=== PATIENT | female | born 2000 | race Caucasian/White ===

== ENCOUNTER 2021-11-21 11:39 | Outpatient (CLI) | payer OTHER, SELFPAY ==
--- OUTSIDE RECORDS SUMMARY | 2021-11-21 11:42 | XMS_ITS | Encounter Summary ---
:2000 Author Organization [employer] Address [address] [place] [address] Care Team Providers Name Role Phone Erin Barba MD Primary Care Provider Reason for Visit Reason Comments Ankle Problem Encounter Details Date Type Department Care Team Description 06/25/2019 Telemedicine TRI PT and Ed Pepe Duong [facility], Physical C, PT syndrome type 1 of Therapy [address] [facility] right lower extremity [address] [place], [place] (Prim haz[place] Dx) [address] [address] [place], [place] [address] [phone] Social History Tobacco Use Types Packs/Day Years Used Date Smoking Tobacco: Never Smokeless Tobacco: Never Alcohol Use Standard Drinks/Week Comments Not Currently 0 (1 standard drink = 0.6 oz pure alcoho l) Sex Assigned at Date Recorded Not on file documented as of this encounter Progress Notes Pepe Duong, PT - 06/25/2019 12:30 PM CDT [facility] Video Visit Follow Up This video encounter was completed per patient request. The patient has been notified that this visit will be conducted via video with their physical therapist, as certain health care needs can be provided without an in-person physical exam. Their physical therapist will provide further instructions and programming notes via [employer], an online education and home exercise program platform. Mode of transmission: Flowgram This visit was converted from a clinic visit to a video visit in an effort to reduce patient face time during the COVID-19 crisis. Time service began: 1230 am Time service ended: 1245 pm Patient location: Patient residence Provider location: Provider residence Visit Number: [id number] [facility] Referring Provider: Santa Aguilar MD Diagnosis: CRPS Orders: Evaluate & treat Previously administered PRO's FAAM = 61/84 [place] = 55/100 - high levels of anxiety and depression PSEQ = 38 SUBJECTIVE: Had a difficult week with depression, I wasn't able to do anything OBJECTIVE: none TREATMENT TODAY: Neuromuscular re-education (CPT 50517) x 15 minutes: Mirror therapy - seated DF with left - WB DF lunge forward with mirror - Sliders PF and DF in partial WB - reported some throbbing in right foot with exercise of the right Edcuation on dosage for neuroplastic change - two weeks with high reps 120 reps of the above - will progress if getting recommended dosage in a weeks time Timed Code Treatment Minutes: 15 Total Treatment Minutes: 15 Education/Handouts: Edilma Reed was provided with a summary of recommendations stemming from this telehealth visit, as well as further instructions and home exercises electronically via Nvigen, an online education and home exercise program platform. ASSESSMENT/PLAN: Minimal adherence to treatment plan secondary to depressive symptoms this week. Encouragement given.She is thinking that she is going to put the mirror near her bed in her room so that she is more likely to engage with it. Need: TSK and orebro, pseq EXPECTED FUNCTIONAL OUTCOMES/GOALS: Play soccer, kick ball by June 02 2019 - met Therapist: Pepe Duong, PT 1:02 PM 06/25/2019 documented in this encounter Plan of Treatment Not on filedocumented as of this encounter Visit Diagnoses Diagnosis Complex regional pain syndrome type 1 of right lower extremity - Primary documented in this encounter Care Teams Scenic Artist Relationship Specialty Start Date End Date Erin Barba MD PCP - General Pediatric Medicine 04/07/19 [id number] [address] [place] [id number] documented as of this encounter
--- OUTSIDE RECORDS SUMMARY | 2021-11-21 11:42 | XMS_ITS | Encounter Summary ---
:2000 Author Organization [employer] Address [address] [place] [address]. [place] [address] Care Team Providers Name Role Phone Unavailable Primary Care Provider Unavailable Encounter Details Date Type Department Care Team Description 04/28/2005 Historic Results INTERFACED REPORT Interface, Sofy arias MD Social History Tobacco Use Types Packs/Day Years Used Date Never Assessed Alcohol Habits Answer Date Recorded How often do you have a drink containing alcohol? Never 12/09/2019 How many drinks containing alcohol do you have on a typical Not asked day when you are drinking? How often do you have six or more drinks on one occasion? No t asked Comment: Not asked Stress Answer Date Recorded Do you feel stress - tense, restless, nervous, or To some ex tent 12/09/2019 anxious, or unable to sleep at night because your mind is troubled all the time - these days? Financial Resource Strain Answer Date Recorded How hard is it for you to pay for the very basics like Not h kenny at all 12/09/2019 food, housing, medical care, and heating? Food Insecurity Answer Date Recorded Within the past 12 months, you worried that your food would Never true 12/09/2019 run out before you got money to buy more. Within the past 12 months, the food you bought just didn't N ever true 12/09/2019 last and you didn't have money to get more. Transportation Needs Answer Date Recorded In the past 12 months, has lack of transportation kept you f rom No 12/09/2019 medical appointments or from getting medications? In the past 12 months, has lack of transportation kept you f rom No 12/09/2019 meetings, work, or getting things needed for daily living? 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 documented in this encounter Results (ABNORMAL) Basic metabolic panel (04/28/2005 6:15 AM RACK ROOM WORKER) [facility] gist Method Time Signature Sodium 137 133 - 143 MISYS mmol/L Potassium 4.8 3.4 - 5.3 MISYS mmol/L Chloride 114 (H) 96 - 110 MISYS mmol/L Carbon Dioxide 16 (L) 20 - 32 MISYS mmol/L Glucose 86 60 - 110 MISYS mg/dL Urea Nitrogen 16 5 - 24 MISYS mg/dL Creatinine 0.36 0.20 - MISYS 0.70 mg/dL GFR Estimate GFR not mL/min/1. MISYS calculated, 7m2 patient <16 years old. GFR Estimate If GFR not mL/min/1. MISYS Black calculated, 7m2 patient <16 years old. Calcium 9.0 8.7 - MISYS 10.8 mg/dL Anion Gap 8 6 - 17 MISYS mmol/L Specimen (Source) Anatomical Collection Method Collection Time Re ceived Time Location / / Volume Laterality 04/28/2005 6:15 AM 6 RACK ROOM WORKER Transcripton Interface LAB - BLOOD ORDERABLES Performing Organization Address City/State/ZIP Code Phon e Number MISYS documented in this encounter Visit Diagnoses Not on filedocumented in this encounter
--- OUTSIDE RECORDS SUMMARY | 2021-11-21 11:42 | XMS_ITS | Encounter Summary ---
:2000 Author Organization [employer] Address [address], [place] [address] Care Team Providers Name Role Phone Erin Barba MD Primary Care Provider Reason for Visit Reason Comments IUD Consult Encounter Details Date Type Department Care Team Description 08/02/2020 Office Visit Misha Pennington coun seling and advice for contraceptive management (Primary Dx); Obstetrics/Gynecolog drew Almazan MD Factor 5 Leiden mutation, heterozygous ( [facility]) [address] [place] [address] [place] [phone] [id number] Social History Tobacco Use Types Packs/Day Years Used Date Smoking Tobacco: Never Smokeless Tobacco: Never Alcohol Use Standard Drinks/Week Comments Not Currently 0 (1 standard drink = 0.6 oz pure alcoho l) Sex Assigned at Date Recorded Not on file documented as of this encounter Last Filed Vital Signs Vital Sign Reading Time Taken Comments Blood Pressure 108/71 08/02/2020 8:32 AM CDT Pulse 82 08/02/2020 8:32 AM CDT Temperature - - Respiratory Rate - - Oxygen Saturation - - Inhaled Oxygen Concentration - - Weight 61.2 kg (135 lb) 08/02/2020 8:32 AM CDT Height 157.5 cm (5' 2) 08/02/2020 8:32 AM CDT Body Mass Index 24.69 08/02/2020 8:32 AM CDT documented in this encounter Progress Notes Misha Kiser MD - 08/02/2020 8:30 AM CDT Name: Edilma Reed MR#: [id number] Clinician: Misha Kiser MD Date: 08/02/2020 OFFICE FOOD CRITIC VISIT CHIEF COMPLAINT: IUD condition SUBJECTIVE: Patient is a 19-year-old female G0 amenorrheic on the Mirena IUD who presents today for an IUD consultation. Patient had a Mirena IUD placed in 2015 for heavy menses and it was traumatic for her, both painful with insertion despite nitrous and in the several days after. She has, however, otherwise really liked being on the Mirena without amenorrhea. Patient notes that in 2014 she had two surgeries and following that her periods became heavy and abnormal which resulted in the IUD placement. She is not sexually active. Past Medical History: Diagnosis Date ??? Anxiety ([facility]) ??? Complex regional pain syndrome i of right lower limb 2019 right ankle ??? Depression ([facility]) ??? Factor 5 Leiden mutation, heterozygous ([facility]) Past Surgical History: Procedure Laterality Date ??? ANKLE ARTHROSCOPY Right x2 ??? APPENDECTOMY 2016 Medications: Reviewed and Updated in [employer] Allergies: Reviewed and Updated in [employer] Social: Patient is not sexually active. She attended her freshman year at [employer] all of and then tooklast year off during [facility] [employer]. She will be returning as a sophomore this year. ROS: Pertinent positives as listed above, otherwise complete GI and review of systems is negative. Objective: A rn care transition was offered and patient declined. Heathy appearing female in no acute distress. Vital Signs: BP 108/71 (BP Location: Right Arm, BP Cuff Size: Regular) Pulse 82 Ht 5' 2 (1.575 m) Wt 135 lb (61.2 kg) LMP 04/04/2015 BMI 24.69 kg/m?? ASSESSMENT/PLAN: 1. IUD consult-patient was informed about the new FDA guidelines for the Mirena IUD establishing sixyears for efficacy as opposed to five, therefore patient would not need to have a change in her IUD until next year. I did outline with her a plan for this procedure to include premedication with Cytotec, Xanax and ibuprofen followed by use of it cream prior to removal and insertion. Another option would be to use the smaller Kyleena IUD as opposed to the Mirena. This may not be quite is efficacious in creating amenorrhea however still would be a very good option for her and is FDA approved for fiveyears. 2. Patient states that she actually is homozygous for factor five Leiden, but I do not have the records. She does understand that she is not a candidate for combined hormonal contraception. TT: Total time 30 minutes including chart review, face to face patient time, documentation, and coordination of care. documented in this encounter Plan of Treatment Not on filedocumented as of this encounter Visit Diagnoses Diagnosis General counseling and advice for contra ceptive management - Primary Other general counseling and advice for contraceptive management Factor 5 Leiden mutation, heterozygous ( [facility]) Primary hypercoagulable state documented in this encounter Care Teams Plisse Machine Operator Helper Relationship Specialty Start Date End Date Erin Barba MD PCP - General Pediatric Medicine 04/07/19 [id number] [place] [id number] documented as of this encounter
--- OUTSIDE RECORDS SUMMARY | 2021-11-21 11:42 | XMS_ITS | Encounter Summary ---
:2000 Author Organization [employer] Address [address] [place] [address] Care Team Providers Name Role Phone Erin Barba MD Primary Care Provider Reason for Referral Procedure/Equipment (Routine) - Closed Specialty Diagnoses / Procedures Referred By Contact Refer red To Contact Diagnoses Complex regional pain syndrome i of right lower limb Santa Aguilar APRN, CNP Procedures FL C Arm 20 Pain Management [address] [facility] [place] [address] Referral ID Status Reason Start Date Expiration Date Visits Requ ested Visits Authorized [id number] Closed 02/16/2021 05/18/2022 1 1 [employer]CIAL [employer]IREMENT [employer]AN SPECIALIST Reason for Visit Reason Comments Follow-up Right ankle pain Encounter Details Date Type Department Care Team Description 02/16/2021 Office Visit [facility] Santa Aguilar APRN, DRAWING CHECKER [address] [facility] [place] [id number] Complex regional pain [address] [facility] [address] 1, Chapis Vidal Rn syndrome i of right [place] 5543 1 lower limb (Primary [phone] Dx) Social History Tobacco Use Types Packs/Day Years Used Date Smoking Tobacco: Never Smokeless Tobacco: Never Alcohol Use Standard Drinks/Week Comments Not Currently 0 (1 standard drink = 0.6 oz pure alcoho l) Sex Assigned at Date Recorded Not on file documented as of this encounter Last Filed Vital Signs Vital Sign Reading Time Taken Comments Blood Pressure 108/76 02/16/2021 7:52 AM FINANCIAL RETIREMENT PLAN SPECIALIST Pulse 77 02/16/2021 7:52 AM FINANCIAL RETIREMENT PLAN SPECIALIST Temperature - - Respiratory Rate - - Oxygen Saturation 99% 02/16/2021 7:52 AM FINANCIAL RETIREMENT PLAN SPECIALIST Inhaled Oxygen Concentration - - Weight 54.4 kg (120 lb) 02/16/2021 7:52 AM FINANCIAL RETIREMENT PLAN SPECIALIST Height 157.5 cm (5' 2) 02/16/2021 7:52 AM FINANCIAL RETIREMENT PLAN SPECIALIST Body Mass Index 21.95 02/16/2021 7:52 AM FINANCIAL RETIREMENT PLAN SPECIALIST documented in this encounter Patient Instructions Patient InstructionsSanta Aguilar APRN, CNP - 02/16/2021 7:40 AM FINANCIAL RETIREMENT PLAN SPECIALIST 1.Investigations: None at this time ?? 2. Consults: no new consultations recommended at this time ?? 3. Interventions: You had significant benefit from a lumbar sympathetic nerve block with IV sedation. This treatment alone is not a ???cure?? ; the purpose of the block is to facilitate specialized physical therapy/home exercises ?? 4. Medications: No new medications were prescribed today . 5. Physical Therapy: The patient was made aware that our pain program emphasizes an interdisciplinary approach to comprehensive pain management; at this time, based on the patient???s presentation, physical therapy would likely improve the patient???s pain constellation - PT focused on desensitization, laterality training and range of motion maintenance is the single most likely mean to improve lobsterman outcomes of neuropathic pain. Previous work with [facility] was helpful- I encourage you to restart your home program. At any time if you would like to return to see Pepe, just let me know! 6. Psych: The patient was made aware that our pain center emphasizes an interdisciplinary approach to comprehensive pain management; She was informed that we have access to a pain psychologist, specializing in behavioral techniques to improve pain control . You are working with an established team. 7.. Follow Up: The plan is to completed another sympathetic nerve block N[employer] RETIREMENT PLAN SPECIALIST documented in this encounter Progress Notes Santa Aguilar APRN, AIDA - 02/16/2021 7:40 AM CST Subjective: Thank you for allowing us to continue to participate in the care of your patient, Edilma Reed. She was seen at the [facility] by Santa Aguilar CNP on 02/16/2021. As you know, Edilma Reed is a pleasant 20 y.o. year-old female who we initially evaluated on 11/27/18. At that time, she presented with right foot pain suspect for Complex regional pain syndrome. 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 She last seen in 2019 when she was diagnosed with complex regional pain syndrome of her right ankle and foot. The pain is associated with swelling, bruising, hyperalgesia, weakness, decreased range of motion. She had an initial surgery in 2015 at [facility] treat ???scar tissue?? status post multiple ankle sprains. She did well for approximately 1 yearafter that for surgery. 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 Unfortunately her pain returned. She suffered several injuries to the foot including a bad sprain and a ???chipped bone?? . At one point she was diagnosed with Achilles tendonitis as well as 3 or 4 stress fractures. She wasin and out of a boot. Ultimately she had a subsequent surgery which was similar in nature to her first surgery. This was performed in February of 2018 also at [facility]. Since that time her pain has not subsided. She was seen in the [facility] and ultimately sought a 2nd opinion from Dr. Quinonez. New MRI of her f oot showed no abnormalities. Dr. Quinonez voiced concerns about complex regional pain syndrome and recommended the patient seek consult here in our pain program. When she was last seen in 2019, she had been treated with specialized physical therapy with Pe[facility] Rhoda, medications and a lumbar sympathetic nerve block. She was doing quite well and had significant improvements. She returns today requesting a another sympathetic nerve block. She reports that her symptoms were under good control for a period of time however most recently (within the past year) the pain has started to return. She complains of more stiffness in her ankle thanshe experienced before. She continues to have symptoms of swelling, bruising, sweatiness, pain and other symptoms similar to what she experienced in 2019. Her pain can get up to an 8 with activity painat rest is a 3. Though her for ankle bothers her she still is able to play indoor soccer. Regarding her mental health: She has had a tough couple of years. She needed to take a year off of school due to mental health issues. She has been on many different medications. She states ???I have tried some any medications I can not even remember all of them?? . At this point she feels like thingsare little better and she is somewhat more stable. She continues to work closely with a behavioral health team. Regarding physical therapy: There has been a prolonged period of time since she was last treated by Pepe Duong. When I asked her if she is using the techniques that she learned from them she states ???not really, to be honest?? . She states that she did those exercises regularly for about 6-9 months after she last saw him but stopped doing them regularly. Offered a return visit to see Pepe sanabria but she declined it. Regarding medications: She is not currently using any medications to treat her pain. She does not recall taking gabapentin, does not recall ever filling the prescription for a custom compounded cream Management history and therapy response since we have been treating Edilma Reed includes: 1. Education on complex regional pain syndrome 2. Given a copy of the ???why do I hurt?? work book 3. Recommendation to continue Cymbalta 4. Custom compounding cream-she has not fill this yet 5. Discussion about nighttime gabapentin-she cannot recall her response to this 6. Referral to specialized physical therapy here at [facility] for treatment of Complex regional pain syndrome 7. Lumbar sympathetic nerve block-this was extremely helpful, was performed with IV sedation CURRENT PAIN MEDICATIONS: See below OTHER MEDICATIONS: Outpatient Medications Prior to Visit Medication Sig Note Dispense Refill ??? busPIRone (BUSPAR) 10 MG tablet Take one (1) tablet by mouth every morning, start one week afterstarting quetiapine (Patient not taking: Reported on 02/16/2021) ??? levonorgestrel (MIRENA) 20 MCG/24HR IUD 1 Each by Intrauterine route once. ??? LORazepam (ATIVAN) 1 MG tablet Take one (1) tablet by mouth once a day, as needed for sleep, or half (0.5) tab once daily as needed for anxiety. ??? ondansetron (ZOFRAN-ODT) 4 MG disintegrating tablet DISSOLVE 1 TABLET IN MOUTH EVERY 8 HOURS NEEDED FOR NAUSEA ??? tretinoin (RETIN-A) 0.025 % cream Apply topically every evening. 45 g 11 ??? VIIBRYD 40 MG tablet Take one (1) tablet by mouth every morning ??? clindamycin (CLEOCIN T) 1 % lotion Apply topically daily. (Patient not taking: Reported on 08/02/2020) 60 mL 11 ??? dapsone (ACZONE) 5 % gel Apply topically two times a day. 60 g 3 ??? DULoxetine (CYMBALTA) 60 MG capsule Take 60 mg by mouth. (Patient not taking: Reported on 08/02/2020) 10/29/2018: Taking 120mg daily. ??? Generic Medication (COMPOUNDED CREAM) Meloxicam 1%, baclofen 2%, bupivacaine 1%, clonidine 2%, cyclobenzaprine 2%, gabapentin 6% Apply 1-2 gm topically QID or PRN. (Patient not taking: Reported on 08/02/2020) 120 g 11 ??? spironolactone (ALDACTONE) 100 MG tablet Take 1 Tablet by mouth daily. (Patient not taking: Reported on 02/16/2021) 90 Tablet 0 ??? traZODone (DESYREL) 50 MG tablet TAKE HALF TO ONE TABLET BY MOUTH AT BEDTIME (Patient not taking: Reported on 08/02/2020) 0 Facility-Administered Medications Prior to Visit Medication Dose Route Frequency Provider Last Rate Last Admin ??? fentaNYL (SUBLIMAZE) injection 25-100 mcg 25-100 mcg Intravenous PRN Howard Winston MD 25 mcg at 01/01/19 1433 ??? midazolam (VERSED) injection 1-2 mg 1-2 mg Intravenous PRN Howard Winston MD 1 mg at 01/01/19 1424 PAST MEDICAL AND SURGICAL HISTORY: Reviewed and unchanged from prior visit dating 11/27/18 with Santa Aguilar CNP. SOCIAL AND FAMILY HISTORY: Reviewed and unchanged from prior visit dating 11/27/18 with Santa Aguilar CNP. REVIEW OF SYSTEMS: 4/14 systems reviewed and are negative except where noted in the HPI. Objective: Physical Exam: Blood pressure 108/76, pulse 77, height 1.575 m (5' 2), weight 54.4 kg (120 lb), SpO2 99 %. Estimated body mass index is 21.95 kg/m?? as calculated from the following: Height as of this encounter: 1.575 m (5' 2). Weight as of this encounter: 54.4 kg (120 lb). Physical Exam: General: No apparent distress HEENT: Pupils equal and round, nasopharynx clear, oropharynx clear Resp: Non-labored breathing Heart: Regular rate Abdomen: Non-distended Psych: Appropriate affect and insight, non-pressured speech Skin: No rashes or lesion Review of Interval Labs/Studies: none Assessment: Edilma is a 20 y.o. year-old female with: 1.Right foot pain status post two surgeries The patient meets [place] criteria for complex regionalpain syndrome displaying sensory, vasomotor, motor and sudomotor signs during her exam today, also reports consistent symptoms. The pain is disproportionate to the inciting event- her 2nd surgery occurred in February 2018. MRI does not explain any of her signs and symptoms or identify any abnormalities. At this point no other diagnosis can better explain the signs and symptoms. 2. Insomnia-has had a sleep study 3. Anxiety and depression-under the care of a psychiatrist and psychologist 4. Factor 5 Leiden deficiency heterozygous Plan: 1.Investigations: None at this time ?? 2. Consults: no new consultations recommended at this time ?? 3. Interventions: You had significant benefit from a lumbar sympathetic nerve block with IV sedationin th past. This treatment alone is not a ???cure?? ; the purpose of the block is to facilitate specialized physical therapy/home exercises. A repeat block was ordered ?? 4. Medications: No new medications were prescribed today. We could consider restarting gabapentin inthe future if needed. (She did not recall her response to this medication when we prescribed severalyears ago) 5. Physical Therapy: The patient was made aware that our pain program emphasizes an interdisciplinary approach to comprehensive pain management; at this time, based on the patient???s presentation, physical therapy would likely improve the patient???s pain constellation - PT focused on desensitization, laterality training and range of motion maintenance is the single most likely mean to improve lobsterman outcomes of neuropathic pain. Previous work with Pepe was helpful- I encourage you to restart your home program. At any time if you would like to return to see Pepe, just let me know! (She declined this today). 6. Psych: The patient was made aware that our pain center emphasizes an interdisciplinary approach to comprehensive pain management; She was informed that we have access to a pain psychologist, specializing in behavioral techniques to improve pain control . You are working with an established team. 7.. Follow Up: The plan is to completed another sympathetic nerve block Total time spine on visit 35 minutes including time spent preparing for the visit by reviewing past records, ordering medications ( if applicable), formulating a plan of care, counseling the patient and documenting the visit. ?? NCIAL RETIREMENT PLAN SPECIALIST documented in this encounter Plan of Treatment Not on filedocumented as of this encounter Results FL C Arm 20 Pain Management (03/10/2021 2:46 PM FINANCIAL RETIREMENT PLAN SPECIALIST) Anatomical Region Laterality Modality Radiographic Imaging Specimen (Source) Anatomical Location Collection Method / Collectio n Time Received Time / Laterality Volume Narrative 03/10/2021 4:11 PM FINANCIAL RETIREMENT PLAN SPECIALIST Images obtained during surgical procedure. Santa Aguilar APRN, AIDA RAD [place] documented in this encounter Visit Diagnoses Diagnosis Complex regional pain syndrome i of righ t lower limb - Primary Complex regional pain syndrome i of righ t lower limb documented in this encounter Care Teams Speech Therapy Director Relationship Specialty Start Date End Date Erin Barba MD PCP - General Pediatric Medicine 04/07/19 [id number] [address] [place] [id number] documented as of this encounter
--- OUTSIDE RECORDS SUMMARY | 2021-11-21 11:42 | XMS_ITS | Encounter Summary ---
:2000 Author Organization [facility] Address [address] [place] [address]. [place] [address] Care Team Providers Name Role Phone No Ref-Primary, Physician Primary Care Provider [phone] Reason for Visit Auth/Cert Specialty Diagnoses / Procedures Referred By Contact Refer red To Contact Diagnoses Infected Ankle Infection Septic arthritis of left ankle (H) [address] Orth[facility] Spec Un it [address] [address] Phone: Referral ID Status Reason Start Date Expiration Date Visits Requ ested Visits Authorized [id number] 1 1 Encounter Details Date Type Department Care Team Description 03/08/2018 - Hospital Encounter [facility] Anamika Carr MD [facility] [address] [place], [place] [address] Infection (Primary 03/10/2018 [place] [facility] Alban Gaines MD [facility] [address] [place], [place] [address] Dx) Specialty Unit [address] [address] Social History Tobacco Use Types Packs/Day Years [...] Sign Reading Time Taken Comments Blood Pressure 105/59 03/10/2018 7:36 AM FOOD MIXER Pulse 87 03/10/2018 7:36 AM FOOD MIXER Temperature 36.9 ??C (98.5 ??F) 03/10/2018 7:36 AM FOOD MIXER Respiratory Rate 16 03/10/2018 7:36 AM FOOD MIXER Oxygen Saturation 95% 03/10/2018 7:36 AM FOOD MIXER Inhaled Oxygen Concentration - - Weight - - Height - - Body Mass Index - - documented in this encounter Discharge Summaries Edvin Bowles PA-C - 03/10/2018 10:51 AM CST Admit Date: 03/08/2018 Discharge Date: 03/10/2018 ADMISSION DIAGNOSIS: Right ankle infection. DISCHARGE DIAGNOSIS: Right ankle infection. OPERATIVE PROCEDURE: None. HOSPITAL COURSE: Adán was directly admitted on 03/08/2018 after presenting to urgent care for a draining lateral ankle wound from previous arthroscopic debridement about [address] Gaines. She continued to have drainage from the medial and lateral ankle wounds. This was cleared to somewhat cloudy in appearance, and there was also very significant ecchymoses surrounding the lateral incision. It was determined by the on-call physician, Dr. Negro Carr, that she should be admitted to [facility]. Upon arrival, she was started on IV antibiotics and followed by the Infectious Disease Service and Dr. Naylor. Please see his consult. She started on IV Ancef. She tolerated t his well and was able to discharge home after the incision looked much better after a day or so of rest. She was discharged on hospital day #3 and was able to discharge home on oral medication. After following cultures, Dr. Naylor recommended a 10-day course of cephalexin. No surgical intervention wasneeded. No home IV therapy was needed. Adán will be partial weightbearing in her boot for the next10 days. She will follow up with Dr. Gaines accordingly. No further operative intervention is planned. ALBAN GAINES MD As dictated by VICKY LYNN MT: Name: ADÁN REED MRN: [id number] Account: [id number] : 2000 Admit Date: 03/08/2018 Discharge Date: 03/10/2018 Document: [id number] MIXER documented in this encounter Medications at Time of Discharge Medication Sig Dispensed Refills Start Date End Date DULoxetine (CYMBALTA) 60 Take 60 mg by mouth 0 MG capsule every evening cephALEXin (KEFLEX) 500 Take 1 capsule (500 30 capsule 0 09/201803/20/2018 MG capsuleIndications: mg) by mouth 3 times Infection daily for 10 days propranolol (INDERAL) 10 Take 5 mg by mouth 2 0 12/03/2019 MG tablet times daily documented as of this encounter Progress Notes Charles Naylor MD - 03/10/2018 9:41 AM CST [facility] Infectious Disease Progress Note Assessment and Plan: IMPRESSION: 1. A 17-year-old female with recent right ankle surgery, no hardware, early postop draining lateral wound, question deep or superficial infection, cultures pending, no clinical sepsis. 2. PENICILLIN allergy. RECOMMENDATIONS: 1. Agree 10 day cephalexin po and Follow-up Dr Gaines, I will Follow-up on pending wd cx and adjustif needed as outpt Interval History: no new complaints and doing well; no cp, sob, n/v/d, or abd pain. cx neg so far foot better Medications: ??? ceFAZolin 1 g Intravenous Q8H ??? DULoxetine 60 mg Oral QPM ??? ibuprofen 600 mg Oral TID ??? propranolol 5 mg Oral BID ??? senna-docusate 1 tablet Oral BID Or ??? senna-docusate 2 tablet Oral BID Physical Exam: Blood pressure 105/59, pulse 87, temperature 98.5 ??F (36.9 ??C), temperature source Oral, resp. rate 16, SpO2 95 %. Wt Readings from Last 2 Encounters: No data found for Wt Vital Signs with Ranges Temp: [98.5 ??F (36.9 ??C)-99 ??F (37.2 ??C)] 98.5 ??F (36.9 ??C) Pulse: [86-109] 87 Resp: [16-17] 16 BP: (97-106)/(48-65) 105/59 SpO2: [95 %-97 %] 95 % Constitutional: Awake, alert, cooperative, no apparent distress Lungs: Clear to auscultation bilaterally, no crackles or wheezing Cardiovascular: Regular rate and rhythm, normal S1 and S2, and no murmur noted Abdomen: Normal bowel sounds, soft, non-distended, non-tender Skin: No rashes, no cyanosis, no edema Other: Data: All microbiology laboratory data reviewed. Recent Labs Lab Test 03/08/18 2147 WBC 7.1 HGB 13.0 HCT 37.0 MCV 83 PLT 270 Recent Labs Lab Test 03/09/18 1206 CR 0.95 Recent Labs Lab Test 03/08/18 2147 SED 4 Recent Labs Lab Test 03/08/18 2130 CULT Culture negative monitoring continues Culture negative monitoring continues MIXER Edvin Bowles PA-C - 03/10/2018 6:38 AM CST Adán Sanchez Derek 03/10/2018 Hospital day 2 R ankle infection Doing well. No excessive bleeding Pain well-controlled. Appearance of ankle much improved. No drainage on dressing. Temperatures: Current - Temp: 98.7 ??F (37.1 ??C); Max - Temp Av.6 ??F (37 ??C) Min: 97.8 ??F (36.6 ??C) Max: 99 ??F (37.2 ??C) Pulse range: Pulse Av.3 Min: 65 Max: 109 Blood pressure range: Systolic (24hrs), Av , Min:97 , Max:118 ; Diastolic (24hrs), Av, Min:48, Max:65 CMS: intact to R LE Labs:cultures negative PLAN:DC today home with PO antibiotics. Will wear boot for next 2-3 days to minimize PF/DF at R ankle. Recheck in 1 week in clinic with Dr. Gaines MIXER Edvin Bowles PA-C - 03/09/2018 7:12 AM CST Adán Laura Reed 03/09/2018 Hospital day 1 R ankle infection Doing well. No excessive bleeding Pain well-controlled. No constitutional symptoms. Temperatures: Current - Temp: 98.7 ??F (37.1 ??C); Max - Temp Av.7 ??F (37.1 ??C) Min: 98.7 ??F(37.1 ??C) Max: 98.7 ??F (37.1 ??C) Pulse range: Pulse Av Min: 93 Max: 93 Blood pressure range: Systolic (24hrs), Av , Min:103 , Max:103 ; Diastolic (24hrs), Av, Min:69, Max:69 CMS: intact to R LE Labs:per ID PLAN:ID to see today. Dr. Gaines to see tomorrow AM to determine need for return to OR. Additional problems to be followed by medicine physician MIXER Associated attestation - Alban Gaines MD - 03/10/2018 6:36 AM FOOD MIXER Physician Attestation I agree with the information in this note. Alban Gaines documented in this encounter H&P Notes Negro Carr MD - 03/09/2018 7:23 PM CST Admitted: 03/08/2018 ORTHOPEDIC ADMISSION NOTE CHIEF COMPLAINT: Right ankle drainage and erythema. HISTORY OF PRESENT ILLNESS: Adán is a 17-year-old girl who has had several right ankle scopes withDr. Gaines, most recently approximately 2 weeks ago. She had the sutures removed from her portals 4or 5 days ago and noted over the last couple days that she had drainage coming from the anterolateral portal which was purulent. Her father called me yesterday, sent pictures of her ankle, and I admitted her for intravenous antibiotics. She has been in the hospital now for approximately 18 hours on IVAncef, reports that her ankle is sore, not much better than it was yesterday, but symptoms are not severe and she is comfortable taking acetaminophen and ibuprofen for pain control. She denies other symptoms. She denies fever, chills or sweats. PHYSICAL EXAMINATION: She is resting comfortably in bed, her right ankle wrapped in Eugene bandage. I removed the bandage. She no longer has any drainage coming from the portal in the picture sent yesterday. She does have a margin of erythema around the portal of 3-4 cm. There is minimal swelling of the joint, and she actually has good motion. She does not have popliteal or inguinal lymphadenopathy. ADMISSION LABORATORY VALUES: Include a WBC of 7.1, normal differential. ESR of 4, and CRP of less than 2.9. Cultures: Wound cultures were sent last night prior to the initiation of antibiotics and are negative to date. IMPRESSION: Adán is a 17-year-old girl with right ankle infection. From the appearance of the picture that her father sent yesterday and normal lab values, this may be more of a superficial infectionof the tendon sheath than the actual tibiotalar joint. In any case, I have discussed her care with Dr. Gaines who plans to arthroscopically I and D this tomorrow. We will keep her n.p.o. after midnight. NEGRO CARR MD MT: NTS Name: ADÁN REED MRN: [id number] Account: [id number] : 2000 Admitted: 03/08/2018 Document: [id number] MIXER documented in this encounter Consult Notes Charles Naylor MD - 03/09/2018 10:27 AM CST Consult Date: 03/09/2018 INFECTIOUS DISEASE CONSULTATION REFERRING PHYSICIAN: Dr. Gaines. IMPRESSION: 1. A 17-year-old female with recent right ankle surgery, no hardware, early postop draining lateral wound, question deep or superficial infection, cultures pending, no clinical sepsis. 2. PENICILLIN allergy. RECOMMENDATIONS: 1. Continue Ancef. 2. Await surgical plan. HISTORY OF PRESENT ILLNESS: This 17-year-old female is seen in consultation due to a right ankle infection. The patient is healthy and otherwise well, had a surgical procedure on the ankle on 02/21. Postop over the last few days increasing redness, some minimal pain and drainage from the lateral wound. No major fevers, chills or sweats. PAST MEDICAL HISTORY: No major infection problems historically. ALLERGIES: PENICILLIN, many years ago, rash, has tolerated cephalosporins. SOCIAL AND FAMILY HISTORY: No known resistant pathogens. No recent travel or exposures. MEDICATIONS: Meds as listed. REVIEW OF SYSTEMS: Feels well other than the ankle. PHYSICAL EXAMINATION: GENERAL: The patient looks well. VITAL SIGNS: Normal. HEART AND LUNGS: Unremarkable. ABDOMEN: Soft and nontender. EXTREMITIES: The ankle area is wrapped. No proximal infection. They actually have pictures of it andthere is an open wound area with oozing drainage coming out of the area right over the bone. LABORATORY DATA: Pending. Culture pending. Thank you very much for consultation. I will follow the patient with you. CHARLES NAYLOR MD MT: SHAYNE Name: ADÁN REED MRN: [id number] Account: [id number] : 2000 Consult Date: 03/09/2018 Document: [id number] cc: Alban Gaines MD MIXER Charles Naylor MD - 03/09/2018 10:21 AM CST ID consult dictated IMP 1 17 yo early postop R ankle wd infection. No sepsis' REC ancef , await cx and surgery plan MIXER documented in this encounter Miscellaneous Notes Plan of Care - Disha Prabhakar RN - 03/10/2018 10:51 AM CST Patient denies pain/nausea, refused breakfast, up with aircast boot to BR to void, dischargd home with mother. MIXER Plan of Care - Kamille Hernandez RN - 03/10/2018 5:17 AM CST Pt A/O x4. Some numbness reported in R ankle; EUGENE wrap CDI. VSS on RA, besides a slightly soft BP. Up to the BR with help of mom overnight; Voiding adequately. LR running @ 10 mL/hr. Taking scheduled ibuprofen for pain. NPO since 0000. Pt slept well; continue to monitor. MIXER Plan of Care - Farrah Rangel RN - 03/09/2018 9:26 PM CST A&Ox4. VSS on RA. Bedrest with BR privilege, moving SBA with her mom. Cultures pending. Pain 06/11, manageable, taking scheduled ibuprofen/tylenol. NPO at midnight. IV at TKO, IV abx. Continue to monitor. MIXER Plan of Care - Tanya Hernandez RN - 03/09/2018 1:55 PM CST .A&O x 4, VSS on RA, pain controlled with tyenol, drsg CDI, CMS intact, up with assist of 1, voiding adequately in bathroom, IV infusing, tolerating a regular diet, continue to monitor. MIXER Plan of Care - Rodrick Iglesias RN - 03/09/2018 4:07 AM CST Pt A&O. C/o some numbness in R ankle/foot. Redness marked under dressing. VSS. Up ind in room with father. Denies need for pain medication. Voiding adequately. Continue to monitor. MIXER Pharmacy-Admission Medication History - Jose Morris RPH - 03/08/2018 8:10 PM CST Admission medication history interview status for the 03/08/2018 admission is complete. See [facility] admission navigator for prior to admission medications Medication history source reliability:Good Actions taken by pharmacist (provider contacted, etc):None Additional medication history information not noted on SENIOR MASTER SCHEDULER med list :None Medication reconciliation/reorder completed by provider prior to medication history? No Time spent in this activity: 5 minutes Prior to Admission medications Medication Sig Last Dose Taking? Auth Provider DULoxetine (CYMBALTA) 60 MG capsule Take 60 mg by mouth every evening 03/07/2018 at pm Yes Unknown, Entered By History propranolol (INDERAL) 10 MG tablet Take 5 mg by mouth 2 times daily 03/08/2018 at am Yes Unknown, Entered By History MIXER documented in this encounter Plan of Treatment Not on filedocumented as of this encounter Procedures Procedure Name Priority Date/Time Associated Comments Diagnosis CRP INFLAMMATION Routine 03/09/2018 12:06 Results for this PM FOOD MIXER procedure are i n the results section. CREATININE Routine 03/09/2018 12:06 Results for this PM FOOD MIXER procedure are i n the results section. CBC WITH PLATELETS & Routine 03/08/2018 9:47 PM R esults for this DIFFERENTIAL FOOD MIXER procedure are i n the results section. ERYTHROCYTE Routine 03/08/2018 9:47 PM Results f or this SEDIMENTATION RATE FOOD MIXER procedure are in AUTO the results section. CRP INFLAMMATION Routine 03/08/2018 9:47 PM Resul ts for this FOOD MIXER procedure are i n the results section. WOUND CULTURE AEROBIC Routine 03/08/2018 9:30 PM Infection Results for this BACTERIAL FOOD MIXER procedure are i n the results section. ANAEROBIC BACTERIAL Routine 03/08/2018 9:30 PM Infection Re sults for this CULTURE ROUTINE FOOD MIXER procedure ar e in the results section. documented in this encounter Results Creatinine (03/09/2018 12:06 PM FOOD MIXER) Patholo gist Method Time Signature Creatinine 0.95 0.50 - 03/09/2018 [facility] 1.00 mg/dL 12:32 PM [facility] GFR Estimate GFR not >60 03/09/2018 [facility] calculated, mL/min/{1. 12:32 PM FOOD MIXER [facility] patient <18 73_m2} HOSPITAL years old. Comment: Non GFR Calc Starting 02/18/2018, serum creatinine ba sed estimated GFR (eGFR) will be calculated using the Chronic Kidney Dise [facility] Epidemiology Collaboration (CKD-EPI) equation. GFR Estimate GFR not >60 mL/min/{1.73_m2} 03/09/2018 [facility] If Black calculated, 12:32 PM [facility] patient <18 years HOSPITAL old. Comment: GFR Calc Starting 02/18/2018, serum creatinine ba sed estimated GFR (eGFR) will be calculated using the Chronic Kidney Dise [facility] Epidemiology Collaboration (CKD-EPI) equation. Specimen Anatomical Collection Method Collection Time Receive d Time (Source) Location / / Volume Laterality Blood specimen 03/09/2018 12:06 9 (specimen) PM FOOD MIXER 12:07 PM FOOD MIXER Charles Naylor MD LAB - BLOOD ORDERABLES Performing Organization Address City/State/ZIP Code Phon e Number M [facility] [address] [address] [facility] [address] [address], U [phone] CRP inflammation (03/09/2018 12:06 PM FOOD MIXER) P athologist Signature CRP Inflammation <2.9 0.0 - 8.0 03/09/2018 [place] mg/L 12:32 PM [facility] Specimen Anatomical Collection Method Collection Time Receive d Time (Source) Location / / Volume Laterality Blood specimen 03/09/2018 12:06 9 (specimen) PM FOOD MIXER 12:07 PM FOOD MIXER Charles Naylor MD LAB - BLOOD ORDERABLES Performing Organization Address City/State/ZIP Code Phon e Number M [facility] [address] [place] [address] [phone] [facility] [address] [place] [address], [place] [phone] CBC with platelets differential (03/08/2018 9:47 PM FOOD MIXER) [facility] gist Method Time Signature WBC 7.1 4.0 - 03/08/2018 [facility] 11.0 9:54 PM [facility] 10e9/L [facility] RBC Count 4.44 3.7 - 5.3 03/08/2018 [facility] 10e12/L 9:54 PM [facility] Hemoglobin 13.0 11.7 - 03/08/2018 [facility] 15.7 g/dL 9:54 PM [facility] Hematocrit 37.0 35.0 - 03/08/2018 [facility] 47.0 % 9:54 PM [facility] MCV 83 77 - 100 03/08/2018 [facility] fl 9:54 PM [facility] MCH 29.3 26.5 - 03/08/2018 [facility] 33.0 pg 9:54 PM [facility] MCHC 35.1 31.5 - 03/08/2018 [facility] 36.5 g/dL 9:54 PM [facility] RDW 12.8 10.0 - 03/08/2018 [facility] 15.0 % 9:54 PM [facility] Platelet Count 270 150 - 450 03/08/2018 [facility] 10e9/L 9:54 PM [facility] Diff Method Automated 03/08/2018 [facility] Method 9:59 PM [facility] % Neutrophils 54.2 % 03/08/2018 [facility] 9:59 PM [facility] % Lymphocytes 37.2 % 03/08/2018 [facility] 9:59 PM [facility] % Monocytes 6.9 % 03/08/2018 [facility] 9:59 PM [facility] % Eosinophils 1.0 % 03/08/2018 [facility] 9:59 PM [facility] % Basophils 0.6 % 03/08/2018 [facility] 9:59 PM [facility] % Immature 0.1 % 03/08/2018 [facility] Granulocytes 9:59 PM [facility] Nucleated RBCs 0 0 /100 03/08/2018 [facility] 9:59 PM [facility] Absolute 3.8 1.3 - 7.0 03/08/2018 [facility] Neutrophil 10e9/L 9:59 PM [facility] Absolute 2.6 1.0 - 5.8 03/08/2018 [facility] Lymphocytes 10e9/L 9:59 PM [facility] Absolute 0.5 0.0 - 1.3 03/08/2018 [facility] Monocytes 10e9/L 9:59 PM [facility] Absolute 0.1 0.0 - 0.7 03/08/2018 [facility] Eosinophils 10e9/L 9:59 PM [facility] Absolute 0.0 0.0 - 0.2 03/08/2018 [facility] Basophils 10e9/L 9:59 PM [facility] Abs Immature 0.0 0 - 0.4 03/08/2018 [facility] Granulocytes 10e9/L 9:59 PM [facility] Absolute 0.0 03/08/2018 [facility] Nucleated RBC 9:59 PM [facility] Specimen Anatomical Collection Method Collection Time Receive d Time (Source) Location / / Volume Laterality 03/08/2018 9:47 PM 9 9:51 FOOD MIXER PM FOOD MIXER Negro Carr MD LAB - BLOOD ORDERABLES Performing Organization Address City/State/ZIP Code Phon e Number M [facility] [address] [address] [phone] [facility] [address] [address], [facility] [phone] CRP inflammation (03/08/2018 9:47 PM FOOD MIXER) P athologist Signature CRP Inflammation <2.9 0.0 - 8.0 03/08/2018 [facility] mg/L 10:10 PM [facility] Specimen Anatomical Collection Method Collection Time Receive d Time (Source) Location / / Volume Laterality Blood specimen 03/08/2018 9:47 PM 019 9:51 (specimen) FOOD MIXER PM FOOD MIXER Negro Carr MD LAB - BLOOD ORDERABLES Performing Organization Address City/State/ZIP Code Phon e Number M [facility] [address] [place] [address] [phone] [facility] [address] [place] [address], [place] [phone] Erythrocyte sedimentation rate auto (03/08/2018 9:47 PM FOOD MIXER) P athologist Signature Sed Rate 4 0 - 20 mm/h 03/08/2018 [place] 10:15 PM [facility] Specimen Anatomical Collection Method Collection Time Receive d Time (Source) Location / / Volume Laterality Blood specimen 03/08/2018 9:47 PM 019 9:51 (specimen) FOOD MIXER PM FOOD MIXER Negro Carr MD LAB - BLOOD ORDERABLES Performing Organization Address City/State/ZIP Code Phon e Number M [facility] [address] [place] [address] [phone] [facility] [address] [place] [address], [place] [phone] (ABNORMAL) Anaerobic bacterial culture (03/08/2018 9:30 PM FOOD MIXER) Component Value Ref Test Analysis Performed At Patholo gist Range Method Time Signature Specimen Right Ankle Wound INFECTIOUS Description DISEASE DIAGNOSTIC LABORATORY Special Received in 03/08/2018 [facility] Requests anaerobic tubes. 11:19 PM OF [place] [facility] Culture Micro Light growth 03/16/2018 INFECTIOUS Propionibacterium (Cutibacterium) acnes 4:25 PM DISEASE Susceptibility testing not routinely done FOOD MIXER DIAGNOSTIC (A) LABORATORY Specimen (Source) Anatomical Collection Method Collection Time Re ceived Time Location / / Volume Laterality Structure of 03/08/2018 9:30 03/08/2018 9 :47 right ankle (body PM FOOD MIXER PM FOOD MIXER structure) Comment: Wound Negro Carr MD LAB - MICRO GENERAL ORDERABL ES Performing Organization Address City/State/ZIP Code Phon e Number INFECTIOUS DISEASES [address] [place] [address] DIAGNOSTIC LABORATORY, [facility] INFECTIOUS DISEASE [address] [place] [phone] [place] [address] DIAGNOSTIC LABORATORY [address] (ABNORMAL) Wound Culture Aerobic Bacterial (03/08/2018 9:30 PM FOOD MIXER) Component Value Ref Test Analysis Performed At [facility] gist Range Method Time Signature Specimen Right Ankle Wound INFECTIOUS Description DISEASE DIAGNOSTIC LABORATORY Special Specimen collected 03/08/2018 [facility] Requests in eSwab transport 11:19 PM OF [place] (white cap) [facility] Culture Micro Light growth 03/10/2018 INFECTIOUS Coagulase negative Staphylococcus 1:54 P M FOOD MIXER DISEASE Identification obtained by ALDI-TOF mass spectrometry research use only database. Test DIAGNOSTIC characteristics determined a nd verified by the Infectious Diseases Diagnostic Laboratory LABORATORY ([facility]) [place], [place]. Susceptibility testing not routinely done (A) Specimen (Source) Anatomical Collection Method Collection Time Re ceived Time Location / / Volume Laterality Structure of [place] 03/08/2018 9:30 03/08/2018 9 :47 right ankle (body STRUCTURE / PM FOOD MIXER PM FOOD MIXER structure) Unknown Comment: Wound Negro Carr MD LAB - MICRO GENERAL ORDERABL ES Performing Organization Address City/[facility]/ZIP [facility] Phon e Number INFECTIOUS DISEASES [address] [place] [address] DIAGNOSTIC LABORATORY, [facility] INFECTIOUS DISEASE [address] [place] [id number] DIAGNOSTIC LABORATORY [id number] [place] [address] documented in this encounter Visit Diagnoses Diagnosis Infection - Primary Unspecified infectious and parasitic dis eases Septic arthritis of left ankle (H) Pyogenic arthritis, ankle and foot documented in this encounter Administered Medications Inactive Administered Medications - up to 3 most recent administrations Medication Order MAR Action Action Date Dose Rate Site acetaminophen (TYLENOL) Suppository 650 mg 650 mg, Rectal, EVERY 4 HOURS PRN, mild pain, Starting on 03/08/18 at 0, Alternate ibuprofen (if ordered) with acetaminophen. M aximum acetaminophen dose from all sources = 75 mg/kg/day not to exceed 4 grams/ day. acetaminophen (TYLENOL) tablet 325-650 m g Given 03/09/2018 5:56 AM FOOD MIXER 650 mg 325-650 mg, Oral, EVERY 4 HOURS PRN, mild pain, fever, Starting on 03/08/18 at 2042, Maximum acetaminophen dose from all sources = 75 mg/kg/day not to exceed 4 grams/day. ceFAZolin (ANCEF) 1 g vial to attach to NS 100 New Bag 0 03/10/2018 4:43 AM FOOD MIXER 1 g ml bag for ADULT or 50 ml bag for PEDS Routine, 1 g, Intravenous, EVERY 8 HOURS, First dose on 03/08/18 at 2100, Indications: Possible post-op infection New Bag 03/09/2018 10:10 PM FOOD MIXER 1 g New Bag 03/09/2018 1:34 PM FOOD MIXER 1 g DULoxetine (CYMBALTA) EC capsule 60 mg Given 03/09/2018 10:10 PM FOOD MIXER 60 mg 60 mg, Oral, EVERY EVENING, First dose on 03/09/18 at 2100 HYDROcodone-acetaminophen (NORCO) 5-325 MG per tablet 1-2 tablet 1-2 tablet, Oral, EVERY 4 HOURS PRN, oth er, pain control or improvement in physical function. Hold dose for analgesic side e ffects., Starting on 03/08/18 at 2039, Start with the lowest dose. May adjust d ose by 1 tablet every 4 hours as needed. Hold dose for analgesic side effects. No tify provider to assess for uncontrolled pain or analgesic side effects. Hold whi le on SENIOR TAX ACCOUNTANT or with regular IV opioid dosing. Maximum acetaminophen dose from all sources= 75 mg/kg/ day not to exceed 4 grams HYDROmorphone (PF) (DILAUDID) injection 0.2 mg 0.2 mg, Intravenous, EVERY 2 HOURS PRN, severe pain, o ther, pain control or improvement in physical function. Hold d ose for analgesic side effects., Starting on 03/08/18 at 2039, Notify provider t o assess for uncontrolled pain or analgesic side effects. Hold while on SENIOR TAX ACCOUNTANT or with regular IV opi oid dosing For ordered IV doses 0.1-4 mg give IV Push undiluted. Administer each 2mg over 2-5 minutes. ibuprofen (ADVIL/MOTRIN) tablet 600 mg Given 03/09/2018 10:10 PM FOOD MIXER 600 mg 600 mg, Oral, 3 TIMES DAILY, First dose on 03/08/18 at 2200 Given 03/09/2018 4:17 PM FOOD MIXER 600 mg Given 03/09/2018 8:31 AM FOOD MIXER 600 mg lactated ringers infusion New Bag 03/10/2018 4:43 AM FOOD MIXER 10 mL/hr at 10 mL/hr, Intravenous, CONTINUOUS, Starting on 03/08/18 at 2044, Until 03/10/18 at 1251 New Bag 03/09/2018 4:17 PM FOOD MIXER 10 mL/hr New Bag 03/09/2018 8:31 AM FOOD MIXER 10 mL/hr magnesium hydroxide (MILK OF MAGNESIA) s uspension 30 mL 30 mL, Oral, DAILY PRN, constipation, Starting on 03/08/18 at 2040, Hold for loose stools. This is the second step of a three step constipation treatment. melatonin tablet 1 mg 1 mg, Oral, AT BEDTIME PRN, sleep, Starting on Sat 03/08 at 2036, Do not give unless at least 6 hours of uninterrupted sleep is expe cted. naloxone (NARCAN) injection 0.1-0.4 mg 0.1-0.4 mg, Intravenous, EVERY 2 MIN PRN , opioid reversal, Starting on 03/08/18 at 2036, For respiratory rate LESS than or EQUAL to 8. Partial reversal dose: 0.1 mg titrated q 2 minutes for Analgesia Si de Effects Monitoring Sedation Level of 3 (frequently drowsy, arousable, drifts to sleep during conversation).Full reversal dose: 0.4 mg bolus for Analgesia Side Effects Monitori ng Sedation Level of 4 (somnolent, minimal or no response to st imulation). For ordered IV doses 0.1-2mg give IVP. Give each 0.4mg over 15 second s in emergency situations. For non-emergent situations further dilute in 9mL of NS to facilitate t itration of response. ondansetron (ZOFRAN) injection 4 mg 4 mg, Intravenous, EVERY 6 HOURS PRN, nausea, vomiting , Administer over 2-5 Minutes, Starting on 03/08/18 at 2040, This is Step 1 of nausea and vomiting management. If nausea not resolved in 15 minutes, go t o Step 2 prochlorperazine (COMPAZINE). Irritant. For ordered IV do ses 0.1-4 mg, give IV Push undiluted over 2-5 minutes. ondansetron (ZOFRAN-ODT) ODT tab 4 mg Given 03/10/2018 6:46 AM FOOD MIXER 4 mg 4 mg, Oral, EVERY 6 HOURS PRN, nausea, vomiting, Starting on 03/08/18 at 2040, This is Step 1 of nausea and vomiting management. If nausea not resolved in 15 minutes, go to Step 2 prochlorperazine (COMPAZINE). Do not push through foil backing. Peel back foil and gently remove. Place on tongue immediately. Administration with liquid unnecessary With dry hands, peel back foil backing and gently remove tablet; do not push oral disintegrating tablet through foil backing; administer immediately on tongue and oral disintegrating tablet dissolves in seconds; then swallow with saliva; liquid not required. propranolol (INDERAL) half-tab 5 mg Given 03/09/2018 10:44 PM FOOD MIXER 5 mg 5 mg, Oral, 2 TIMES DAILY, First dose on 03/09/18 at 2100 senna-docusate (SENOKOT-S/PERICOLACE) Given 03/09/2018 8:[address] 1 tablet 8.6-50 MG per tablet 1 tablet 1 tablet, Oral, 2 TIMES DAILY, First dose on 03/08/18 at 2100, If no bowel movement in 24 hours, increase to 2 tablets PO. Hold for loose stools. senna-docusate (SENOKOT-S/PERICOLACE) 8. 6-50 MG per tablet 2 tablet 2 tablet, Oral, 2 TIMES DAILY, First dose on Sat 9 at 2100, Hold for loose stools. documented in this encounter Active and Recently Administered Medications Times are shown in FOOD MIXER. Scheduled Medication Order 03/08/2018 03/09/2018 03/10/2018 ceFAZolin (ANCEF) 1 g vial to attach to NS 100 ml bag for ADULT or 50 ml bag for PEDS 2223 (New Bag - Provider: Rodrick Iglesias, ISAAK) 0403 ( New Bag - Provider: Rodrick Iglesias RN)1334 (New Bag - Provider: Tanya Barr RN)2210 (New Bag - Provider: Farrah Rangel RN) 7283 (New Bag - Provider: Kamille valladares RN) 1 g, Intravenous, EVERY 8 HOURS, First d ose on 03/08/18 at 2100, Indications: Possible post-op infection DULoxetine (CYMBALTA) EC capsule 60 mg 2 210 (Given - Provider: Farrah Rangel RN) 60 mg, Oral, EVERY EVENING, First dose on 03/09/18 at 2100 ibuprofen (ADVIL/MOTRIN) tablet 600 mg 2223 (Given - P rovider: Rodrick Iglesias, ISAAK) 0831 (Given - Provider: Tanya Barr RN)1617 (Given - Provider: Tanya Barr RN)2210 (Given - Provider: Farrah Rangel RN) 0935 (Not Given - Provider: Disha Prabhakar, ISAAK - Reason: Patient/family refused) 600 mg, Oral, 3 TIMES DAILY, First dose on 03/08/18 at 2200 propranolol (INDERAL) half-tab 5 mg 2243 (Given - Provider: Farrah Rangel RN) 0936 (Not Given - Provider: Disha Prabhakar, ISAAK - Reason: Patient/family refused) 5 mg, Oral, 2 TIMES DAILY, First dose on 03/09/18 at 2100 senna-docusate (SENOKOT-S/PERICOLACE) 8. 6-50 MG per tablet 1 tablet(Linked Group 1) 2213 (Canceled Entry - Provider: Rodrick Iglesias RN) 0831 (Given - Provider: Tanya Barr RN)221 (Not Given - Provider: Farrah Rangel RN - Reason: Patient/family refused) 0934 (Not Given - Provider: Disha Prabhakar, ISAAK - Reason: Patient/family refused) 1 tablet, Oral, 2 TIMES DAILY, First dos e on 03/08/18 at 2100, If no bowel movement in 24 hours, increase to 2 tablets PO. Hold for loose stools. senna-docusate (SENOKOT-S/PERICOLACE) 8. 6-50 MG per tablet 2 tablet(Linked Group 1) 221 (See Alternative - Provider: Rodrick Iglesias RN ) 0831 (See Alternative - Provider: Tanya Barr RN)2213 (See Alternative - Provider: Farrah Rangel RN) 0934 (See Alternative - Provider: Disha Prabhakar, ISAAK) 2 tablet, Oral, 2 TIMES DAILY, First dos e on 03/08/18 at 2100, Hold for loose stools. Continuous Medication Order 03/08/2018 03/09/2018 03/10/2018 lactated ringers infusion 2217 (New Bag - Provider: Mikel Lozoya, RN)2224 (New Bag - Provider: Rodrick Iglesias, RN) 0831 (New Bag - Provider: Tanya Barr, RN)1617 (New Bag - Provider: Tanya Barr, RN) 0443 (New Bag - Provider: Kamille Hernandez RN) at 10 mL/hr, Intravenous, CONTINUOUS, St arting 03/08/18 at 2045, Until 03/10/18 at 1251 PRN Medication Order 03/08/2018 03/09/2018 03/10/2018 acetaminophen (TYLENOL) Suppository 650 mg 650 mg, Rectal, EVERY 4 HOURS PRN, mild pain, Starting 03/08/18 at 0, Alternate ibuprofen (if ordered) with acetaminophen. Maximum acetaminophen dose from all sources = 75 mg/kg/day not to exceed 4 grams/day. acetaminophen (TYLENOL) tablet 325-650 mg 0556 (Given - Provider: Maria Antonia Decker, ISAAK) 325-650 mg, Oral, EVERY 4 HOURS PRN, mil d pain, fever, Starting 03/08/18 at 3, Maximum acetaminophen dose from all sources = 75 mg/kg/day not to exceed 4 grams/day. HYDROcodone-acetaminophen (NORCO) 5-325 MG per tablet 1-2 tablet 1-2 tablet, Oral, EVERY 4 HOURS PRN, oth er, pain control or improvement in physical function. Hold dose for analgesic side effects., Starting 03/08/18 at 0, Start with the lowest dose. May adjust d ose by 1 tablet every 4 hours as needed. Hold dose for analgesic side effects. Notify provider to assess for uncontrolled pain or analgesic side effects. Hold while on SENIOR TAX ACCOUNTANT or with regular IV opioid dosi ng. Maximum acetaminophen dose from all sources= 75 mg/kg/day not to exceed 4 grams HYDROmorphone (PF) (DILAUDID) injection 0.2 mg 0.2 mg, Intravenous, EVERY 2 HOURS PRN, Starting 03/08/18 at 2040, Until 03/10/18 at 1251, severe pain, other, pain control or improvement in physical function. Hold dose for analgesic side effects. , Notify provider to assess for uncontro lled pain or analgesic side effects. Hold while on SENIOR TAX ACCOUNTANT or with regular IV opioid dosing For ordered IV doses 0.1-4 mg give IV Push undiluted. Administer each 2mg over 2-5 minutes. magnesium hydroxide (MILK OF MAGNESIA) suspension 30 mL 30 mL, Oral, DAILY PRN, constipation, St arting 03/08/18 at 2040, Hold for loose stools. This is the second step of a three step constipation treatment. melatonin tablet 1 mg 1 mg, Oral, AT BEDTIME PRN, sleep, Start ing 03/08/18 at 2036, Do not give unless at least 6 hours of uninterrupted sleep is expected. naloxone (NARCAN) injection 0.1-0.4 mg 0.1-0.4 mg, Intravenous, EVERY 2 MIN PRN , opioid reversal, Starting 03/08/18 at 2036, For respiratory rate LESS than or EQUAL to 8. Partial reversal dose: 0.1 mg titrated q 2 minutes for Analgesia Ryley e Effects Monitoring Sedation Level of 3 (frequently drowsy, arousable, drifts to sleep during conversation).Full reversal dose: 0.4 mg bolus for Analgesia Side Effects Monitoring Sedation Level of 4 (s omnolent, minimal or no response to stim ulation). For ordered IV doses 0.1-2mg give IVP. Give each 0.4mg over 15 seconds in emergency situations. For non- emergent situations further dilute in 9mL of NS to facilitate titration of response. ondansetron (ZOFRAN) injection 4 mg(Linked Group 2) 0646 (See Alternative - Provider: Kamille Hernandez RN) 4 mg, Intravenous, EVERY 6 HOURS PRN, na usea, vomiting, Administer over 2-5 Minutes, Starting 03/08/18 at 2040, This is Step 1 of nausea and vomiting management. If nausea not resolved in 15 minutes, go to Step 2 prochlorperazine (COMPAZINE ). Irritant. For ordered IV doses 0.1-4 mg, give IV Push undiluted over 2-5 minutes. ondansetron (ZOFRAN-ODT) ODT tab 4 mg(Linked Group 2) 0646 (Given - Provider: Kamille Hernandez RN) 4 mg, Oral, EVERY 6 HOURS PRN, nausea, v omiting, Starting 03/08/18 at 2040, This is Step 1 of nausea and vomiting management. If nausea not resolved in 15 minutes, go to Step 2 prochlorperazine (RAN ZINE). Do not push through foil backing. Peel back foil and gently remove. Place on tongue immediately. Administration with liquid unnecessary With dry hands, peel back foil backing and gently remove ta blet; do not push oral disintegrating ta blet through foil backing; administer immediately on tongue and oral disintegrating tablet dissolves in seconds; then swallow with saliva; liquid not required. Linked Groups Order Group 1: senna-docusate (SENOKOT-S/PERICOLACE) 8.6-50 MG per tablet 1 tabletJump to med 1 tablet, Oral, 2 TIMES DAILY, First dos e on 03/08/18 at 2100
If no bowel movement in 24 hours, increase to 2 tablets PO. Hold for loose stools.
Or senna-docusate (SENOKOT-S/PERICOLACE) 8.6-50 MG per tablet 2 tabletJump to med 2 tablet, Oral, 2 TIMES DAILY, First dos e on 03/08/18 at 2100
Hold for loose stools.
Group 2: ondansetron (ZOFRAN-ODT) ODT tab 4 mgJump to med 4 mg, Oral, EVERY 6 HOURS PRN, nausea, v omiting, Starting 03/08/18 at 2040
This is Step 1 of nausea and vomiting management. If nausea not resolved in 15 minutes, go to Tomás p 2 prochlorperazine (COMPAZINE). Do not push through foil backing. Peel back foil and gently remove. Place on tongue immediately. Administration with liquid unnecessary With dry hands, peel ba ck foil backing and gently remove tablet ; do not push oral disintegrating tablet through foil backing; administer immediately on tongue and oral disintegrating tablet dissolves in seconds; then swallow with saliva; liquid not required.
Or ondansetron (ZOFRAN) injection 4 mgJump to med 4 mg, Intravenous, EVERY 6 HOURS PRN, na usea, vomiting, Administer over 2-5 Minutes, Starting 03/08/18 at 2041
This is Step 1 of nausea and vomiting management. If nausea n ot resolved in 15 minutes, go to Step 2 prochlorperazine (COMPAZINE). Irritant. For ordered IV doses 0.1-4 mg, give IV Push undiluted over 2-5 minutes.
documented in this encounter Care Teams Gastroenterology Nurse Practitioner Relationship Specialty Start Date End Date No Ref-Primary, Physician PCP - General 03/09/18 12/02/19 documented as of this encounter
--- OUTSIDE RECORDS SUMMARY | 2021-11-21 11:42 | XMS_ITS | Encounter Summary ---
:2000 Author Organization [employer] Address [address] [place] [address] Care Team Providers Name Role Phone Erin Barba MD Primary Care Provider Reason for Visit Reason Comments Ankle Problem Encounter Details Date Type Department Care Team Description 06/18/2019 Telemedicine TRI PT and Ed Pepe Duong [facility], Physical C, PT syndrome type 1 of Therapy [address] [facility] right lower extremity [address] [place], [place] (Prim hazel Dx) [address] [address] [place], [place] [address] [phone] Social History Tobacco Use Types Packs/Day Years Used Date Smoking Tobacco: Never Smokeless Tobacco: Never Alcohol Use Standard Drinks/Week Comments Not Currently 0 (1 standard drink = 0.6 oz pure alcoho l) Sex Assigned at Date Recorded Not on file documented as of this encounter Progress Notes Pepe Duong, PT - 06/18/2019 10:00 AM CDT [facility] Video Visit Follow Up This video encounter was completed per patient request. The patient has been notified that this visit will be conducted via video with their physical therapist, as certain health care needs can be provided without an in-person physical exam. Their physical therapist will provide further instructions and programming notes via Stylenda, an online education and home exercise program platform. Mode of transmission: TrueSpan This visit was converted from a clinic visit to a video visit in an effort to reduce patient face time during the COVID-19 crisis. Time service began: 10 am Time service ended: 1040 pm Patient location: Patient residence Provider location: Provider residence Visit Number: [id number] [facility] Referring Provider: Santa Aguilar MD Diagnosis: CRPS Orders: Evaluate & treat Previously administered PRO's FAAM = 61/84 [place] = 55/100 - high levels of anxiety and depression PSEQ = 38 SUBJECTIVE: Ankle continues to do well. She has obtained a mirror and reviewed one of the prep videos that was sent to her She does soccer drills outside and get sore. OBJECTIVE: none TREATMENT TODAY: Neuromuscular re-education (CPT 96057) x 40 minutes: Mirror therapy - left foot only, long sitting DF, PF, iversion, eversion - right foot and left foot, long sitting DF, PF, inv, eversion - seated DF with left - seated DF with right and left - sore with this - WB DF lunge forward with mirror - reports she doesn't want to try the above with the right foot Edcuation on dosage for neuroplastic change - two weeks with high reps 120 reps of the above - will progress if getting recommended dosage in a weeks time Timed Code Treatment Minutes: 40 Total Treatment Minutes: 40 Education/Handouts: Edilma Reed was provided with a summary of recommendations stemming from this telehealth visit, as well as further instructions and home exercises electronically via Stylenda, an online education and home exercise program platform. ASSESSMENT/PLAN: Has made progress with graded motor imagery program along side CBT interventions for movement and physical activity. Initiated engagement with mirror therapy. Starting unilateral with progression in a week. She had notable soreness with active range behind the mirror. Follow up in one week. Need: TSK and orebro, pseq EXPECTED FUNCTIONAL OUTCOMES/GOALS: Play soccer, kick ball by June 02 2019 - met Therapist: Pepe Duong PT 10:04 AM 06/18/2019 documented in this encounter Plan of Treatment Not on filedocumented as of this encounter Visit Diagnoses Diagnosis Complex regional pain syndrome type 1 of right lower extremity - Primary documented in this encounter Care Teams Control Clerk Auditing Relationship Specialty Start Date End Date Erin Barba MD PCP - General Pediatric Medicine 04/07/[address] [place], [place] [address] documented as of this encounter
--- OUTSIDE RECORDS SUMMARY | 2021-11-21 11:42 | XMS_ITS | Encounter Summary ---
:2000 Author Organization [email or web address] Address [address] [place] [address] Care Team Providers Name Role Phone Erin Barba MD Primary Care Provider Reason for Visit Reason Comments HEADACHE,MIGRAINE VISION, BLURRED Encounter Details Date Type Department Care Team Description 06/28/2021 Nurse Triage Careline Unknown, HEADACHE,MIGRAINE; [address] Physician VISION, BLURRED [place], [place] [address] [phone] [place], [place] [id number] Social History Tobacco Use Types Packs/Day Years Used Date Smoking Tobacco: Never Smokeless Tobacco: Never Alcohol Use Standard Drinks/Week Comments Not Currently 0 (1 standard drink = 0.6 oz pure alcoho l) Sex Assigned at Date Recorded Not on file documented as of this encounter Nursing Notes Amara Herr RN - 06/28/2021 2:38 PM CDT Verified patient identity: Yes Situation/Background (brief explanation of current symptoms/situation): Patient reports she has a migraine headache that started on Saturday. Patient reports there has been no improvement. Patient reports today she has developed blurred vision. Patient reports the pain is so bad that it is affecting thecoordination of movement. Reviewed with patient pertinent medical history (as it related to the call): Yes - migraines Reviewed with patient pertinent medications (as they relate to call): Yes Reviewed with patient pertinent allergies (as they relate to call): Yes Reason for Disposition ??? [1] SEVERE headache (e.g., excruciating) AND [2] worst headache of life Answer Assessment - Initial Assessment Questions 1. LOCATION: Where does it hurt? Temples and spreading now to entire face almost like sinus pain but not sinus pain 2. ONSET: When did the headache start? (Minutes, hours or days) Saturday 3. PATTERN: Does the pain come and go, or has it been constant since it started? Constant per patient 4. SEVERITY: How bad is the pain? and What does it keep you from doing? (e.g., Scale 1-10; mild,moderate, or severe) - MILD (1-3): doesn't interfere with normal activities - MODERATE (4-7): interferes with normal activities or awakens from sleep - SEVERE (8-10): excruciating pain, unable to do any normal activities 8/10 currently per patient 5. RECURRENT SYMPTOM: Have you ever had headaches before? If Yes, ask: When was the last time? and What happened that time? Yes, dealing with migraines since age 12 7. MIGRAINE: Have you been diagnosed with migraine headaches? If Yes, ask: Is this headache similar? Yes 8. HEAD INJURY: Has there been any recent injury to the head? No 9. OTHER SYMPTOMS: Do you have any other symptoms? (fever, stiff neck, eye pain, sore throat, coldsymptoms) No 10. : Is there any chance you are ? When was your last menstrual period? No Protocols used: [id number]-YP Based on what you have told me, my recommendation is to be evaluated in the ER. Patient agrees with plan. Care advice given. Patient verbalized understanding. The Careline is available 24/09 for questions or concerns Amara Foster RN Careline 2:44 PM 06/28/2021 Jeanine Crespo - 06/28/2021 2:36 PM CDT Verified patient identity using three identifiers: Yes Caller's relationship to patient: Self Do you get your primary care at a [facility] or [facility] clinic: No/Other Other (Clinic Name)[facility]: No Symptoms Describe the reason for call/symptoms (include location and duration if applicable): Pt is experiencing a migraine and blurred vision Plan:Caller transferred directly to CareLine nurse. documented in this encounter Plan of Treatment Not on filedocumented as of this encounter Visit Diagnoses Not on filedocumented in this encounter Care Teams Control System Manager Relationship Specialty Start Date End Date Erin Barba MD PCP - General Pediatric Medicine 04/07/[address] [place] [address] [place] [id number] documented as of this encounter
--- OUTSIDE RECORDS SUMMARY | 2021-11-21 11:42 | XMS_ITS | Clinical Summary ---
:2000 Author Organization [facility] Address [address] [place] [id number] Care Team Providers Name Role Phone Erin Barba MD Primary Care Provider Allergies Active Allergy Reactions Severity Noted Date Comments Penicillins Rash Low 03/08/2018 Medications Medication Sig Dispensed Refills Start Date End Date Status DULoxetine (CYMBALTA) Take 60 mg by 0 Active 60 MG capsule mouth every evening vilazodone (VIIBRYD) Take 20 mg by 0 12/11/2019 Active 20 MG TABS tablet mouth daily Do not start before December 11, 2019. Active Problems Problem Noted Date Depression with suicidal ideation 12/03/2019 Infection 03/08/2018 Septic arthritis of left ankle 03/08/2018 Social History Tobacco Use Types Packs/Day Years Used Date Never Smoker Smokeless Tobacco: Never Used Tobacco Cessation: Counseling Given: No Alcohol Use Standard Drinks/Week Comments Never 0 (1 standard drink = 0.6 oz pure alcoho l) Alcohol Habits Answer Date Recorded How often [...] Assigned at Date Recorded Not on file Last Filed Vital Signs Vital Sign Reading Time Taken Comments Blood Pressure 111/76 12/07/2019 5:00 PM CDT Pulse 103 12/07/2019 5:00 PM CDT Temperature 37.4 ??C (99.3 ??F) 12/07/2019 5:00 PM CDT Respiratory Rate 16 12/07/2019 5:00 PM CDT Oxygen Saturation 97% 12/07/2019 5:00 PM CDT Inhaled Oxygen Concentration - - Weight 57.3 kg (126 lb 5.2 oz) 12/06/2019 7:00 AM CDT Height 157.5 cm (5' 2) 12/03/2019 11:00 PM CDT Body Mass Index 23.1 12/03/2019 11:00 PM CDT Plan of Treatment Health Maintenance Due Date Last Done Comments ADVANCE CARE PLANNING 2000 ANNUAL REVIEW OF HM ORDERS 2000 CHLAMYDIA SCREENING 2000 DEPRESSION ACTION PLAN 2000 PREVENTIVE CARE VISIT 2000 COVID-19 Vaccine (#1) 03/04/2001 DTAP/TDAP/TD IMMUNIZATION 09/02/2011 10/10/2005, 12/02/2001 , (6 - Tdap) 03/12/2001, Additional history exists HIV SCREENING 09/02/2015 HEPATITIS C SCREENING 2018 PAP 2021 INFLUENZA VACCINE (#1) 2021 01/12/2013, 01/07/2012, 03/10/2011, Additional history exists HEPATITIS B IMMUNIZATION Completed 07/07/2001, 2000, 2000 Pneumococcal Vaccine: Aged Out 12/02/2001, 07/07/2001, No longer eligible Pediatrics (0 to 5 Years) 03/12/2001, Additional based on patient's age and At-Risk Patients (6 to history exists to co mplete this topic 64 Years) IPV IMMUNIZATION Completed 10/10/2005, 07/07/2001, 2000, Additional history exists HPV IMMUNIZATION Completed 10/20/2012, 01/29/2012, 10/08/2011 MENINGITIS IMMUNIZATION Aged Out No longe r eligible based on patient 's age to complete this topic Insurance Payer Benefit Plan / Subscriber ID Effective Phone Address T ype Group Dates [facility] [id number] 2017-Pres [phone] [address] O OPEN ACCESS ent [address] [place] [address] [facility]il[facility] 2000 [address] ([address]) [place] [address] Advance Directives For more information, please contact: [phone] Latest Code Status on File Code Status Date Activated Date Inactivated Comments Full Code 12/03/2019 9:56 PM 12/08/2019 5:56 PM All basic an d advanced life-sustaining interventions are performed as faisal ropriate Code status determined by: Discussion with patient/ legal de cision maker Care Teams Exterminator Relationship Specialty Start Date End Date Erin Barba MD PCP - General Pediatrics 12/03/19 [facility] [id number] [facility] [place] [id number]
--- OUTSIDE RECORDS SUMMARY | 2021-11-21 11:42 | XMS_ITS | Encounter Summary ---
:2000 [facility] [address] [address] Care Team Providers Name Role Phone Erin Barba MD Primary Care Provider Reason for Visit Reason Comments ACNE Currently taking Sprinolacto ne begining of October but forgot to take it with her to college. Encounter Details Date Type Department Care Team Description 11/25/2020 Telemedicine Cinthia Cardoza & Essence Ron Acne vu lgaris ([facility]) Dermatology [address] [facility] [address] [place], [place] [phone] Social History Tobacco Use Types Packs/Day Years Used Date Smoking Tobacco: Never Smokeless Tobacco: Never Alcohol Use Standard Drinks/Week Comments Not Currently 0 (1 standard drink = 0.6 oz pure alcoho l) Sex Assigned at Date Recorded Not on file documented as of this encounter Progress Notes Essence Ron MD - 11/25/2020 4:00 PM CDT History of Present Illness: Edilma Reed is a 20 y.o. female who requests a telehealth visit today for Chief Complaint Patient presents with ??? ACNE Currently taking Sprinolactone begining of October but forgot to take it with her to college. She was last evaluated on 08/31/20 by myself. Previous treatments: Panoxyl wash, clindamycin lotion, spironolactone 50 mg daily, tretinoin 0.025% cream Last visit: spironolactone 100 mg was added No headaches, dizziness, lightheadedness, nausea, vomiting, diarrhea, abdominal pain, breast tenderness, irregular periods, rash. Not really improving. Back and arms never goes away. Jaw gets bad every week or so. Past Medical History: Problem List None Medications: The patient has a current medication list which includes the following prescription(s): clindamycin,duloxetine, compounded cream, levonorgestrel, lorazepam, ondansetron, spironolactone, trazodone, tretinoin, and viibryd, and the following Facility-Administered Medications: fentanyl and midazolam. Allergies: The patient is allergic to amoxicillin and penicillins. Physical Examination: General: Well-appearing female, in no distress, alert and oriented. Areas examined: face, back, ches Pertinent findings: acneiform papules, do not appear deep in the photos. Exam otherwise was normal. Assessment and Plan: 1. Acne vulgaris-failing spironolactone, clindamycin, tretinoin. The spironolactone 100mg hasn't been helpful, even with the dose increase. -continue spironolactone. Offered to increase dose, but she would prefer to stay at this dose now. -discussed doxycycline, declined for today because she already has stomach problems. -stop the clindamycin and stop BPO -apply dapsone 5% gel BID, do not use with BPO, can turn skin orange. . Follow up: Return to clinic in 3 months, sooner for new concerns. This visit was conducted via 2-way audio-video in conjunction with review of digital images in [employer]. Location of clinician: home Location of patient: home Sandee Granados RN - 11/25/2020 4:00 PM CDT Patient is scheduled. documented in this encounter Nursing Notes Lili Valente MA - 11/25/2020 4:00 PM CDT The prior authorization for dapsone gel has been approved , beginning 10-31-20 through .Pharmacy has has been notified.. Lili Valente MA documented in this encounter Plan of Treatment Not on filedocumented as of this encounter Visit Diagnoses Diagnosis Acne vulgaris - Primary Other acne documented in this encounter Care Teams Oral Health Therapist Relationship Specialty Start Date End Date Erin Barba MD PCP - General Pediatric Medicine 04/07/[id number] [place] [address] [place] [id number] documented as of this encounter
--- OUTSIDE RECORDS SUMMARY | 2021-11-21 11:42 | XMS_ITS | Clinical Summary ---
:2000 [facility] Address [address], [place] [address] Care Team Providers Name Role Phone Erin Barba MD Primary Care Provider Source Comments You are receiving this document as you are listed as the primary care provider,follow-up provider, or the patient has been referred to you for consultation.This is in compliance with the Medicare and Medicaid EHR Incentive Program,which states Providers who transition their patient to another setting of careor provider of care or refers their patient to another provider of care shouldprovide summarycare record for each transition of care or referral. MR Presta Allergies Active Allergy Reactions Severity Noted Date Comments Amoxicillin Medium 07/15/2011 PN: macular devonte h Penicillins Rash Low 03/08/2018 Medications Medication Sig Dispensed Refills Start Date End Date Status levonorgestrel 1 Each by 0 Activ e (MIRENA) 20 MCG/24HR Intrauterine route IUD once. VIIBRYD 40 MG tablet Take one (1) tablet 0 1 Active by mouth every morning ondansetron DISSOLVE 1 TABLET 0 06/04/2020 Active (ZOFRAN-ODT) 4 MG IN MOUTH EVERY 8 disintegrating tablet HOURS NEEDED FOR NAUSEA LORazepam (ATIVAN) 1 Take one (1) tablet 0 1 Active MG tablet by mouth once a day, as needed for sleep, or half (0.5) tab once daily as needed for anxiety. tretinoin (RETIN-A) Apply topically 45 g 11 08/31/2020 Active 0.025 % cream every evening. busPIRone (BUSPAR) 10 Take one (1) tablet 0 12/02/19 21 Active MG tablet by mouth every morning, start one week after starting quetiapine Hospital, Clinic, or Other Ordered Dose Route Frequency Start Date End Date Status Facility Administered Medication fentaNYL (SUBLIMAZE) 25 - 100 mcg IV PRN 01/01/2019 Active injection 25-100 mcgIndications: Complex regional pain syndrome type 1 of right lower extremity midazolam (VERSED) injection 1 - 2 mg IV PRN 01/01/2019 Active 1-2 mgIndications: Complex regional pain syndrome type 1 of right lower extremity Active Problems Problem Noted Date Complex regional pain syndrome i of right lower limb 0 08/02/2020 Overview: 2019 - Right ankle Prolonged QT interval 08/02/2020 Factor 5 Leiden mutation, heterozygous Depression Anxiety Immunizations Name Administration Dates Next Due H1n1 Miv Sanofi 3+ Yr (Injected) 02/08/2009, 01/06/2009 Influenza LAIV (Nasal, 2-49 yrs) 12/24/2008 Social History Tobacco Use Types Packs/Day Years Used Date Smoking Tobacco: Never Smokeless Tobacco: Never Alcohol Use Standard Drinks/Week Comments Not Currently 0 (1 standard drink = 0.6 oz pure alcoho l) Sex Assigned at Date Recorded Not on file Last Filed Vital Signs Vital Sign Reading Time Taken Comments Blood Pressure 100/65 03/10/2021 3:00 PM BLAST FURNACE KEEPER Pulse 84 03/10/2021 3:00 PM BLAST F[employer]NACE KEEPER Temperature 35.9 ??C (96.6 ??F) 03/10/2021 2:06 PM BLAST FURNACE KEEPER Respiratory Rate 16 03/10/2021 3:00 PM BLAST FURNACE KEEPER Oxygen Saturation 95% 03/10/2021 3:00 PM BLAST FURNACE KEEPER Inhaled Oxygen Concentration - - Weight 54.4 kg (120 lb) 03/10/2021 2:06 PM BLAST FURNACE KEEPER Height 157.5 cm (5' 2) 03/10/2021 2:06 PM BLAST FURNACE KEEPER Body Mass Index 21.95 03/10/2021 2:06 PM BLAST FURNACE KEEPER Plan of Treatment Health Maintenance Due Date Last Done Comments Cervical Cancer Screening 2000 Due Chlamydia 2000 Hep C Screening (Preventive 2000 Services) HepB (1) 2000 COVID-19 Vaccine (#1) 03/04/2001 HIV Screening (Preventive 2016 Services) Adult Preventive Visit 2018 DTaP/Tdap/Td (7 - Tdap) 10/07/2021 10/08/2011, 10/10/2005, 12/02/2001, Additional history exists Influenza (#1) 2021 01/15/2020, 01/12/2013, 01/07/2012, Additional history exists Zoster/Shingles (1 of 2) 2050 Pneumococcal Aged Out 12/02/2001, 07/07/2001, No longe r eligible 03/12/2001, Additional based on patient's age history exists to complete this topic HepA Completed 09/29/2008, 10/24/2006 HPV Vaccine Completed 10/20/2012, 01/29/2012, 10/08/2011 MCV4 Completed 12/11/2016, 10/08/2011 Hib Aged Out No longer eligib le based on patient 's age to complete this topic IPV (Polio) Aged Out No longer eligib le based on patient 's age to complete this topic Insurance Payer Benefit Plan / Subscriber ID Effective Dates Phone Addre ss Type [facility] PHARMAJET FULLY [id number] 2017-Present Commercial INSURED Edilma Reed Personal/Family Self 2000 [address] ([address]) [place] [id number] Care Teams Vendor Representatives Relationship Specialty Start Date End Date Erin Barba MD PCP - General Pediatric Medicine 04/07/19 [address] [place] [id number]
--- OUTSIDE RECORDS SUMMARY | 2021-11-21 11:42 | XMS_ITS | Encounter Summary ---
:2000 Author Organization [facility] Address [address] [place] [address] Care Team Providers Name Role Phone Erin Barba MD Primary Care Provider Reason for Visit Reason Comments Ankle Problem Encounter Details Date Type Department Care Team Description 07/03/2019 Telemedicine TRI PT and Ed Pepe Duong [facility], Physical C, PT syndrome type 1 of Therapy [address] [facility] right lower extremity [address] [place], [place] (Prim [place] Dx) [address] [address] [place], [place] [address] [phone] Social History Tobacco Use Types Packs/Day Years Used Date Smoking Tobacco: Never Smokeless Tobacco: Never Alcohol Use Standard Drinks/Week Comments Not Currently 0 (1 standard drink = 0.6 oz pure alcoho l) Sex Assigned at Date Recorded Not on file documented as of this encounter Progress Notes Pepe Duong PT - 07/03/2019 2:00 PM CDT [facility] [place] [facility] Video Visit Follow Up This video encounter was completed per patient request. The patient has been notified that this visit will be conducted via video with their physical therapist, as certain health care needs can be provided without an in-person physical exam. Their physical therapist will provide further instructions and programming notes via [employer], an online education and home exercise program platform. Mode of transmission: [employer] This visit was converted from a clinic visit to a video visit in an effort to reduce patient face time during the COVID-19 crisis. Time service began: 205 am Time service ended: 235 pm Patient location: Patient residence Provider location: Provider residence Visit Number: [id number] [facility] Referring Provider: Santa Aguilar MD Diagnosis: CRPS Orders: Evaluate & treat Previously administered PRO's FAAM = 61/84 [place] = 55/100 - high levels of anxiety and depression PSEQ = 38 SUBJECTIVE: Able to do more this week. 80-120 reps of mirror work each day. Started off feeling uncomfortable about some of the foot movements. She feels a throb on the right when watching the left move and is okay with more. More noticeable is this detached feeling she expresses about her right foot. On further questioning she agrees with the idea that she actually doesn't like the right foot. OBJECTIVE: none TREATMENT TODAY: Neuromuscular re-education (CPT 14098) x 30 minutes: Mirror therapy Left only - seated DF with left - WB DF lunge forward with mirror - Sliders PF and DF in partial WB - weight bearing inversion - DF with toe curl - PF with toe lift Right and left - Sliders PF and DF moving right and left Edcuation on dosage for neuroplastic change - two weeks with high reps 120 reps of the above - will progress if getting recommended dosage in a weeks time - gradually adding in context and more reps Timed Code Treatment Minutes: 30 Total Treatment Minutes: 30 Education/Handouts: Edilma Reed was provided with a summary of recommendations stemming from this telehealth visit, as well as further instructions and home exercises electronically via [employer], an online education and home exercise program platform. ASSESSMENT/PLAN: Increased adherence to her mirror program. Today she expressed that it clicked, she was able to see and feel the movement of her right foot when using the left to move in the mirror. She felt positive about this. Encouraged increasing reps and more complicated movements. Need: TSK and orebro, pseq EXPECTED FUNCTIONAL OUTCOMES/GOALS: Play soccer, kick ball by June 02 2019 - met Therapist: Pepe Duong, PT 2:58 PM 07/03/2019 documented in this encounter Plan of Treatment Not on filedocumented as of this encounter Visit Diagnoses Diagnosis Complex regional pain syndrome type 1 of right lower extremity - Primary documented in this encounter Care Teams Contact Acid Plant Operator Relationship Specialty Start Date End Date Erin Barba MD PCP - General Pediatric Medicine 04/07/19 [address] [place] [address] documented as of this encounter
--- OUTSIDE RECORDS SUMMARY | 2021-11-21 11:42 | XMS_ITS | Encounter Summary ---
:2000 Author Organization [email or web address] Address [address] [place] [address] Care Team Providers Name Role Phone Erin Barba MD Primary Care Provider Reason for Referral (Routine) - New Request Specialty Diagnoses / Procedures Referred By Contact Refer red To Contact Diagnoses Complex regional pain syndrome i of right lower limb Howard Winston MD Procedures Sedation Fentanyl [address] [place], [place] [address] Referral ID Status Reason Start Date Expiration Date Visits V isits Requested Authorized [id number] New Request 03/10/2021 06/09/2022 1 1 MA CUTTING MACHINE OPERATOR (Routine) - New Request Specialty Diagnoses / Procedures Referred By Contact Refer red To Contact Diagnoses Complex regional pain syndrome i of right lower limb Howard Winston MD Procedures Sedation Midazolam [address] [place], [place] [address] Referral ID Status Reason Start Date Expiration Date Visits V isits Requested Authorized [id number] New Request 03/10/2021 06/09/2022 1 1 MA CUTTING MACHINE OPERATOR Reason for Visit Reason Comments Procedure Procedure/Equipment (Routine) - Closed Specialty Diagnoses / Procedures Referred By Contact Refer red To Contact Diagnoses Complex regional pain syndrome i of right lower limb Santa Aguilar, SUPPLY ASSISTANT, BEAN VINER Procedures FL C Arm 20 Pain Management [address] [place], [place] [address] Referral ID Status Reason Start Date Expiration Date Visits Requ ested Visits Authorized [id number] Closed 02/16/2021 05/18/2022 1 1 Encounter Details Date Type Department Care Team Description 03/10/2021 Procedure Visit [facility] Santa Aguilar, SUPPLY ASSISTANT, BEAN VINER [address] [place] [id number] Procedure [address] Howard Winston MD [address] [place] [id number] [place] [address] 3, Chapis Vidal Rn [phone] Social History Tobacco Use Types Packs/Day Years Used Date Smoking Tobacco: Never Smokeless Tobacco: Never Alcohol Use Standard Drinks/Week Comments Not Currently 0 (1 standard drink = 0.6 oz pure alcoho l) Sex Assigned at Date Recorded Not on file documented as of this encounter Last Filed Vital Signs Vital Sign Reading Time Taken Comments Blood Pressure 100/65 03/10/2021 3:00 PM PLASMA CUTTING MACHINE OPERATOR Pulse 84 03/10/2021 3:00 PM PLASMA CUTTING MACHINE OPERATOR Temperature 35.9 ??C (96.6 ??F) 03/10/2021 2:06 PM PLASMA CUTTING MACHINE OPERATOR Respiratory Rate 16 03/10/2021 3:00 PM PLASMA CUTTING MACHINE OPERATOR Oxygen Saturation 95% 03/10/2021 3:00 PM PLASMA CUTTING MACHINE OPERATOR Inhaled Oxygen Concentration - - Weight 54.4 kg (120 lb) 03/10/2021 2:06 PM PLASMA CUTTING MACHINE OPERATOR Height 157.5 cm (5' 2) 03/10/2021 2:06 PM PLASMA CUTTING MACHINE OPERATOR Body Mass Index 21.95 03/10/2021 2:06 PM PLASMA CUTTING MACHINE OPERATOR documented in this encounter Patient Instructions Patient InstructionsZuly Steen RN - 03/10/2021 1:50 PM CST FOLLOW UP PLAN: Please follow up with Santa Aguilar MICROCOMPUTER SUPPORT SPECIALIST at the [facility] in 10-14 days; call [phone] to schedule an appointment if you do not already have one. HOME INSTRUCTIONS FOLLOWING SEDATION: The medication you received today may cause dizziness, poor motor coordination, and/or prolonged drowsiness. We recommend the followin. Rest and light activity, as tolerated, for the remainder of the day. 2. Do NOT drink any alcoholic beverages for [address] or operate equipment that requires attention and concentration for the remainder of the day. 4. You may resume your normal diet when you feel like eating again. 5. If you become nauseated, drink clear liquids until you are feeling better. 6. Do not make important decisions or sign legal documents for the remainder of the day. 7. A responsible adult MUST accompany you home. For questions about sedation, recovery, side effects or other non-urgent concerns, call the [facility] Nurse Line from 8am-4pm at [phone] Call 911 or go to the nearest Emergency Department if you experience: Fever Chest pain Progressive extremity weakness Difficult maintaining consciousness Loss of bowel or bladder control Shortness of breath Any other medical emergency Lumbar Sympathetic Block Post-Procedure Instructions: ?? Rest today, you may resume your normal activities tomorrow (Physical Therapy & patient care coordinator can also be resumed next day). ?? Refrain from driving until tomorrow (Local anesthetic near the spine has the potential to make you weak or slow your reaction time) ?? Apply ice to site (20 minutes on/ 20 minutes off) for the next 48 hours if you experience any soreness or pain. ?? No heat to site for next 48 hours (car seat warmers, heating pads, electric blankets, etc) ?? No tub baths, pools, hot tubs or lakes for 2 days. You may shower. ?? Resume your regular diet and medications ?? One or more band-aids have been applied to the injection site(s). Please leave on today; you may remove them in the morning. If they fall off, no need to replace. ?? If you experience shortness of breath, pain when breathing, or severe swelling, perineal numbness, loss of bowel or bladder control, or progressive extremity weakness that does not resolve in 6 hours notify the doctor. If it is after normal clinic hours (8a-4p), go to the nearest emergency room for evaluation. ?? You may experience the following symptoms which are NORMAL ?? up to 6 hours after your injection: ?? Warmth ?? Tingling ?? Heaviness ?? Numbness If the symptoms last more than 12 hours, call the doctor Dr. Howard Winston MD Interventional Pain Physician and Anesthesiologist Please contact the Pain Nurse ([phone]) for all medical/procedural questions regarding your care at the [facility] Please contact our Cooperative Education Director ([phone]) for all administrative/scheduling questions related to the [facility] Medication Requests: ?? Prescriptions requiring refills must be requested from the prescribing physician. If Dr. Winston prescribed your medication, call the number above. If any other physician prescribed your medication, please contact his or her office to discuss. MA CUTTING MACHINE OPERATOR documented in this encounter Progress Notes Florence Pete RN - 03/10/2021 1:50 PM CST Patient here for LSB procedure. Patient rates pain in right ankle, 4/10 at rest, 9/10 with activity.Verified NPO status. Pre-op teaching completed, patient verbalizes understanding. Confirmed pt has industrial tractor driver home. Consent per MD. Pre temps Left foot 25.4 Right foot 26.3 MA CUTTING MACHINE OPERATOR Marilyn Romano RN - 03/10/2021 1:50 PM CST Sedation times: [id number] MA CUTTING MACHINE OPERATOR Zuly Steen RN - 03/10/2021 1:50 PM CST Patient tolerated procedure well, vital signs stable. Post-procedure pain level 0/10 at rest, 0/10 with activity. Discharge instructions given (written & verbal review), patient verbalized understanding. Patient discharged via ambulatory with industrial tractor driver. Post Temps Right - 31.8C Left - 23.8C MA CUTTING MACHINE OPERATOR documented in this encounter Procedure Notes Howard Winston MD - 03/10/2021 1:50 PM CST Procedure note Lumbar Sympathetic Block Procedure Date: 03/10/2021 Edilma Reed Date of : 2000 PREOPERATIVE DIAGNOSIS: ICD-10-CM 1. Complex regional pain syndrome i of right lower limb G90.521 FL C Arm 20 Pain Management POCT urine sodium chloride 0.9% infusion midazolam (VERSED) injection 1-6 mg fentaNYL (SUBLIMAZE) injection 25-100 mcg POSTOPERATIVE DIAGNOSIS: Same. OPERATION PERFORMED: Lumbar Sympathetic Block, Right, at the Level of L3, Under Fluoroscopic Guidance Interventionalist: Howard Winston MD IV SEDATION #1: Midazolam: 2mg IV SEDATION #2 Fentanyl: 100 mcg ESTIMATED BLOOD LOSS: None FLUIDS: 100mL, 0.9% Sodium Chloride FLUOROSCOPY WAS USED. TOTAL SEDATION TIME: 9726-0368. COMPLICATIONS: None INDICATIONS FOR PROCEDURE: This is a 20 y.o. year old female with a clinical picture consistent with Complex Regional Pain Syndrome/Intractable Neuropathic Pain of the RLE. PROCEDURE AND FINDINGS: The patient was greeted in the pre procedure holding area. The risks, benefits and alternatives to the procedure were again reviewed with the patient and written informed consent was placed in the chart. The patient was confirmed to be NPO, and to have an accompanying adult industrial tractor driver. The patient was taken to the procedure room and positioned prone on the fluoroscopy table. Prior to the procedure a time out was completed, verifying correct patient, procedure, site, positioning, and implants and/or special equipment. Routine monitors were applied including EKG leads, blood pressure c uff, and pulse oximetry. Then an AP view photographer helper film was taken to identify the correct level. The skin was prepped with chlorhexidine and draped in the usual sterile fashion. The skin and subcutaneous tissue overlying the target at the L3 level were anesthetized using a 25-gauge 1.5-inch needle with 1%preservative- free lidocaine for a total volume of 4mL. Ipsilateral oblique fluoroscopic view was utiilized to bring the right L3 transverse process into the plane of the L3 vertebral body. Then a 22-gauge 7- inch Quincke spinal needle was advanced obliquelyunder fluoroscopic guidance in this ipsilateral oblique view to the Right anterolateral margin of the L3 vertebral body, inferior to the Right L3 transverse process. The fluoroscopy view was changed toa lateral view and the needle position was confirmed to be outside the foramen and near the anteriorsurface of the L3 vertebral body. I then attached a flushed 20-inch length of low-volume microbore tubing to the needle hub to minimize any further needle movement or introduction of air. About 2 mls of [id number]-[id number] 300 dye from a 10cc vial was instilled in an AP view under DSA imaging to verify adequate spread, the absence of intravascular dye uptake, and no evidence of intrathecal uptake. A lateral view under DSA imaging was also used confirming adequate spread, and the absence of intravascular or intrathecal spread. After further negative aspiration, 9mL 0.5% Ropivacaine with 100mcg of clonidine was injected, in 3mL increments to observe for complications of intravascular injection. There were no complications. The needle was restyletted and removed. Needle sites were cleaned and dressed appropriately. The patient was carefully escorted to the recovery room where they were monitored for a brief periodof time. The patient tolerated the procedure well and was discharged home, with a industrial tractor driver, in stable condition with post procedural instructions. Prior to the procedure, the patient reported a pain score of 4/10 at rest and 9/10 with activity. Shortly before discharge, we noted a pain score of 0/10 at rest and 0/10 with activity. TEMPERATURES PreOperative Left Foot: 25.4 C Right: 26.3 C PostOperative Left Foot: 23.8 C Right: 31.8 C Temperature evaluation, and flushing of the Right foot indicated an adequate sympathectomy. MA CUTTING MACHINE OPERATOR documented in this encounter Plan of Treatment Not on filedocumented as of this encounter Procedures Procedure Name Priority Date/Time Associated Comments Diagnosis FL C ARM 20 PAIN Routine 03/10/2021 2:46 PM Complex regional R esults for this MANAGEMENT PLASMA CUTTING MACHINE OPERATOR pain syndrome i of procedure are in right lower limb the results section. POCT URINE Routine 03/10/2021 2:17 PM Complex region al Results for this PLASMA CUTTING MACHINE OPERATOR pain syndrome i of procedure are in right lower limb the results section. documented in this encounter Results FL C Arm 20 Pain Management (03/10/2021 2:46 PM PLASMA CUTTING MACHINE OPERATOR) Anatomical Region Laterality Modality Radiographic Imaging Specimen (Source) Anatomical Location Collection Method / Collectio n Time Received Time / Laterality Volume Narrative 03/10/2021 4:11 PM PLASMA CUTTING MACHINE OPERATOR Images obtained during surgical procedure. Santa Aguilar APRN, CNP RAD FL POCT urine (03/10/2021 2:17 PM PLASMA CUTTING MACHINE OPERATOR) [facility] gist Method Time Signature Urine Negative Negative POCT Test - POC Control Line Yes POCT Present, Clear Background - Internal control Cartridge Lot# [id number] POCT Specimen (Source) Anatomical Collection Method Collection Time Re ceived Time Location / / Volume Laterality Urine 03/10/2021 2:17 PM PLASMA CUTTING MACHINE OPERATOR Santa Aguilar APRN, CNP ET POINT OF CARE TEST ENTER/ EDIT ORDERABLES Performing Organization Address City/State/ZIP Code Phon e Number POCT documented in this encounter Visit Diagnoses Diagnosis Complex regional pain syndrome i of righ t lower limb documented in this encounter Administered Medications Inactive Administered Medications - up to 3 most recent administrations Medication Order MAR Action Action Date Dose Rate Site fentaNYL (SUBLIMAZE) injection Given 03/10/2021 2:34 PM PLASMA CUTTING MACHINE OPERATOR 50 m cg 25-100 mcg 25-100 mcg, Intravenous, Q2MIN PRN, Pain, Sedation, Procedure, Starting on Sat03/10/21 at 1458, Until Sat03/10/21 at 1829 Given 03/10/2021 2:28 PM PLASMA CUTTING MACHINE OPERATOR 50 mcg midazolam (VERSED) injection 1-6 mg Given 03/10/2021 2:30 PM PLASMA CUTTING MACHINE OPERATOR 1 mg 1-6 mg, Intravenous, PRN, Sedation, Starting on Sat03/10/21 at 1458, Until Sat03/10/21 at 1829 Given 03/10/2021 2:28 PM PLASMA CUTTING MACHINE OPERATOR 1 mg sodium chloride 0.9% infusion Started 03/10/2021 2:25 PM PLASMA CUTTING MACHINE OPERATOR 75 mL/hr Intravenous, at 75 mL/hr, CONTINUOUS, Starting on Sat03/10/21 at 1515 documented in this encounter Care Teams Chief Operator Relationship Specialty Start Date End Date Erin Barba MD PCP - General Pediatric Medicine 04/07/19 [address] [place] [address] documented as of this encounter
--- OUTSIDE RECORDS SUMMARY | 2021-11-21 11:42 | XMS_ITS | Encounter Summary ---
:2000 Author Organization [facility] Address [facility] [place] [address] Care Team Providers Name Role Phone Unavailable Primary Care Provider Unavailable Reason for Visit Auth/Cert Specialty Diagnoses / Procedures Referred By Contact Refer red To Contact Diagnoses Infected Ankle Infection Septic arthritis of left ankle (H) Sh [address] Orth[address] Un it [address] [place] [phone] Phone: Referral ID Status Reason Start Date Expiration Date Visits Requ ested Visits Authorized [id number] 1 1 Encounter Details Date Type Department Care Team Description 03/08/2018 Emergency [facility] Alexei Neville, Emergency Dept [address] [facility] [place] [id number] [phone] [place] [id number] (Wo rk) Social History Tobacco Use Types Packs/Day Years [...] on file documented as of this encounter Medications at Time of Discharge [...] times daily documented as of this encounter Plan of Treatment Not on filedocumented as of this encounter Visit Diagnoses Not on filedocumented in this encounter Administered Medications Inactive Administered Medications - up to 3 most recent administrations Medication Order MAR Action Action Date Dose Rate Site acetaminophen (TYLENOL) tablet Given 03/09/2018 5:56 AM ACCESSORIES REPAIRER 650 mg 325-650 mg 325-650 mg, Oral, EVERY 4 HOURS PRN, mild pain, fever, Starting on 03/08/18 at 2042, Maximum acetaminophen dose from all sources = 75 mg/kg/day not to exceed 4 grams/day. ceFAZolin (ANCEF) 1 g vial to attach to NS 100 New Bag 0 03/10/2018 4:43 AM ACCESSORIES REPAIRER 1 g ml bag for ADULT or 50 ml bag for PEDS Routine, 1 g, Intravenous, EVERY 8 HOURS, First dose on 03/08/18 at 2100, Indications: Possible post-op infection New Bag 03/09/2018 10:10 PM ACCESSORIES REPAIRER 1 g New Bag 03/09/2018 1:34 PM ACCESSORIES REPAIRER 1 g ibuprofen (ADVIL/MOTRIN) tablet 600 mg Given 03/09/2018 10:10 PM ACCESSORIES REPAIRER 600 mg 600 mg, Oral, 3 TIMES DAILY, First dose on 03/08/18 at 2200 Given 03/09/2018 4:17 PM ACCESSORIES REPAIRER 600 mg Given 03/09/2018 8:31 AM ACCESSORIES REPAIRER 600 mg lactated ringers infusion New Bag 03/10/2018 4:43 AM ACCESSORIES REPAIRER 10 mL/hr at 10 mL/hr, Intravenous, CONTINUOUS, Starting on 03/08/18 at 2045, Until 03/10/18 at 1251 New Bag 03/09/2018 4:17 PM ACCESSORIES REPAIRER 10 mL/hr New Bag 03/09/2018 8:31 AM ACCESSORIES REPAIRER 10 mL/hr ondansetron (ZOFRAN-ODT) ODT tab 4 mg Given 03/10/2018 6:46 AM ACCESSORIES REPAIRER 4 mg 4 mg, Oral, EVERY 6 [...] then swallow with saliva; liquid not required. senna-docusate (SENOKOT-S/PERICOLACE) Given 03/09/2018 8:[address] 1 tablet 8.6-50 MG per tablet 1 tablet 1 tablet, Oral, 2 TIMES DAILY, First dose on 03/08/18 at 2100, If no bowel movement in 24 hours, increase to 2 tablets PO. Hold for loose stools. documented in this encounter Active and Recently Administered Medications Times are shown in ACCESSORIES REPAIRER. Scheduled Medication Order 03/06/2018 03/07/2018 03/08/2018 ceFAZolin (ANCEF) 1 g vial to attach to NS 100 ml bag for ADULT or 50 ml bag for PEDS (CANCELED) 2223 (New Bag - Prov ider: Rodrick Iglesias RN) 1 g, Intravenous, EVERY 8 HOURS, First d ose on 03/08/18 at 2100, Indications: Possible post-op infection ibuprofen (ADVIL/MOTRIN) tablet 600 mg (CANCELED) 2224 (Given - Provider: Rodrick Iglesias RN) 600 mg, Oral, 3 TIMES DAILY, First dose on 03/08/18 at 2200 Continuous Medication Order 03/06/2018 03/07/2018 03/08/2018 lactated ringers infusion (CANCELED) 2217 (New Bag - Provider: Josesito Lozoya RN)2224 (New Bag - Provider: Rodrick Iglesias RN) at 10 mL/hr, Intravenous, CONTINUOUS, St arting 03/08/18 at 2045, Until 03/10/18 at 1251 documented in this encounter
--- OUTSIDE RECORDS SUMMARY | 2021-11-21 11:42 | XMS_ITS | Encounter Summary ---
:2000 Author Organization [facility] Address [address] [place] [address] Care Team Providers Name Role Phone Erin Barba MD Primary Care Provider Reason for Visit Reason Comments Post Visit Follow Up Phone Call Encounter Details Date Type Department Care Team Description 03/13/2021 Telephone [facility] Khloe Alvraado, Post Visit Follow Up [address] [facility] RN Phone Call [place], [place] [address] Social History Tobacco Use Types Packs/Day Years [...] on filedocumented in this encounter Care Teams Learning Analyst Relationship Specialty Start Date End Date Erin Barba MD PCP - General Pediatric Medicine 04/07/19 [address] [place] [address] documented as of this encounter
--- OUTSIDE RECORDS SUMMARY | 2021-11-21 11:42 | XMS_ITS | Encounter Summary ---
:2000 Author Organization [facility] Address [address], [place] [address] Care Team Providers Name Role Phone Erin Barba MD Primary Care Provider Reason for Visit Reason Comments ACNE Encounter Details Date Type Department Care Team Description 08/31/2020 Office Visit Cinthia Cardoza & Essence Ron Acne vu lgar[facility] ([facility]) Dermatology [address] [facility] [address] [place], [place] [phone] Social History Tobacco Use Types Packs/Day Years Used Date Smoking Tobacco: Never Smokeless Tobacco: Never Alcohol Use Standard Drinks/Week Comments Not Currently 0 (1 standard drink = 0.6 oz pure alcoho l) Sex Assigned at Date Recorded Not on file documented as of this encounter Patient Instructions Patient InstructionsEssence Ron MD - 08/31/2020 10:00 AM CDT Your Acne Treatment Plan AM Face Wash/Body wash: (Benzoyl Peroxide): For Example: Dino Recommend using benzoyl peroxide (2.5% or 5%) wash in the shower. Apply to affected areas, leave 1-2 minutes, and then rinse. Rinse thoroughly since this can bleach fabric. This can cause irritation. SPIRONOLACTONE: Take _50 mg (0.5 tablet) daily for 2 weeks, if well tolerated, increase to 100 mg (1tablet) daily. If you have been prescribed spironolactone, avoid . Increase fluid intake to prevent feeling dizzy when standing up. You may experience breast tenderness and menstrual irregularity. Watch for signs of hyperkalemia - palpitations, involuntary muscle twitching, muscle fatigue. PM Face wash: Mild cleansers: Neutrogena foaming wash, Neutrogena acne wash, purpose liquid cleanser, Cetaphil cleanser, CeraVe cleanser, Aquanil cleanser, Dove bar soap for sensitive skin or their generics. Let face dry 20 minutes before applying next step. Topical retinoids (tretinoin, adapalene, or tazarotene) Retinoid prescribed for you today: _tretinoin 0.025% cream When to at night ??? Retinoids try to normalize cell turn over and unplug the pores, so they will help with the acne you have and also to prevent new pimples from forming ??? These usually produce some redness and peeling initially ??? Let face dry for 20 minutes after washing with gentle cleanser. ??? Apply a small pea-sized dab thinly and evenly across the face (similar amount for other areas) ??? Apply over any skin that tends to get acne and leave it on (do not rinse off) ??? Start by applying every 3rd night for 1-2 weeks, then every other night for 1-2 weeks, then nightly. Apply at night, as sun light inactivates the active ingredient ??? If you are getting too red/dry/irritated, then decrease frequency to every other or every third day ??? Use oil free moisturizer, either apply on first, or mix in with the medicated cream ??? Retinoids make your skin more sensitive, avoid a facials or WAXING in areas you apply a retinoidand be sure to let your animal groomer know ??? There are many different types and strengths of these prescription acne lotions, so if you are having trouble tolerating yours, paying for yours, etc, please let your clinic know ??? Topical retinoids are very, very good for acne but they do, however, take 6- 8 weeks to work - Give them their chance and keep at it! ??? Acne can get worse initially before it gets better ??? These medications are not to be used in or Moisturizers or makeup: Use products that say non-comedogenic on the bottle. This means they do not clog pores. Creams are more moisturizing than lotions and are ok to use on top of your acne medication to help with dryness. documented in this encounter Progress Notes Essence Ron MD - 08/31/2020 10:00 AM CDT Problem List None Chief Complaint Patient presents with ??? ACNE History of Present Illness: Edilma Reed is a 19 y.o. female who presents to clinic today for acne follow-up. She was last seen in Dermatology on July 10, [address] Camp. Previous treatments: Panoxyl wash, clindamycin lotion, different Last visit: Panoxyl wash, clindamycin lotion, spironolactone 50 mg once daily, tretinoin 0.025% cream She also has a history of keratosis pilaris. She has a history of folliculitis treated with clindamycin and Panoxyl wash. For her acne she is currently just treating with Retin-A and benzyl peroxide wash in the shower. Shenever started the spironolactone because she was already on other medications and not want to take more pills at that time. Acne is still not gone. It is mostly on her back and her shoulders. She will get on her chest as well, but this usually clears up in the summer. She will get acne around the jawline of her face. Currently has an IUD so does not have periods is and is unsure if it flares with hermenstrual cycles. She does get sensitive to the sun with her tretinoin. 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 No strong family history or personal history of breast cancer. No personal history of blood pressureissues or kidney problems. Past Medical History: Reviewed in [facility] Past Medical History: Diagnosis Date ??? Anxiety ([facility]) ??? Complex regional pain syndrome i of right lower limb 2019 right ankle ??? Depression ([facility]) ??? 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 Medications: The patient has a current medication list which includes the following prescription(s): clindamycin,duloxetine, compounded cream, levonorgestrel, lorazepam, ondansetron, spironolactone, trazodone, tretinoin, and viibryd, and the following Facility-Administered Medications: fentanyl and midazolam. Allergies: The patient is allergic to amoxicillin and penicillins. Review of Systems: General/Constitutional: feeling well, no fevers or chills Skin: See HPI for pertinent positives. Physical Examination: General: Well-appearing female, in no distress, alert and oriented. Skin: Areas examined include: DERM FULL BODY: Face, upper chest, back (wearing a sports bra today that is covering part of the back) Findings: She has numerous superficial and deep inflammatory acneiform papules. She also has postinflammatory hyperpigmentation. On the face she has acneiform papules concentrated around the chin and the jawline. Assessment and Plan: 1. Acne vulgaris-not well controlled on the Retin-A Continue Retin-A as able. If it makes her too sensitive in the summer she can try to decrease the use of it if the spironolactone works well for her. Continue Panoxyl. She did not want a refill of the clindamycin today. The following side effects were discussed for spironolactone: Hypotension, hyperkalemia, diarrhea, nausea vomiting, stomach cramps, gynecomastia, menstrual irregularity in women including amenorrhea and/or intermittent spot, headache, lethargy, rash, urticaria. This is category C. No strong family history or personal history of breast cancer. Start at 50 mg daily for 2 weeks. If well tolerated increase to 100 mg daily. She does not need potassium monitoring at this time as she is young and healthy per the article published in [facility] in 2015. Follow up: Return to clinic in 3 months for recheck, sooner for new concerns. documented in this encounter Plan of Treatment Not on filedocumented as of this encounter Visit Diagnoses Diagnosis Acne vulgaris - Primary Other acne documented in this encounter Care Teams Cant Hooker Relationship Specialty Start Date End Date Erin Barba MD PCP - General Pediatric Medicine 04/07/19 [id number] [place] [id number] documented as of this encounter
--- OUTSIDE RECORDS SUMMARY | 2021-11-21 11:42 | XMS_ITS | Encounter Summary ---
:2000 Author Organization [employer] Address [address] [address] Care Team Providers Name Role Phone Erin Barba MD Primary Care Provider Reason for Visit Reason Comments Pre-procedure Call Encounter Details Date Type Department Care Team Description 03/06/2021 Telephone [facility] Luciana Mendoza, Pre-procedure Call [address] [facility] [address] [place], [place] [address] Social History Tobacco Use Types Packs/Day Years Used Date Smoking Tobacco: Never Smokeless Tobacco: Never Alcohol Use Standard Drinks/Week Comments Not Currently 0 (1 standard drink = 0.6 oz pure alcoho l) Sex Assigned at Date Recorded Not on file documented as of this encounter Nursing Notes Luciana Mendoza, RN - 03/06/2021 1:57 PM CST Pre-procedure instructions called to Edilma Reviewed Medical & Surgical History & information below: Arrival Time: 1350 Non sedation pt: Nothing 2 hours prior to procedure, Light meal ok prior to that. Sedation Pt: NPO solids 6 hours prior with Clear liquids up to 2 hours prior to procedure. Nothing for 2 hours prior. Encouraged pt to take prescription medications with a sip of water as usual in am. 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 Reviewed NSAID use with patient: (Cervical NORBERTO) Last Dose na Blood thinners (NORBERTO, Cervical RFA, Stellate, LSB only): Last Dose na INR plan na Currently on Antibiotics? n Flu Shot/Vaccines within 7 days? n Recent Steroid injection? n If Diabetic is patient under good control? Recent BS? na Reminder if female age 50 or less will need a UPT if no hysterectomy. Wear loose fitting, comfortable clothing, no valuables (jewelry, etc). Bring photo ID & medical cards. Patient verbalized understanding of all of the above & questions/concerns answered. ICATION CONSULTANT documented in this encounter Plan of Treatment Not on filedocumented as of this encounter Visit Diagnoses Not on filedocumented in this encounter Care Teams Deicer Repairer Pneumatic Relationship Specialty Start Date End Date Erin Barba MD PCP - General Pediatric Medicine 04/07/19 [id number] [place] [id number] [place] [id number] documented as of this encounter
--- OUTSIDE RECORDS SUMMARY | 2021-11-21 11:42 | XMS_ITS | Encounter Summary ---
:2000 Author Organization [facility] Address [address] [place] [address]. [place] [address] Care Team Providers Name Role Phone Erin Barba MD Primary Care Provider Reason for Referral Med Therapy Management (Routine) Specialty Diagnoses / Procedures Referred By Contact Refer red To Contact [facility] [address] [place] [address] [phone] Referral ID Status Reason Start Date Expiration Date Visits Requ ested Visits Authorized Reason for Visit Reason Comments Mental Health Problem Auth/Cert Specialty Diagnoses / Procedures Referred By Contact Refer red To Contact EMERGENCY MEDICINE Emergency Dept [address] [place] [address] [phone] Phone: Fax: Referral ID Status Reason Start Date Expiration Date Visits Requ ested Visits Authorized [id number] 1 1 Encounter Details Date Type Department Care Team Description 12/03/2019 - [facility] Rajan Osborne MD [address] [place] [address] [place] [address] Depression with suicidal ideation; 12/08/2019 Encounter Clinic Young Adult Edin Goyal MD [address] [place] [phone] Generalized anxiety disorder; Inpatient Mental Contact wit h and (suspected) exposure to other viral communicable diseases [facility] [address] [place] [phone] Social History Tobacco Use Types Packs/Day Years [...] Assigned at Date Recorded Not on file COVID-19 Exposure Response Date Recorded In the last month, have you been in contact with No / Unsure 12/03/2019 4:54 PM CDT someone who was confirmed or suspected to have Coronavirus / COVID-19? documented as of this encounter Last Filed [...] Mass Index 23.1 12/03/2019 11:00 PM CDT documented in this encounter Discharge Summaries Jerica Ly APRN CNS - 12/08/2019 12:32 PM CDT Psychiatric Discharge Summary Adán Reed Age: [age] year old Date of : 2000 Date of Admission: 12/03/2019 Date of Discharge: 12/08/2019 Admitting Physician: Edin Goyal MD Discharge Physician: ADOLFO Matthews (Contact: ) Event Leading to Hospitalization: Adán Reed is a 19-year-old single female with a history of depression, anxiety and suicidal ideation. Medical concerns are septic arthritis of left ankle, complex regional pain syndrome type 1 of right lower extremity, and history of prolonged QT elongation. Patient is presenting with suicidal ideation. She is accompanied by her mother. The patient reports that she used to play soccer until her ankle injury. The patient states she is very frustrated with going through multiple medication changes. She states she does not think that anything medication-ortiz is going to help her. The patient states that she did an intake with [facility] in [place] last Saturday. The patient feels hopeful about this particular treatment. She does not feel hopeful about medications. The patientstates that she is being followed by Grover Valdes at [facility] in [place]. She has been on Cymbalta for him. The plan was to reduce Cymbalta from 120 mg to 60. Currently, she is taking 60 mg. Then, shewas supposed to transition to Viibryd. The patient states that she started taking 10, had increased to 30 and then decided she did not want to take it. The patient states, I was afraid I was going to have side effects and it was not going to work. The patient reports that she is no longer taking propranolol. The patient reports goal for this hospitalization is stabilization with medications. She states today that she wants to retry Viibryd and wants to go to [facility] in [place]. See Admission note by Jerica Ly APRN CNS on 12/04/2019 for additional details. DIagnoses: 1. Major depressive disorder, recurrent, severe without psychosis. 2. General anxiety disorder. 3. Chronic pain. Labs: Results for orders placed or performed during the hospital encounter of 12/03/19 Drug abuse screen 6 urine (chem dep) Status: None Result Value Ref Range Amphetamine Qual Urine Negative NEG^Negative Barbiturates Qual Urine Negative NEG^Negative Benzodiazepine Qual Urine Negative NEG^Negative Cannabinoids Qual Urine Negative NEG^Negative Cocaine Qual Urine Negative NEG^Negative Ethanol Qual Urine Negative NEG^Negative Opiates Qualitative Urine Negative NEG^Negative HCG qualitative urine (UPT) Status: None Result Value Ref Range HCG Qual Urine Negative NEG^Negative Asymptomatic COVID-19 Virus (Coronavirus) by PCR Status: None Specimen: Nasopharyngeal Result Value Ref Range COVID-19 Virus PCR to [facility] - Source Nasopharyngeal COVID-19 Virus PCR to [facility] - Result Test received-See reflex to IDDL test SARS CoV2 (COVID-19) Virus RT-PCR SARS-CoV-2 COVID-19 Virus (Coronavirus) RT-PCR Nasopharyngeal Status: None Specimen: Nasopharyngeal Result Value Ref Range SARS-CoV-2 Virus Specimen Source Nasopharyngeal SARS-CoV-2 PCR Result NEGATIVE SARS-CoV-2 PCR Comment Testing was performed using the Aptima SARS-CoV-2 Assay on the Swift[employer] Instrument System. Additional information about this Emergency Use Authorization (EUA) assay can be found via the Lab Guide. Comprehensive metabolic panel Status: None Result Value Ref Range Sodium 139 133 - 144 mmol/L Potassium 4.0 3.4 - 5.3 mmol/L Chloride 107 96 - 110 mmol/L Carbon Dioxide 28 20 - 32 mmol/L Anion Gap 4 3 - 14 mmol/L Glucose 82 70 - 99 mg/dL Urea Nitrogen 22 7 - 30 mg/dL Creatinine 0.80 0.50 - 1.00 mg/dL GFR Estimate >90 >60 mL/min/[1.73_m2] GFR Estimate If Black >90 >60 mL/min/[1.73_m2] Calcium 9.0 8.5 - 10.1 mg/dL Bilirubin Total 0.7 0.2 - 1.3 mg/dL Albumin 3.9 3.4 - 5.0 g/dL Protein Total 7.1 6.8 - 8.8 g/dL Alkaline Phosphatase 65 40 - 150 U/L ALT 19 0 - 50 U/L AST 13 0 - 35 U/L CBC with platelets differential Status: None Result Value Ref Range WBC 6.7 4.0 - 11.0 10e9/L RBC Count 4.90 3.8 - 5.2 10e12/L Hemoglobin 13.6 11.7 - 15.7 g/dL Hematocrit 42.6 35.0 - 47.0 % MCV 87 78 - 100 fl MCH 27.8 26.5 - 33.0 pg MCHC 31.9 31.5 - 36.5 g/dL RDW 12.3 10.0 - 15.0 % Platelet Count 286 150 - 450 10e9/L Diff Method Automated Method % Neutrophils 52.2 % % Lymphocytes 37.6 % % Monocytes 8.0 % % Eosinophils 1.2 % % Basophils 0.7 % % Immature Granulocytes 0.3 % Nucleated RBCs 0 0 /100 Absolute Neutrophil 3.5 1.6 - 8.3 10e9/L Absolute Lymphocytes 2.5 0.8 - 5.3 10e9/L Absolute Monocytes 0.5 0.0 - 1.3 10e9/L Absolute Eosinophils 0.1 0.0 - 0.7 10e9/L Absolute Basophils 0.1 0.0 - 0.2 10e9/L Abs Immature Granulocytes 0.0 0 - 0.4 10e9/L Absolute Nucleated RBC 0.0 TSH with free T4 reflex and/or T3 as indicated Status: None Result Value Ref Range TSH 1.16 0.40 - 4.00 mU/L Consults: No consultations were requested during this admission Hospital Course: Adán Reed was admitted to [facility] with attending Edin Goyal MD as a voluntary patient. The patient was placed under status 15 (15 minute checks) to ensure patient safety. Patient was tapered form 120 mg of Cymbalta to 60 mg prior to hospitalization. She was started on Viibryd and titrated to 30 mg in May 2019. She stopped Viibryd . She was vague about reason. Patient wanted to restart Viibryd 10 mg . She will continue to work with her outpatient provider on the crosstitration of Cymbalta and Viibryd. Patient denied any side effects. Discussed risks, benefits and side effects of medications with patient. The patient has a history of migraines, right ankle injury with 2 surgeries to remove scar tissue. She suffers from chronic pain, had nerve block in 12/2018. The patient also endorses complex regional pain syndrome type 1 of right lower extremity and has a history of prolonged QT interval. Reviewed admission labs -- unremarkable. HCG is negative. COVID screen is negative. Adán Reed did participate in groups and was visible in the milieu. The patient's symptoms ofsuicidal ideation improved. Patient reported improved mood and denied suicidal ideation. Patient hasprotective factors of seeking out treatment ([facility] with [facility] in [place]) and supportive parents. Discussed treatment with parents on the phone. Adán Reed was released to home into the care of her parents. . At the time of discharge Adán Reed was determined to not be a danger to herself or others. Discharge Medications: Current Discharge Medication List CONTINUE these medications which have NOT CHANGED Details DULoxetine (CYMBALTA) 60 MG capsule Take 60 mg by mouth every evening !! vilazodone (VIIBRYD) 10 MG TABS tablet Take 10 mg by mouth daily !! vilazodone (VIIBRYD) 20 MG TABS tablet Take 20 mg by mouth daily Do not start before December 11, 2019. !! - Potential duplicate medications found. Please discuss with provider. Psychiatric Examination: Appearance: awake, alert and adequately groomed Attitude: cooperative Eye Contact: good Mood: better Affect: appropriate and in normal range Speech: clear, coherent Psychomotor Behavior: no evidence of tardive dyskinesia, dystonia, or tics Thought Process: logical, linear and goal oriented Associations: no loose associations Thought Content: no evidence of suicidal ideation or homicidal ideation Insight: good Judgment: intact Oriented to: time, person, and place Attention Span and Concentration: intact Recent and Remote Memory: intact Language: Able to name objects, Able to repeat phrases and Able to read and write Fund of Knowledge: appropriate Muscle Strength and Tone: normal Gait and Station: Normal Discharge Plan: Behavioral Discharge Planning and Instructions ? Summary: You were admitted on 12/03/2019 due to suicidal ideation and increase in depressive symptoms.?? You were treated by Jerica Ly APRN, CNS and discharged on 12/08/2019 from [facility] to home with parents. ?? Principal Diagnosis: 1. ??Major depressive disorder, recurrent, severe without psychosis. 2. ??General anxiety disorder. 3. ??Chronic pain. ?? Health Care Follow-up Appointments: Medication Management: Date/Time: You have stated that you will schedule a follow up appointment upon discharge Psychiatrist: Grover Valdes Address: [facility]: [address] ?? Individual Therapy: Date/Time: Every Saturday @ 1:00pm Provider: Mariely Jordan [facility] Address: [facility]: [address], [address] [place] [address] ? ?? Partial Hospitalization Program: Date/Time: You have stated that you will follow up with [facility] for a start date and time. Provider: [facility] Address: [facility]. Programming is currently done Virtually ?? Attend all scheduled appointments with your outpatient providers. Call at least 24 hours in advance if you need to reschedule an appointment to ensure continued access to your outpatient providers. Major Treatments, Procedures and Findings: You were provided with: a psychiatric assessment, assessed for medical stability, medication evaluation and/or management and group therapy ?? Symptoms to Report: feeling more aggressive, increased confusion, losing more sleep, mood getting worse or thoughts of suicide ?? Early warning signs can include: increased depression or anxiety sleep disturbances increased thoughts or behaviors of suicide or self-harm increased unusual thinking, such as paranoia or hearing voices ?? Safety and Wellness: Take all medicines as directed. Make no changes unless your doctor suggests them. Follow treatment recommendations. Refrain from alcohol and non-prescribed drugs. Ask your support system to help you reduce your access to items that could harm yourself or others. Items could include: Firearms Medicines (both prescribed and [id number]) Knives and other sharp objects Ropes and like materials Car keys If there is a concern for safety, call 911. If there is a concern for safety, call 911. ?? Resources: Crisis Intervention: 766.178.9276 or 309-106-0290 (TTY: 356.687.9676). Call anytime for help. National [place] on Mental Illness (www.[place].org): 890.485.8619 or 993-471-1540. National Suicide Prevention Line (www.mentalhealthmn.org): 155-901-FBMI (3495) [facility] Crisis (COPE) Response - Adult 725 043-6645 [place] [address] for immediate support and crisis intervention Crisis text line: Text [place] to 703187. Free, confidential, 24/09. ?? [facility]- Acute Psychiatric Services:[phone] Services 24-hour walk-in crisis intervention and treatment of behavioral emergencies. Crisis intervention phone service for assessment, information, and referral for psychiatric emergencies. Treatment of psychiatric emergencies such as acute psychotic conditions, panic states, severe and incapacitating depression, suicidal crisis, danger to others, sudden loss of memory, and situations involving grave mental disability. Community consultation and education on crisis intervention ?? Lifestyle Adjustment: 1. Adjust your lifestyle to get enough sleep, relaxation, exercise and good nutrition. Continue to develop healthy coping skills to decrease stress and promote a healthy lifestyle. 2. Abstain from all substances of abuse. 3. Take medications as prescribed. Please work with your doctor to discuss any concerns you have with your medications or side affects you may be experiencing. 4. Follow up with appointments as scheduled. ?? General Medication Instructions: 1. See your medication sheet(s) for instructions. 2. Take all medicines as directed. Make no changes unless your doctor suggests them. 3. Go to all your doctor visits. 4. Be sure to have all your required lab tests. This way, your medicines can be refilled on time. 5. Do not use any drugs not prescribed by your doctor. ?? The treatment team has appreciated the opportunity to work with you. Adán, please take care and make your recovery a daily recovery. If you have any questions or concerns our unit number is [phone] ?? If you would like to obtain any specific documentation regarding your hospitalization after your discharge, contact [facility] Release of Information/Medical Records: [phone] ? Attestation: The patient has been seen and evaluated by Jerica cornejo APRN CNS on 12/08/2019 Discharge summary time > 30 minutes documented in this encounter Discharge Instructions Discharge InstructionsFlor Moreland LMFT - 12/08/2019 12:58 PM CDT Behavioral Discharge Planning and Instructions Summary: You were admitted on 12/03/2019 due to suicidal ideation and increase in depressive symptoms. You were treated by Jerica Ly APRN, CNS and discharged on 12/08/2019 from [facility] to home with parents. Principal Diagnosis: 1. ??Major depressive disorder, recurrent, severe without psychosis. 2. ??General anxiety disorder. 3. ??Chronic pain. Health Care Follow-up Appointments: Medication Management: Date/Time: You have stated that you will schedule a follow up appointment upon discharge Psychiatrist: Grover Valdes Address: [facility]: [address] Individual Therapy: Date/Time: Every Saturday @ 1:00pm Provider: Mariely Jordan [facility] Address: [facility]: [facility] [address], [address] [place] [address] ? Partial Hospitalization Program: Date/Time: You have stated that you will follow up with [facility] for a start date and time. Provider: [facility] Address: [facility]. Programming is currently done Virtually Attend all scheduled appointments with your outpatient providers. Call at least 24 hours in advance if you need to reschedule an appointment to ensure continued access to your outpatient providers. Major Treatments, Procedures and Findings: You were provided with: a psychiatric assessment, assessed for medical stability, medication evaluation and/or management and group therapy Symptoms to Report: feeling more aggressive, increased confusion, losing more sleep, mood getting worse or thoughts of suicide Early warning signs can include: increased depression or anxiety sleep disturbances increased thoughts or behaviors of suicide or self-harm increased unusual thinking, such as paranoia or hearing voices Safety and Wellness: Take all medicines as directed. Make no changes unless your doctor suggests them. Follow treatment recommendations. Refrain from alcohol and non-prescribed drugs. Ask your support system to help you reduce your access to items that could harm yourself or others. Items could include: Firearms Medicines (both prescribed and [id number]-[id number]) Knives and other sharp objects Ropes and like materials Car keys If there is a concern for safety, call 911. If there is a concern for safety, call 911. Resources: Crisis Intervention: 573.682.4568 or 686-686-6226 (TTY: 792.574.8452). Call anytime for help. National [place] on Mental Illness (www.[place]as.org): 455.834.8257 or 956-262-9106. National Suicide Prevention Line (www.mentalhealthmn.org): 093-111-ZUPE (7557) [facility] Crisis (COPE) Response - Adult 056 469-6572 Text 4 [place] [address] for immediate support and crisis intervention Crisis text line: Text [place] to 144727. Free, confidential, 24/09. [facility]- Acute Psychiatric Services:[phone] Services 24-hour walk-in crisis intervention and treatment of behavioral emergencies. Crisis intervention phone service for assessment, information, and referral for psychiatric emergencies. Treatment of psychiatric emergencies such as acute psychotic conditions, panic states, severe and incapacitating depression, suicidal crisis, danger to others, sudden loss of memory, and situations involving grave mental disability. Community consultation and education on crisis intervention Lifestyle Adjustment: 1. Adjust your lifestyle to get enough sleep, relaxation, exercise and good nutrition. Continue to develop healthy coping skills to decrease stress and promote a healthy lifestyle. 2. Abstain from all substances of abuse. 3. Take medications as prescribed. Please work with your doctor to discuss any concerns you have with your medications or side affects you may be experiencing. 4. Follow up with appointments as scheduled. General Medication Instructions: 1. See your medication sheet(s) for instructions. 2. Take all medicines as directed. Make no changes unless your doctor suggests them. 3. Go to all your doctor visits. 4. Be sure to have all your required lab tests. This way, your medicines can be refilled on time. 5. Do not use any drugs not prescribed by your doctor. The treatment team has appreciated the opportunity to work with you. Adán, please take care and make your recovery a daily recovery. If you have any questions or concerns our unit number is [phone] If you would like to obtain any specific documentation regarding your hospitalization after your discharge, contact [facility] Release of Information/Medical Records: [phone] documented in this encounter Medications at Time of Discharge Medication Sig Dispensed Refills Start Date End Date DULoxetine (CYMBALTA) 60 Take 60 mg by mouth 0 MG capsule every evening vilazodone (VIIBRYD) 20 Take 20 mg by mouth 0 11/2019 MG TABS tablet daily Do not start before December 11, 2019. vilazodone (VIIBRYD) 10 Take 10 mg by mouth 0 04/201912/10/2019 MG TABS tablet daily documented as of this encounter Progress Notes Flor Moreland LMFT - 12/08/2019 2:51 PM CDT Work Completed: Attended team. Met with pt to discuss discharge. Pt reported that she will follow upwith her psychiatrist and start date at [facility] when she gets home. Pt reported she see's a therapist every Saturday at 1:00pm. CTC completed AVS. Discharge plan or goal: Home with [facility] and outpatient therapy/medication management. Barriers to discharge: None. Pt is discharging at 4pm today. Alva Parekh RN - 12/08/2019 2:41 PM CDT Patient acknowledged understanding of discharge instructions and follow-up. Transportation home will be with her dad. Cecelia Horton - 12/08/2019 12:41 PM CDT Behavioral Health Orange Picker Machine Operator Note Behavioral Health Orange Picker Machine Operator Spirituality Group Note UNIT [address] [place] Name: Adán Reed Date of : 2000 Age: [age] year old Patient attended Orange Picker Machine Operator-led group, which included discussion of spirituality, coping with illness and building resilience. Patient attended group for 1.0 hrs. patient minimally participated, but was respectful to the group process. [place]. Evaluation Manager Pager: [phone] Eyad Hendrickson - 12/07/2019 10:40 PM CDT 12/07/19 2200 Therapeutic Recreation Type of Intervention structured groups Activity game Response Participates, initiates socially appropriate Hours 1 Pt participated in Therapeutic Recreation group with focus on leisure participation, communication skills, and critical thinking. Engaged and focused in the group recreational activity via a group game. Pt was a full participant throughout the entire duration of group. Appropriately shared sense of humor with peers during group and appeared to brighten with social interaction. After the group concluded, pt took a turn guessing from the hardest category of the game, that wasn't chosen throughout the group. Manoj Guy RN - 12/07/2019 8:45 PM CDT Patient was visible on the milieu and interacted appropriately with peers and staff. She was calm, pleasant and cooperative with a full range affect. Patient denied SI telling scientific technical writer I made a safety pledge and said that she feels much better in terms of depression;rated her depression as 3/10 saying that it's always in the background and anxiety as 2/10. Denies auditory and visual hallucinations and racing thoughts. Attended group activities, ate meals and snacks and took prescribed medications. No maladaptive behaviors or safety concerns observed or reported. Jerica Ly APRN CNS - 12/07/2019 4:06 PM CDT [facility], [facility] Progress Note Interim History: The patient's care was discussed with the treatment team during the daily team meeting and/or staff's chart notes were reviewed. Staff report patient is present in the milieu. Psychiatric symptoms and interventions: Patient had a good weekend. Patient started Viibryd on Saturday. She does not have any side effects. Patient 's parents report she stopped this medication when going from 20 mg to 30 mg. Patient has experienced side effects from other medications in the past. Asked patient to work on a safety plan. Discussed safety plan, treatment and medications with parents. Medical: The patient has a history of migraines, right ankle injury with 2 surgeries to remove scar tissue. She suffers from chronic pain, had nerve block in 12/2018. The patient also endorses complex regional pain syndrome type 1 of right lower extremity and has a history of prolonged QT interval. Reviewed admission labs -- unremarkable. HCG is negative. COVID screen is negative. Behavioral/psychological/social: Encouraged patient to attend therapeutic hospital programming as tolerated. Medications: ??? DULoxetine 60 mg Oral QPM ??? vilazodone 10 mg Oral Daily Allergies: Allergies Allergen Reactions ??? Penicillins Rash Labs: No results found for this or any previous visit (from the past 24 hour(s)). Psychiatric Examination: BP 112/79 Pulse 109 Temp 97.7 ??F (36.5 ??C) (Oral) Resp 16 Ht 1.575 m (5' 2) Wt 57.3 kg (126 lb 5.2 oz) SpO2 99% BMI 23.10 kg/m?? Weight is 126 lbs 5.18 oz Body mass index is 23.1 kg/m??. Orthostatic Vitals Most Recent Sitting Orthostatic BP 108/70 10/04 0700 Sitting Orthostatic Pulse (bpm) 98 10/04 0700 Standing Orthostatic BP 102/71 10 0842 Standing Orthostatic Pulse (bpm) 113 10/ 0842 Appearance: awake, alert, adequately groomed and dressed in hospital scrubs Attitude: guarded Eye Contact: good Mood: anxious and depressed Affect: intensity is blunted Speech: clear, coherent Psychomotor Behavior: no evidence of tardive dyskinesia, dystonia, or tics Throught Process: logical, linear and goal oriented Associations: no loose associations Thought Content: passive suicidal ideation present, transient Insight: good Judgement: intact Oriented to: time, person, and place Attention Span and Concentration: intact Recent and Remote Memory: intact Clinical Global Impressions First: Considering your total clinical experience with this particular patient population, how severe are the patient's symptoms at this time?: 4 (12/07/191604) Compared to the patient's condition at the START of treatment, this patient's condition is: 4 (12/07/191604) Most recent: Considering your total clinical experience with this particular patient population, how severe are the patient's symptoms at this time?: 4 (12/07/191604) Compared to the patient's condition at the START of treatment, this patient's condition is: 4 (12/07/191604) Precautions: Behavioral Orders Procedures ??? Code 1 - Restrict to Unit ??? Routine Programming As clinically indicated ??? Status 15 Every 15 minutes. ??? Suicide precautions Patients on Suicide Precautions should have a Combination Diet ordered that includes a Diet selection(s) AND a Behavioral Tray selection for Safe Tray - with utensils, or Safe Tray - NO utensils DIagnoses: 1. Major depressive disorder, recurrent, severe without psychosis. 2. General anxiety disorder. 3. Chronic pain. Plan: Legal status: Voluntary Medication management: Duloxetine 60 mg tapering Viibryd 10 mg Disposition plan: Reason for continue hospitalization : Patient is ar risk for self harm Stabilized with medications Return to home with IOP at [facility]. CONSENT FOR TELEMEDICINE VISIT: The patient's condition can be safely assessed and treated via synchronous audio and visual telemedicine encounter. START TIME: 1145 STOP TIME: 1155 REASON FOR TELEMEDICINE VISIT: COVID-19. ORIGINATING SITE (PATIENT LOCATION): [facility], [address]. DISTANT SITE (PROVIDER LOCATION): Provider remote setting. CONSENT: The patient/guardian has verbally consented to potential risks and benefits of telemedicine(video visit) versus in-person care, bill my insurance or make self-payment for services provided, and responsibility for payment of noncovered services. MODE OF COMMUNICATION: Video conference via Picosunom. Flor Moreland LMFT - 12/07/2019 3:47 PM CDT Work Completed: Attended team. Reviewed chart. Discharge plan or goal: IOP at [facility] once stabilized Barriers to discharge: Symptom Management Dillon Mast - 12/06/2019 10:39 PM CDT 12/06/19 1800 Art Therapy Type of Intervention structured groups Response participates with encouragement Hours 1 Treatment Detail ?? Dance/ Movement and self esteem/ challenging negative thoughts discussion group ? Outcome- Pt opted to do a waterDesalllor landscape while peers participated in just dance. She was usingBuzzMob materials as scientific technical writer opted to not have art therapy group tonight. She was quietly engaged.After dancing, there was a self esteem and challenging negative thoughts discussion with two peers. Adán opened up a bit about how her family, particularly grandparents, placed a value on sports and academics and she never felt she was good enough. 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 She is trying to figure out what she will do now that her college goals of playing soccer are no longer viable. She was open to brainstorming about other options . She misses her dog and brightens when she talks about him. Her affect is still flat and blunted. She would put her head in her hands at times, seemingly processing difficult feelings about not being good enough. ?? Elke Nur RN - 12/06/2019 9:44 PM CDT 48 Hour Nursing Assessment Patient evaluation continues. Assessed mood, anxiety, thoughts and behavior. Patient denies SI, SIB,and HI. auditory or visual hallucinations. Is progressing toward goals. Attended all groups. Is social with peers. Affect is flat and blunted. Thought process is WNL. Encourage participation in groups and developing healthy coping skills. Patient verbalized thoughts of discharge tomorrow. Will continue to assess. Dillon Mast - 12/05/2019 10:56 PM CDT 12/05/19 1800 Art Therapy Type of Intervention structured groups Response Participated with encouragement Hours 1 Treatment Detail ?? (Art Therapy) Mindfulness labyrinth / needs/ desires ? Outcome- pt was pleasant, cooperative and quietly engaged. She designed a very thoughtful labyrinth path. She had a pond in the middle and then her dog, a book , a snow flake etc, things she loves. Shedeclined to share with the group verbally although she did hold it up and enjoyed compliments. She also did some hand painted lettering with watercolors. 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 Salesforce Developer asked her to teach group and scientific technical writer tomorrow. Natalie Eden - 12/04/2019 9:07 PM CDT Patient denied SI/SIB and hallucinations. Patient [place] [facility] [place] the majority of theevening but mostly withdrawn. Patient was observed reading and journaling Patient had a blunt/flat affect. The patient reports that she feels depression and sad. Reported that she struggled last night falling and staying at sleep. 12/04/192103 Behavioral Health Hallucinations denies / not responding to hallucinations Thinking poor concentration Orientation person: oriented;place: oriented;date: oriented;time: oriented Memory baseline memory Insight insight appropriate to situation Judgement impaired Eye Contact at examiner Affect blunted, flat;sad Mood depressed;mood is calm Physical Appearance/Attire attire appropriate to age and situation Hygiene well groomed Suicidality (denies ) 1. Wish to be (Recent) No 2. Non-Specific Active Suicidal Thoughts (Recent) No Self Injury (denies ) Elopement (none observed/mentioned ) Activity withdrawn Speech clear;coherent Medication Sensitivity no stated side effects Psychomotor / Gait balanced;steady Safety Suicidality Status 15 Psycho Education Type of Intervention 1:1 intervention Response participates, initiates socially appropriate Hours 0.5 Treatment Detail (check-in) Activities of Daily Living Hygiene/Grooming independent Oral Hygiene independent Dress independent Laundry with supervision Room Organization independent Groups Details (attended and participated in groups) Mariaelena Zapata OT - 12/04/2019 8:15 PM CDT 12/04/192013 General Information Date Initially Attended OT 12/04/19 Pt participated in this evening's group game to facilitate peer socialization. Pt Response: Congruent affect. Fully engaged. Expressed great interests in soccer (playing professionally or becoming a track and field coach), enjoys learning the ukulele and spending time with her dog Moose. Marybel Balbuena OT - 12/04/2019 3:50 PM CDT Pt has not attended scheduled occupational therapy sessions. Encourage attendance and participation.Pt will be given self-assessment form, and OT staff will explain the purpose of including them in their treatment plan and offer options for meeting their needs. Elyssa Lin [facility] - 12/04/2019 9:04 AM CDT Initial Psychosocial Assessment I have reviewed the chart, met with the patient, and developed Care Plan. Information for assessmentwas obtained from: Patient and Medical Record Presenting Problem: Patient is a 19 year old female who was brought to [facility] ED by her mother on the request of patient's therapist due to suicidal ideation and increase in depressive symptoms. Patient has a history of major depression and is being treated by a psychiatrist @ [facility]. Patient was pleasant and cooperative during the interview. Patient completed an Intake with [facility] and plan is for her to attend this program after discharge from the hospital. History of Mental Health and Chemical Dependency: Patient has a history of MDD but no chemical use history. This is patient's 1st psychiatric hospitalization. Family Description (Constellation, Family Psychiatric History): Family history unknown Significant Life Events (Illness, Abuse, Trauma, ): Patient denies any abuse history but does state her soccer injury to her ankle which required two surgeries changed her ability to play soccer at the level she had done before and continues to cause her pain. Living Situation: Patient lives with her parents and 16 year old brother. Educational Background: Graduated from [employer] and completed a semester at [employer]. Patient is taking a GAP year due to mental health issues. 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 Financial Status: Private Insurance Legal Issues: No Ethnic/Cultural Issues: No issues Spiritual Orientation: Yamilet Service History: No Social Functioning (organization, interests): Likes to read, soccer, and working on calligraphy Current Treatment Providers are: Psychiatrist: Gro[facility] Valdes @ [facility] location: Therapist: Mariely Mullen @ [facility]. Social Service Assessment/Plan: Patient will have a comprehensive psychiatric assessment to discuss medication options and treatmentplan. CTC met with patient to complete the Initial psychosocial Assessment. Patient will continue tosee her current providers for psychiatry, medication management and therapy upon discharge. During ho spitalization patient will attend therapy groups and participate in unit programming. CTC will coordinate disposition and aftercare plan. Elyssa Lin LICSW - 12/04/2019 8:11 AM CDT Personal Plan of Care Reasons you are in the Hospital 1. Suicidal ideation 2. Increase in depressive symptoms 3. Mood dysregulation Goals for Discharge 1. Absence of suicidal ideation 2. Decrease in depressive symptpoms 3. Mood stabilization Elvira Hernandez - 12/03/2019 10:23 PM CDT Images from the original note were not included. 12/03/19 9358 Patient Belongings Patient Belongings locker;sent to security per site process Patient Belongings Remaining with Patient necklace;clothing;cell phone/electronics;rodriguez/credit card Belongings Search Yes Clothing Search Yes Second Staff Aretha IN LOCKER: 2 Sweaters 2 sportsbras 2 black pants 1 long sleeve shirt 1 short sleeve shirt Mora blanket 4 underwears 1 pair of socks 1 pair of white sandals 1 Book [employer] Link 1 cell phone w/ school I.D and [employer] drivers license SENT TO SECURITY #[id number]: [facility] Visa ending [phone] [address]A Admission: I am responsible for any personal items that are not sent to the safe or pharmacy. [facility] is not responsible for loss, theft or damage of any property in my possession. Signature: Date: Time: Staff Signature: Date: Time: 2nd Staff person, if patient is unable/unwilling to sign: Signature: Date: Time: Discharge: [facility] has returned all of my personal belongings: Signature: Date: Time: Staff Signature: Date: Time: documented in this encounter H&P Notes Jerica Ly APRN PIPE OR STEAM FITTER FURNACE INSTALLER - 12/04/2019 3:08 PM CDT Admitted: 12/03/2019 CONSENT FOR TELEMEDICINE VISIT: The patient's condition can be safely assessed and treated via synchronous audio and visual telemedicine encounter. START TIME: 11:20 a.m. STOP TIME: 11:40 a.m. REASON FOR TELEMEDICINE VISIT: COVID-19. ORIGINATING SITE (PATIENT LOCATION): [facility], [address]. DISTANT SITE (PROVIDER LOCATION): Provider remote setting. CONSENT: The patient/guardian has verbally consented to potential risks and benefits of telemedicine(video visit) versus in-person care, bill my insurance or make self-payment for services provided, and responsibility for payment of noncovered services. MODE OF COMMUNICATION: Video conference via Picosunom. As the provider, I attest to compliance with applicable laws and regulations related to telemedicine. IDENTIFYING INFORMATION: Adán is a 19-year-old single female with a history of depression, anxiety, suicidal ideation. She has medical history of septic arthritis of left ankle, complex regional pain syndrome type 1 of right lower extremity, and history of prolonged QT interval. The patient presenting with suicidal ideation. CHIEF COMPLAINT: Evaluation for suicidal ideation. HISTORY OF PRESENT ILLNESS: Adán Reed is a 19-year-old single female with a history of depression, anxiety and suicidal ideation. Medical concerns are septic arthritis of left ankle, complex regional pain syndrome type 1 of right lower extremity, and history of prolonged QT elongation. Patient is presenting with suicidal ideation. She is accompanied by her mother. The patient reports thatshe used to play soccer until her ankle injury. The patient states she is very frustrated with goingthrough multiple medication changes. She states she does not think that anything medication-ortiz is going to help her. The patient states that she did an intake with [facility] in [place] last Saturday. The patient feels hopeful about this particular treatment. She does not feel hopeful about medications. The patient states that she is being followed by Grover Valdes at [facility] in [place]. She has been on Cymbalta for him. The plan was to reduce Cymbalta from 120 mg to 60. Currently, sheis taking 60 mg. Then, she was supposed to transition to Viibryd. The patient states that she started taking 10, had increased to 30 and then decided she did not want to take it. The patient states, Iwmavis afraid I was going to have side effects and it was not going to work. The patient reports that she is no longer taking propranolol. The patient reports goal for this hospitalization is stabilization with medications. She states today that she wants to retry Viibryd and wants to go to [facility] in [place]. PSYCHIATRIC REVIEW OF SYSTEMS: The patient reports that she is depressed. She is isolating at home. The patient states she stays in her room, she lays in bed. The patient reports poor mood, increased sleep during the day to avoid things. The patient reports poor motivation, energy is low. The patient states that she has chronic negative thinking. The patient reports she has thoughts like I don't deserve to be here. The patient reports she does have concerns about her safety. The patient is reporting in the last 2 weeks an increase in passive suicidal ideation with a plan to overdose. The patient states that she is quite anxious, wakes up anxious, is anxious during the day. Panic attacks have been an issue for her, but she states more recently they have decreased. The patient is denying homicidal ideation. She does not endorse any symptoms of oriana, does not endorse any symptoms of psychosis including auditory or visual hallucinations or feelings of paranoia. The patient denies any symptoms ofPTSD. The patient reports that she is forgetting to eat and alternating with binge eating. The patient denies any prior history of an eating disorder. The patient is attributing this to her depression.The patient reports no symptoms of OCD. PSYCHIATRIC HISTORY: This is her first inpatient admission. She has completed the PHP program at [facility]. The patient states I didn't like it. She has a history of cutting for the last year. Thepatient states during that time she had 7 months with no cutting at all. The patient is very frustrated with multiple trials of medications. The patient reports a suicide attempt by overdose. The patient states she did not tell anyone or seek any medical care. The patient is followed by Grover Valdes [facility] in [place] for medication management, therapy by Mariely Alba at [facility]. Thepatient completed the intake last Saturday for [facility] in [place]. PAST MEDICAL HISTORY: The patient has a history of migraines, right ankle injury with 2 surgeries toremove scar tissue. She suffers from chronic pain, had nerve block in 12/2018. The patient also endorses complex regional pain syndrome type 1 of right lower extremity and has a history of prolonged QTinterval. Reviewed admission labs -- unremarkable. HCG is negative. COVID screen is negative. ALLERGIES: PENICILLIN. SUBSTANCE ABUSE HISTORY: U-tox is negative. The patient denies any drug abuse. FAMILY HISTORY: No known history of mental illness. SOCIAL HISTORY: The patient is living with her family, both parents and a brother. The patient attended [employer] in [place] for 1 semester. She is now taking a gap year. 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 She played soccer. She is denying any trauma history. MEDICAL REVIEW OF SYSTEMS: Reviewed documentation for a 10-point systems review completed by Rajan Osborne MD, dated 12/03/2019. No changes noted. PHYSICAL EXAMINATION: VITAL SIGNS: Blood pressure 107/89, pulse 121, temperature 98 degrees Fahrenheit, SpO2 99%. Revieweddocumentation for physical examination completed on dated 12/03/2019. No changes. MENTAL STATUS EXAMINATION: The patient appears her stated age. She is dressed in scrubs. She has adequate hygiene. The patient was cooperative with staff accompanying her to the interview room. She wascooperative in communicating with provider via [employer] in the interview room. She was calm and cooperative throughout the interview. Eye contact was adequate. She did not display any psychomotor abnormalities. Speech was spontaneous. She used conversational rate, rhythm and tone. She was very guarded with answers. The patient appeared with a flat affect, describes mood as depressed, somewhat anxious.Thought process was linear and logical. Associations were intact. Thought content did not display any evidence of psychosis. She endorses passive suicidal thinking, no active intent. She denies homicidal thinking. Insight and judgment appear to be fair. Cognition appears intact to interview including orientation to person, place, time and situation, use of language, fund of knowledge. Recent and remote memory grossly intact. Muscle strength, tone and gait appear within normal limits upon observation. ASSESSMENT: 1. Major depressive disorder, recurrent, severe without psychosis. 2. General anxiety disorder. 3. Chronic pain. PLAN: 1. The patient has been admitted to [facility] on a voluntary basis. 2. Discussed medications with the patient. We will continue duloxetine 60 mg and adding Viibryd 10 mg. We will review taper of Cymbalta and titration of Viibryd with patient on Saturday. Discussed risks,benefits and side effects of medications with patient. 3. Psychosocial treatments to be addressed to be addressed with CTC. The patient has completed intake for [facility] in [place] last Saturday. Plan is for her to go there when she has stabilized. 4. Estimated length of stay is 3-5 days. JERICA LY APRN, PIPE OR STEAM FITTER FURNACE INSTALLER MT: JAS Name: ADÁN REED Account: [id number] : 2000 Admitted: 12/03/2019 Document: [id number] cc: Erin Barba MD documented in this encounter ED Notes Pop Shafer RN - 12/03/2019 5:06 PM CDT Pt here for increasing depression and suicidal thoughts. Pt states a couple of weeks ago she cut herself, which does to from time to time to relieve pain, bu this time was trying to take her life. Rajan Osborne MD - 12/03/2019 4:54 PM CDT Images from the original note were not included. [facility] ([facility]) December 03, 2019 History Chief Complaint Patient presents with ??? Mental Health Problem HPI Adán Reed is a 19 year old female with a PMH of septic arthritis of left ankle, complex regional pain syndrome type I of right lower extremity, and h/o prolonged QT interval who presents the EDtoday for mental health evaluation, referred by her therapist yesterday due to concerns for suicidalideation. Patient is accompanied by mother. She has no history of psychiatric hospitalization. She is in her college at [employer] in [place], but left school after her first semester last year. Patient used to play soccer until her ankle injury. She has been under psychiatric care and been prescribedCymbalta, currently being weaned down from 120 mg to 60 mg, and eventual transition to Viibryd. Patient has been isolating at home and feeling more depressed with intrusive suicidal thoughts. She has history of overdose several months ago but made herself vomit. She now has ongoing intrusive thoughts of overdosing. She no longer feels safe being in the community. Patient denies using drugs. She denies acute medical concerns. She has history of migraines. She denies being on narcotics. She denies COVID symptoms nor known exposure to known cases. Please see DEC Crisis Assessment on 12/03/2019 in [employer] for further details. I have reviewed the Medications, Allergies, Past Medical and Surgical History, and Social History inthe Screen[employer] system. PAST MEDICAL HISTORY: History reviewed. No pertinent past medical history. PAST SURGICAL HISTORY: History reviewed. No pertinent surgical history. Past medical history, past surgical history, medications, and allergies were reviewed with the patient. FAMILY HISTORY: No family history on file. SOCIAL HISTORY: Social History Tobacco Use ??? Smoking status: Not on file Substance Use Topics ??? Alcohol use: Not on file Social history was reviewed with the patient. Patient's Medications New Prescriptions No medications on file Previous Medications DULOXETINE (CYMBALTA) 60 MG CAPSULE Take 60 mg by mouth every evening PROPRANOLOL (INDERAL) 10 MG TABLET Take 5 mg by mouth 2 times daily Modified Medications No medications on file Discontinued Medications No medications on file Allergies Allergen Reactions ??? Penicillins Rash Review of Systems Constitutional: Positive for activity change. HENT: Negative. Respiratory: Negative. Cardiovascular: Negative. Gastrointestinal: Negative. Genitourinary: Negative. Musculoskeletal: Negative. Skin: Negative. Neurological: Negative. Psychiatric/Behavioral: Positive for decreased concentration, sleep disturbance and suicidal ideas. Negative for hallucinations. The patient is nervous/anxious. All other systems reviewed and are negative. Physical Exam BP: 107/79 Pulse: 121 Temp: 96.6 ??F (35.9 ??C) SpO2: 99 % Physical Exam Vitals signs and nursing note reviewed. HENT: Head: Normocephalic. Eyes: Pupils: Pupils are equal, round, and reactive to light. Neck: Musculoskeletal: Normal range of motion. Pulmonary: Effort: Pulmonary effort is normal. Musculoskeletal: Normal range of motion. Neurological: General: No focal deficit present. Mental Status: She is alert. Psychiatric: Attention and Perception: Attention and perception normal. She does not perceive auditory or visualhallucinations. Mood and Affect: Mood is depressed. Speech: Speech normal. Behavior: Behavior normal. Behavior is not agitated, aggressive, hyperactive or combative. Behavioris cooperative. Thought Content: Thought content is not paranoid or delusional. Thought content includes suicidal ideation. Thought content does not include homicidal ideation. Thought content includes suicidal plan. Cognition and Memory: Cognition normal. Judgment: Judgment normal. ED Course Procedures No results found for this or any previous visit (from the past 24 hour(s)). Medications - No data to display Assessments & Plan (with Medical Decision Making) Patient with depression who has ongoing intrusive suicidal thoughts of overdosing. She feels unsafe being in the community. She is open to being admitted. Mother is in agreement. I have reviewed the nursing notes. I have reviewed the findings, diagnosis, plan and need for follow up with the patient. New Prescriptions No medications on file Final diagnoses: Depression with suicidal ideation 12/03/2019 [facility] Rajan Osborne MD 12/03/191917 documented in this encounter Miscellaneous Notes Plan of Care - Alva Parekh RN - 12/08/2019 10:53 AM CDT Patient up for morning routine. In lounge reading a book. Quiet to self. Affect is flat. Now attending group. Patient reports doing good> Denies SI/SIB or thoughts to hurt others. Describes a little depression and anxiety (rates as 3 this morning), and states always in the background. Currently feels depression and anxiety are manageable. Feels safe if were to be discharged. Denies concerns regarding sleep, appetite, medication side effects. Offers no other concerns at this time. Plan of Care - Lilian Tony OT - 12/07/2019 3:14 PM CDT Problem: OT General Care Plan Goal: OT Goal 1 Description: Within 1 week, Pt will demonstrate increased self-esteem as evidenced by >2 self-reported positive affirmations. Pt actively participated in occupational therapy clinic. Pt was able to ask for assistance as needed, and independently initiate a creative expression painting task. Pt demonstrated good focus, planning, and attention to detail. Pt is organized in her approach and engaged in the group. Pt appeared comfortable interacting with peers when others initiated, otherwise she kept to herself for the majorityof group time. Flat affect. Pt actively participated in a mental health management group with a topic of unhelpful thinking patterns/anxiety in relation to what we do and don't have control over. Pt completed the activity and wasable to identify One thing they would like to feel they have more control of but she declined sharing. Educated on unhelpful thinking patterns, flexible thinking and actions one can take to feel more control, comfort and self-compassion. Pt did not appear comfortable sharing ideas with group members but was engaged in the group process. Plan of Care - Juan Manuel Lloyd RN - 12/07/2019 2:46 PM CDT Pt was calm and cooperative today. She was social with peers and attended groups. Pt ate breakfast and lunch today. Salesforce Developer checked in with pt and asked if she was feeling suicidal and pt stated no. Pt also denies SIB, AH, VH, and HI. Salesforce Developer asked pt to rate her anxiety on a scale of 1 to 10, 1 beingthe least amount and 10 being the most. Pt rated her anxiety a 2 and depression a 4. Salesforce Developer and pt talked about coping skills she can utilize when she is feeling anxiety. Pt states she will utilize journaling, socializing, crossword puzzles, baking, exercising, movies, and hanging with her dog. Pt states that her goal is to talk with her parents. Plan of Care - Dustin Bolaños RN - 12/06/2019 2:43 PM CDT Problem: Depressive Symptoms Goal: Depressive Symptoms Description: Signs and symptoms of listed problems will be absent or manageable. Outcome: No Change Flowsheets (Taken 12/06/2019 [id number]) Depressive Symptoms Assessed: sleep affect mood anxiety Depressive Symptoms Present: affect mood anxiety Note: S: Safety shift check-in B: Pt. assessed for mood, anxiety, thoughts and behavior. Pt participated in peer activity, playing cards and socializing. Pt reports anxiety and depression of 5/10 and told the scientific technical writer that the anxietyand depression were at baseline. Pt does not know why she is depressed or anxious, I feel this way most of the time, I'm just there. Pt denies SI/SIB/VH/AH. She endorses good appetite. Pt did take a nap this shift and reported having poor sleep, turning in bed all night. Mood was calm, affect was bunt. No further concerns this shift. A: Provided with active listening, emotional encouragement and goal setting, discussed on utilizing coping skills and identifying needed safety resources. On safety checks every 15 min. R: Pt demonstrated appropriate behavior this shift and coping strategies. Plan of Care - Elke Nur RN - 12/05/2019 9:45 PM CDT 48 Hour Nursing Assessment Patient evaluation continues. Assessed mood, anxiety, thoughts and behavior. Patient denies SI, SIB,HI, and auditory or visual hallucinations. Patient reports being here has improved her mood and stopped her thoughts of SI and SIB. Patient is concerned the thoughts will return when she leaves and is no longer distracted. We discussed, understanding distraction as a coping skill. Patient continues tostruggle with using it outside of the inpatient stay. Patient participated in groups and socialized with peers. Will continue to assess. Plan of Care - Charles Ruiz RN - 12/05/2019 9:03 AM CDT 48 hour nursing assessment: Pt evaluation continues. Assessed mood, anxiety, thoughts, and behavior.Is progressing towards goals. Encourage participation in groups and developing healthy coping skills. Pt denies auditory or visual hallucinations. States depression remains a constant. Refer to daily team meeting notes for individualized plan of care. Will continue to assess. Plan of Care - Elyssa Lin WAX PATTERN REPAIRER - 12/04/2019 12:01 PM CDT BEHAVIORAL TEAM DISCUSSION Participants: Vida Ly, ADOLFO, Juan Manuel, RN, Reese, RN, Amee, RN, Gustavo, ELICIA Progress: Continuing to assess Anticipated length of stay: 5-7 days Continued Stay Criteria/Rationale: New patient Medical/Physical: Per Internal Medicine Precautions: Behavioral Orders Procedures Code 1 - Restrict to Unit Routine Programming As clinically indicated Status 15 Every 15 minutes. Suicide precautions Patients on Suicide Precautions should have a Combination Diet ordered that includes a Diet selection(s) AND a Behavioral Tray selection for Safe Tray - with utensils, or Safe Tray - NO utensils Plan: Patient had a comprehensive psychiatric assessment. CTC mewt with patient to complete the Initial Psychosocial Assessment. Patient will attend therapy groups and participate in unit programming. CTC will coordinate disposition and aftercare plan. Rationale for change in precautions or plan: No change Associated attestation - Jerica Ly APRN CNS - 12/04/2019 4:10 PM CDT I reviewed and agree with the above treatment plan. Plan of Care - Charles Ruiz RN - 12/03/2019 10:03 PM CDT ADMIT: Pt is a 19 yr old fem in [place] ED for SI w/ plan to overdose report by Malou from feb. B: Hx of dep and anxiety. Per pt, this has been going on for years, I've been on like 7 different meds. Pt reports she is on a leave of absences from school, [employer] (taking a gap year) [facility]. Pt report she's also been cutting. Pt reports increased sleeping, being withdrawn andnot functioning. Pt reports she's given up. 1 prev attempt by overdose but pt reports she did not tell anyone. No prev ip mental health. No reported cd issues. Pt lives with her parents and a 16 yo brother. Pt is on cymbalta 60 mg for the past year but feels the meds are not working. Pt has contracted for safety on the unit and has settled well on the unit at this time. A: vol R: 4a / Jyotsna Vida Pharmacy-Admission Medication History - Miroslava Alexis - 12/03/2019 7:22 PM CDT Admission Medication History Completed by Pharmacy See [facility] Admission Navigator for allergy information, preferred outpatient pharmacy, prior to admission medications and immunization status. Medication History Sources: ??? Patient, Surescripts Changes made to ORACLE APEX DEVELOPER medication list (reason): ??? Added: None ??? Deleted: o Propranolol 10 mg: Take 5 mg PO BID ??? Changed: None Additional Information: ??? None Prior to Admission medications Medication Sig Last Dose Taking? Auth Provider DULoxetine (CYMBALTA) 60 MG capsule Take 60 mg by mouth every evening 12/02/2019 Yes Unknown, EnteredBy History Date completed: 12/03/19 Medication history completed by: Miroslava Alexis, Pharmacist Residential Electrician Associated attestation - Jyotsna Farias RPH - 12/03/2019 7:42 PM CDT I have reviewed the admission medication history with the registered pharmacy technician and it is up to date to the best of my knowledge. Jyotsna Farias, PharmD documented in this encounter Plan of Treatment Scheduled Referrals Name Type Priority Associated Diagnoses Order S chedule Medication Therapy Referral Routine Ordered: 12/05/2019 Management Referral documented as of this encounter Procedures Procedure Name Priority Date/Time Associated Comments Diagnosis CBC WITH PLATELETS & Routine 12/04/2019 7:15 AM Depression wit h Results for this DIFFERENTIAL CDT suicidal ideation procedure are in the results section. TSH WITH FREE T4 Routine 12/04/2019 7:15 AM Depression with Re sults for this REFLEX CDT suicidal ideation procedure are in the results section. COMPREHENSIVE Routine 12/04/2019 7:15 AM Depression with Resul ts for this METABOLIC PANEL CDT suicidal ideation procedu re are in the results section. SARS-COV-2 (COVID-19) Routine 12/03/2019 7:34 PM Depression wi th Results for this VIRUS RT-PCR CDT suicidal ideation procedure are in the results section. COVID-19 VIRUS STAT 12/03/2019 7:34 PM Depression with Resu lts for this (CORONAVIRUS) BY PCR CDT suicidal ideation pr ocedure are in the results section. HCG QUALITATIVE URINE STAT 12/03/2019 7:18 PM Depression wi th Results for this CDT suicidal ideation procedure are in the results section. DRUG ABUSE SCREEN 6 STAT 12/03/2019 7:18 PM Depression with Results for this CHEM DEP URINE ([facility]) CDT suicidal ideation p rocedure are in the results section. documented in this encounter Results TSH with free T4 reflex and/or T3 as indicated (12/04/2019 7:15 AM CDT) athologist Signature TSH 1.16 0.40 - 4.00 12/04/2019 [facility] mU/L 8:04 AM CDT [facility] Specimen Anatomical Collection Method Collection Time Receive d Time (Source) Location / / Volume Laterality Blood specimen 12/04/2019 7:15 AM 020 7:16 (specimen) CDT AM CDT Uma Lisa APRN DR[employer] [facility] [facility]IN[facility] LAB - BLOOD ORDER ERIC Performing Organization Address City/State/ZIP Code Phon e Number [facility] [address] [place] [address] [facility] CBC with platelets differential (12/04/2019 7:15 AM CDT) Patholo gist Method Time Signature WBC 6.7 4.0 - 12/04/2019 [facility] 11.0 7:46 AM CDT [facility] 10e9/L [facility] RBC Count 4.90 3.8 - 5.2 12/04/2019 [facility] 10e12/L 7:46 AM CDT [facility] Hemoglobin 13.6 11.7 - 12/04/2019 [facility] 15.7 g/dL 7:46 AM CDT [facility] Hematocrit 42.6 35.0 - 12/04/2019 [facility] 47.0 % 7:46 AM CDT [facility] MCV 87 78 - 100 12/04/2019 [place] fl 7:46 AM CDT [facility] MCH 27.8 26.5 - 12/04/2019 [facility] 33.0 pg 7:46 AM CDT [facility] MCHC 31.9 31.5 - 12/04/2019 [facility] 36.5 g/dL 7:46 AM CDT [facility] RDW 12.3 10.0 - 12/04/2019 [facility] 15.0 % 7:46 AM CDT [facility] Platelet Count 286 150 - 450 12/04/2019 [facility] 10e9/L 7:46 AM CDT [facility] Diff Method Automated 12/04/2019 [facility] Method 7:46 AM CDT [facility] % Neutrophils 52.2 % 12/04/2019 [facility] 7:46 AM CDT [facility] % Lymphocytes 37.6 % 12/04/2019 [facility] 7:46 AM CDT [facility] % Monocytes 8.0 % 12/04/2019 [facility] 7:46 AM CDT [facility] % Eosinophils 1.2 % 12/04/2019 [facility] 7:46 AM CDT [facility] % Basophils 0.7 % 12/04/2019 [facility] 7:46 AM CDT [facility] % Immature 0.3 % 12/04/2019 [facility] Granulocytes 7:46 AM CDT [facility] Nucleated RBCs 0 0 /100 12/04/2019 [facility] 7:46 AM T [facility] Absolute 3.5 1.6 - 8.3 12/04/2019 [facility] Neutrophil 10e9/L 7:46 AM CDT [facility] Absolute 2.5 0.8 - 5.3 12/04/2019 [facility] Lymphocytes 10e9/L 7:46 AM CDT [facility] Absolute 0.5 0.0 - 1.3 12/04/2019 [facility] Monocytes 10e9/L 7:46 AM CDT [facility] Absolute 0.1 0.0 - 0.7 12/04/2019 [facility] Eosinophils 10e9/L 7:46 AM CDT [facility] Absolute 0.1 0.0 - 0.2 12/04/2019 [facility] Basophils 10e9/L 7:46 AM CDT [facility] Abs Immature 0.0 0 - 0.4 12/04/2019 [facility] Granulocytes 10e9/L 7:46 AM T [facility] Absolute 0.0 12/04/2019 [facility] Nucleated RBC 7:46 AM [facility] Specimen Anatomical Collection Method Collection Time Receive d Time (Source) Location / / Volume Laterality Blood specimen 12/04/2019 7:15 AM 020 7:16 (specimen) CDT AM CDT Uma Lisa MASTER OCEAN [employer] - BLOOD ORDER ERIC Performing Organization Address City/State/ZIP Code Phon e Number [facility] [address] [place] [address] [facility] Comprehensive metabolic panel (12/04/2019 7:15 AM CDT) P athologist Signature Sodium 139 133 - 144 12/04/2019 [facility] mmol/L 7:45 AM T [facility] Potassium 4.0 3.4 - 5.3 12/04/2019 [facility] mmol/L 7:45 AM T [facility] Chloride 107 96 - 110 12/04/2019 [facility] mmol/L 7:45 AM T [facility] Carbon Dioxide 28 20 - 32 12/04/2019 [facility] mmol/L 7:54 AM [facility] Anion Gap 4 3 - 14 12/04/2019 [facility] mmol/L 7:54 AM [facility] Glucose 82 70 - 99 12/04/2019 [facility] mg/dL 7:54 AM T [facility] Urea Nitrogen 22 7 - 30 12/04/2019 [facility] mg/dL 7:54 AM [facility] Creatinine 0.80 0.50 - 12/04/2019 [facility] 1.00 mg/dL 7:54 AM [facility] GFR Estimate >90 >60 12/04/2019 [facility] mL/min/{1. 7:[address] [facility] 73_m2} [facility] Comment: Non GFR Calc Starting 02/18/2018, serum creatinine ba sed estimated GFR (eGFR) will be calculated using the Chronic Kidney Dise [facility] Epidemiology Collaboration (CKD-EPI) equation. GFR Estimate If >90 >60 mL/min/{1.73_m2} 12/04/2019 7: 54 AM [facility] Black [facility] Comment: GFR Calc Starting 02/18/2018, serum creatinine ba sed estimated GFR (eGFR) will be calculated using the Chronic Kidney Dise [facility] Epidemiology Collaboration (CKD-EPI) equation. Calcium 9.0 8.5 - 10.1 mg/dL 12/04/2019 7:54 AM [facility] Bilirubin Total 0.7 0.2 - 1.3 mg/dL 12/04/2019 7:55 AM [facility] Albumin 3.9 3.4 - 5.0 g/dL 12/04/2019 7:55 AM [facility] Protein Total 7.1 6.8 - 8.8 g/dL 12/04/2019 7:55 AM [facility] Alkaline Phosphatase 65 40 - 150 U/L 12/04/2019 7:55 AM [facility] ALT 19 0 - 50 U/L 12/04/2019 7:55 AM [facility] AST 13 0 - 35 U/L 12/04/2019 7:55 AM [facility] Specimen Anatomical Collection Method Collection Time Receive d Time (Source) Location / / Volume Laterality Blood specimen 12/04/2019 7:15 AM 020 7:16 (specimen) CDT AM CDT Uma Lisa APRN [employer] - BLOOD ORDER ERIC Performing Organization Address City/State/ZIP Code Phon e Number [facility] [address] [place] [address] [facility] SARS-CoV-2 COVID-19 Virus (Coronavirus) RT-PCR Nasopharyngeal (12/03/2019 7:34 PM CDT) [facility] Method Time Signature SARS-CoV-2 Nasopharyngeal 12/04/2019 INFECTIOUS Virus 12:45 PM DISEASES Specimen CDT DIAGNOSTIC Source LABORATORY, [facility] SARS-CoV-2 NEGATIVE 12/04/2019 INFECTIOUS PCR Result 12:45 PM DISEASES CDT DIAGNOSTIC LABORATORY, [facility] Comment: SARS-CoV2 (COVID-19) RNA not de tected, presumed negative. SARS-CoV-2 PCR Testing was performed using the Aptima SARS-CoV-2 Assay on the [employer] Instrument System. 12/04/2019 12:45 PM INFECTI OUS DISEASES Comment Additional information about this Emergency Use Authorization (EUA) assay can be found via CDT DIAGNOSTIC the Lab Guide. LABORATORY, [facility] Comment: This test should be ordered for the dete ction of SARS-CoV-2 in individuals who meet SARS-CoV-2 clinical and/or epidemi ological criteria. Test performance is unknown in asymptomatic patients. This test is for in vitro diagnostic use under the FDA EUA for laboratories certified under CLIA to perform high com plexity testing. This test has not been FDA cleared or approved. A negative result does not rule out the presence of PCR inhibitors in the specimen or target RNA in concentration below the limit of detection for the assay. The possibility of a false negati ve should be considered if the patient's recent exposure or clinical pr esentation suggests COVID-19. This test was validated by the [facility] Infectious Diseases Diagnostic [facility]. This laboratory i s certified under the Clinical Laboratory Improvement Amendments of 198 8 (CLIA-88) as qualified to perform high complexity laboratory testing. Specimen (Source) Anatomical Collection Method Collection Time Re ceived Time Location / / Volume Laterality Specimen from 12/03/2019 7:34 12/03/2019 nasopharyngeal PM CDT 7:49 PM CDT structure (specimen) Rajan Osborne MD LAB - MICRO GENERAL ORDERABL ES Performing Organization Address City/[facility] Code Phon e Number INFECTIOUS DISEASES DIAGNOSTIC [address] [facility] [address] [address] LABORATORY, [facility] Asymptomatic COVID-19 Virus (Coronavirus) by PCR (12/03/2019 7:34 PM CDT) Component Value Ref Test Analysis Performed At [facility] gist Range Method Time Signature COVID-19 Nasopharyngeal 12/03/2019 [facility] Virus PCR to 7:50 PM CDT [facility] COVID-19 Test received-See 12/03/2019 INFECTIOUS Virus PCR to reflex to IDDL 9:24 PM CDT DISEASES U [facility] - test SARS CoV2 DIAGNOSTIC Result (COVID-19) Virus LABORATORY, RT-PCR [facility] Specimen (Source) Anatomical Collection Method Collection Time Re ceived Time Location / / Volume Laterality Specimen from 12/03/2019 7:34 12/03/2019 nasopharyngeal PM CDT 7:49 PM CDT structure (specimen) Rajan Osborne MD LAB - MICRO GENERAL ORDERABL ES Performing Organization Address City/[facility] Code Phon e Number INFECTIOUS DISEASES DIAGNOSTIC [address] [facility] [address] LABORATORY, [place] [id number] [place] [address] [facility] HCG qualitative urine (UPT) (12/03/2019 7:18 PM CDT) Analysis Performed At Patho logist Time Signature HCG Qual Urine Negative NEG^Negati 12/03/2019 [facility] ve 7:52 PM CDT [facility] Comment: This test is for screening purposes. ??R esults should be interpreted along with the clinical picture. ??Confirmation te sting is available if warranted by ordering [id number], HCG Quantitative Pregna ncy. Specimen Anatomical Collection Method Collection Time Receive d Time (Source) Location / / Volume Laterality Urine specimen URINE SPECIMEN / 12/03/2019 7:18 PM 03/2019 7:39 (specimen) Unknown CDT PM CDT Rajan Osborne MD LAB - URINE ORDERABLES Performing Organization Address City/State/ZIP Code Phon e Number [facility] [address] [place] [address] [facility] Drug abuse screen 6 urine (chem dep) (12/03/2019 7:18 PM CDT) Patholo gist Method Time Signature Amphetamine Qual Negative NEG^Negati 12/03/2019 [place] Urine ve 8:01 PM [facility] Comment: Cutoff for a negative amphetami ne is 500 ng/mL or less. Barbiturates Qual Negative NEG^Negative 12/03/2019 8:00 PM [facility] Urine [facility] Comment: Cutoff for a negative barbitura te is 200 ng/mL or less. Benzodiazepine Qual Negative NEG^Negative 12/03/2019 8:00 P M [facility] Urine [facility] Comment: Cutoff for a negative benzodiaz epine is 200 ng/mL or less. Cannabinoids Qual Negative NEG^Negative 12/03/2019 8:00 PM [facility] Urine [facility] Comment: Cutoff for a negative cannabino id is 50 ng/mL or less. Cocaine Qual Urine Negative NEG^Negative 12/03/2019 8:00 PM [facility] Comment: Cutoff for a negative cocaine i s 300 ng/mL or less. Ethanol Qual Urine Negative NEG^Negative 12/03/2019 7:59 PM [facility] Comment: Cutoff for a negative urine eth anol is 0.05 g/dL or less Opiates Qualitative Negative NEG^Negative 12/03/2019 8:00 P M [facility] Urine CDT [facility] Comment: Cutoff for a negative opiate is 300 ng/mL or less. Specimen Anatomical Collection Method Collection Time Receive d Time (Source) Location / / Volume Laterality Urine specimen URINE SPECIMEN / 12/03/2019 7:18 PM 03/2019 7:39 (specimen) Unknown CDT PM CDT Rajan Osborne MD LAB - URINE ORDERABLES Performing Organization Address City/State/ZIP Code Phon e Number [facility] [address] [place] [address] [facility] [address] [place] [address], U [place] [phone] documented in this encounter Visit Diagnoses Diagnosis Depression with suicidal ideation Generalized anxiety disorder Contact with and (suspected) exposure to other viral communicable diseases documented in this encounter Admitting Diagnoses Diagnosis Depression with suicidal ideation documented in this encounter Administered Medications Inactive Administered Medications - up to 3 most recent administrations Medication Order MAR Action Action Date Dose Rate Site DULoxetine (CYMBALTA) DR capsule 60 Given 12/07/2019 9:06 PM CDT 60 mg mg 60 mg, Oral, EVERY EVENING, First dose on Andreina 12/03/19 at 2200 Given 12/06/2019 9:34 PM CDT 60 mg Given 12/05/2019 10:12 PM CDT 60 mg hydrOXYzine (ATARAX) tablet 25-50 mg 25-50 mg, Oral, EVERY 4 HOURS PRN, anxiety, Starting o n Sat12/04/19 at 1446, Administer only if there is no other oral medication o rdered prn for anxiety, melatonin tablet 3 mg Given 12/07/2019 9:11 PM CDT 3 mg 3 mg, Oral, AT BEDTIME PRN, sleep, Starting on Andreina 12/03/19 at 2214 Given 12/06/2019 9:34 PM CDT 3 mg Given 12/05/2019 10:12 PM CDT 3 mg OLANZapine (zyPREXA) injection 10 mg 10 mg, Intramuscular, 3 TIMES DAILY PRN, agitation, associated with psychosis or oriana, Starting on Sat12/04/19 at 1447, Not to exceed 30 mg in 24 hours. Consider lower dose if sedation or hypotension. Dissolve the co ntents of the 10 mg vial using 2.1 mL of Sterile Water for Injection to provide a solution containing 5 mg/mL of olanzapine. Withdraw the ordere d dose from vial. Use immediately (within 1 hour) after reconstitution. Discard any unused portion . OLANZapine (zyPREXA) tablet 5-10 mg 5-10 mg, Oral, 3 TIMES DAILY PRN, agitat ion, associated with psychosis or orinaa, Starting on Sat12/04/19 at 1447, Conside r lower dose if sedation or hypotension. Not to exceed 30 mg in 24 hours. Combined IM and PO do ses may significantly increase the risk of orthostatic hypotension at 30 mg per day or higher. vilazodone (VIIBRYD) tablet 10 mg Given 12/08/2019 8:57 AM CDT 10 mg 10 mg, Oral, DAILY, First dose on Sat12/04/19 at 1500, For 7 doses Given 12/07/2019 9:18 AM CDT 10 mg Given 12/06/2019 9:00 AM CDT 10 mg vilazodone (VIIBRYD) tablet 20 mg 20 mg, Oral, DAILY, First dose on Sat12/11/19 at 0800 documented in this encounter Active and Recently Administered Medications Times are shown in CDT. Scheduled Medication Order 12/06/2019 12/07/2019 12/08/2019 DULoxetine (CYMBALTA) DR capsule 60 mg 2133 (Given - P rovider: Elke Nur RN) 2105 (Given - Provider: Manoj Guy RN) 60 mg, Oral, EVERY EVENING, First dose on Sat12/03/19 at 2200 vilazodone (VIIBRYD) tablet 10 mg 0900 (Given - Provider: Sissy Bolaños RN) 0918 (Given - Provider: Juan Manuel Lloyd, ISAAK) 0857 (Given - Provider: Alva Parekh, ISAAK) 10 mg, Oral, DAILY, First dose on Sat12/04/19 at 1500, For 7 dos es vilazodone (VIIBRYD) tablet 20 mg 20 mg, Oral, DAILY, First dose on Sat12/11/19 at 0800 PRN Medication Order 12/06/2019 12/07/2019 12/08/2019 acetaminophen (TYLENOL) tablet 650 mg 650 mg, Oral, EVERY 4 HOURS PRN, mild pa in, Starting Andreina 12/03/19 at 2155, Do not use if the patient has significant liver disease. MAX acetaminophen = 4000 mg/24 hrs. MAX acetaminophen <3000 mg/24 hr s for patients > or = 65 years old. Maxi mum acetaminophen dose from all sources = 75 mg/kg/day not to exceed 4 grams/day. alum & mag hydroxide-simethicone (MAALOX ES) suspension 30 mL 30 mL, Oral, EVERY 4 HOURS PRN, indigest ion, Starting Andreina 12/03/19 at 2155, Shake well. bisacodyl (DULCOLAX) Suppository 10 mg 10 mg, Rectal, DAILY PRN, constipation, Starting Andreina 12/03/19 at 2155, Hold for loose stools. hydrOXYzine (ATARAX) tablet 25-50 mg 25-50 mg, Oral, EVERY 4 HOURS PRN, anxie ty, Starting Sat12/04/19 at 1446, Administer only if there is no other oral medication ordered prn for anxiety, magnesium hydroxide (MILK OF MAGNESIA) suspension 30 mL 30 mL, Oral, AT BEDTIME PRN, constipatio n, Starting Sat12/03/19 at 2155, Shake well. Hold for loose stools. melatonin tablet 3 mg 2133 (Given - Provider: Elke Saldaña RN) 2110 (Given - Provider: Manoj Guy RN) 3 mg, Oral, AT BEDTIME PRN, sleep, Starting Andreina 12/03/19 at 2214 OLANZapine (zyPREXA) injection 10 mg(Linked Group 1) 10 mg, Intramuscular, 3 TIMES DAILY PRN, agitation, associated with psychosis or oriana, Starting Sat12/04/19 at 1447, Not to exceed 30 mg in 24 hours. Consider lower dose if sedation or hypotension. Dis solve the contents of the 10 mg vial usi ng 2.1 mL of Sterile Water for Injection to provide a solution containing 5 mg/mL of olanzapine. Withdraw the ordered dose from vial. Use immediately (within 1 ho ur) after reconstitution. Discard any unused portion. OLANZapine (zyPREXA) tablet 5-10 mg(Linked Group 1) 5-10 mg, Oral, 3 TIMES DAILY PRN, agitat ion, associated with psychosis or oriana, Starting Sat12/04/19 at 1447, Consider lower dose if sedation or hypotension. Not to exceed 30 mg in 24 hours. Combined I M and PO doses may significantly increas e the risk of orthostatic hypotension at 30 mg per day or higher. traZODone (DESYREL) tablet 50 mg 2138 (N ot Given - Provider: Manoj Guy RN - Reason: Patient/family refused) 50 mg, Oral, AT BEDTIME PRN, sleep, Star ting Andreina 12/03/19 at 2155, May repeat x 1 Linked Groups Order Group 1: OLANZapine (zyPREXA) tablet 5-10 mgJump to med 5-10 mg, Oral, 3 TIMES DAILY PRN, agitat ion, associated with psychosis or oriana, Starting 12/04/19 at 1447
Consider lower dose if sedation or hypotension. Not to exceed 30 mg in 24 hours.&am p;nbsp;Combined IM and PO doses may sign ificantly increase the risk of orthostatic hypotension at 30 mg per day or higher.
Or OLANZapine (zyPREXA) injection 10 mgJump to med 10 mg, Intramuscular, 3 TIMES DAILY PRN, agitation, associated with psychosis or oriana, Starting 12/04/19 at 1447
Not to exceed 30 mg in 24 hours. Consider lower dose if s edation or hypotension. Dissolve th e contents of the 10 mg vial using 2.1 mL of Sterile Water for Injection to provide a solution containing 5 mg/mL of olanzapine. Withdraw the ordered dose fro m vial. Use immediately (within 1 hour) after reconstitution. Discard any unused portion.
documented in this encounter Care Teams Glass Products Inspector Relationship Specialty Start Date End Date Erin Barba MD PCP - General Pediatrics 12/03/19 [facility] [address] [facility] [place] [address] documented as of this encounter
--- OUTSIDE RECORDS SUMMARY | 2021-11-21 11:42 | XMS_ITS | Encounter Summary ---
:2000 Author Organization [employer] Address [address] [place] [address] Care Team Providers Name Role Phone Erin Barba MD Primary Care Provider Reason for Visit Reason Comments Ankle Problem Encounter Details Date Type Department Care Team Description 07/31/2019 Telemedicine TRI PT and Ed Pepe Duong [facility] regional pain Center, Physical C, PT syndrome type 1 of Therapy [address] [facility] right lower extremity [address] [place], [place] (Prim hazel Dx) [address] [address] [place], [place] [address] [phone] Social History Tobacco Use Types Packs/Day Years Used Date Smoking Tobacco: Never Smokeless Tobacco: Never Alcohol Use Standard Drinks/Week Comments Not Currently 0 (1 standard drink = 0.6 oz pure alcoho l) Sex Assigned at Date Recorded Not on file documented as of this encounter Progress Notes Pepe Duong, PT - 07/31/2019 2:00 PM CDT [facility] Orthopaedic Center Physical Therapy Video Visit Follow Up This video encounter was completed per patient request. The patient has been notified that this visit will be conducted via video with their physical therapist, as certain health care needs can be provided without an in-person physical exam. Their physical therapist will provide further instructions and programming notes via [employer], an online education and home exercise program platform. Mode of transmission: [place] Time service began: 2 pm Time service ended: 224 pm Patient location: Patient residence Provider location: Provider residence Visit Number: 18 [facility] Referring Provider: Santa Aguilar MD Diagnosis: CRPS Orders: Evaluate & treat Previously administered PRO's FAAM = 61/84 Orebro = 55/100 - high levels of anxiety and depression PSEQ = 38 SUBJECTIVE: Last week was doing about 100 reps per day. Having a tougher week in terms of depressive symptoms rocael able to do as much. She is finding that ankle range of movements are getting easier. OBJECTIVE: none TREATMENT TODAY: Neuromuscular re-education (CPT 82036) x 24 minutes: Mirror therapy Access Code: [email or web address] Exercises Adding context: - outside in grass - use of socks/cleats Ankle Inversion with Resistance - 7x weekly Long Sitting Ankle Plantar Flexion with Resistance - 7x weekly Long Sitting Ankle Dorsiflexion with Anchored Resistance - 7x weekly Long Sitting Ankle PNF D2 Dorsiflexion with Resistance - 7x weekly Standing Heel Raise - 7x weekly Double Leg Mini Squat - 7x weekly Seated Ankle Dorsiflexion AROM - 7x weekly Edcuation on dosage for neuroplastic change - two weeks with high reps 120 reps of the above - will progress if getting recommended dosage in a weeks time - gradually adding in context and more reps Timed Code Treatment Minutes: 24 Total Treatment Minutes: 24 Education/Handouts: Edilma Reed was provided with a summary of recommendations stemming from this telehealth visit, as well as further instructions and home exercises electronically via [employer], an online education and home exercise program platform. ASSESSMENT/PLAN: Progressing well with mirror therapy for CRPS. Progress in two weeks to NWB loading/use of the ankleand foot, likely beginning with band work. Need: TSK and orebro, pseq EXPECTED FUNCTIONAL OUTCOMES/GOALS: Play soccer, kick ball by June 02 2019 - met Difficulty during PT: Standing on one leg balance and reach on foam Standing on a Bosu Theraband ankle exercises Therapist: Pepe Duong, PT 2:07 PM 07/31/2019 documented in this encounter Plan of Treatment Not on filedocumented as of this encounter Visit Diagnoses Diagnosis Complex regional pain syndrome type 1 of right lower extremity - Primary documented in this encounter Care Teams Heel Lining Paster Relationship Specialty Start Date End Date Erin Barba MD PCP - General Pediatric Medicine 04/07/[address] [place] [address] [place] [id number] documented as of this encounter
--- OUTSIDE RECORDS SUMMARY | 2021-11-21 11:42 | XMS_ITS | Encounter Summary ---
:2000 Author Organization [employer] Address [address] [place] [address] Care Team Providers Name Role Phone Erin Barba MD Primary Care Provider Reason for Visit Reason Comments Ankle Problem Encounter Details Date Type Department Care Team Description 07/17/2019 Telemedicine TRI PT and Ed Pepe Duong [facility] regional pain Center, Physical C, PT syndrome type [address] [facility] right lower extremity [address] [place], [place] (Prim hazel Dx) [address] [address] [place], [place] [address] [phone] Social History Tobacco Use Types Packs/Day Years Used Date Smoking Tobacco: Never Smokeless Tobacco: Never Alcohol Use Standard Drinks/Week Comments Not Currently 0 (1 standard drink = 0.6 oz pure alcoho l) Sex Assigned at Date Recorded Not on file documented as of this encounter Progress Notes Pepe Duong, PT - 07/17/2019 1:[address] [facility] Orthopaedic Center Physical Therapy Video Visit Follow Up This video encounter was completed per patient request. The patient has been notified that this visit will be conducted via video with their physical therapist, as certain health care needs can be provided without an in-person physical exam. Their physical therapist will provide further instructions and programming notes via [employer], an online education and home exercise program platform. Mode of transmission: Accuvant Time service began: 100 pm Time service ended: 140 pm Patient location: Patient residence Provider location: Provider residence Visit Number: 16 [facility] Referring Provider: Santa Aguilar MD Diagnosis: CRPS Orders: Evaluate & treat Previously administered PRO's FAAM = 61/84 Orebro = 55/100 - high levels of anxiety and depression PSEQ = 38 SUBJECTIVE: Doing about 60-80 reps a day, getting easier, doing reasonably well, thinks she could make a little progression. More noticeable is this detached feeling she expresses about her right foot. On further questioning she agrees with the idea that she actually doesn't like the right foot. OBJECTIVE: none TREATMENT TODAY: Neuromuscular re-education (CPT 14687) x 45 minutes: Education: rubber hand illusion - linked with what we are trying to accomplish with mirror Mirror therapy Access Code: [email or web address] Exercises Ankle Inversion with Resistance - 7x weekly [...] and more reps Timed Code Treatment Minutes: 40 Total Treatment Minutes: 40 Education/Handouts: Edilma Reed was provided with a summary of recommendations stemming from this telehealth visit, as well as further instructions and home exercises electronically via [employer], an online education and home exercise program platform. ASSESSMENT/PLAN: Progressing well with mirror therapy for CRPS. Continue gradually increasing reps and more complicated movements - towards feared/avoided movements that have value. Need: TSK and orebro, pseq EXPECTED FUNCTIONAL OUTCOMES/GOALS: Play soccer, kick ball by June 02 2019 - met Difficulty during PT: Standing on one leg balance and reach on foam Standing on a Bosu Theraband ankle exercises Therapist: Pepe Duong, PT 1:04 PM 07/17/2019 documented in this encounter Plan of Treatment Not on filedocumented as of this encounter Visit Diagnoses Diagnosis Complex regional pain syndrome type 1 of right lower extremity - Primary documented in this encounter Care Teams Closet Builder Relationship Specialty Start Date End Date Erin Barba MD PCP - General Pediatric Medicine 04/07/[address] [place] [facility] [place] [id number] documented as of this encounter
--- OUTSIDE RECORDS SUMMARY | 2021-11-21 11:42 | XMS_ITS | Encounter Summary ---
:2000 Author Organization [place] Address [address] [place] [address]. [place] [address] Care Team Providers Name Role Phone Erin Barba MD Primary Care Provider Lynette Arrieta Unavailable Unavailable Reason for Visit Reason Onset Date Comments MH/CD Inpatient 12/03/2019 Encounter Details Date Type Department Care Team Description 12/03/2019 Telephone [facility] Generic, Behavioral MH/ CD Inpatient Behavioral Health In derrell Fang MD [address] [place] [address] Social History Tobacco Use Types Packs/Day Years [...] / COVID-19? documented as of this encounter Miscellaneous Notes Telephone Encounter - Marycruz Martino - 12/03/2019 7:20 PM CDT S: Pt is a 19 yr old fem in [place] ED for SI w/ plan to overdose report by Malou Vásquez: Hx of dep and anxiety. Pt reports she is on a leave of absences from school due to her mental health. Pt report she's also been cutting. Pt reports increased sleeping, being withdrawn and not functioning. Pt reports she's given up. 1 prev attempt by overdose but pt reports she did not tell anyone. No prev ip mental health. No reported cd issues. A: vol R: 4a / Jyotsna Vida Patient cleared and ready for behavioral bed placement: Yes documented in this encounter Plan of Treatment Not on filedocumented as of this encounter Visit Diagnoses Not on filedocumented in this encounter Care Teams Salt Cutter Relationship Specialty Start Date End Date Erin Barba MD PCP - General Pediatrics 12/03/19 [facility] [address] [facility] [place] [address] Lynette Arrieta LGSW [place] 12/09/19 03/10/20 documented as of this encounter
--- OUTSIDE RECORDS SUMMARY | 2021-11-21 11:42 | XMS_ITS | Encounter Summary ---
:2000 Author Organization [place] Address Pending sale to [facility] [place] [address] Care Team Providers Name Role Phone No Ref-Primary, Physician Primary Care Provider [phone] Reason for Visit Reason Onset Date Comments MH/CD Inpatient 12/02/2019 Encounter Details Date Type Department Care Team Description 12/02/2019 [facility]phone [facility] Generic, Behavioral MH/ CD Inpatient Behavioral Health In derrell Fang MD [address] [place] [address] Social History Tobacco Use Types [...] on file documented as of this encounter Miscellaneous Notes Telephone Encounter - Lito Garzon - 12/02/2019 3:13 PM CDT S Pt is a 19 year old female. Pt therapist called to give collateral B Pt has had suicidal ideation with a plan but would not disclose. Pt feels unsafe outside hospital setting. Pt cannot identify and specific trigger. Pt has history MDD. Pt will come to ER tomorrow canbe safe overnight. documented in this encounter Plan of Treatment Not on filedocumented as of this encounter Visit Diagnoses Not on filedocumented in this encounter Care Teams Map Editor Relationship Specialty Start Date End Date No Ref-Primary, Physician PCP - General 03/09/18 12/02/19 documented as of this encounter
--- OUTSIDE RECORDS SUMMARY | 2021-11-21 11:42 | XMS_ITS | Encounter Summary ---
:2000 Author Organization [place] Address [address] [place] [address]. [place] [address] Care Team Providers Name Role Phone Unavailable Primary Care Provider Unavailable Encounter Details Date Type Department Care Team Description 04/27/2005 Emergency room Sandeep Leon MD EMERGENCY PHYSIC [address] [address] Social History Tobacco Use Types Packs/Day Years [...] documented as of this encounter Progress Notes Sandeep Leon - 04/30/2005 2:22 PM CARE TEAM COORDINATOR SCHEDULER PRELIMINARY CHIEF COMPLAINT: Vomiting. HISTORY OF PRESENT ILLNESS: Edilma Cali is a 4-year-old who presents to the emergency department with vomiting. Her mother states that she has had vomiting since Saturday night and it seemed to go onall day and had some slight diarrhea. She did vomit a couple times today. She took some apple juice this morning and vomited and had trouble getting her to take apple juice or Pedialyte, although she did have a little bit of fluid at home today. She seemed very lethargic and sleepy all time so they called the load dropper's office and she was told to come to the emergency department as she might be dehydrated. The child had some tactile fevers at home but no measured fevers. There has been no nasal congestion, cough or seemingly any upper respiratory symptoms. The child is otherwise healthy. PAST MEDICAL HISTORY: None. MEDICATIONS: None. ALLERGIES: No known drug allergies. PAST FAMILY AND SOCIAL HISTORY: The child is not exposed to cigarette smoke in the house. REVIEW OF SYSTEMS: As above, otherwise negative. PHYSICAL EXAMINATION: VITAL SIGNS: Blood pressure 99/59, pulse 116, respirations 22, temperature 98.6 O2 SAT was 99% on room air. HEENT: Extraocular movements are intact. Pupils equal, round, reactive to light. Nasal canals are patent. Oropharynx was clear. Mucous membranes were dry. Tympanic membranes were clear. HEART: Regular without murmur, rub or gallops. LUNGS: Clear to auscultation bilaterally. ABDOMEN: Soft and nontender. Bowel sounds were active. EXTREMITIES: No clubbing, cyanosis or edema. She had decent skin turgor. She was rather sluggish inthe room, although, arouseable. EMERGENCY DEPARTMENT COURSE: After cream placed by the nurses prior to my seeing her, I did order an IV, one was placed and she was given two IV fluid boluses. She was able to tolerate some fluids in the Emergency Department secondary to Zofran and did not have further vomiting in the Emergency Department, but then going back to sleep. LABORATORY AND DIAGNOSTIC DATA: Included a bicarbonate of 13, chloride 102. Sodium 134, potassium 4.6, BUN 30, creatinine 0.47, glucose is 36. The child did take some oral glucose, sweetened apple juice and seemed to be more alert after this.Her white count was 6.0, hemoglobin 12.5, hematocrit 36.2, platelets 467,000. She was started on dextrose containing fluid after her 20 cc per kilogram fluid boluses. She was then started on D5 half normal saline with 20 mEq of potassium per liter at 115 cc per hour based upon her maintenance rate of about 52 cc per hour, plus the typical replacement I assume she was 10% dehydrated and made my calculations based upon that. I discussed this with Dr. Sommer from [facility] who agreed with admission. I also discussed this with Estela from the [facility]. We will admit her overnight for dehydration. IMPRESSION: 1. Gastroenteritis with dehydration. 2. Hyperglycemia. PLAN: Admission as outlined above for further IV fluids and transitioned to oral rehydration SANDEEP LEON MD MT: anoop Name: EDILMA CALI Account: [id number] : 2000 Visit Date: 04/27/2005 Document: [id number] cc: Physician Primary Care Kelle Sommer MD TEAM COORDINATOR SCHEDULER documented in this encounter Plan of Treatment Not on filedocumented as of this encounter Visit Diagnoses Not on filedocumented in this encounter
--- OUTSIDE RECORDS SUMMARY | 2021-11-21 11:42 | XMS_ITS | Encounter Summary ---
:2000 Author Organization [place] Address [address] [place] [address]. [place] [address] Care Team Providers Name Role Phone Erin Barba MD Primary Care Provider Encounter Details Date Type Department Care Team Description 12/03/2019 Travel Social History Tobacco Use Types Packs/Day Years [...] / COVID-19? documented as of this encounter Plan of Treatment Not on filedocumented as of this encounter Visit Diagnoses Not on filedocumented in this encounter Care Teams Sole Painter Relationship Specialty Start Date End Date Erin Barba MD PCP - General Pediatrics 12/03/19 [facility] [address] [facility] [place] [address] documented as of this encounter
--- OUTSIDE RECORDS SUMMARY | 2021-11-21 11:42 | XMS_ITS | Encounter Summary ---
:2000 Author Organization [facility] Address [address] [place] [address] Care Team Providers Name Role Phone Erin Barba MD Primary Care Provider Encounter Details Date Type Department Care Team Description 03/10/2021 Orders Only HIM DEPARTMENT Provider, Jesus Alberto go MD Interface provid er interface provider, [place] [id number] Social History Tobacco Use Types Packs/Day Years [...] Name Priority Date/Time Associated Diagnosis Comme nts EKG 03/10/2021 Results for thi s procedure are in the resu lts section. documented in this encounter Results EKG (03/10/2021) Narrative This result has an attachment that is no t available. Interface Provider EKG documented in this encounter Visit Diagnoses Not on filedocumented in this encounter Care Teams Button Breaker Operator Relationship Specialty Start Date End Date Erin Barba MD PCP - General Pediatric Medicine 04/07/19 [address] [place] [id number] documented as of this encounter
--- OUTSIDE RECORDS SUMMARY | 2021-11-21 11:42 | XMS_ITS | Encounter Summary ---
:2000 Author Organization [place] Address [address], [place] [address] Care Team Providers Name Role Phone Erin Barba MD Primary Care Provider Reason for Visit Reason Comments Medication Questions Encounter Details Date Type Department Care Team Description 04/06/2021 Telephone Misha Pennington, Medicatio n Questions Obstetrics/Gynecolog y [address] [facility] [address] [facility] [place] [address] [place] [phone] [id number] (Wo rk) Social History Tobacco Use Types Packs/Day Years Used Date Smoking Tobacco: Never Smokeless Tobacco: Never Alcohol Use Standard Drinks/Week Comments Not Currently 0 (1 standard drink = 0.6 oz pure alcoho l) Sex Assigned at Date Recorded Not on file documented as of this encounter Nursing Notes Petrona Pardo RN - 04/10/2021 9:36 AM CST Contacted pt; she states she has no bleeding with IUD in place and would prefer to wait until next year. Appt on 04/12 cancelled. Misha Burnett MD - 04/10/2021 9:21 AM CST Can you call Edilma and let her know the Mirena IUD has now been FDA approved for 7 years, so unlessshe's having a lot of irregular bleeding, she can change it out next year. If she is having a lot ofirregular bleeding and would like removal on 04/12 I will send in a script for xanax for her. OME ANALYST Petrona Pardo, RN - 04/06/2021 3:27 PM CST Reason for Call: Medication Request. Next Steps: Document further recommendations and route to appropriate person or pool. Caller IS expecting a call back from Care Team. Additional Information: Pt is scheduled 04/12/21 for IUD removal and replacement. She is calling with request for cytotec and Xanax. Per last visit note in August: ASSESSMENT/PLAN: 1. IUD consult-patient was informed about [...] her and is FDA approved for fiveyears. Pharmacy - [facility] [place] OME ANALYST documented in this encounter Plan of Treatment Not on filedocumented as of this encounter Visit Diagnoses Not on filedocumented in this encounter Care Teams Self Rising Flour Mixer Relationship Specialty Start Date End Date Erin Barba MD PCP - General Pediatric Medicine 04/07/19 [address] [place] [address] documented as of this encounter
--- OUTSIDE RECORDS SUMMARY | 2021-11-21 11:42 | XMS_ITS | Encounter Summary ---
:2000 Author Organization [facility] Address [address] [place] [address]. [place] [address] Care Team Providers Name Role Phone Unavailable Primary Care Provider Unavailable Encounter Details Date Type Department Care Team Description 04/27/2005 Historic Results INTERFACED REPORT Pepe Hernandez MD EMERGENCY PHYSIC [facility] [address] [place], [place] [address] Social History Tobacco Use Types [...] Procedure Name Priority Date/Time Associated Comments Diagnosis UA MACROSCOPIC WITH STAT 04/27/2005 6:00 PM Re sults for this REFLEX TO MICRO WIRELESS TECHNICIAN procedure ar e in the results section. HEMOGRAM DIFFERENTIAL STAT 04/27/2005 5:25 PM Results for this AND PLATELET WIRELESS TECHNICIAN procedure are i n the results section. BASIC METABOLIC PANEL STAT 04/27/2005 5:25 PM Results for this WIRELESS TECHNICIAN procedure are i n the results section. documented in this encounter Results (ABNORMAL) UA macroscopic with reflex to micro (04/27/2005 6:00 PM WIRELESS TECHNICIAN) [facility] [email or web address] Method Time Signature Source Midstream MISYS Urine Color Urine Yellow MISYS Appearance Urine Clear MISYS Glucose Urine Negative NEG mg/dL MISYS Bilirubin Urine Negative NEG MISYS Ketones Urine >=80 (A) NEG mg/dL MISYS Specific [place] >1.030 1.003 - MISYS Urine 1.035 Blood Urine Negative NEG MISYS pH Urine 6.0 5.0 - 7.0 MISYS pH Protein Albumin Negative NEG mg/dL MISYS Urine Urobilinogen 0.2 0.2 - 1.0 MISYS Urine EU/dL Nitrite Urine Negative NEG MISYS Leukocyte Negative NEG MISYS Esterase Urine Specimen Anatomical Collection Method Collection Time Receive d Time (Source) Location / / Volume Laterality 04/27/2005 6:00 PM 5:13 WIRELESS TECHNICIAN PM WIRELESS TECHNICIAN Saul Hernandez MD LAB - URINE ORDERABLES Performing Organization Address City/State/ZIP Code Phon e Number MISYS (ABNORMAL) Hemogram differential and platelet (04/27/2005 5:25 PM WIRELESS TECHNICIAN) [facility] [email or web address] Method Time Signature MCV 78 70 - 100 MISYS fl MCH 26.8 26.5 - MISYS 33.0 pg MCHC 34.5 32.0 - MISYS 36.0 g/dL RDW 13.6 10.0 - MISYS 15.0 % WBC 6.0 5.5 - MISYS 15.5 10e9/L RBC Count 4.66 3.7 - 5.3 MISYS 10e12/L Hemoglobin 12.5 10.5 - MISYS 14.0 g/dL Hematocrit 36.2 31.5 - MISYS 43.0 % % Neutrophils 81 (H) 15 - 44 % MISYS % Lymphocytes 15 (L) 45 - 76 % MISYS % Monocytes 4 0 - 10 % MISYS % Eosinophils 0 0 - 6 % MISYS % Basophils 0 0 - 1 % MISYS Platelet Count 467 (H) 150 - 450 MIS[place] 10e9/L Absolute 4.9 0.8 - 7.7 MISYS Neutrophil 10e9/L Absolute 0.9 (L) 2.3 - MISYS Lymphocytes 13.3 10e9/L Absolute 0.2 0.0 - 1.1 MISYS Monocytes 10e9/L Absolute 0.0 0.0 - 0.7 MISYS Eosinophils 10e9/L Absolute 0.0 0.0 - 0.2 MISYS Basophils 10e9/L Diff Method Automated MISYS Method Specimen Anatomical Collection Method Collection Time Receive d Time (Source) Location / / Volume Laterality 04/27/2005 5:25 PM 6 5:13 WIRELESS TECHNICIAN PM WIRELESS TECHNICIAN Saul Hernandez MD LAB - BLOOD ORDERABLES Performing Organization Address City/State/ZIP Code Phon e Number MISYS (ABNORMAL) Basic metabolic panel (04/27/2005 5:25 PM WIRELESS TECHNICIAN) P athologist Signature Sodium 134 133 - 143 MISYS mmol/L Potassium 4.6 3.4 - 5.3 MISYS mmol/L Chloride 102 96 - 110 [place]IS[place] mmol/L Carbon Dioxide 13 (LL) 20 - 32 MIS[place] mmol/L Comment: Critical Value called to and read back kaushik LANDAVERDE RN ER 17[address] [place] CLS Glucose 36 (LL) 60 - 110 mg/dL MISYS Comment: Critical Value called to and read back b drew LANDAVERDE RN ER 17[address] [place] CLS Urea Nitrogen 30 (H) 5 - 24 mg/dL MISYS Creatinine 0.47 0.20 - 0.70 mg/dL MISYS GFR Estimate GFR not calculated, patient <16 mL/min/1.7m2 MISYS years old. GFR Estimate If Black GFR not calculated, patient <16 mL/min/1.7m2 MISYS years old. Calcium 9.8 8.7 - 10.8 mg/dL MISYS Anion Gap 19 (H) 6 - 17 mmol/L MISYS Specimen Anatomical Collection Method Collection Time Receive d Time (Source) Location / / Volume Laterality 04/27/2005 5:25 PM 6 5:13 WIRELESS TECHNICIAN PM WIRELESS TECHNICIAN Saul Hernandez MD LAB - BLOOD ORDERABLES Performing Organization Address City/State/ZIP Code Phon e Number MISYS documented in this encounter Visit Diagnoses Not on filedocumented in this encounter
--- OUTSIDE RECORDS SUMMARY | 2021-11-21 11:43 | XMS_ITS | Encounter Summary ---
:2000 Author Organization [facility] Address [address], [place] [address] Care Team Providers Name Role Phone Erin Barba MD Primary Care Provider Reason for Referral (Routine) - Closed Specialty Diagnoses / Procedures Referred By Contact Refer red To Contact Diagnoses Palpitations Syncope and collapse Oscar Rivesr MD Procedures Echocardiogram [address] [place], [place] [address] Referral ID Status Reason Start Date Expiration Date Visits Requ ested Visits Authorized [id number] Closed 04/07/2019 07/06/2020 1 1 HT NURSE Reason for Visit (Routine) - Closed Specialty Diagnoses / Procedures Referred By Contact Refer red To Contact Diagnoses Palpitations Syncope and collapse Oscar Rivers MD Procedures Echocardiogram [address] [place] [employer], [place] [address] Referral ID Status Reason Start Date Expiration Date Visits Requ ested Visits Authorized [id number] Closed 04/07/2019 07/06/2020 1 1 Encounter Details Date Type Department Care Team Description 04/07/2019 Hospital Encounter [facility] Palpitations; Echocardiogram Syncope and collapse [address] [facility] [place] [address] Social History Tobacco Use Types Packs/Day Years Used Date Smoking Tobacco: Never Smokeless Tobacco: Never Alcohol Use Standard Drinks/Week Comments Not Currently 0 (1 standard drink = 0.6 oz pure alcoho l) Sex Assigned at Date Recorded Not on file documented as of this encounter Medications at Time of Discharge Medication Sig Dispensed Refills Start Date End Date levonorgestrel 1 Each by Intrauterine 0 (MIRENA) 20 MCG/24HR route once. IUD clindamycin (CLEOCIN Apply topically daily. 60 mL 11 11/201802/16/2021 T) 1 % lotion DULoxetine (CYMBALTA) Take 60 mg by mouth. 0 02/16/2021 60 MG capsule Generic Medication Meloxicam 1%, baclofen 120 g 11 01/2202/16/2021 (COMPOUNDED CREAM) 2%, bupivacaine 1%, clonidine 2%, cyclobenzaprine 2%, gabapentin 6% Apply 1-2 gm topically QID or PRN. traZODone (DESYREL) 50 TAKE HALF TO ONE TABLET 0 10/28/2018 02/16/2021 MG tablet BY MOUTH AT BEDTIME tretinoin (RETIN-A) Apply topically every 45 g 11 07/1008/31/2020 0.025 % cream evening. documented as of this encounter Progress Notes Amber Swanson RN - 04/07/2019 12:00 PM CST Pt notified of normal echo results and Dr. Rivers's comments. We will contact her when clearer images of ECG's are received from outside clinic and reviewed. HT NURSE documented in this encounter Plan of Treatment Not on filedocumented as of this encounter Procedures Procedure Name Priority Date/Time Associated Diagnosis Comme nts ECHOCARDIOGRAM Routine 04/07/2019 12:16 PM Palpitations Results for this FLIGHT NURSE Syncope and collapse procedu re are in the results section . documented in this encounter Results Echocardiogram (04/07/2019 12:16 PM FLIGHT NURSE) Specimen (Source) Anatomical Collection Method Collection Time Re ceived Time Location / / Volume Laterality 04/07/2019 12:16 PM FLIGHT NURSE Narrative PN ECHO - 04/07/2019 2:15 PM FLIGHT NURSE ECHOCARDIOGRAM. Date: 04/07/2019 Start: 12:16 PM Facilit y: [facility] CONCLUSIONS Left ventricular ejection fraction is vi sually estimated at 60%. No significant valvular abnormalities we re identified. No previous study available for comparis on. FINDINGS MITRAL VALVE Normal mitral valve structure and functi on. Trace (physiologic) mitral regurgitation . AORTIC VALVE Normal aortic valve structure and functi on. The aortic valve is tricuspid. TRICUSPID VALVE Normal tricuspid valve structure, but tr donavan tricuspid regurgitation. Pulmonary artery pressures cannot be est imated due to absence of adequate TR jet. PULMONIC VALVE Normal pulmonic valve structure and func tion. Trace (physiologic) pulmonic regurgitati on. LEFT ATRIUM Left atrial volume index is 22.9 mL/m^2. (Normal <34mL/m^2). LEFT VENTRICLE Normal left ventricular size and global and regional function. Normal left ventricular wall thickness. Left ventricular ejection fraction is vi sually estimated at 60%. Normal left ventricular diastolic functi on. RIGHT ATRIUM Normal right atrium. RIGHT VENTRICLE Normal right ventricle size and normal g lobal function. PERICARDIAL EFFUSION There is no pericardial effusion. MISCELLANEOUS The following segments of the aorta are normal in size: sinuses of Valsalva, sinotubular ridge, ascending a hernandez. The inferior vena cava is normal. M-MODE/2D MEASUREMENTS & CALCULATIONS LV Diastolic Dimension: 4.18 cm LV PW Diastolic: 1.12 cm Septum Diastolic: 0.8 cm ?LA Dimension: 3.4 cm ?LA Area: 16.4 cm^2 LV Systolic Dimension: 2.87 cm ? Ascending Aorta: 2 cm LV Volume Diastolic: 73 ml ? LA volume index: 22.9 LV Volume Systolic: 23.6 ml ?ml/m^2 LV EDV/LV EDV Index: 73 ml/45 m^2 LV ESV/LV ESV Index: 23.6 ml/15 m^2EF ?IVC Inspiration: 0.44 cm Estimated: 60 % ?IVC Expiration: 1.32 cm LVOT: 1.8 cm DOPPLER MEASUREMENTS & CALCULATIONS MV Peak E-Wave: 1.2 m/s MV Peak A-Wave: 0.5 m/s MV E/A Ratio: 2.1 MV Peak Gradient: 5.29 mmHg E' Velocity: 0.15 m/s PROCEDURE Doppler Quality: Good quality pulse, con tinuous wave, and color Doppler was performed and interpreted. 2-D Quality: Good quality 2-dimensional echo was performed and interpreted. Indications: Palpitations. Contrast Medium: Not Applicable. Height: 62 inches Weight: 134 pounds BSA : 1.61 m^2 BMI: 24.51 kg/m^2 Rhythm: SinusBP: 108/68 mmHg Gender: ?Female SIGNATURE DEMOGRAPHICS Patient Name ??VIRAJ ADÁN ?Room Number ? OUTPT Patient ? [id number] ? D ate of Study ? 04/07/2019 Number Accession ? [id number] ?In terpreting ?QUINTON Squires MD Number ? Physician Date of 2000 ? Order ing ?OSCAR RIVERS, ?Physician ? MD Primary ? OSCAR ? So nographer ? , [facility] [[email or web address]] Physician ? MD HANNA The procedure was explained in detail to the patient. Risks, complications and alternative treatments were reviewed. Informed consent was obtained. Procedure Note Jorge Hatch III, MD - 04/07/2019For matting of this note might be different from the original. ECHOCARDIOGRAM. Date: 04/07/2019 Start: 12:16 PM Facilit y: [facility] CONCLUSIONS Left ventricular ejection fraction is vi sually estimated at 60%. No significant valvular abnormalities we re identified. No previous study available for comparis on. FINDINGS MITRAL VALVE Normal mitral valve structure and functi on. Trace (physiologic) mitral regurgitation . AORTIC VALVE Normal aortic valve structure and functi on. The aortic valve is tricuspid. TRICUSPID VALVE Normal tricuspid valve structure, but tr donavan tricuspid regurgitation. Pulmonary artery pressures cannot be est imated due to absence of adequate TR jet. PULMONIC VALVE Normal pulmonic valve structure and func tion. Trace (physiologic) pulmonic regurgitati on. LEFT ATRIUM Left atrial volume index is 22.9 mL/m^2. (Normal <34mL/m^2). LEFT VENTRICLE Normal left ventricular size and global and regional function. Normal left ventricular wall thickness. Left ventricular ejection fraction is vi sually estimated at 60%. Normal left ventricular diastolic functi on. RIGHT ATRIUM Normal right atrium. RIGHT VENTRICLE Normal right ventricle size and normal g lobal function. PERICARDIAL EFFUSION There is no pericardial effusion. MISCELLANEOUS The following segments of the aorta are normal in size: sinuses of Valsalva, sinotubular ridge, ascending a hernandez. The inferior vena cava is normal. M-MODE/2D MEASUREMENTS & CALCULATIONS LV Diastolic Dimension: 4.18 cm LV PW Diastolic: 1.12 cm Septum Diastolic: 0.8 cm LA Dimension: 3.4 cm LA Area: 16.4 cm^2 LV Systolic Dimension: 2.87 cm Ascendin g Aorta: 2 cm LV Volume Diastolic: 73 ml LA volume in dex: 22.9 LV Volume Systolic: 23.6 ml ml/m^2 LV EDV/LV EDV Index: 73 ml/45 m^2 LV ESV/LV ESV Index: 23.6 ml/15 m^2EF I VC Inspiration: 0.44 cm Estimated: 60 % IVC Expiration: 1.32 cm LVOT: 1.8 cm DOPPLER MEASUREMENTS & CALCULATIONS MV Peak E-Wave: 1.2 m/s MV Peak A-Wave: 0.5 m/s MV E/A Ratio: 2.1 MV Peak Gradient: 5.29 mmHg E' Velocity: 0.15 m/s PROCEDURE Doppler Quality: Good quality pulse, con tinuous wave, and color Doppler was performed and interpreted. 2-D Quality: Good quality 2-dimensional echo was performed and interpreted. Indications: Palpitations. Contrast Medium: Not Applicable. Height: 62 inches Weight: 134 pounds BSA : 1.61 m^2 BMI: 24.51 kg/m^2 Rhythm: SinusBP: 108/68 mmHg Gender: Female SIGNATURE DEMOGRAPHICS Patient Name VIRAJ MCCAIN Room Number OU TPT Patient [id number] Date of Study 04/07/19 20 Number Interpreting QUINTON Squires MD Number Physician Date of 2000 Ordering Physician EL PRICE [facility] OSCAR Med Surg Nurse [facility] Physician MD HANNA The procedure was explained in detail to the patient. Risks, complications and alternative treatments were reviewed. Informed consent was obtained. Oscar Rivers MD PN ECHO ORDERABLES Performing Organization Address City/State/ZIP Code Phon e Number PN ECHO documented in this encounter Visit Diagnoses Diagnosis Palpitations Syncope and collapse documented in this encounter Care Teams General Office Associate Relationship Specialty Start Date End Date Erin Barba MD PCP - General Pediatric Medicine 04/07/[address] [place] [address] documented as of this encounter
--- OUTSIDE RECORDS SUMMARY | 2021-11-21 11:43 | XMS_ITS | Encounter Summary ---
:2000 Author Organization [facility] Address [address] [place] [address] Care Team Providers Name Role Phone Erin Barba MD Primary Care Provider Reason for Visit Reason Comments Ankle Problem Encounter Details Date Type Department Care Team Description 05/11/2019 Office Visit [facility] PT and Ed Zuleyma Pacheco, Complex regional pain Center, Physical ABATEMENT WORKER syndrome type 1 of Therapy [address] [facility] right lower extremity [address] [place], [place] (Prim hazel Dx) [address] [address] [place], [place] [address] [phone] Social History Tobacco Use Types Packs/Day Years Used Date Smoking Tobacco: Never Smokeless Tobacco: Never Alcohol Use Standard Drinks/Week Comments Not Currently 0 (1 standard drink = 0.6 oz pure alcoho l) Sex Assigned at Date Recorded Not on file documented as of this encounter Progress Notes Zuleyma Pacheco, ABATEMENT WORKER - 05/11/2019 9:30 AM CDT [facility] Progress Note Visit Number: 11 ABATEMENT WORKER visit #2 [facility] Referring Provider: Santa Aguilar MD Diagnosis: CRPS Orders: Evaluate & treat FAAM = 19/54 [place] = 55/100 - high levels of anxiety and depression PSEQ = 38 SUBJECTIVE EXAM: Stated foot is looking normal: no swelling and no colors. She can play soccer now and feel a little painful. Able to go on longer walks without pain: 15 min. She is much better with drawing numbers on her foot and two point discrimination. She is feeling 50% better. Pain: CURRENT:NA OBJECTIVE EXAM: Strength: painful inversion/eversion with 5-/5 strength Palpation: Light palpation anterior ankle region is not painful TREATMENT: Neuromuscular Re-Education (CPT 91442) - to improve coordination, control, and understanding of painproblem x 30 minutes Discussed what movements are still not comfortable and she wants to improve Patient identified the above movements: crossing legs in sitting, rolling her ankle out and putting weight on R leg Visualization was done: patient was visualizing sitting on the soccer field, visualized what she is wearing and how her socks and shoes feel on her feet. Sitting on the grass with her feet crossed overwith R on top and then with R on the bottom. Getting her socks and shoes off and walking on grass and asked to observe the sensations of grass on her feet and asked to watch her feet and legs moving from back, side and front. Then visualized rolling the ankle out and loading it, both in sitting. Mirror therapy was done: Observed the L foot in the mirror Heel raises Toe raises Rolling the ankle out Picking marbles with her toes Therapeutic Exercise (CPT 92180) - to improve general strength, endurance, and conditioning 15 minutes - patient was asked what exercises for her ankle she thinks she can do without pain: she identified PF with a band 20 x2 with orange band - discussed starting soccer drills with 15 min at a time and grow that time Home Program Access Code: [email or web address] Imagined movement - pictures of her foot Walking program baselining at 5 minutes ASSESSMENT/PLAN: FAAM outcomes have decreased, possibly she was scoring how she was feeling after the session. Will be worth to do it again with a better instructions. Patient is very fearful of rolling her ankle( thisis how she broke it) and had pain with visualizing that movement with cross legged sitting and with mirror therapy. Will benefit from starting strengthening and growing it to weight bearing strengthening. GOALS: Play soccer, kick ball by June 02 2019 CHARGES: Neuromuscular Re-education: 30 Therapeutic Exercise: 15 minutes Timed Code Treatment Minutes: 45 Total Treatment Minutes: 45 Therapist: Zuleyma Pacheco PTA 1:47 PM 05/11/2019 Supervising PT has reviewed and modified as appropriate the treatment and plan ofcare. Rhoda Cantu DPT documented in this encounter Plan of Treatment Not on filedocumented as of this encounter Visit Diagnoses Diagnosis Complex regional pain syndrome type 1 of right lower extremity - Primary documented in this encounter Care Teams Tuft Machine Operator Relationship Specialty Start Date End Date Erin Barba MD PCP - General Pediatric Medicine 04/07/[address] [place] [address] [place] [facility] [place] [address] documented as of this encounter
--- OUTSIDE RECORDS SUMMARY | 2021-11-21 11:43 | XMS_ITS | Encounter Summary ---
:2000 Author Organization [facility] Address [address] [address] Care Team Providers Name Role Phone Andres Ramirez MD Primary Care Provider Reason for Referral Procedure/Equipment (Routine) - Incomplete Specialty Diagnoses / Procedures Referred By Contact Refer red To Contact Diagnoses Complex regional pain syndrome type 1 of right lower extremity Santa Aguilar APRN, CNP Procedures [place] C Arm [address] [place] [address] Referral ID Status Reason Start Date Expiration Date Visits V isits Requested Authorized [id number] Incomplete 11/27/2018 02/26/2020 1 1 Therapies (Routine) - Closed Specialty Diagnoses / Procedures Referred By Contact Refer red To Contact Diagnoses Complex regional pain syndrome type 1 of right lower extremity Santa Aguilar APRN, WASHER REPAIRMAN [address] [facility] [place] [address] Referral ID Status Reason Start Date Expiration Date Visits Requ ested Visits Authorized [id number] Closed 11/27/2018 01/26/2019 1 1 Scheduling Instructions Your provider has recommended an appoint ment with [facility]. You may call [phone] to schedule your appoi ntment. If you do not schedule an appointment within the next 1 to 3 business days, we will call you to help arrange your appointment. We suggest you call your [employer] insurance company about your coverage and benefits for this appointment. Reason for Visit Reason Comments CONSULT ankle pain Consult/Transfer Care (Routine) - Closed Specialty Diagnoses / Procedures Referred By Contact Refer red To Contact Diagnoses Acute right ankle pain Serafin Quinonez MD [address] [facility] [place] [address] Referral ID Status Reason Start Date Expiration Date Visits Requ ested Visits Authorized [id number] Closed 11/13/2018 02/12/2020 1 1 Encounter Details Date Type Department Care Team Description 11/27/2018 Initial Consult [facility] Santa Aguilar APRN, AIDA [address] [facility] [address] [place] [address] Complex [address], Tria Rad Rn pain syndrome type 1 [place] [id number] extremity (Primary [phone] Dx) Social History Tobacco Use Types Packs/Day Years Used Date Smoking Tobacco: Never Smokeless Tobacco: Never Alcohol Use Standard Drinks/Week Comments Not Currently 0 (1 standard drink = 0.6 oz pure alcoho l) Sex Assigned at Date Recorded Not on file documented as of this encounter Last Filed Vital Signs Vital Sign Reading Time Taken Comments Blood Pressure 126/84 11/27/2018 12:59 PM CDT Pulse 114 11/27/2018 12:59 PM CDT Temperature - - Respiratory Rate 14 11/27/2018 12:59 PM CDT Oxygen Saturation 98% 11/27/2018 12:59 PM CDT Inhaled Oxygen Concentration - - Weight 54.4 kg (120 lb) 11/27/2018 12:59 PM CDT Height 157.5 cm (5' 2.01) 11/27/2018 12:59 PM CDT Body Mass Index 21.94 11/27/2018 12:59 PM CDT Body Mass Index Percentile 57.27 % 11/27/2018 12:59 PM C DT Growth Chart: CDC (Girls, 2-20 Years) documented in this encounter Patient Instructions Patient InstructionsTrdequan Santa C, ADOLFO, WASHER REPAIRMAN - 11/27/2018 12:40 PM CDT 1. Investigations: None at this time 2. Consults: no new consultations recommended at this time 3. Interventions: Today we discussed a lumbar sympathetic. This treatment alone is not a ???cure?? .The purpose of the block would be to facilitate specialized physical therapy. An educational video on common pain conditions and pain clinic procedures is available on the [facility] web site by searching Pain Program Procedures. 4. Medications: --Nerve Membrane stabilizers- we discussed a trial of nighttime gabapentin to help with neuropathic pain as well as insomnia. Though this medication can be taken during the day time, I suggest to starttaking it at night to minimize side effects. Gabapentin Titration Week AM Dose Mid-day Dose PM Dose 1 - - 100mg 2 - 200mg 3 300mg 4 300mg The risks and benefits of starting this new medications were discussed, in detail, with the patient.We specifically spoke about the potential for sedating side effects and the dangers associated with sedation. The patient was counseled not to drive a motor vehicle until after they were familiar with how the medication impacted attention and reaction. --Norepinepherine Modulators: Continue Cymbalta This is a norepinephrine and serotonin modulating medication - it carries FDA approval as an antidepressant but also a separate one for pain management when used at this dose. This medication is generally well tolerated - the most common side effects (still less than 10%) include flushing, changes to mood, GI upset and sexual dysfunction. All are reversible. --Topical medications: Lidocaine 4% patches are available over the counter. They can be worn on for 12 hours and off for 12 hours. There are several brands available. Lidocaine ointment (ex. Aspercreme) is also available. A custom compounded cream is an option. We work with [employer] and can create combination creams that include anti-inflammatory, muscle relaxer, topical anesthetics etc. Theygenerally cost about $60-120. ( $1/gram) --NSAIDs: Avoid NSAIDS Advil, Motrin, Aleve, etc, are in this class of medication. Though helpful for some people with neuropathic pain, this is not a usual medication in this setting. --Tylenol: Do not underestimate the utility of this class of medication when used in conjunction with the rest of this plan. In the surgical setting, 1000mg of tylenol has some the anti-pain effect as 5mg of morphine. Tylenol, 1000mg up to every 8 hours for 1-2 weeks, then take as needed, in 1000mg dose therafter. --Muscle Relaxant: This medication class can be habit forming and sedating. Do not drive while taking this medication. --Supplements: -Start magnesium glycinate 400mg daily for mild to moderate muscle relaxant properties and synergy with prescription pain medications. This can most readily found at [employer], or via [employer]. This supplement does not require a prescription and is very low risk. -Start Vitamin C supplementation, 500mg daily, there is some evidence that using regular vitamin C supplementation at the onset of neuropathic symptoms can decrease intensity and duration of the pain. --Opioids: Centers for Disease Control released new prescribing guidelines for opioids for chronic pain on 05/17/15 - these very specifically state that opioids should not be used for chronic, non-cancer pain. I recommend you visit the following website for more information and related evidence: http://www.cdc.gov /drugoverdose/prescribing/guideline.html In the [facility], we adhere to federal recommendations and do not prescribe group home opioids for chronic non-cancer pain. Further, there is good evidence that opioids used for neuropathic paincan lead to worsening pain. 5. Physical Therapy: The patient was made aware that our pain program emphasizes an interdisciplinary approach to comprehensive pain management; at this time, based on the patient???s presentation, physical therapy would likely improve the patient???s pain constellation - PT focused on desensitization, laterality training and range of motion maintenance is the single most likely mean to improve group home outcomes of neuropathic pain. . I recommend you see a therapist trained in Therapeutic Neuroscience Education (TNE)- Pepe Duong, Jessica Prado or Alma Barr. Call [phone] to schedule Today, I provided you with a copy of the Why Do I Hurt workbook by Noé Keita. This book, designed for patients dealing with chronic pain, will help to provide a better framework to think about andmanage your pain. The pain program will continue to support your recovery, but what we do is passive-- to maximize your function and decrease your pain it will take an active commitment on your part. This book helps to teach how to do this. Take notes, highlight pages and write down questions. We will speak more about what you learn some sequent visits and some of these principals will likely be applied within the context of a physical/functional therapy plan. 6. Psych: The patient was made aware that our pain center emphasizes an interdisciplinary approach to comprehensive pain management; She was informed that we have access to a pain psychologist, specializing in behavioral techniques to improve pain control If she believes she would benefit from exploring this therapy, referral will be provided at that time. 7. Integrative Health: Information offered on the [facility] Integrative Health Program which focuses on holistic approaches to health care focusing on the mind, body and spirit. Living Well consults, Healing touch, Pilates, Yoga, massage therapy and acupuncture are all available at [facility]. Call [phone] to schedule. 8. Follow Up: Please let me know if you would like to try a sympathetic nerve block. Ideally would have the block and then be seen by 1 of our physical therapist that same day. documented in this encounter Progress Notes Samantha Leon CMA - 11/27/2018 12:40 PM CDT Images from the original note were not included. . PROJECT PRODUCT MANAGER for consult Santa Aguilar APRN, CNP - 11/27/2018 12:40 PM CDT Subjective: Thank you for the opportunity to see your patient, Edilma Reed at the [facility] Pain [facility]. She was seen by Satna Aguilar CNP. Documents reviewed prior to seeing the patient included notes by Dr. Quinonez. Dominick personally reviewed the patient- completed new patient questionnaire which has been imaged in toEpic. As you know Edilma Reed is a 18 y.o. female who presents to our clinic with neuropathic pain, suspect for CRPS of the right ankle Edilma presents with her mother by her side. 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 She was hoping to play soccer this year at [employer] but could not due to pain. Her chief complaint is pain in her right ankle and foot. The pain is associated with swelling, bruising, hyperalgesia, weakness, decreased range of motion. She had an initial surgery in 2015 at [facility] to treat ???scar tissue?? status post multiple ankle sprains. She did well for approximately 1 year after that for surgery. 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 Unfortunately her pain returned. She suffered several injuries to the foot including a bad sprain and a ???chipped bone?? . At one point she was diagnosed with Achilles tendonitis as well as 3 or 4 stress fractures. She was in and out of a boot. Ultimately she had asubsequent surgery which was similar in nature to her first surgery. This was performed in February of 2018 also at [facility]. Since that time her pain has not subsided. She was seen in the [facility] and ultimately sought a 2nd opinion from Dr. Quinonez. New MRI of her foot showed no abnormalities. Dr. Quinonez voiced concerns about complex regional pain syndrome and recommended the patient seek consult here in ourpain program. HPI and Pain Description: The pain is aching, sharp, shooting, pressure and located in the right ankle. The pain radiates to the: michaels and heel. The worst pain score over the last week was 9. The lowest pain score over the last week was 5. The average pain score over the last week was 7. Aggravating factors include Physical activity, use, sitting tahira/cross, pointing/flexing foot . Relieving factors include nothing. Edilma Reed does not report past damage or injury to a major nerve. The patient does endorse continuing pain disproportionate to the inciting event. Additionally, she does endorse hyperesthesia, does endorse skin color or temperature changes (warmth), does endorse edema but not sweating changes, does endorse ROM changes, motor changes but no trophic changes. Psychosocial Factors: The patient describes her mood as anxious, depressed. She is under the care of a psychiatrist as well as a therapist. She has an appointment with her psychiatrist next week. She is on Cymbalta 120 mg. She does not have suicidal ideation. Her sleep has been affected by the pain. She is able to do theirADL's. She is not employed. She is a college student at [employer]. There is not pending litigation related to the presenting pain condition. She is not on SSDI. Specialists Seen: The patient was referred by Dr. Quinonez. Other providers seen for this condition include: orthopedic surgeons at [facility]- Dr. Banks, Dr. Gaines The patient does not have a controlled substance contract with another provider. Investigations Performed and Pertinent Image Review by Date: MRI I personally reviewed the available images 10/30/2018 ??9:36 AM - Poli, Rad Results In Impression Performed by: [facility] TECHNIQUE: ?? Routine MRI of the right ankle was performed without contrast. COMPARISON: ??Radiographs 10/29/2018, MRI 12/19/2017. FINDINGS: TENDONS: ??The peroneus longus and brevis tendons are normal. The tibialis posterior, flexor digitorum and flexor hallucis longus tendons are normal. Mild seen tenosynovitis at the extensor digitorum longus tendons, more pronounced compared to prior. LIGAMENTS: ??The anterior and posterior talofibular ligaments and the calcaneofibular ligament are normal. The anterior and posterior inferior tibiofibular ligaments are normal. The deltoid ligament complex is intact. JOINTS: ??Small tibiotalar joint effusion, more pronounced compared to prior. Minimal chondral thinning along the far posterior aspect of the tibia without any subchondral edema or osteochondral lesions identified. The talonavicular, calcaneocuboid and subtalar joints are unremarkable without evidenceof focal cartilage defect. The sinus tarsi is normal. The talocalcaneal ligament is normal. ACHILLES TENDON/PLANTAR FASCIA: ??The Achilles tendon and plantar fascia are normal. There is no significant fluid in the retrocalcaneal bursa. MARROW AND SOFT TISSUES: ??Marrow signal is normal. Specifically, no fractures identified at the anterior process of the calcaneus. No solid soft tissue mass. IMPRESSION: 1. Small nonspecific tibiotalar joint effusion. 2. Mild tenosynovitis at the extensor digitorum longus tendons. 3. No fracture. 4. Intact ligaments. Pain Medications Trialed: Opioids: Vicodin/Aurora, OxyContin, morphine IR, Ultram NSAIDs: ibuprofen, Naprosyn, Tylenol TCA/SNRIs: duloxetine (Cymbalta), Effexor, Lexapro Stabilizers: none Muscle Relaxers: none Other Medications: Hydroxyzine Current Pain Medications: Cymbalta 120 mg Other Medications Outpatient Medications Prior to Visit Medication Sig Note Dispense Refill ??? clindamycin (CLEOCIN T) 1 % lotion Apply topically daily. 60 mL 11 ??? DULoxetine (CYMBALTA) 60 MG capsule Take 60 mg by mouth. 10/29/2018: Taking 120mg daily. ??? levonorgestrel (MIRENA) 20 MCG/24HR IUD 1 Each by Intrauterine route once. ??? traZODone (DESYREL) 50 MG tablet TAKE HALF TO ONE TABLET BY MOUTH AT BEDTIME 0 ??? tretinoin (RETIN-A) 0.025 % cream Apply topically every evening. (Patient not taking: Reported on 10/29/2018) 45 g 11 ??? unknown medication Indications: PN: (Patient not taking: Reported on 07/10/2018) ??? unknown medication Indications: PN: (Patient not taking: Reported on 07/10/2018) ??? hydrOXYzine HCl (ATARAX) 10 MG tablet TAKE ONE OR TWO TABLETS BY MOUTH TWICE DAILY NEEDED 1 ??? spironolactone (ALDACTONE) 50 MG tablet Take 1 Tablet by mouth daily. (Patient not taking: Reported on 10/29/2018) 90 Tablet 3 ??? venlafaxine (EFFEXORXR) 37.5 MG 24 hour release capsule Take one (1) capsule by mouth every morning 0 No facility-administered medications prior to visit. The patient is not systemically anticoagulated. Allergies: Allergies Allergen Reactions ??? Amoxicillin PN: macular rash ??? Penicillins Rash Noninterventional Techniques: physical therapy many sessions at [facility] Interventional Techniques Employed: none Past Medical History: Past Medical History: Diagnosis Date ??? Anxiety ([facility]) ??? Depression ([facility]) ??? Factor 5 Leiden mutation, heterozygous ([facility]C) Past Surgical History: Past Surgical History: Procedure Laterality Date ??? ANKLE ARTHROSCOPY Right x2 ??? APPENDECTOMY 2016 Family History: Family history is noncontributory for pain or substance abuse disorders Social History: Social History Socioeconomic History ??? Marital status: Single Spouse name: Not on file ??? Number of children: Not on file ??? Years of education: Not on file ??? Highest education level: Not on file Occupational History ??? Not on file Social Needs ??? Financial resource strain: Not on file ??? Food insecurity: Worry: Not on file Inability: Not on file ??? Transportation needs: Medical: Not on file Non-medical: Not on file Tobacco Use ??? Smoking status: Never Smoker ??? Smokeless tobacco: Never Used Substance and Sexual Activity ??? Alcohol use: Not Currently ??? Drug use: Not Currently ??? Sexual activity: Not on file Lifestyle ??? Physical activity: Days per week: Not on file Minutes per session: Not on file ??? Stress: Not on file Relationships ??? Social connections: Talks on phone: Not on file Gets together: Not on file Attends confucianist service: Not on file Active member of club or organization: Not on file Attends meetings of clubs or organizations: Not on file Relationship status: Not on file ??? Intimate partner violence: Fear of current or ex partner: Not on file Emotionally abused: Not on file Physically abused: Not on file Forced sexual activity: Not on file Other Topics Concern ??? Not on file Social History Narrative ??? Not on file Prescription Monitoring Program Report: As I am helping to treat this patient's clinically significant pain and considering medication options as part of a broader management scheme, I personally reviewed the patient's up-to-date PROJECT PRODUCT MANAGER report for [place], as well as any other pertinent, available states. This did reveal consistency with our records. I did not appreciate any concerning behavior or suspicious patterns in the patient's prescription history. I used this information while constructing a tailored treatment plan, considering risks and benefits of treatment, non- treatment and alternative treatment regarding opioid pain medications and other controlled substances. Psychiatric History: depression, anxiety currently under the care of a psychiatrist and therapist Review of Systems: 12/15 systems were reviewed and are negative except where noted in the HPI or here: A comprehensive review of systems was negative. Pertinent Labs/Test Results and Dates: No results found for: CREATININE No results found for: ALKPHOS, BILIRUBINTOT, BILIRUBINTOT, BILIRUBINTOT, POCBILIRUBIN, BILIRUBINDIR,BILIRUBINDIR, BILIRUBINDIR, TPRO, TPRO, ALB, AST, ALT, ALT, ALT No results found for: PLTS No results found for: INR, PROTIME, PROTIME Objective BP 126/84 (BP Location: Right Arm, BP Cuff Size: Regular) Pulse (!) 114 Resp 14 Ht 1.575 m (5'2.01) Wt 54.4 kg (120 lb) SpO2 98% BMI 21.94 kg/m?? Estimated body mass index is 21.94 kg/m??as calculated from the following: Height as of this encounter: 1.575 m (5' 2.01). Weight as of this encounter: 54.4 kg (120 lb). Appearance: Grooming: appropriate Level of Distress: NAD Assistive Devices: none Physical Exam: General: No apparent distress HEENT: Pupils equal and round, nasopharynx clear, oropharynx clear Resp: Non-labored breathing Heart: Regular rate Abdomen: Non-distended Psych: Oriented; appropriate affect and insight, non-pressured speech Skin: No rashes or lesions appreciated on exposed skin Neuromuscular Exam: Focused neuropathic pain exam of the right foot reveals: 1) There are sensory signs of hyperalgesia 2) There are vasomotor signs of temperature asymmetry or skin color differences. 3) There are sudomotor signs of edema or sweating changes. 4) There are motor signs of decreased ROM, motor dysfunction but not trophic changes. Temperatures: Affected limb: 29.6 degrees C Contralateral limb: 28.1 degrees C Assessment: Edilma is a 18 y.o. year-old female with: 1. Right foot pain status post to surgeries The patient meets [place] criteria for [...] psychologist 4. Factor 5 Leiden deficiency heterozygous Elaine is a full-time college student, though would be able to get home for treatments, especially during upcoming fall break. She and her mother were educated on the nature of complex regional pain syndrome, how it is diagnosed, treatment strategies. It is possible that her symptoms will continue to subside with time and refraining from playing soccer. At this point she is ready to be more aggressive with her treatment however. Plan: 1. Investigations: None at this time 2. Consults: no new consultations recommended at this time 3. Interventions: Today we discussed a lumbar sympathetic nerve block with IV sedation. This treatment alone is not a ???cure?? . The purpose of the block would be to facilitate specialized physical therapy. An educational video on common pain conditions and pain clinic procedures is available on the [facility] web site by searching Pain Program Procedures. 4. Medications: --Nerve Membrane stabilizers- we discussed a trial of nighttime gabapentin to help with neuropathic pain as well as insomnia. Though this medication can be taken during the day time, I suggest to starttaking it at night to minimize side effects. You declined this medication today Gabapentin Titration Week AM Dose Mid-day Dose PM Dose 1 - - 100mg 2 - 200mg 3 300mg 4 300mg The risks and benefits of starting this new medications were discussed, in detail, with the patient.We specifically spoke about the potential for sedating side effects and the dangers associated with sedation. The patient was counseled not to drive a motor vehicle until after they were familiar with how the medication impacted attention and reaction. --Norepinepherine Modulators: Continue Cymbalta This is a norepinephrine and serotonin modulating medication - it carries FDA approval as an antidepressant but also a separate one for pain management when used at this dose. This medication is generally well tolerated - the most common side effects (still less than 10%) include flushing, changes to mood, GI upset and sexual dysfunction. All are reversible. --Topical medications: Lidocaine 4% patches are available over the counter. They can be worn on for 12 hours and off for 12 hours. There are several brands available. Lidocaine ointment (ex. Aspercreme) is also available. A custom compounded cream is an option. We work with [employer] and can create combination creams that include anti-inflammatory, muscle relaxer, topical anesthetics etc. They generally cost about $60-120. ( $1/gram) A prescription was sent. --NSAIDs: Avoid NSAIDS Advil, Motrin, Aleve, etc, are in this class of medication. Though helpful for some people with neuropathic pain, this is not a usual medication in this setting. --Tylenol: Do not underestimate the utility of this class of medication when used in conjunction with the rest of this plan. In the surgical setting, 1000mg of tylenol has some the anti-pain effect as 5mg of morphine. Tylenol, 1000mg up to every 8 hours for 1-2 weeks, then take as needed, in 1000mg dose therafter. --Muscle Relaxant: This medication class can be habit forming and sedating. Do not drive while taking this medication. --Supplements: -Start magnesium glycinate 400mg daily for mild to moderate muscle relaxant properties and synergy with prescription pain medications. This can most readily found at [employer], or via [employer]. This supplement does not require a prescription and is very low risk. -Start Vitamin C supplementation, 500mg daily, there is some evidence that using regular vitamin C supplementation at the onset of neuropathic symptoms can decrease intensity and duration of the pain. --Opioids: Centers for Disease Control released new prescribing guidelines for opioids for chronic pain on 05/17/15 - these very specifically state that opioids should not be used for chronic, non-cancer pain. I recommend you visit the following website for more information and related evidence: http://www.cdc.gov /drugoverdose/prescribing/guideline.html In the [facility], we adhere to federal recommendations and do not prescribe terminal supervisor opioids for chronic non-cancer pain. Further, there is good evidence that opioids used for neuropathic paincan lead to worsening pain. 5. Physical Therapy: The patient was made aware that our pain program emphasizes an interdisciplinary approach to comprehensive pain management; at this time, based on the patient???s presentation, physical therapy would likely improve the patient???s pain constellation - PT focused on desensitization, laterality training and range of motion maintenance is the single most likely mean to improve group home outcomes of neuropathic pain. . I recommend you see a therapist trained in Therapeutic Neuroscience Education (TNE)- Pepe Duong, Jessica Prado or Alma Barr. Call [phone] to schedule Today, I provided you with a copy of the Why Do I Hurt workbook by Noé Keita. This book, designed for patients dealing with chronic pain, will help to provide a better framework to think about andmanage your pain. The pain program will continue to support your recovery, but what we do is passive-- to maximize your function and decrease your pain it will take an active commitment on your part. This book helps to teach how to do this. Take notes, highlight pages and write down questions. We will speak more about what you learn some sequent visits and some of these principals will likely be applied within the context of a physical/functional therapy plan. 6. Psych: The patient was made aware that our pain center emphasizes an interdisciplinary approach to comprehensive pain management; She was informed that we have access to a pain psychologist, specializing in behavioral techniques to improve pain control If she believes she would benefit from exploring this therapy, referral will be provided at that time. 7. Integrative Health: Information offered on the [facility] Integrative Health Program which focuses on holistic approaches to health care focusing on the mind, body and spirit. Living Well consults, Healing touch, Pilates, Yoga, massage therapy and acupuncture are all available at [facility]. Call [phone] to schedule. 8. Follow Up: Please let me know if you would like to try a sympathetic nerve block. Ideally would have the block and then be seen by 1 of our physical therapist that same day. Greater than 50% of the 60 minute visit was spent in face to face counseling and coordination of care. documented in this encounter Plan of Treatment Scheduled Referrals Name Type Priority Associated Diagnoses Order S [facility] PHYSICAL THERAPY Referral Routine Complex regional pain Or dered: 11/27/2018 CONSULT ADULT/PEDS syndrome type 1 of rig ht (AMB) lower extremity documented as of this encounter Results FL C Arm 20 Pain Management (01/01/2019 2:44 PM CDT) Anatomical Region Laterality Modality Radiographic Imaging Specimen (Source) Anatomical Location Collection Method / Collectio n Time Received Time / Laterality Volume Narrative 01/01/2019 2:49 PM CDT Images obtained during surgical procedure. Santa Aguilar APRN, WASHER REPAIRMAN RAD [place] documented in this encounter Visit Diagnoses Diagnosis Complex regional pain syndrome type 1 of right lower extremity - Primary Complex regional pain syndrome type 1 of right lower extremity documented in this encounter Care Teams House Wirer Helper Relationship Specialty Start Date End Date Andres Ramirez MD PCP - General 06/06/10 04/06/19 [id number] [address] [place] [id number] documented as of this encounter
--- OUTSIDE RECORDS SUMMARY | 2021-11-21 11:43 | XMS_ITS | Encounter Summary ---
:2000 [facility] Address [address] [address] Care Team Providers Name Role Phone Andres Ramirez MD Primary Care Provider Reason for Visit Reason Comments Pre-procedure Call Encounter Details Date Type Department Care Team Description 12/29/2018 Telephone [facility] Zuly Steen RN Pre-procedure Call [address] [place], [place] [address] Social History Tobacco Use Types [...] on filedocumented in this encounter Care Teams Video Manager Relationship Specialty Start Date End Date Andres Ramirez MD PCP - General 06/06/10 04/06/19 [address] [place] [id number] documented as of this encounter
--- OUTSIDE RECORDS SUMMARY | 2021-11-21 11:43 | XMS_ITS | Encounter Summary ---
:2000 Author Organization [facility] Address [address] [place] [address] Care Team Providers Name Role Phone Andres Ramirez MD Primary Care Provider Reason for Visit Reason Comments Ankle Problem Encounter Details Date Type Department Care Team Description 01/22/2019 Office Visit [facility] Zuleyma Pacheco, [facility] regional pain Center, Physical COURTESY CLERK syndrome type 1 of Therapy [address] [facility] right lower extremity [address] [place], [place] (Prim hazel Dx) [address] [address] [place], [place] [address] [phone] Social History Tobacco Use Types Packs/Day Years Used Date Smoking Tobacco: Never Smokeless Tobacco: Never Alcohol Use Standard Drinks/Week Comments Not Currently 0 (1 standard drink = 0.6 oz pure alcoho l) Sex Assigned at Date Recorded Not on file documented as of this encounter Progress Notes Zuleyma Pacheco, COURTESY CLERK - 01/22/2019 2:[address] 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 Sitting with legs crossed under her causes pain. Has been doing much better since the block. Did get Why Do I Hurt book and read some of it and did some research on line. Stated when she first heard of PNE she was pretty skeptical but after reading about it her opinion has changed. OBJECTIVE: Today???s Findings: Patient is very receptive to PNE and open to learning TREATMENT TODAY: Neuro muscular rehabilitation:45 min Explained Body Alarm System and asked for feedback Explained brain maps Worked on laterality cards: patient made 3 mistakes under 2 min Discussed pacing strategies Discussed re-wiring starting at a base line, patient was given a hand out on pacing Discussed Sore and Safe Patient wrote down the definition of pain Patient agreed to try the heel raises x 20 no pain or discomfort Walked on the treadmill at a comfortable speed for 10 min without any discomfort Timed Code Treatment Minutes: 45min Total Treatment Minutes: 45min ASSESSMENT: Patient had no pain during appointment. She has had some previous PTE knowledge and was very open tonew information. She understands the idea of pacing and will work on pacing hand out more and will start implementing it in her work with heel raises and walking program PLAN: Patient will continue with primary PT EXPECTED FUNCTIONAL OUTCOMES/GOALS: HEP/Independent Management: Demonstrate independence with HEP and self- management following each treatment session Ambulation: Ambulate for 1 hour without increased symptoms in 16 weeks. Sports/Leisure: Return to prior level of leisure or recreational activities, including soccer without an increase in symptoms or limitations in 16 weeks. Therapist: Zuleyma Pacheco 2:59 PM 01/22/2019 Supervising PT has reviewed and modified as appropriate the treatment and plan ofcare. Rhoda Cantu DPRivas TECHNICIAN documented in this encounter Plan of Treatment Not on filedocumented as of this encounter Visit Diagnoses Diagnosis Complex regional pain syndrome type 1 of right lower extremity - Primary documented in this encounter Care Teams Deaf/Hard Of Hearing Specialist Relationship Specialty Start Date End Date Andres Ramirez MD PCP - General 06/06/10 04/06/19 [address] [place] [id number] documented as of this encounter
--- OUTSIDE RECORDS SUMMARY | 2021-11-21 11:43 | XMS_ITS | Encounter Summary ---
:2000 Author [facility] Address [address] [place] [address] Care Team Providers Name Role Phone Andres Ramirez MD Primary Care Provider Reason for Visit Reason Comments Ankle Problem Therapies (Routine) - Closed Specialty Diagnoses / Procedures Referred By Contact Refer red To Contact Diagnoses Complex regional pain syndrome type 1 of right lower extremity Santa Aguilar, CORPORATE STATISTICAL FINANCIAL ANALYST, INSURANCE SALES ASSISTANT [address] [facility] [place], [place] [address] Referral ID Status Reason Start Date Expiration Date Visits Requ ested Visits Authorized [id number] Closed 11/27/2018 01/26/2019 1 1 Encounter Details Date Type Department Care Team Description 01/01/2019 Office Visit [facility] Pepe Duong [facility], Physical C, PT syndrome type 1 of Therapy [address] [facility] right lower extremity [address] [place], [place] (Prim hazel Dx) [address] [address] [place], [place] [address] [phone] Social History Tobacco Use Types Packs/Day Years Used Date Smoking Tobacco: Never Smokeless Tobacco: Never Alcohol Use Standard Drinks/Week Comments Not Currently 0 (1 standard drink = 0.6 oz pure alcoho l) Sex Assigned at Date Recorded Not on file documented as of this encounter Progress Notes Pepe Duong, PT - 01/01/2019 3:30 PM CDT Physical Therapy Evaluation/Plan of Care Visit Number: 1 [facility] Referring Provider: Santa Aguilar MD Diagnosis: CRPS Orders: Evaluate & treat FAAM = 61/84 SUBJECTIVE: Social History 18 yo female. 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 History of Present: Complicated history related to right ankle. Sprained initially in 2016 playing soccer. This was managed with immobilization, rest over two weeks, did not improve, pain worsened, MRI was taken showing impingement signs at the anterior ankle. Had debridement in 2015 after having appendix removed. This was her sophomore year of high school. She did not play soccer. February of 2016 she reports another ankle sprain, this time resulting in avulsion fracture (unknown avulsion). She sat out of soccer and hockey until end of March and reports being relatively normal all of 2016 but had a lot of recurrent sprains without limitation or seeking care. In September of 2017 she was hit in the right ankle by a puck, continued playing but pain didn't improve, playing thorugh pain. Then in October of 2017 she stepped on a speaker sitting in her room, rolled her ankle, reports this ankle sprain being severe. She was put in a boot for two days and then 3 days later was playing soccer again. She was very stressedabout this injury because it was linked with her not being able to play soccer her senior year. Soccer team very competitive, identity is soccer and this would take it away. She reports pushing throughpain but eventually could not take it anymore. She had another debridement in February of 2018, thenhad an infection post operative. There was ongoing pain, with secondary onset of right patellofemoral pain. She reports ongoing frustration, stress, depression and tension during this time. She has more recently had an improvement in right knee pain but the ankle pain is predominant. She has been evaluated by Dr. Quinonez as well as the Santa Aguilar in the pain clinic. Beliefs: she believes that ongoing swelling contributes to ongoing pain, but is otherwise unaware asto why this has happened. Emotions: High levels of tension/anxiety, stress reported Reports sharp shooting tingling numbness about the ankle and dorsum of foot. Pain is rated at 0/10 at rest right now and 8/10 at worst with activity No movements lessen the pain, best time for symptoms is in the morning. Walking around college campus during the day will provoke 6/10 pain. Playing soccer will provoke 7/10 pain within 15-20 minutes and will be worse after a game for at least the next day. Goals: Playing soccer Running or playing hockey Walking around college campus without limitation Pain Ratin-8/10 Past Medical History: Diagnosis Date ??? Anxiety (HRC) ??? Depression (HRC) ??? Factor 5 Leiden mutation, heterozygous (HRC) Past Surgical History: Procedure Laterality Date ??? ANKLE ARTHROSCOPY Right x2 ??? APPENDECTOMY 2016 Medications: cymbalta Imaging reviewed Review of Systems: Pos for headaches/migraines, numbness/tingling OBJECTIVE: Deferred TREATMENT TODAY: Physical Therapy Evaluation (CPT 14332): An evaluation was performed. The patient was determined to have moderate complexity based on history, examination, clinical presentation of the patient and the PT's clinical decision making. The patient was educated on the condition, planned therapy intervention and the expectations from treatment. Goals were a collaborative effort of the therapist and patient. Timed Code Treatment Minutes: 0 Total Treatment Minutes: 60 Plan for next treatment session: Physical examination. Education, Pacing/graded exposure, baseliningactivity Education/Handouts: Diagnosis education Response to treatment: Good understanding of HEP ASSESSMENT: Therapist Impression: 18 yo female with a 3 year history of right ankle pain, 2 surgical debridements, post operative infection, multiple ankle sprains. She has limited functional capacity reported, has been diagnosed with CRPS-1 per [place] criteria. Today we gathered relevant historical details. She wonders why she has ongoing pain, why her pain has not gone. She is concerned about ongoing swelling and discoloration. Primary coping strategy is endurance coping. Sport is a primary means of stress/depression management for her, so is a primary goal to return to exercise. We will be starting with focused pain education, to inform focused pacing and graded exposure activities. Barriers to Learning: none Rehab Prognosis: Good PLAN: Planned Intervention/Education: Evaluation, Re-Evaluation, Education, Therapeutic Exercise, Manual Therapy, Neuromuscular Re-education, Self Care/Home Management, Gait Training, Therapeutic Activities,Isokinetic/Performance Testing PT Frequency/Duration: 1 x/week for 20 weeks for a total of 12-16 visits Discharge Plan: Goal achievement, goal achievement with home exercise program or if progress plateaus. Informed Consent: Risks, benefits and alternatives to treatment have been explained. Patient and/or family in agreement with care plan. EXPECTED FUNCTIONAL OUTCOMES/GOALS: HEP/Independent Management: Demonstrate independence with HEP and self- management following each treatment session Ambulation: Ambulate for 1 hour without increased symptoms in 16 weeks. Sports/Leisure: Return to prior level of leisure or recreational activities, including soccer without an increase in symptoms or limitations in 16 weeks. Evaluation and Plan of Care completed by: Pepe Duong, PT 7:14 AM 01/22/2019 No plan of care certification necessary. THEATER SPECIALIST documented in this encounter Plan of Treatment Scheduled Referrals Name Type Priority Associated Diagnoses Order S chedule PHYSICAL THERAPY Referral Routine Complex regional pain Or dered: 11/27/2018 CONSULT ADULT/PEDS syndrome type 1 of rig ht (AMB) lower extremity documented as of this encounter Visit Diagnoses Diagnosis Complex regional pain syndrome type 1 of right lower extremity - Primary documented in this encounter Care Teams Cleaning Associate Relationship Specialty Start Date End Date Andres Ramirez MD PCP - General 06/06/10 04/06/[address] [facility] [place] [id number] documented as of this encounter
--- OUTSIDE RECORDS SUMMARY | 2021-11-21 11:43 | XMS_ITS | Encounter Summary ---
:2000 Author Organization [facility] Address [address] [place] [address] Care Team Providers Name Role Phone Erin Barba MD Primary Care Provider Reason for Visit Reason Comments Ankle Problem Encounter Details Date Type Department Care Team Description 05/18/2019 Office Visit [facility] Pepe Duong [facility], Physical C, PT syndrome type 1 of Therapy [address] [facility] right lower extremity [address] [place], [place] (Prim hazel Dx) [address] [address] [place], [place] [address] [phone] Social History Tobacco Use Types Packs/Day Years Used Date Smoking Tobacco: Never Smokeless Tobacco: Never Alcohol Use Standard Drinks/Week Comments Not Currently 0 (1 standard drink = 0.6 oz pure alcoho l) Sex Assigned at Date Recorded Not on file documented as of this encounter Progress Notes Pepe Duong, PT - 05/18/2019 9:30 AM CDT [facility] Progress Note Visit Number: 12 [facility] Referring Provider: Santa Aguilar MD Diagnosis: CRPS Orders: Evaluate & treat FAAM = 61/84 [place] = 55/100 - high levels of anxiety and depression PSEQ = 38 SUBJECTIVE EXAM: Is working on her walking program, took advice and is building up to 17 minute walk, outside, 5 x per week. She says she is quite happy about this. She reports to have continued playing some soccer as tolerated, but stepped funny on the left metatarsal head and has had foot pain ongoing. She continues to struggle with some emotions (anxiousness) and feeling nauseated when thinking of crossing legs or rolling ankle. Pain: CURRENT:NA OBJECTIVE EXAM: Strength: painful inversion with 5-/5 strength, no giveway due to pain Palpation: Light palpation anterior ankle region is painful L/R discrimination: she is < 2 seconds and accurate 2 point discrimination: R = 30 mm L = 30 mm Function: 5 minute jog without pain in the clinic TREATMENT: Neuromuscular Re-Education (CPT 89459) - to improve coordination, control, and understanding of painproblem x 35 minutes Motor imagery We considered inversion movements and injurious movements - decided on motor empathy by looking at photos - used 0-5 scale on what she was willing to practice - pictures from [place] printed out - Crossing legs - inversion movements, cartoon ankle sprains Therapeutic Exercise (CPT 79192) - to improve general strength, endurance, and conditioning 20 minutes Walking program x 18 minutes Home Program Access Code: [email or web address] [place] building Imagined movement - pictures of her foot Walking program baselining at 5 minutes ASSESSMENT/PLAN: Showing self regulation by not pushing into regular jogging and significant playing of soccer. She reports that playing some soccer helps her mentally and she would like to continue some. We want to progress to mirror therapy. Would like to establish further tolerance to motor imagery before progressing, plan continued today. GOALS: Play soccer, kick ball by June 02 2019 CHARGES: Neuromuscular Re-education: 35 Therapeutic Exercise: 20 minutes Timed Code Treatment Minutes: 55 Total Treatment Minutes: 55 Therapist: Pepe Duong PT, DPT documented in this encounter Plan of Treatment Not on filedocumented as of this encounter Visit Diagnoses Diagnosis Complex regional pain syndrome type 1 of right lower extremity - Primary documented in this encounter Care Teams Cable Driller Relationship Specialty Start Date End Date Erin Barba MD PCP - General Pediatric Medicine 04/07/19 [address] [place] [id number] documented as of this encounter
--- OUTSIDE RECORDS SUMMARY | 2021-11-21 11:43 | XMS_ITS | Encounter Summary ---
:2000 Author Organization [facility] Address [address] [place] [address] Care Team Providers Name Role Phone Andres Ramirez MD Primary Care Provider Encounter Details Date Type Department Care Team Description 03/26/2019 Office Visit [facility] Ed Pepe Duong [facility], Physical C, PT syndrome type 1 of Therapy [address] [facility] right lower extremity [address] [place], [place] (Prim hazel Dx) [address] [address] [place], [place] [address] [phone] Social History Tobacco Use Types Packs/Day Years Used Date Smoking Tobacco: Never Smokeless Tobacco: Never Alcohol Use Standard Drinks/Week Comments Not Currently 0 (1 standard drink = 0.6 oz pure alcoho l) Sex Assigned at Date Recorded Not on file documented as of this encounter Progress Notes Pepe Duong, PT - 03/26/2019 2:30 PM CST [facility] Progress Note Visit Number: 9 [facility] Referring Provider: Santa Aguilar MD Diagnosis: CRPS Orders: Evaluate & treat FAAM = 61/84 [place] = 55/100 - high levels of anxiety and depression PSEQ = 38 SUBJECTIVE EXAM: Played soccer, just kicking ball. Not painful when playing but then tested her ankle DF range a few days later and felt impingement pain again. This really scared and worries her. Imagined movements are well tolerated, but thinking of crossing legs gives her negative emotions. Pain: CURRENT:NA OBJECTIVE EXAM: Strength: painful inversion with 5-/5 strength, no giveway due to pain Palpation: Light palpation anterior ankle region is painful L/R discrimination: she is < 2 seconds and accurate 2 point discrimination: R = 30 mm L = 30 mm Function: double limb heel raises and 10 minute walk tolerated without significant increase in pain TREATMENT: Neuromuscular Re-Education (CPT 04394) - to improve coordination, control, and understanding of painproblem x 30 minutes Sensory discrimination training [place] - object discrimination Imagined movement - progressed to single leg lateral hops - pictures taken on patients phone - reviewed progression to 120 reps CBT thought challenging related to ankle dorsiflexion movement - situation, thought, feeling behavior - she identified that she pushes through activity because she feels mad/angry about having pain, thinks that she should be able to do this. - considered answer back thoughts Pain Neuroscience Education Nerve sensors Education: Patient educated on the concept of neuroplasticity, and how factors such as temperature, stress, movement, immunity and blood flow affect pain via ion channel expression. Instruction provided regarding homeostasis/ion channel balance disruption may occur based on what your brain thinks is needed for survival. Therapeutic Exercise (CPT 27728) - to improve general strength, endurance, and conditioning 17 minutes Upright bike x 20 minutes Home Program Access Code: [email or web address] L/R discrim Sensory discrim - 2 pd, floor samples [employer] building Imagined movement - pictures of her foot Graded walking - start at 10 minutes Heel raises - 20 reps ASSESSMENT/PLAN: Recovered from pain flare. Color seems to be much improved overall. She can do 2 pd very well. Wantsto push through pain to get back to activity. We reviewed self regulation techniques, initiated thoguth challenging exercises today. Next visit may consider mirror therapy, more CBT for movement, self regulation, not pushing into activity GOALS: Play soccer, kick ball by June 02 2019 CHARGES: Neuromuscular Re-education: 40 Therapeutic Exercise: 20 minutes Timed Code Treatment Minutes: 60 Total Treatment Minutes: 60 Therapist: Pepe Duong PT, DPT OGRAPH NEEDLE TIP MAKER documented in this encounter Plan of Treatment Not on filedocumented as of this encounter Visit Diagnoses Diagnosis Complex regional pain syndrome type 1 of right lower extremity - Primary documented in this encounter Care Teams Installations Inspector Relationship Specialty Start Date End Date Andres Ramirez MD PCP - General 06/06/10 04/06/19 [address] [place] [id number] documented as of this encounter
--- OUTSIDE RECORDS SUMMARY | 2021-11-21 11:43 | XMS_ITS | Encounter Summary ---
:2000 Author Organization [facility] Address [address] [place] [address] Care Team Providers Name Role Phone Andres Ramirez MD Primary Care Provider Reason for Visit Reason Comments Ankle Problem Encounter Details Date Type Department Care Team Description 03/11/2019 Office Visit [facility], Physical C, PT syndrome type 1 of Therapy [address] [facility] right lower extremity [address] [place], [place] (Prim hazel Dx) [address] [address] [place], [place] [address] [phone] Social History Tobacco Use Types Packs/Day Years Used Date Smoking Tobacco: Never Smokeless Tobacco: Never Alcohol Use Standard Drinks/Week Comments Not Currently 0 (1 standard drink = 0.6 oz pure alcoho l) Sex Assigned at Date Recorded Not on file documented as of this encounter Progress Notes Pepe Duong, PT - 03/11/2019 4:00 PM CST [facility] Progress Note Visit Number: 7 [facility] Referring Provider: Santa Aguilar MD Diagnosis: CRPS Orders: Evaluate & treat FAAM = 61/84 [place] = 55/100 - high levels of anxiety and depression PSEQ = 38 SUBJECTIVE EXAM: My mental health hasn't too good the last few weeks.. As a result, sleeping in, taking naps, activity level down. Ankle hurting in a different spot and has been difficult to touch - it is a patch ofpain at the lateral aspect of her ankle. 2 PD is getting much easier. Pain: CURRENT:NA OBJECTIVE EXAM: Strength: painful inversion with 5-/5 strength, no giveway due to pain Palpation: Light palpation anterior ankle region is painful L/R discrimination: she is < 2 seconds and accurate 2 point discrimination: R = 30 mm L = 30 mm Function: double limb heel raises and 10 minute walk tolerated without significant increase in pain TREATMENT: Neuromuscular Re-Education (CPT 54374) - to improve coordination, control, and understanding of painproblem x 40 minutes Sensory discrimination training - 2 point discrimination able to do 20-30 m Pain Neuroscience Education Emotions and pain Education: Patient educated on the relationship between emotions and pain, and the role that fear, catastrophization, nociception and threat play in persistent pain, by activating the bodies alarm system, resulting in hypersensitive nerves. Metaphors incorporated to foster deep learning and paradigm shift for patient. Therapeutic Exercise (CPT 53802) - to improve general strength, endurance, and conditioning Upright bike x 16 minutes Home Program Access Code: [email or web address] L/R discrim Sensory discrim - 2 pd, floor samples Sportlyzer building Imagined movement - pictures of her foot Graded walking - start at 10 minutes Heel raises - 20 reps ASSESSMENT/PLAN: Symptom flare. Reported improvement post exercise and neuromuscular re-educaiton today. . Continue to encourage motor imagery and expression of what she knows about her problem. GOALS: Play soccer, kick ball by June 02 2019 CHARGES: Neuromuscular Re-education: 40 Therapeutic Exercise: 15 minutes Timed Code Treatment Minutes: 56 Total Treatment Minutes: 56 Therapist: Pepe Duong PT, DPT ODIAL ENGINEER documented in this encounter Plan of Treatment Not on filedocumented as of this encounter Visit Diagnoses Diagnosis Complex regional pain syndrome type 1 of right lower extremity - Primary documented in this encounter Care Teams White Sugar Syrup Operator Relationship Specialty Start Date End Date Andres Ramirez MD PCP - General 06/06/10 04/06/19 [address] [place] [address] documented as of this encounter
--- OUTSIDE RECORDS SUMMARY | 2021-11-21 11:43 | XMS_ITS | Encounter Summary ---
:2000 [facility] Address [address] [address] Care Team Providers Name Role Phone Andres Ramirez MD Primary Care Provider Reason for Referral (Routine) - Closed Specialty Diagnoses / Procedures Referred By Contact Refer red To Contact Diagnoses Complex regional pain syndrome type 1 of right lower extremity Howard Winston MD Procedures Sedation Midazolam [address] [facility] [address] [place] [address] Referral ID Status Reason Start Date Expiration Date Visits Requ ested Visits Authorized [id number] Closed 01/01/2019 04/01/2020 1 1 (Routine) - Closed Specialty Diagnoses / Procedures Referred By Contact Refer red To Contact Diagnoses Complex regional pain syndrome type 1 of right lower extremity Howard Winston MD Procedures Sedation Fentanyl [address] [place] [address] Referral ID Status Reason Start Date Expiration Date Visits Requ ested Visits Authorized [id number] Closed 01/01/2019 04/01/2020 1 1 (Routine) - Closed Specialty Diagnoses / Procedures Referred By Contact Refer red To Contact Diagnoses Complex regional pain syndrome type 1 of right lower extremity Howard Winston MD Procedures Clonidine [address] [place] [address] Referral ID Status Reason Start Date Expiration Date Visits Requ ested Visits Authorized [id number] Closed 01/01/2019 04/01/2020 1 1 Reason for Visit Reason Comments Procedure Procedure/Equipment (Routine) - Incomplete Specialty Diagnoses / Procedures Referred By Contact Refer red To Contact Diagnoses Complex regional pain syndrome type 1 of right lower extremity Santa Aguilar APRN, SUPERVISING LAW ENFORCEMENT ANALYST Procedures FL C Arm 20 Pain Management [address] [facility] [place] [address] Referral ID Status Reason Start Date Expiration Date Visits V isits Requested Authorized [id number] Incomplete 11/27/2018 02/26/2020 1 1 Encounter Details Date Type Department Care Team Description 01/01/2019 Procedure Visit [facility] Santa Aguilar APRN, SUPERVISING LAW ENFORCEMENT ANALYST [address] [facility] [place] [address] Procedure [address] Howard Winston MD [address] [facility] [place] [id number] [place] [address] 1, Chapis Vidal Rn [phone] Social History Tobacco Use Types Packs/Day Years Used Date Smoking Tobacco: Never Smokeless Tobacco: Never Alcohol Use Standard Drinks/Week Comments Not Currently 0 (1 standard drink = 0.6 oz pure alcoho l) Sex Assigned at Date Recorded Not on file documented as of this encounter Last Filed Vital Signs Vital Sign Reading Time Taken Comments Blood Pressure 123/77 01/01/2019 3:01 PM CDT Pulse 121 01/01/2019 3:01 PM CDT Temperature 36.8 ??C (98.2 ??F) 01/01/2019 1:51 PM CDT Respiratory Rate 16 01/01/2019 3:01 PM CDT Oxygen Saturation 100% 01/01/2019 3:01 PM CDT Inhaled Oxygen Concentration - - Weight 54.4 kg (120 lb) 01/01/2019 1:51 PM CDT Height - - Body Mass Index 21.94 11/27/2018 12:59 PM CDT Body Mass Index Percentile 56.93 % 01/01/2019 1:51 PM CD T Growth Chart: CDC (Girls, 2-20 Years) documented in this encounter Patient Instructions Patient InstructionsJerica Perdomo RN - 01/01/2019 1:50 PM CDT FOLLOW UP PLAN: You will follow up in the [facility] as discussed: call [phone] to arrange an appointment if you do not already have one. Dr. Howard Winston MD Interventional Pain Physician and Anesthesiologist Please contact the Pain Nurse ([phone]) for all medical/procedural questions regarding your care at the [facility] Please contact our Manager Embalmer Funeral Director ([phone]) for all administrative/scheduling questions related to the [facility] Medication Requests: Prescriptions requiring refills must be requested from the prescribing physician. If Dr. Winston prescribed your medication, call the number above. If any other physician prescribed your medication, please contact his or her office to discuss. Lumbar Sympathetic Block Post-Procedure Instructions: ?? Rest today, you may resume your normal activities tomorrow (Physical Therapy & transitions rn care coordinator can also be resumed next [...] Warmth ?? Tingling ?? Heaviness ?? Numbness ?? If the symptoms last more than 12 hours, call the doctor HOME INSTRUCTIONS FOLLOWING SEDATION: The medication you [...] effects or other non-urgent concerns, call the [facility] Pain [facility] Nurse Line from 8am-4pm at [phone] Call 911 or go to the nearest Emergency Department if you experience: Fever Chest pain Progressive extremity weakness Difficult maintaining consciousness Loss of bowel or bladder control Shortness of breath Any other medical emergency Santa Aguilar NP Interventional Pain Nurse Practitioner Please contact the Pain Nurse ([phone]) for all medical/procedural questions regarding your care at the [facility] Pain Program Please contact our Manager [employer]almer Funeral Director ([phone]) for all administrative/scheduling questions related to the [facility] Medication Requests: Prescriptions requiring refills must be requested from the prescribing physician. If Dr. Beltran prescribed your medication, call the number above. If any other physician prescribed your medication, please contact his or her office to discuss. L documented in this encounter Progress Notes Luciana Mendoza RN - 01/01/2019 1:50 PM CDT Patient here for LSB procedure. Patient rates pain in right foot, 4/10 at rest, 7/10 with activity. Verified NPO status. Pre-op teaching completed, patient verbalizes understanding. Confirmed pt has catering driver home. Consent per . Temps R 27.6 C L25.6 C Zuly Steen RN - 01/01/2019 1:50 PM CDT Sedation Time Start- 1424 Stop- 1437 Zuly Steen RN - 01/01/2019 1:50 PM CDT . Jerica Perdomo RN - 01/01/2019 1:50 PM CDT Patient tolerated procedure well, vital signs stable. Post-procedure pain level 0/10 at rest, 1-2/10with activity. Discharge instructions given (written & verbal review), patient verbalized understanding. Patient discharged to [facility] to PT at 1517 via ambulatory with catering driver Post temps: Right foot: 32 Left foot: 25.4. documented in this encounter Procedure Notes Howard Winston MD - 01/01/2019 1:50 PM CDT Procedure note Lumbar Sympathetic Block Procedure Date: 01/01/2019 Edilma Reed Date of : 2000 PREOPERATIVE DIAGNOSIS: ICD-10-CM 1. Complex regional pain syndrome type 1 of right lower extremity G90.521 FL C Arm 20 Pain Management fentaNYL (SUBLIMAZE) injection 25-100 mcg 0.9% sodium chloride solution 250 mL midazolam (VERSED) injection 1-2 mg POCT urine POSTOPERATIVE DIAGNOSIS: Same. OPERATION PERFORMED: Lumbar Sympathetic Block, Right, at the Level of L3, Under Fluoroscopic Guidance Interventionalist: Howard Winston MD IV SEDATION #1: Midazolam: 1mg IV SEDATION #2 Fentanyl: 100 mcg ESTIMATED BLOOD LOSS: None FLUIDS: 100mL, 0.9% Sodium Chloride FLUOROSCOPY WAS USED. TOTAL SEDATION TIME: [id number]. COMPLICATIONS: None INDICATIONS FOR PROCEDURE: This is a 18 y.o. year old female with a clinical [...] NPO, and to have an accompanying adult catering driver. The patient was taken to the procedure room and positioned prone on the fluoroscopy table. Prior to the procedure a time out was completed, verifying correct patient, procedure, site, positioning, and implants and/or special equipment. Routine monitors were applied including EKG leads, blood pressure c uff, and pulse oximetry. Then an AP view mineralogy teacher film was taken to identify the correct [...] well and was discharged home, with a catering driver, in stable condition with post procedural instructions. Prior to the procedure, the patient reported a pain score of 4/10 at rest and 7/10 with activity. Shortly before discharge, we noted a pain score of 0/10 at rest and 1-2/10 with activity. Follow-up will be clinical with Santa Aguilar TEMPERATURES PreOperative Left Foot: 25.6 C Right: 25.4 C PostOperative Left Foot: 27.6 C Right: 32.8 C Temperature evaluation, and flushing of the Right foot indicated an adequate sympathectomy. documented in this encounter Plan of Treatment Not on filedocumented as of this encounter Procedures Procedure Name Priority Date/Time Associated Comments Diagnosis FL C ARM 20 PAIN Routine 01/01/2019 2:44 PM Complex regional R esults for this MANAGEMENT CDT pain syndrome type procedure are in 1 of right lower the results extremity section. POCT URINE Routine 01/01/2019 2:09 PM Complex region al Results for this CDT pain syndrome type procedure are in 1 of right lower the results extremity section. documented in this encounter Results FL C Arm 20 Pain Management (01/01/2019 2:44 PM CDT) Anatomical Region Laterality Modality Radiographic Imaging Specimen (Source) Anatomical Location Collection Method / Collectio n Time Received Time / Laterality Volume Narrative 01/01/2019 2:49 PM CDT Images obtained during surgical procedure. Santa Aguilar CURB AND GUTTER LABORER, SUPERVISING LAW ENFORCEMENT ANALYST RAD FL POCT urine (01/01/2019 2:09 PM CDT) [facility] Method Time Signature Urine Negative POCT Test - POC Control Line Yes POCT Present, Clear Background - Internal control Cartridge Lot# [id number] POCT Specimen (Source) Anatomical Collection Method Collection Time Re ceived Time Location / / Volume Laterality Urine 01/01/2019 2:09 PM CDT Howard Winston MD ET POINT OF CARE TEST ENTER/ EDIT ORDERABLES Performing Organization Address City/State/ZIP Code Phon e Number POCT documented in this encounter Visit Diagnoses Diagnosis Complex regional pain syndrome type 1 of right lower extremity documented in this encounter Administered Medications Active Administered Medications - up to 3 most recent administrations Medication Order MAR Action Action Date Dose Rate Site fentaNYL (SUBLIMAZE) injection Given 01/01/2019 2:33 PM CDT 25 m cg 25-100 mcg 25-100 mcg, Intravenous, PRN, Pain, Starting on Andreina 01/01/19 at 1408, Until Discontinued Given 01/01/2019 2:28 PM CDT 25 mcg Given 01/01/2019 2:24 PM CDT 50 mcg midazolam (VERSED) injection 1-2 mg Given 01/01/2019 2:24 PM CDT 1 mg 1-2 mg, Intravenous, PRN, Sedation, Starting on Andreina 01/01/19 at 1408, Until Discontinued Inactive Administered Medications - up to 3 most recent administrations Medication Order MAR Action Action Date Dose Rate Site 0.9% sodium chloride solution 250 Given 01/01/2019 2:33 PM CDT 1 00 mL mL 250 mL, Intravenous, ONCE, On Andreina 01/01/19 at 1430, For 1 dose documented in this encounter Care Teams Assistant Mechanic Relationship Specialty Start Date End Date Andres Ramirez MD PCP - General 06/06/10 04/06/19 [address] [place] [address] documented as of this encounter
--- OUTSIDE RECORDS SUMMARY | 2021-11-21 11:43 | XMS_ITS | Encounter Summary ---
:2000 Author Organization [facility] Address [address] [place] [address] Care Team Providers Name Role Phone Andres Ramirez MD Primary Care Provider Reason for Visit Reason Comments Ankle Problem Encounter Details Date Type Department Care Team Description 02/05/2019 Office Visit [facility] and Ed Pepe Duong [facility], Physical C, PT syndrome type 1 of Therapy [address] [facility] right lower extremity [address] [place], [place] (Prim hazel Dx) [address] [address] [place], [place] [address] [phone] Social History Tobacco Use Types Packs/Day Years Used Date Smoking Tobacco: Never Smokeless Tobacco: Never Alcohol Use Standard Drinks/Week Comments Not Currently 0 (1 standard drink = 0.6 oz pure alcoho l) Sex Assigned at Date Recorded Not on file documented as of this encounter Progress Notes Pepe Duong, PT - 02/05/2019 3:00 PM CST [facility] Progress Note Visit Number: 3 [facility] Referring Provider: Santa Aguilar MD Diagnosis: CRPS Orders: Evaluate & treat FAAM = 61/84 SUBJECTIVE EXAM: Imagining crossing legs produces significant emotions and increase pain/discoloration. Imagining static positions is well tolerated. Has a lot of trouble with grapesthesias Pain: CURRENT:NA OBJECTIVE EXAM: Strength: painful inversion with 5-/5 strength, no giveway due to pain Palpation: Light palpation anterior ankle region is painful L/R discrimination: she is < 2 seconds and accurate 2 point discrimination: R = 40 mm L = 30 mm Function: double limb heel raises and 10 minute walk tolerated without significant increase in pain TREATMENT: Neuromuscular Re-Education - to improve coordination, control, and understanding of pain problem Sensory discrimination training - she is good with sharp vs dull - fabric discrimination - struggled with this some - grapesthesia - A-M and grapesthesia chart - really struggled with these - on moderate and hard - 2 point discrimination Imagined movements - pictures of her foot in various positions - all but 2 tolerated 2-5 seconds - the two most challenging: envionmental cues, reduce stress, diaphragm breathing, pain environmental picture. - able to cross legs on beach for a couple seconds - extensive time spent with questioning and feedback with imagined positions - education/prescription written out Home Program L/R discrim Sensory discrim - grapesthesia and fabrics, 2 pd Imagined movement - pictures of her foot Graded walking - start at 10 minutes Heel raises - 20 reps ASSESSMENT/PLAN: Engaged in program. Imagined movements was emotional, made her pull back, we continue with this to find a baseline to start. Will continue to encourage and provide a plan for practice in this area withprogressions GOALS: Play soccer, kick ball by June 02 2019 CHARGES: Neuromuscular Re-education: 60 Timed Code Treatment Minutes: 60 Total Treatment Minutes: 60 Therapist: Pepe Duong PT, DPT OL CHILDCARE ATTENDANT documented in this encounter Plan of Treatment Not on filedocumented as of this encounter Visit Diagnoses Diagnosis Complex regional pain syndrome type 1 of right lower extremity - Primary documented in this encounter Care Teams Tail Trimmer Relationship Specialty Start Date End Date Andres Ramirez MD PCP - General 06/06/10 04/06/[id number] [place] [address] [place] [address] documented as of this encounter
--- OUTSIDE RECORDS SUMMARY | 2021-11-21 11:43 | XMS_ITS | Encounter Summary ---
:2000 Author Organization [facility] Address [address] [place] [address] Care Team Providers Name Role Phone Andres Ramirez MD Primary Care Provider Reason for Visit Reason Comments Foot Problem Encounter Details Date Type Department Care Team Description 02/19/2019 Office Visit [facility] and Ed Pepe Duong [facility], Physical C, PT syndrome type 1 of Therapy [address] [facility] right lower extremity [address] [place], [place] (Prim hazel Dx) [address] [address] [place], [place] [address] [phone] Social History Tobacco Use Types Packs/Day Years Used Date Smoking Tobacco: Never Smokeless Tobacco: Never Alcohol Use Standard Drinks/Week Comments Not Currently 0 (1 standard drink = 0.6 oz pure alcoho l) Sex Assigned at Date Recorded Not on file documented as of this encounter Progress Notes Pepe Duong, PT - 02/19/2019 3:00 PM CST [facility] Progress Note Visit Number: [facility] Referring Provider: Santa Aguilar MD Diagnosis: CRPS Orders: Evaluate & treat FAAM = 61/84 [place] = 55/100 - high levels of anxiety and depression PSEQ = 38 SUBJECTIVE EXAM: Imagined static positions has been pretty good. She has done this a few times, less than we discussed, hasnt had time but intends to do this; it can be fairly challenging and emotional. 2 PD is getting much easier. Pain: [...] increase in pain TREATMENT: Neuromuscular Re-Education (CPT 58313) - to improve coordination, control, and understanding of painproblem x 40 minutes Sensory discrimination training - surface/fabric discrimination - felt carmen under foot on the right compared to the left - 2 point discrimination able to do 20-30 m Pain Neuroscience Education WappZappra development - encouraged her to work on her 'pain story' - what happened and when, what helped and what does sheknow about what is going on, what is she doing to help and why - her homework is to write this story - example given - we will work on this going forward to refine - she notes that it is difficult to tell others what is going on, they dont seem to get it Therapeutic Exercise - to improve general strength, endurance, and conditioning Upright bike x 16 minutes Home Program Access Code: [email or web address] L/R discrim Sensory discrim - 2 pd, floor samples Mantra building Imagined movement - pictures of her foot Graded walking - start at 10 minutes Heel raises - 20 reps ASSESSMENT/PLAN: Engaged in program and has shown improvements in ability with sensory discrimination and initial stages of imagined movements. Continue to encourage motor imagery and expression of what she knows abouther problem. GOALS: Play soccer, kick ball by June 02 2019 CHARGES: Neuromuscular Re-education: 40 Therapeutic Exercise: 15 minutes Timed Code Treatment Minutes: 56 Total Treatment Minutes: 56 Therapist: Pepe Duong PT, DPT EF MAN documented in this encounter Plan of Treatment Not on filedocumented as of this encounter Visit Diagnoses Diagnosis Complex regional pain syndrome type 1 of right lower extremity - Primary documented in this encounter Care Teams Shotblast Equipment Operator Relationship Specialty Start Date End Date Andres Ramirez MD PCP - General 06/06/10 04/06/[address] [facility] [facility] [address] documented as of this encounter
--- OUTSIDE RECORDS SUMMARY | 2021-11-21 11:43 | XMS_ITS | Encounter Summary ---
:2000 Author Organization [email or web address] Address [address] [place] [address] Care Team Providers Name Role Phone Andres Ramirez MD Primary Care Provider Reason for Visit Reason Comments QUESTIONS, GENERAL Encounter Details Date Type Department Care Team Description 11/27/2018 Telephone [facility] Luciana Mendoza, QUESTIONS, GENERAL [address] [facility] [address] [place], [place] [address] Social History Tobacco Use Types Packs/Day Years Used Date Smoking Tobacco: Never Smokeless Tobacco: Never Alcohol Use Standard Drinks/Week Comments Not Currently 0 (1 standard drink = 0.6 oz pure alcoho l) Sex Assigned at Date Recorded Not on file documented as of this encounter Nursing Notes Santa Aguilar APRN, AIDA - 12/01/2018 2:05 PM CDT I spoke to [facility] and the pharmacist recommend we change the clonidine to 0.2%. They indicate they will go ahead make that change based on our verbal discussion. Okay to close call Luciana Mendoza RN - 11/27/2018 4:17 PM CDT Pharmacy called about a compounded medication that was prescribed today. They want to verify the strength of one of the ingredients before they fill it. [phone] documented in this encounter Plan of Treatment Not on filedocumented as of this encounter Visit Diagnoses Not on filedocumented in this encounter Care Teams Child Advocate Relationship Specialty Start Date End Date Andres Ramirez MD PCP - General 06/06/10 04/06/19 [address] [address] [place] [address] documented as of this encounter
--- OUTSIDE RECORDS SUMMARY | 2021-11-21 11:43 | XMS_ITS | Encounter Summary ---
:2000 Author Organization [facility] Address [address], [place] [address] Care Team Providers Name Role Phone Erin Barba MD Primary Care Provider Reason for Referral (Routine) - Closed Specialty Diagnoses / Procedures Referred By Contact Refer red To Contact Diagnoses Palpitations Syncope and collapse Oscar Rivers MD Procedures Echocardiogram [address] [place], [place] [address] Referral ID Status Reason Start Date Expiration Date Visits Requ ested Visits Authorized [id number] Closed 04/07/2019 07/06/2020 1 1 ER Reason for Visit Reason Comments CONSULT Prolonged QT Encounter Details Date Type Department Care Team Description 04/07/2019 Initial Consult Heart & Vascular Oscar Rivers H /O prolonged Q- T interval on ECG (Primary Dx); Paige Murillo MD Palpitations; Electrophysiology [address] Syncope and collapse [address] [facility] [address] [place] [address] [phone] Social History Tobacco Use Types Packs/Day Years Used Date Smoking Tobacco: Never Smokeless Tobacco: Never Alcohol Use Standard Drinks/Week Comments Not Currently 0 (1 standard drink = 0.6 oz pure alcoho l) Sex Assigned at Date Recorded Not on file documented as of this encounter Last Filed Vital Signs Vital Sign Reading Time Taken Comments Blood Pressure 108/68 04/07/2019 8:45 AM FLARER Pulse 94 04/07/2019 8:45 AM FLARER Temperature - - Respiratory Rate - - Oxygen Saturation - - Inhaled Oxygen Concentration - - Weight 60.8 kg (134 lb) 04/07/2019 8:45 AM FLARER Height 157.5 cm (5' 2) 04/07/2019 8:45 AM FLARER Body Mass Index 24.51 04/07/2019 8:45 AM FLARER Body Mass Index Percentile 78.16 % 04/07/2019 8:45 AM CS T Growth Chart: [facility] (Girls, 2-20 Years) documented in this encounter Progress Notes Oscar Rivers D - 04/07/2019 9:00 AM CST Cardiac Electrophysiology Clinic Consultation Reason for consult: I was asked to evaluate patient for concerns about QT prolongation. History of present illness: Patient is a 18 y.o. female without any known cardiac history who comes in for evaluation for QT/QTc concerns. Patient also has issues with anxiety and depression and has had some changes in her medications recently. Back in February, she was on duloxetine at 120 mg daily an d lexapro (she thinks at 5-10 mg daily). She subsequently had an EKG and given concerns about QT prolongation, lexapro was stopped until she could seek evaluation in cardiology/electrophysiology. Sincethat time, duloxetine has been reduced to 90 mg daily. I do have some outside clinic records with one page describing an EKG read on 02/20/2019. It is read as normal sinus rhythm, generalized T-wave flattening but it difficult to calculate QTc interval (read as a borderline QTc interval of 458 ms. We did obtain her EKGs from that day via fax machine. It appears she had 3 different EKGs on that day but the fax quality is extremely poor preventing an accurate QT/QTc measurement. Patient really does not have much in the way of heart symptoms. She feels palpitations on a regular basis described as feeling like her heart is racing. She has also been noted to be tachycardic at times. She had a lumbar sympathetic nerve block last year through [facility] and she was told that her pulse was fast and she might want to have someone look into it. She feels like this racing is more common when she is anxious but not always. She also describes palpitations described as a skipped or a freezing of her heartbeat. She has this a couple times a week and it does not bother her too much. She feelslike she has had these palpitations most of her life. She will get lightheaded if she changes positions quickly but no more significant symptoms in this regard. She reports one episode of passing out years ago. Her mother, who accompanies her today, heard her fall upstairs and by the time she got to her she was awake. She was a little confused and maybe tired after the episode but denied any lingering symptoms and this has been a one time event. She gets chest pain occasionally at rest and with exertion. No shortness of breath. No LE swelling. Past Medical History: Diagnosis Date ??? Anxiety (HRC) ??? Depression (HRC) ??? Factor 5 Leiden mutation, heterozygous (HRC) I have reviewed all outpatient medications. She is not currently on any cardiovascular-specific medications. Allergies: Amoxicillin and Penicillins Family history: No sudden or significant heart issues. Social History Tobacco Use ??? Smoking status: Never Smoker ??? Smokeless tobacco: Never Used Substance Use Topics ??? Alcohol use: Not Currently A complete review of systems was performed and negative unless mentioned in HPI. BP 108/68 (BP Location: Right Arm, BP Cuff Size: Regular) Pulse 94 Ht 5' 2 (157.5 cm) Wt 134 lb (49887 g) BMI 24.51 kg/m?? General Appearance: Alert, cooperative, no distress, appears stated age Head: Normocephalic, atraumatic Eyes: conjunctiva clear Neck: supple, symmetrical, trachea midline, no JVD, no carotid bruits and carotid upstroke normal Lungs: clear to auscultation bilaterally, respirations unlabored Chest wall: no tenderness Heart: regular rate and rhythm, no murmurs, rubs or gallops Abdomen: soft, non-tender, non-distended, positive bowel sounds, no bruits Extremities: no edema, no cyanosis Pulses: distal pulses 2+ and symmetrical Skin: no rash Neurological: grossly non-focal EKG performed today and personally reviewed demonstrates sinus rhythm at 94 bpm with a QT/QTc interval of 350/437 ms. I have reviewed pertinent lab results, please refer to the EMR for details. OSH labs (02/20/2019): Cr: 0.86, TSH: 1.6. Impression: 1. Concerns about QT/QTc prolongation while on lexapro. OSH EKG read reported a borderline QT/QTc interval. OSH EKGs obtained via fax today are of very poor quality. 2. Anxiety and depression. 3. Orthostatic lightheadedness with one remote episode of syncope. We reviewed QT prolongation and its implications. Today's EKG looks fine but she is no longer on lexapro. The outside clinic EKGs obtained today are of extremely poor quality which prevents me from measuring this interval accurately. However, the outside read on at least one of these EKGs reported a borderline QTc interval. If this proves to be true, I would be fine with her going back on the prior dose of lexapro with a plan to repeat EKGs in the future if the dose is increased or other QT prolonging medications are added. For now, I will request that the outside clinic EKGs are mailed to us so I can better measure the QT/QTc interval myself. Otherwise, she does have a number of other complaints that I do not think have anything to do with QT/QTc concerns. I suspect her palpitations are PACs or PVCs and her sustained tachycardia is likely sinus tachycardia. Will obtain an echocardiogram to verify normal cardiac structure. I did review the option of doing some ambulatory monitoring but do not think this is necessary at this time given mildsymptoms. Patient is in agreement and will contact me in the future if she wants proceed with monitoring in which case would do a 2 week ZIO Patch monitor. Recommendations/Plan: 1. Will request that outside clinic EKGs be mailed to us so I can better measure the QT/QTc interval. 2. Will wait to forward my note to her primary provider and psychiatrist until after I can review the outside clinic EKGs. 3. Echocardiogram. 4. Follow-up in EP clinic on prn basis. Addendum (04/13/2019): Outside clinic EKGs from 02/20/2019 obtained via mail which are much better quality compared to the faxed versions. Initial EKG at 12:56 shows a QT/QTc of 374/475 ms and subsequent EKG at 12:57 shows a QT/QTc of 362/467 ms. The patient's 3 subsequent tracings actually are a 3 lead rhythm strip that shows findings similar to the other EKGs. A couple of the leads have very low amplitude T-waves and make a QT interval measurement in these leads difficult. Overall, I feel the QTc measurement is about 470 milliseconds which would put it in the mildly prolonged range. I would be fine with continued therapy with her prior dose of Lexapro with this QT measurement. If Lexapro was increased in the future or other medications are added that can prolong the QT interval, then an EKG should be done about 1 week after these changes. I would be fine arranging for this follow-up EKG to be done here so I can personally reviewed the EKG after a medication change. ER documented in this encounter Plan of Treatment Not on filedocumented as of this encounter Procedures Procedure Name Priority Date/Time Associated Diagnosis Comme nts ECG 12 LEAD Routine 04/07/2019 8:47 AM Palpitations Results f or this OUTPATIENT FLARER procedure are i n the results section. documented in this encounter Results Echocardiogram (04/07/2019 12:16 PM FLARER) Specimen (Source) Anatomical Collection Method Collection Time Re ceived Time Location / / Volume Laterality 04/07/2019 12:16 PM FLARER Narrative PN ECHO - 04/07/2019 2:15 PM FLARER ECHOCARDIOGRAM. Date: 04/07/2019 Start: 12:16 PM Facilit [...] Gender: ?Female SIGNATURE DEMOGRAPHICS Patient Name ??VIRAJ MCCAIN ?Room Number ? OUTPT Patient ? [id number] ? D ate of Study ? 04/07/2019 Number Accession ? [id number] ?In terpreting ?QUINTON Squires MD Number ? Physician Date of 2000 ? Order ing ?OSCAR RIVERS, ?Physician ? Primary ? OSCAR ? So nographer ? , [facility] Physician ? MD HANNA The procedure was [...] VIRAJ MCCAIN Room Number OU TPT Patient [id number] Date of Study 04/07/19 20 Number Interpreting QUINTON Squires MD Number Physician Date of 2000 Ordering CARLOZ RIVERS Physician Primary OSCAR Oil Pipe Inspector Helper [facility] Physician MD HANNA The procedure was explained in detail to the patient. Risks, complications and alternative treatments were reviewed. Informed consent was obtained. Oscar Rivesr MD PN ECHO ORDERABLES Performing Organization Address City/State/ZIP Code Phon e Number PN ECHO ECG 12 Lead Outpatient (04/07/2019 8:47 AM FLARER) P athologist Signature Ventricular Rate 94 BPM [facility] Atrial Rate 94 BPM [facility] P-R Interval 122 ms [facility] QRS Duration 92 ms [facility] QT 350 ms [facility] QTc 437 ms [facility] P [place] 69 degrees [facility] R [place] 47 degrees [facility] T [place] 54 degrees [facility] Specimen (Source) Anatomical Collection Method Collection Time Re ceived Time Location / / Volume Laterality 04/07/2019 8:47 AM FLARER Narrative [facility] - 04/07/2019 1:42 PM FLARER NSR Incomplete right bundle branch block non-specific T abn. Abnormal ECG No previous ECGs available Confirmed by Krystian Whitt ([id number]) on 04/07 1:42:10 PM Procedure Note Krystian Whitt MD - 04/07/2019Formatti ng of this note might be different from the original. NSR Incomplete right bundle branch block non-specific T abn. Abnormal ECG No previous ECGs available Confirmed by Krystian Whitt ([id number]) on 04/07 1:42:10 PM Oscar Rivers MD PN ECG ORDERABLES Performing Organization Address City/State/ZIP Code Phon e Number [facility] [address] [place] [address] documented in this encounter Visit Diagnoses Diagnosis H/O prolonged Q-T interval on ECG - Prim hazel Personal history of other diseases of ci rculatory system Palpitations Syncope and collapse Palpitations Syncope and collapse documented in this encounter Care Teams Senior Ui Software Engineer Relationship Specialty Start Date End Date Erin Barba MD PCP - General Pediatric Medicine 04/07/[address] [place] [address] documented as of this encounter
--- OUTSIDE RECORDS SUMMARY | 2021-11-21 11:43 | XMS_ITS | Encounter Summary ---
:2000 Author Organization [facility] Address [address] [place] [address] Care Team Providers Name Role Phone Erin Barba MD Primary Care Provider Reason for Visit Reason Comments Ankle Problem Encounter Details Date Type Department Care Team Description 06/11/2019 Telemedicine [facility] PT and Ed Pepe Duong [facility] regional pain Center, Physical C, PT syndrome type 1 of Therapy [address] [facility] right lower extremity [address] [place], [place] (Prim hazel Dx) [address] [address] [place], [place] [address] [phone] Social History Tobacco Use Types Packs/Day Years Used Date Smoking Tobacco: Never Smokeless Tobacco: Never Alcohol Use Standard Drinks/Week Comments Not Currently 0 (1 standard drink = 0.6 oz pure alcoho l) Sex Assigned at Date Recorded Not on file documented as of this encounter Progress Notes Pepe Duong, PT - 06/11/2019 1:30 PM CDT [facility] Video Visit Follow Up This video encounter was completed per patient request. The patient has been notified that this visit will be conducted via video with their physical therapist, as certain health care needs can be provided without an in-person physical exam. Their physical therapist will provide further instructions and programming notes via [employer], an online education and home exercise program platform. Mode of transmission: BuzzElement This visit was converted from a clinic visit to a video visit in an effort to reduce patient face time during the COVID-19 crisis. Time service began: 230 pm Time service ended: 255 pm Patient location: Patient residence Provider location: Provider residence Visit Number: 12 [facility] Referring Provider: Santa Aguilar MD Diagnosis: CRPS Orders: Evaluate & treat Previously administered PRO's FAAM = 61/84 [place]rebro = 55/100 - high levels of anxiety and depression PSEQ = 38 SUBJECTIVE: My ankle has really been doing well Some of the motor empathy exercises are really hard, the pictures of the ankle going into rotation/inversion with weight bearing make her feel nauseous. Otherwise, she has seen success with crossing legs, and ankle inversion movements in NWB OBJECTIVE: none TREATMENT TODAY: Neuromuscular re-education (CPT 07574) x 25 minutes: - Reviewed imagined/explicit motor imagery exercises We considered her progress and decided we should progress to mirror therapy - the following resources were provided as an introduction [email or web address] [email or web address]/[email or web address]?v=[email or web address] [email or web address].com/watch?v=3WBOV6ylL9S&t=37s - she does not have a mirror and plan is to obtain one - pdf's emailed to patient for starting mirrored images Timed Code Treatment Minutes: 25 Total Treatment Minutes: 25 Education/Handouts: Edilma Reed was provided with a summary of recommendations stemming from this telehealth visit, as well as further instructions and home exercises electronically via [employer], an online education and home exercise program platform. ASSESSMENT/PLAN: Has made progress with graded motor imagery program along side CBT interventions for movement and physical activity. She has had reductions in pain and improvements in function reported. Follow up in one week for progression of mirror therapy. Need: TSK and orebro, pseq EXPECTED FUNCTIONAL OUTCOMES/GOALS: Play soccer, kick ball by June 02 2019 - met Therapist: Pepe Duong PT 1:37 PM 06/11/2019 documented in this encounter Plan of Treatment Not on filedocumented as of this encounter Visit Diagnoses Diagnosis Complex regional pain syndrome type 1 of right lower extremity - Primary documented in this encounter Care Teams System Controller Relationship Specialty Start Date End Date Erin Barba MD PCP - General Pediatric Medicine 04/07/[address] [place], [place] [address] documented as of this encounter
--- OUTSIDE RECORDS SUMMARY | 2021-11-21 11:43 | XMS_ITS | Encounter Summary ---
:2000 Author Organization [facility] Address [address] [place] [address] Care Team Providers Name Role Phone Erin Barba MD Primary Care Provider Encounter Details Date Type Department Care Team Description 05/01/2019 Orders Only Initial Department Provider, [address] JANEE CRAIG MD [place], [place] [address] Interface provider [phone] [place] [address] Social History Tobacco Use Types Packs/Day Years [...] Priority Date/Time Associated Diagnosis Comme nts EKG 05/01/2019 Results for thi s procedure are in the resu lts section. documented in this encounter Results EKG (05/01/2019) Narrative This result has an attachment that is no t available. Interface Provider EKG documented in this encounter Visit Diagnoses Not on filedocumented in this encounter Care Teams Blast Furnace Operator Relationship Specialty Start Date End Date Erin Barba MD PCP - General Pediatric Medicine 04/07/19 [address] [place] [address] documented as of this encounter
--- OUTSIDE RECORDS SUMMARY | 2021-11-21 11:43 | XMS_ITS | Encounter Summary ---
:2000 Author Organization [facility] Address [address], [place] [address] Care Team Providers Name Role Phone Andres Ramirez MD Primary Care Provider Reason for Visit Reason Comments Post Visit Follow Up Phone Call Encounter Details Date Type Department Care Team Description 01/02/2019 Telephone [facility] Jerica Perdomo RN Post Visit Follow Up [address] [employer] Phone Call [place], [place] [address] Social History Tobacco Use Types [...] on filedocumented in this encounter Care Teams Plastic Boat Patcher Relationship Specialty Start Date End Date Andres Ramirez MD PCP - General 06/06/10 04/06/19 [address] [place] [address] documented as of this encounter
--- OUTSIDE RECORDS SUMMARY | 2021-11-21 11:43 | XMS_ITS | Encounter Summary ---
:2000 Author Organization [facility] Address [address] [place] [address] Care Team Providers Name Role Phone Andres Ramirez MD Primary Care Provider Reason for Visit Reason Comments Foot Problem Encounter Details Date Type Department Care Team Description 02/12/2019 Office Visit [facility] PT and Ed Pepe Duong [facility], Physical C, PT syndrome type 1 of Therapy [address] [facility] right lower extremity [address] [place], [place] (Prim hazel Dx) [address] [address] [place], [place] [address] [phone] Social History Tobacco Use Types Packs/Day Years Used Date Smoking Tobacco: Never Smokeless Tobacco: Never Alcohol Use Standard Drinks/Week Comments Not Currently 0 (1 standard drink = 0.6 oz pure alcoho l) Sex Assigned at Date Recorded Not on file documented as of this encounter Progress Notes Pepe Duong, PT - 02/12/2019 3:00 PM CST [facility] Progress Note Visit Number: 5 [facility] Referring Provider: Santa Aguilar MD Diagnosis: CRPS Orders: Evaluate & treat FAAM = 61/84 Orebro = 55/100 - high levels of anxiety and depression PSEQ = 38 SUBJECTIVE EXAM: Imagined static positions has been pretty good. She has done this a few times, less than we discussed, but managed some. Reports she could do more. 2pd was remarkably hard, but this is improving. Pain: CURRENT:NA OBJECTIVE EXAM: Strength: painful inversion with 5-/5 strength, no giveway due to pain Palpation: Light palpation anterior ankle region is painful L/R discrimination: she is < 2 seconds and accurate 2 point discrimination: R = 40 mm L = 30 mm Function: double limb heel raises and 10 minute walk tolerated without significant increase in pain TREATMENT: Neuromuscular Re-Education (CPT 45181) - to improve coordination, control, and understanding of painproblem Sensory discrimination training - fabric discrimination - struggled with this some - grapesthesia - A-M and grapesthesia chart - really struggled with these - on moderate and hard - 2 point discrimination able to do 30 m Imagined movements - pictures of her foot in various positions - easy to hard - 5-10 seconds - the two most challenging: envionmental cues, reduce stress, diaphragm breathing, pain environmental picture. Pain Neuroscience Education - to improve undestanding of pain problem Immune system and pain Education: Reviewed with patient the role immune system plays in prolonged pain states, and the phenomenon of spreading pain and flare-up of old injuries, scars or pains. Explored further earlier concepts to improve immune health, in contrast to the ???fix it?? approach to pain management. Homework: R tasneemw/progressed pt???s home stress management/coping plan, specifically areas of relaxation, diaphragmatic breathing, personal goal setting, exercise logs, and sleep hygiene. Neural Tissue management - supine LTR - supine sciatic sliders - supine knee to chest Therapeutic Exercise - to improve general strength, endurance, and conditioning Upright bike x 15 minutes Home Program Access Code: [email or web address] L/R discrim Sensory discrim - grapesthesia and fabrics, 2 pd Imagined movement - pictures of her foot Graded walking - start at 10 minutes Heel raises - 20 reps ASSESSMENT/PLAN: Engaged in program and has shown improvements in ability with sensory discrimination and initial stages of imagined movements. She has high levels of of co-morbid anxiety and depression. She stated to me that she felt she will be ready for self management after our next visit. Her PSEQ reflects that she has self efficacy with her pain situation. She could make more function and pain improvements withcontinued treatment if she wishes. GOALS: Play soccer, kick ball by June 02 2019 CHARGES: Neuromuscular Re-education: 40 Therapeutic Exercise: 15 minutes Timed Code Treatment Minutes: 55 Total Treatment Minutes: 55 Therapist: Pepe Duong PT, DPT GER ADULT documented in this encounter Plan of Treatment Not on filedocumented as of this encounter Visit Diagnoses Diagnosis Complex regional pain syndrome type 1 of right lower extremity - Primary documented in this encounter Care Teams Project Manager Senior Relationship Specialty Start Date End Date Andres Ramirez MD PCP - General 06/06/10 04/06/[address] [place] [address] documented as of this encounter
--- OUTSIDE RECORDS SUMMARY | 2021-11-21 11:43 | XMS_ITS | Encounter Summary ---
:2000 Author Organization [employer] Address [address] [place] [address] Care Team Providers Name Role Phone Andres Ramirez MD Primary Care Provider Reason for Visit Reason Comments Follow-up foot pain Encounter Details Date Type Department Care Team Description 01/22/2019 Office Visit [facility] Santa Aguilar, PRODUCTION GENERALIST, ENGINEER SYSTEMS [address] [place] [address] Complex regional pain [address], Tria Rad Rn syndrome type 1 of [place], [place] [address] right lower extremity [phone] (Primary Dx) Social History Tobacco Use Types Packs/Day Years Used Date Smoking Tobacco: Never Smokeless Tobacco: Never Alcohol Use Standard Drinks/Week Comments Not Currently 0 (1 standard drink = 0.6 oz pure alcoho l) Sex Assigned at Date Recorded Not on file documented as of this encounter Last Filed Vital Signs Vital Sign Reading Time Taken Comments Blood Pressure - - Pulse 120 01/22/2019 1:42 PM BID WRITER Temperature - - Respiratory Rate 12 01/22/2019 1:42 PM BID WRITER Oxygen Saturation 99% 01/22/2019 1:42 PM BID WRITER Inhaled Oxygen Concentration - - Weight 54.4 kg (120 lb) 01/22/2019 1:42 PM BID WRITER Height - - Body Mass Index 21.94 11/27/2018 12:59 PM CDT Body Mass Index Percentile 56.73 % 01/22/2019 1:42 PM CS T Growth Chart: CDC (Girls, 2-20 Years) documented in this encounter Progress Notes Samantha Leon CMA - 01/22/2019 1:30 PM CST Images from the original note were not included. STRENGTH AND CONDITIONING COACH for follow up Santa Guallpa APRN, CNP - 01/22/2019 1:30 PM CST Subjective: Thank you for allowing us to continue to participate in the care of your patient, Edilma Reed. She was seen at the [facility] by Santa Aguilar CNP on 01/22/2019. As you know, Edilma Reed is a pleasant 18 y.o. year-old female who we initially evaluated on 11/27/18. At that time, she presented with right foot pain suspect for Complex regional pain syndrome. She returns today for further followup. To review,Edilma is a college freshman at [employer]. She was hoping to play soccer this year at [employer] but could not due to pain. Her chief complaint is pain in her right ankle and foot. The pain is associated with swelling, bruising, hyperalgesia, weakness, decreased range of motion. She had an initial surgery in 2015 at [facility] to treat ???scar tissue?? status post multiple ankle sprains. She did well for approximately 1 year after that for surgery. 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 Unfortunately her pain returned. She suffered several injuries to the foot including a bad sprain and a ???chipped bone?? . At one point she was diagnosed with Achilles tendonitis as well as 3 or 4stress fractures. She was in and out of a boot. Ultimately she had a subsequent surgery which was similar in nature to her first surgery. This was performed in February of 2018 also at [facility]. Since that time her pain has not subsided. She was seen in the [facility] and ultimately sought a 2nd opinion from Dr. Quinonez. New MRI of her foot showed no abnormalities. Dr. Quinonez voiced concerns about complex regional pain syndrome and recommended the patient seek consult here in our pain program. She is here to follow-up after undergoing a lumbar sympathetic nerve block and starting physical therapy with Pepe Swanson. She reports significant overall improvement. At rest her pain is a 1 on 1-10 scale and with activity it is a 3. This is a significant improvement for her. She is having less Complex regional pain syndrome symptoms overall. She indicates that she had a little bit of low back pain after the procedure but otherwise toleratedwell. She has physical therapy scheduled today as well as many upcoming visits in February Management history and therapy response since we have been treating Edilma Reed includes: 1. Education on complex regional pain syndrome 2. Given a copy of the ???why do I hurt?? work book 3. Recommendation to continue Cymbalta 4. Custom compounding cream-she has not fill this yet 5. Discussion about nighttime gabapentin, she decided against this 6. Referral to specialized physical therapy here at [facility] for treatment of Complex regional pain syndrome CURRENT PAIN MEDICATIONS: Cymbalta 120 mg per day OTHER MEDICATIONS: Outpatient Medications Prior to Visit [...] topically every evening. 45 g 11 ??? Generic Medication (COMPOUNDED CREAM) Meloxicam 1%, baclofen 2%, bupivacaine 1%, clonidine 2%, cyclobenzaprine 2%, gabapentin 6% Apply 1-2 gm topically QID or PRN. (Patient not taking: Reported on 01/01/2019) 120 g 11 ??? unknown medication Indications: PN: (Patient not taking: Reported on 07/10/2018) ??? unknown medication Indications: PN: (Patient not taking: Reported on 07/10/2018) Facility-Administered Medications Prior to Visit Medication Dose Route Frequency Provider Last Rate Last Dose ??? fentaNYL (SUBLIMAZE) injection 25-100 mcg 25-100 [...] with Santa Aguilar CNP. REVIEW OF SYSTEMS: 06/15 systems reviewed and are negative except where noted in the HPI. Objective: Physical Exam: Pulse (!) 120, resp. rate 12, weight 54.4 kg (120 lb), SpO2 99 %. Estimated body mass index is 21.94kg/m?? as calculated from the following: Height as of 11/27/18: 1.575 m (5' 2.01). Weight as of this encounter: 54.4 kg (120 lb). Physical Exam: General: No apparent distress HEENT: Pupils equal and round, nasopharynx clear, oropharynx clear Resp: Non-labored breathing Heart: Regular rate Abdomen: Non-distended Psych: Appropriate affect and insight, non-pressured speech Skin: No rashes or lesion Review of Interval Labs/Studies: none Assessment: Edilma is a 18 y.o. year-old female with: 1.Right foot pain status post to surgeries The patient meets Budapest criteria for complex regional pain syndrome displaying sensory, vasomotor, motor and sudomotor [...] Factor 5 Leiden deficiency heterozygous Elaine is pleased to report significant pain relief following the lumbar sympathetic nerve block. She still has a small amount of pain with activity but in general feels significant overall improvement. She would like to continue on with physical therapy and add in a custom compounded cream. We discussed repeating sympathetic nerve blocks in the future if needed Plan: 1.Investigations: None at this time ?? 2. Consults: no new consultations recommended at this time ?? 3. Interventions: You had significant benefit from a lumbar sympathetic nerve block with IV sedation. We once again discussed that this treatment alone is not a ???cure?? ; the purpose of the block would is to facilitate specialized physical therapy. If at any point your symptoms worsen, please call and we can schedule a repeat sympathetic nerve block. ?? An educational video on common pain conditions and pain clinic procedures is available on the [facility] web site by searching Pain Program Procedures. ?? 4. Medications: ?? --Nerve Membrane stabilizers- we discussed a trial of nighttime gabapentin to help with neuropathic pain as well as insomnia. Though this medication can be taken during the day time, I suggest to starttaking it at night to minimize side effects. You declined this medication today ?? Gabapentin Titration Week AM Dose Mid-day Dose PM Dose 1 - - 100mg 2 ?? - 200mg 3 ? 300mg 4 ? 300mg ?? The risks and benefits of starting this new medications were discussed, in detail, with the patient.We specifically spoke about the potential for sedating side effects and the dangers associated with sedation. The patient was counseled not to drive a motor vehicle until after they were familiar with how the medication impacted attention and reaction. ?? --Norepinepherine Modulators: Continue Cymbalta This is a norepinephrine and serotonin modulating medication - it carries FDA approval as an antidepressant but also a separate one for pain management when used at this dose. This medication is generally well tolerated - the most common side effects (still less than 10%) include flushing, changes to mood, GI upset and sexual dysfunction. All are reversible. ?? --Topical medications: Lidocaine 4% patches are available over the counter. They can be worn on for 12 hours and off for 12 hours. There are several brands available. Lidocaine ointment (ex. Aspercreme) is also available. ?? A custom compounded cream is an option. We work with [email or web address] and can create combination creams that include anti-inflammatory, muscle relaxer, topical anesthetics etc. They generally cost about $60-120. ( $1/gram) A prescription was sent. ?? --NSAIDs: Avoid NSAIDS Advil, Motrin, Aleve, etc, are in this class of medication. Though helpful for some people with neuropathic pain, this is not a usual medication in this setting. ?? --Tylenol: Do not underestimate the utility of this class of medication when used in conjunction with the rest of this plan. In the surgical setting, 1000mg of tylenol has some the anti-pain effect as 5mg of morphine. Tylenol, 1000mg up to every 8 hours for 1-2 weeks, then take as needed, in 1000mg dose therafter. ?? --Muscle Relaxant: This medication class can be habit forming and sedating. Do not drive while taking this medication. ?? --Supplements: -Start magnesium glycinate 400mg daily for mild to moderate muscle relaxant properties and synergy with prescription pain medications. This can most readily found at [employer], or via [employer]. This supplement does not require a prescription and is very low risk. -Start Vitamin C supplementation, 500mg daily, there is some evidence that using regular vitamin C supplementation at the onset of neuropathic symptoms can decrease intensity and duration of the pain. ?? --Opioids: Centers for Disease Control released new prescribing guidelines for opioids for chronic pain on 05/17/15 - these very specifically state that opioids should not be used for chronic, non-cancer pain. I recommend you visit the following website for more information and related evidence: http://www.cdc.gov /drugoverdose/prescribing/guideline.html ?? In the [facility], we adhere to federal recommendations and do not prescribe buttermilk drier operator opioids for chronic non-cancer pain. Further, there is good evidence that opioids used for neuropathic paincan lead to worsening pain. ?? 5. Physical Therapy: The patient was made aware that our pain program emphasizes an interdisciplinary approach to comprehensive pain management; at this time, based on the patient???s presentation, physical therapy would likely improve the patient???s pain constellation - PT focused on desensitization, laterality training and range of motion maintenance is the single most likely mean to improve fci outcomes of neuropathic pain. Continue PT as planned with Jace ?? 6. Psych: The patient was made aware that our pain center emphasizes an interdisciplinary approach to comprehensive pain management; She was informed that we have access to a pain psychologist, specializing in behavioral techniques to improve pain control If she believes she would benefit from exploring this therapy, referral will be provided at that time. ?? 7. Integrative Health: Information offered on the [facility] which focuses on holistic approaches to health care focusing on the mind, body and spirit. Living Well consults, Healing touch, Pilates, Yoga, massage therapy and acupuncture are all available at [facility]. Call [phone] to schedule. ?? 8. Follow Up: The plan is to continue physical therapy and add in the custom compounding cream for the residual low-grade pain that you experience with activity. If at any time pain increases please call for a repeat lumbar sympathetic nerve block. ?? WRITER documented in this encounter Plan of Treatment Not on filedocumented as of this encounter Visit Diagnoses Diagnosis Complex regional pain syndrome type 1 of right lower extremity - Primary documented in this encounter Care Teams Cad Designer Relationship Specialty Start Date End Date Andres Ramirez MD PCP - General 06/06/10 04/06/19 [id number] [address] [place] [address] documented as of this encounter
--- OUTSIDE RECORDS SUMMARY | 2021-11-21 11:43 | XMS_ITS | Encounter Summary ---
:2000 Author Organization [employer] Address [address], [place] [address] Care Team Providers Name Role Phone Erin Barba MD Primary Care Provider Reason for Visit Reason Comments RESULTS, TEST Encounter Details Date Type Department Care Team Description 04/15/2019 [facility] Oscar Pantoja MD RESULTS, TEST Electrophysiology [address] [place] [id number] [phone] Social History Tobacco Use Types Packs/Day Years Used Date Smoking Tobacco: Never Smokeless Tobacco: Never Alcohol Use Standard Drinks/Week Comments Not Currently 0 (1 standard drink = 0.6 oz pure alcoho l) Sex Assigned at Date Recorded Not on file documented as of this encounter Nursing Notes Amber Swanson RN - 05/12/2019 10:06 AM CDT Vm message left for pt to cb to review Dr. Pantoja's comments. Amber Swanson RN - 04/15/2019 9:30 AM CST ----- Message from Oscar Pantoja MD sent at 04/13/2019 2:12 PM MEDICATION TECH ----- Amber: please let patient know that we received good copies of her EKGs and I reviewed them. I would call her QT prolongation as very mild. I would be fine with her going back on her prior dose of lexapro if necessary. I would suggest an EKG after dose increases or if other medications are added thatcan prolong the QT interval. She can go through our department for these EKGs if needed. Also, please verify her primary care provider and psychiatrist and forward both a copy of my consult note (including addendum). Thanks, sam pantoja CATION TECH Amber Swanson RN - 04/15/2019 9:20 AM CST left for patient's mother Martha (consent to share information authorized and verified) to cb to discuss Dr. Pantoja's comments. CATION TECH Amber Swanson RN - 04/15/2019 9:20 AM CST ----- Message from Oscar Pantoja MD sent at 04/13/2019 2:12 PM MEDICATION TECH ----- Amber: please let patient know that we received good copies of her EKGs and I reviewed them. I would call her QT prolongation as very mild. I would be fine with her going back on her prior dose of lexapro if necessary. I would suggest an EKG after dose increases or if other medications are added thatcan prolong the QT interval. She can go through our department for these EKGs if needed. Also, please verify her primary care provider and psychiatrist and forward both a copy of my consult note (including addendum). Thanks, sam pantoja CATION TECH documented in this encounter Plan of Treatment Not on filedocumented as of this encounter Visit Diagnoses Not on filedocumented in this encounter Care Teams Forklift Driver Relationship Specialty Start Date End Date Erin Barba MD PCP - General Pediatric Medicine 04/07/[id number] [place] [address] documented as of this encounter
--- OUTSIDE RECORDS SUMMARY | 2021-11-21 11:43 | XMS_ITS | Encounter Summary ---
:2000 Author Organization [facility] Address [address] [place] [address] Care Team Providers Name Role Phone Andres Ramirez MD Primary Care Provider Reason for Visit Reason Comments Ankle Problem Encounter Details Date Type Department Care Team Description 03/19/2019 Office Visit [facility]pe Duong [facility], Physical C, PT syndrome type 1 of Therapy [address] [facility] right lower extremity [address] [place], [place] (Prim hazel Dx) [address] [address] [place], [place] [address] [phone] Social History Tobacco Use Types Packs/Day Years Used Date Smoking Tobacco: Never Smokeless Tobacco: Never Alcohol Use Standard Drinks/Week Comments Not Currently 0 (1 standard drink = 0.6 oz pure alcoho l) Sex Assigned at Date Recorded Not on file documented as of this encounter Progress Notes Pepe Duong, PT - 03/19/2019 2:30 PM CST [facility] Progress Note Visit Number: 8 [facility] Referring Provider: Santa Aguilar MD Diagnosis: CRPS Orders: Evaluate & treat FAAM = 61/84 [place] = 55/100 - high levels of anxiety and depression PSEQ = 38 SUBJECTIVE EXAM: This week is better, not as much pain. Has history of migraines, she has decided that she is going to take a semester off from school as a result. As a result, sleeping in, taking naps, activity level down. Ankle hurting in a different spotand has been difficult to touch - it is a patch of pain at the lateral aspect of her ankle. [...] increase in pain TREATMENT: Neuromuscular Re-Education (CPT 47334) - to improve coordination, control, and understanding of painproblem x 30 minutes Sensory discrimination training - 2 point discrimination able to do 25 mm Object discrimination - on the floor with feet, multiple objects - plan set for rice in bucket Imagined movement - progressed to dynamic hops, squats, single leg, rocking back, crossing legs - pictures taken on patients phone - reviewed progression to 120 reps Pain Neuroscience Education Nerve sensors Education: Patient educated on the concept of neuroplasticity, and how factors such as temperature, stress, movement, immunity and blood flow affect pain via ion channel expression. Instruction provided regarding homeostasis/ion channel balance disruption may occur based on what your brain thinks is needed for survival. Therapeutic Exercise (CPT 00770) - to improve general strength, endurance, and conditioning 17 minutes Upright bike x 17 minutes Home Program Access Code: [email or web address] L/R discrim Sensory discrim - 2 pd, floor samples Andela building Imagined movement - pictures of her foot Graded walking - start at 10 minutes Heel raises - 20 reps ASSESSMENT/PLAN: Recovered from pain flare. Color seems to be much improved overall. She can do 2 pd very well. Imagined movements progressed, flare up plan reviewed. We did some further education on her symptoms utilizing nerve sensors metaphor - linked this with what we are trying to do for treatment. GOALS: Play soccer, kick ball by June 02 2019 CHARGES: Neuromuscular Re-education: 30 Therapeutic Exercise: 17 minutes Timed Code Treatment Minutes: 47 Total Treatment Minutes: 47 Therapist: Pepe Duong PT, DPT ULSION SYSTEMS ENGINEER documented in this encounter Plan of Treatment Not on filedocumented as of this encounter Visit Diagnoses Diagnosis Complex regional pain syndrome type 1 of right lower extremity - Primary documented in this encounter Care Teams Clinical Technologist Relationship Specialty Start Date End Date Andres Ramirez MD PCP - General 06/06/10 04/06/19 [id number] [address] [place] [address] documented as of this encounter
--- OUTSIDE RECORDS SUMMARY | 2021-11-21 11:43 | XMS_ITS | Encounter Summary ---
:2000 Author Organization [facility] Address [address] [place] [address] Care Team Providers Name Role Phone Andres Ramirez MD Primary Care Provider Reason for Visit Reason Comments Ankle Problem Encounter Details Date Type Department Care Team Description 01/30/2019 Office Visit [facility], Physical C, PT syndrome type 1 of Therapy [address] [facility] right lower extremity [address] [place], [place] (Prim hazel Dx) [address] [address] [place], [place] [address] [phone] Social History Tobacco Use Types Packs/Day Years Used Date Smoking Tobacco: Never Smokeless Tobacco: Never Alcohol Use Standard Drinks/Week Comments Not Currently 0 (1 standard drink = 0.6 oz pure alcoho l) Sex Assigned at Date Recorded Not on file documented as of this encounter Progress Notes Pepe Duong, PT - 01/30/2019 3:00 PM CST [facility] Progress Note Visit Number: 2 [facility] Referring Provider: Santa Aguilar MD Diagnosis: CRPS Orders: Evaluate & treat FAAM = 61/84 SUBJECTIVE EXAM: Heel raises are easy, wants to progress them. Working on left vs right. If she were to imagine doinglegs crossed, kicking a ball, or ladder drills it would be emtoional/scary, increase pain. Pain: CURRENT:NA OBJECTIVE EXAM: Strength: painful inversion with 5-/5 strength, no giveway due to pain Palpation: Light palpation anterior ankle region is painful L/R discrimination: she is < 2 seconds and accurate Function: double limb heel raises and 10 minute walk tolerated without significant increase in pain TREATMENT: Neuromuscular Re-Education - to improve coordination, control, and understanding of pain problem Pain Neuroscience Education Body Maps/Homunculus (The brain???s body maps) Education: Patient educated regarding the role of the primary somatosensory cortex in pain and body maps (which depend on movement and use of body parts) and that for people with persistent pain, decreased use of the body and other biological processes change the body maps. Laterality profiency was discussed and assessed. Homework: Imagined movement, sensory discrimination Sensory discrimination training - she is good with sharp vs dull - fabric discrimination - struggled with this some - grapesthesia - A-M and grapesthesia chart - really struggled with these - on moderate and hard Imagined movements - we made a hierarchy/list - started with recognize faisal - progression 5 times per day with crossing legs - she noted increasing leg buzzing, didn't want to go there with a little bit of imagined crossing legs - encouraged and we practiced this with diaphragm breathing Home Program L/R discrim Sensory discrim - grapesthesia and fabrics Imagined movement - faisal and tahira cross Graded walking - start at 10 minutes Heel raises - 20 reps ASSESSMENT/PLAN: Engaged in program. Imagined movements was emotional, made her pull back. Will continue to encourageand provide a plan for practice in this area. GOALS: Play soccer, kick ball by June 02 2019 CHARGES: Neuromuscular Re-education: 60 Timed Code Treatment Minutes: 60 Total Treatment Minutes: 60 Therapist: Pepe Duong PT, DPT GRATED LOGISTICS PROGRAMS DIRECTOR documented in this encounter Plan of Treatment Not on filedocumented as of this encounter Visit Diagnoses Diagnosis Complex regional pain syndrome type 1 of right lower extremity - Primary documented in this encounter Care Teams State Historical Society Director Relationship Specialty Start Date End Date Andres Ramirez MD PCP - General 06/06/10 04/06/19 [id number] [address] [place] [address] documented as of this encounter
--- OUTSIDE RECORDS SUMMARY | 2021-11-21 11:43 | XMS_ITS | Encounter Summary ---
:2000 Author Organization [employer] Address [address] [place] [address] Care Team Providers Name Role Phone Andres Ramirez MD Primary Care Provider Reason for Referral Consult/Transfer Care (Routine) - Closed Specialty Diagnoses / Procedures Referred By Contact Refer red To Contact Diagnoses Acute right ankle pain Serafin Quinonez MD [address] [place] [address] [place] [address] 1 Referral ID Status Reason Start Date Expiration Date Visits Requ ested Visits Authorized [id number] Closed 11/13/2018 02/12/2020 1 1 Scheduling Instructions Your provider has recommended an appoint ment with [facility]. You may call [phone] to schedule your appoi ntment. If you do not schedule an appointment within the next 1 to 3 business days, we will call you to help arrange your appointment. We suggest you call your [employer] insurance [employer] about your coverage and benefits for this appointment. Reason for Visit Reason Comments ANKLE PAIN right ankle Encounter Details Date Type Department Care Team Description 11/13/2018 Office Visit [facility] Serafin Quinonez, Acute right ankle CENTER pain (Primary Dx) [address] [place] [address] [place] [phone] (Wo rk) Social History Tobacco Use Types Packs/Day Years Used Date Smoking Tobacco: Never Smokeless Tobacco: Never Sex Assigned at Date Recorded Not on file documented as of this encounter Last Filed Vital Signs Vital Sign Reading Time Taken Comments Blood Pressure - - Pulse - - Temperature - - Respiratory Rate - - Oxygen Saturation - - Inhaled Oxygen Concentration - - Weight 54 kg (119 lb) 11/13/2018 12:57 PM CDT Height 157.5 cm (5' 2) 11/13/2018 12:57 PM CDT Body Mass Index 21.77 11/13/2018 12:57 PM CDT Body Mass Index Percentile 55.44 % 11/13/2018 12:57 PM C DT Growth Chart: [facility] (Girls, 2-20 Years) documented in this encounter Patient Instructions Patient InstructionsStShanelle youssef - 11/13/2018 12:[address] Serafin Quinonez MD Orthopaedic Surgeon/Foot & Ankle Specialist Personal Protection Specialist, [facility] Amphibian Crewmember: Carissa Barcenas Please contact Carissa for all administrative questions at [phone] Nurse: Sury Houser Rn Please contact Sury for all medical related questions at [phone] Medication Requests: Prescriptions are not filled on Weekends or on Weekdays after 3:00PM For all medication refills: Request a refill using MyChart or contact your Pharmacy Pain Clinic referral given. documented in this encounter Progress Notes Serafin Quinonez MD - 11/13/2018 12:00 PM CDT NAME: EDILMA CALI MR#: [id number] CSN: [id number] AUTHENTICATING CLINICIAN: Serafin Quinonez MD CONFIRM #: [id number] LOC: 711 CLINIC PROGRESS NOTE DATE OF VISIT: 11/13/2018 : 2000 CHIEF COMPLAINT: Right ankle pain status post right ankle surgery x2 by Dr. Petros Gaines. Mrs. Cali is an 18-year-old female who presents in the company of her mother for evaluation of her right ankle. Patient reports to have been diagnosed in the past with soft tissue impingement to have undergone arthroscopic debridement in 2016, which according to her, was quite successful. However, sherequired a 2nd arthroscopic debridement in 2018 secondary to the pain and discomfort she developed. However, she believes that this 2nd surgery has not helped her at all. Reports to have pain and discomfort diffusely through the ankle joint as well as to have recurrent bruising. 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, and is interested in playing soccer as well as to have been approached by the track and field coach. However, she cannot perform secondary to the pain in the ankle. She is also very clear about the fact that she is limited to any degree of pounding activities, and she can barely perform walking and standing. At this point, she has come to terms that she may not be athletic again, however, she would like to have a non-pounding activities-type of lifestyle with no pain. She seems to be fairly practical aboutthis. Patient also reports that they have stopped attending Dr. Gaines's office, given the fact that she has not been given any options for improvement and they have been mainly dealing with Grover, his PA. She is also very clear about the fact that she feels some stiffness across the ankle joint. PAST MEDICAL HISTORY: Significant for depression, anxiety, as well as factor 5 Leiden deficiency. CURRENT MEDICATIONS: Please refer to encounter form. DRUG ALLERGIES: Penicillin. PAST SURGICAL HISTORY: The ankle scopes as mentioned above as well as an appendectomy in 2016. PHYSICAL EXAMINATION: On today's visit, patient is a pleasant female in no apparent distress with a height of 5 feet 2 inches and a weight of 119 pounds. Denies to have any constitutional symptoms. On today's visit, she presents with symmetric range of motion of the ankle, understanding that she has some intrinsic stiffness and she is not a flexible person. Patient with a stable ankle to anteriordrawer as well as talar tilt. There is some ecchymosis along the medial aspect of the ankle joint. There is pain with palpation of the lateral aspect of the ankle joint as well as the medial aspect of the ankle joint, the lateral and plantar aspect of the ankle joint, and the posterior aspect of theankle joint. The malleoli are also tender. The forefoot exam is minimally tender. Toes are nontender. There is no trophic changes across the foot or ankle joint. IMAGING STUDIES: Plain x-rays and MRI were reviewed today which were grossly nondiagnostic. ASSESSMENT: Right ankle pain of unknown etiology, possible soft tissue impingement versus complex regional pain syndrome. PLAN: I discussed with the patient and her mother that at this point, I believe that she presents with toomuch pain to be suffering from soft tissue impingement. I encouraged them to proceed with an evaluation by our pain clinic experts in order to rule out any other component of pain. I also believe that she may have some supratentorial component to her pain, which is going to be quite difficult to improve. For the time being, we are going to proceed with an evaluation by the pain experts, and if this is negative for CRPS, we may consider a diagnostic injection to the ankle joint with hopes that maybe another ankle scope would be able to improve her discomfort, however, when we are presented with such a g lobal component of pain, that will be difficult to accomplish. In the meantime, she has no activity restrictions. All questions were answered. Patient pleased withthe discussion. TT: [address]: 20 minutes. FAP:MEDQ C: R:11/13/18 20:43 CONFIRM#:[id number] documented in this encounter Plan of Treatment Scheduled Referrals Name Type Priority Associated Diagnoses Order S chedule Pain-Medical Adult Referral Routine Acute right ankle pain Ordered: 11/13/2018 Consult [facility] documented as of this encounter Visit Diagnoses Diagnosis Acute right ankle pain - Primary documented in this encounter Care Teams Blade Balancer Relationship Specialty Start Date End Date Andres Ramirez MD PCP - General 06/06/10 04/06/[address] [place] [address] [place] [address] documented as of this encounter
--- OUTSIDE RECORDS SUMMARY | 2021-11-21 11:44 | XMS_ITS | Encounter Summary ---
:2000 Author Organization [facility] Address [address] [address] Care Team Providers Name Role Phone Andres Ramirez MD Primary Care Provider Reason for Visit Procedure/Equipment (Routine) - Incomplete Specialty Diagnoses / Procedures Referred By Contact Refer red To Contact Procedures Provider, Foreign Images Foreign Image(S) XR Ankle Rt [address] [place] [address] Referral ID Status Reason Start Date Expiration Date Visits V isits Requested Authorized [id number] Incomplete 10/29/2018 01/28/2020 1 1 Encounter Details Date Type Department Care Team Description 09/24/2017 Ancillary Procedure [facility]iology PACS Provider, [place] [address] [address] [place] [address] Social History Tobacco Use Types Packs/Day Years Used Date Smoking Tobacco: Never Sex Assigned at Date Recorded Not on file documented as of this encounter Plan of Treatment Not on filedocumented as of this encounter Procedures Procedure Name Priority Date/Time Associated Diagnosis Comme nts FOREIGN IMAGE(S) XR Routine 09/24/2017 2:05 PM Re sults for this ANKLE RT CDT procedure are i n the results section. documented in this encounter Results Foreign Image(S) XR Ankle Rt (09/24/2017 2:05 PM CDT) Specimen (Source) Anatomical Location Collection Method / Collectio n Time Received Time / Laterality Volume Narrative POCT - 10/29/2018 2:04 PM CDT These outside images have been uploaded into PACS. If the results were provided, they will be located in the nc zach's chart under the Media or Imaging tab. Foreign Images Provider RAD NON-REPORTABLES Performing Organization Address City/State/ZIP Code Phon e Number POCT documented in this encounter Visit Diagnoses Not on filedocumented in this encounter Care Teams Clinical Program Manager Relationship Specialty Start Date End Date Andres Ramirez MD PCP - General 06/06/10 04/06/[address] [place] [address] [facility] [place] [address] documented as of this encounter
--- OUTSIDE RECORDS SUMMARY | 2021-11-21 11:44 | XMS_ITS | Encounter Summary ---
:2000 Author Organization [facility] Address [address] [address] Care Team Providers Name Role Phone Andres Salguero MD Primary Care Provider Reason for Visit Reason Comments Rash Encounter Details Date Type Department Care Team Description 07/15/2011 Hospital Encounter [facility] Yoly Kwok , Diana and other Care nonspecific skin [address] titi Prietohassadalberto [facility] [place] [address] [phone] Social History Tobacco Use Types Packs/Day Years Used Date Smoking Tobacco: Never Assessed Sex Assigned at Date Recorded Not on file documented as of this encounter Last Filed Vital Signs Vital Sign Reading Time Taken Comments Blood Pressure - - Pulse 78 07/15/2011 11:03 AM CDT Temperature 36.4 ??C (97.5 ??F) 07/15/2011 11:03 AM CDT Respiratory Rate 18 07/15/2011 11:03 AM CDT Oxygen Saturation - - Inhaled Oxygen Concentration - - Weight 31.3 kg (69 lb) 07/15/2011 11:03 AM CDT Height - - Body Mass Index - - documented in this encounter Medications at Time of Discharge Medication Sig Dispensed Refills Start Date End Date unknown medication Indications: PN: 0 04/28/2006 01/22/2019 unknown medication Indications: PN: 0 01/20/2005 01/22/2019 documented as of this encounter ED Notes Yoly Kwok MD - 07/15/2011 1:03 PM CDT ED Provider Notes signed by Yoly Kwok MD at 07/17/11 4648 Author: Yoly Kwok MD Service: (none) Author Type: Physician Filed: 07/17/11 1449 Note Time: 07/15/11 1303 Status: Signed Fur Trimmer: Yoly Kwok MD (Physician) NAME: ADÁN CALI MR#: [id number] CSN: [id number] AUTHENTICATING CLINICIAN: Yoly Kwok MD CONFIRM #: [id number] LOC: 3620 URGENT CARE PROGRESS NOTE DATE OF VISIT: 07/15/2011 : 2000 Adán is a 10-year-old who comes in with concerns of rash, is here with her mom. She is on day 4 of amoxicillin for a left-sided ear infection. 4 days ago she had a low grade temp, sore throat, and [facility], was diagnosed with an ear infection. She had negative strep test. She has been on cephalosporins and penicillin-based products in the past with no problem. Last night, Mom noticed a rash on her legs, it was minimally itchy. She woke up this morning, was covered a full body red rash. No one else with a rash. She has no known other exposures, no new detergents, etc. Her ear and throat no longer hurt. MEDICATIONS, ALLERGIES: Reviewed. OBJECTIVE: Olf-oor-sgrhjdjux 10-year-old. She is sitting reading a book. VITAL SIGNS: Reviewed. HEENT: Pupils equal, round, react to light. No conjunctival injection or drainage. Tympanic membranes are normal bilaterally, including the left side which does not appear to have any ear infection currently. Oropharynx without erythema or exudate. There is no lymphadenopathy of the neck. Oropharynx as well does not have any lesions. NECK: Supple without rigidity. HEART: Regular rate and rhythm without murmur, rubs, gallop. LUNGS: Clear to auscultation without crackles, rhonchi, wheezes. SKIN: Covered with a macular erythematous rash, no vesicles. It covers most of her arms, legs, trunk and up the back the neck. It seems to spare the face. ASSESSMENT: Macular rash secondary to amoxicillin. PLAN: Cessation of amoxicillin. Given that she has no signs of bacterial infection currently, I did not recommend restarting other different antibiotics. If her ear pain returns, then azithromycin could be used, she will contact Nato Rahman if needed. We placed amoxicillin as a rash allergy in the computer record, let Mom know that cephalosporins could be tried in the future. This is written down for her. CC: DR. ANDRES SALGUERO [id number] [place] [address] [place] [address] EKH:MEDQ C: CONFIRM #: [id number] documented in this encounter Miscellaneous Notes Medication History - Miguel Cr MD - 07/15/2011 11:18 AM CDT INPATIENT MEDS Encounter Date: 07/15/11 amoxicillin (TRIMOX) 125 mg/5 mL suspension Start Date:-, End Date:07/15/11, Frequency:2 TIMES DAILY *No Administrations Recorded documented in this encounter Plan of Treatment Not on filedocumented as of this encounter Visit Diagnoses Diagnosis Rash and other nonspecific skin eruption documented in this encounter Care Teams Environmental Engineering Manager Relationship Specialty Start Date End Date Andres Salguero MD PCP - General 06/06/10 04/06/[id number] [place] [address] [place] [address] documented as of this encounter
--- OUTSIDE RECORDS SUMMARY | 2021-11-21 11:44 | XMS_ITS | Encounter Summary ---
:2000 Author Organization [email or web address] Address [address] [place] [address] Care Team Providers Name Role Phone Andres Ramirez MD Primary Care Provider Reason for Visit Procedure/Equipment (Routine) - Incomplete Specialty Diagnoses / Procedures Referred By Contact Refer red To Contact Diagnoses Arthralgia of right ankle Narinder Souza MD Procedures XR Ankle Rt 3 Views [address] [facility] [address] [place] [address] Referral ID Status Reason Start Date Expiration Date Visits V isits Requested Authorized [id number] Incomplete 10/29/2018 01/28/2020 1 1 Encounter Details Date Type Department Care Team Description 10/29/2018 Ancillary [facility] Narinder Souza, Arthralgia of right Procedure [address] [facility] [place] [address] [phone] Social History Tobacco Use Types Packs/Day Years Used Date Smoking Tobacco: Never Smokeless Tobacco: Never Sex Assigned at Date Recorded Not on file documented as of this encounter Plan of Treatment Not on filedocumented as of this encounter Procedures Procedure Name Priority Date/Time Associated Diagnosis Comme nts XR ANKLE RT 3 VIEWS Routine 10/29/2018 1:58 PM Arthralgia of r ight Results for this CDT ankle procedure are i n the results section. documented in this encounter Results XR Ankle Rt 3 Views (10/29/2018 1:58 PM CDT) Anatomical Region Laterality Modality Lower Extremity, Ankle, Foot & Ankle Dig ital Radiography Specimen (Source) Anatomical Collection Method Collection Time Re ceived Time Location / / Volume Laterality 10/29/2018 1:52 PM CDT Impressions 10/29/2018 2:05 PM CDT COMPARISON: ??None. FINDINGS: ??3 views of the right ankle. Questionable cortical irregularity at the distal tip of the anterior process of the calcaneus. This could represent a minimally displaced fracture versus superimp osed shadows. This could be better benny cterized with cross-sectional imaging if clinically indicated. Joint spaces preserved. Ankle mortise intact. Procedure Note Jeison Díaz MD - 10/29/2018Formattin g of this note might be different from the original. IMPRESSION COMPARISON: None. FINDINGS: 3 views of the right ankle. Qu estionable cortical irregularity at the distal tip of the anterior process of the calcaneus. This could represent a minimally displaced fracture versus superimposed shadows. This could be better characterized with cross -sectional imaging if clinically indicated. Joint spaces preserved. Ankle mortise intact. Narinder Souza MD RAD GD documented in this encounter Visit Diagnoses Diagnosis Arthralgia of right ankle Pain in joint, ankle and foot documented in this encounter Care Teams Rum Processing Operator Relationship Specialty Start Date End Date Andres Ramirez MD PCP - General 06/06/10 04/06/[address] [place] [facility] [place] [address] documented as of this encounter
--- OUTSIDE RECORDS SUMMARY | 2021-11-21 11:44 | XMS_ITS | Encounter Summary ---
:2000 Author Organization [facility] Address [address] [address] Care Team Providers Name Role Phone Andres Ramirez MD Primary Care Provider Reason for Visit Procedure/Equipment (Routine) - Incomplete Specialty Diagnoses / Procedures Referred By Contact Refer red To Contact Procedures Provider, Foreign Images Foreign Image(S) XR Foot Rt [address] [place] [address] Referral ID Status Reason Start Date Expiration Date Visits V isits Requested Authorized [id number] Incomplete 10/29/2018 01/28/2020 1 1 Encounter Details Date Type Department Care Team Description 01/23/2016 Ancillary Procedure [facility] Radiology PACS Provider, [place] [address] [address] [place] [address] Social History Tobacco Use Types Packs/Day Years Used Date Smoking Tobacco: Never Sex Assigned at Date Recorded Not on file documented as of this encounter Plan of Treatment Not on filedocumented as of this encounter Procedures Procedure Name Priority Date/Time Associated Diagnosis Comme nts FOREIGN IMAGE(S) XR Routine 01/23/2016 2:10 PM Re sults for this FOOT RT SOLDERER [employer]RON[employer] procedure are i n the results section. documented in this encounter Results Foreign Image(S) XR Foot Rt (01/23/2016 2:10 PM SOLDER[employer]RON[employer]) Specimen (Source) Anatomical Location Collection Method / Collectio n Time Received Time / Laterality Volume Narrative POCT - 10/29/2018 2:11 PM CDT These outside images have been uploaded into PACS. If the results were provided, they will be located in the arina serrano's chart under the Media or Imaging tab. Foreign Images Provider RAD NON-REPORTABLES Performing Organization Address City/State/ZIP Code Phon e Number POCT documented in this encounter Visit Diagnoses Not on filedocumented in this encounter Care Teams Forge Hand Relationship Specialty Start Date End Date Andres Ramirez MD PCP - General 06/06/10 04/06/[address] [place] [address] [place] [address] documented as of this encounter
--- OUTSIDE RECORDS SUMMARY | 2021-11-21 11:44 | XMS_ITS | Encounter Summary ---
:2000 Author Organization [facility] Address [address], [place] [address] Care Team Providers Name Role Phone Andres Ramirez MD Primary Care Provider Encounter Details Date Type Department Care Team Description 02/08/2009 Nursing Visit [facility] Ric Nixon MD [address] [place] [address] Social History Tobacco Use Types Packs/Day Years Used Date Smoking Tobacco: Never Assessed Sex Assigned at Date Recorded Not on file documented as of this encounter Plan of Treatment Not on filedocumented as of this encounter Visit Diagnoses Not on filedocumented in this encounter Care Teams Cutter Machine Tender Relationship Specialty Start Date End Date Andres Ramirez MD PCP - General 06/06/10 04/06/19 [address] [place] [id number] documented as of this encounter
--- OUTSIDE RECORDS SUMMARY | 2021-11-21 11:44 | XMS_ITS | Encounter Summary ---
:2000 Author Organization [facility] Address [address] [address] Care Team Providers Name Role Phone Andres Ramirez MD Primary Care Provider Encounter Details Date Type Department Care Team Description 07/05/2010 PN Conversion Only CONVERSION CONVERSION Chidi Quinoens MD [address] [place] [address] Social History Tobacco Use Types Packs/Day Years Used Date Smoking Tobacco: Never Assessed Sex Assigned at Date Recorded Not on file documented as of this encounter Plan of Treatment Not on filedocumented as of this encounter Visit Diagnoses Not on filedocumented in this encounter Care Teams Molded Rubber Goods Cutter Relationship Specialty Start Date End Date Andres Ramirez MD PCP - General 06/06/10 04/06/19 [address] [place] [id number] documented as of this encounter
--- OUTSIDE RECORDS SUMMARY | 2021-11-21 11:44 | XMS_ITS | Encounter Summary ---
:2000 Author Organization [facility] Address [address] [address] Care Team Providers Name Role Phone Andres Ramirez MD Primary Care Provider Reason for Visit Procedure/Equipment (Routine) - Incomplete Specialty Diagnoses / Procedures Referred By Contact Refer red To Contact Procedures Provider, Foreign Images Foreign Image(S) MR Ankle Rt [address] [place] [address] Referral ID Status Reason Start Date Expiration Date Visits V isits Requested Authorized [id number] Incomplete 10/29/2018 01/28/2020 1 1 Encounter Details Date Type Department Care Team Description 09/15/2015 Ancillary Procedure [facility] Radiology PACS Provider, [place] [address] [address] [place] [address] Social History Tobacco Use Types Packs/Day Years Used Date Smoking Tobacco: Never Assessed Sex Assigned at Date Recorded Not on file documented as of this encounter Plan of Treatment Not on filedocumented as of this encounter Procedures Procedure Name Priority Date/Time Associated Diagnosis Comme nts FOREIGN IMAGE(S) MR Routine 09/15/2015 2:15 PM Re sults for this ANKLE RT CDT procedure are i n the results section. documented in this encounter Results Foreign Image(S) MR Ankle Rt (09/15/2015 2:15 PM CDT) Specimen (Source) Anatomical Location Collection Method / Collectio n Time Received Time / Laterality Volume Narrative POCT - 10/29/2018 2:15 PM CDT These outside images have been uploaded into PACS. If the results were provided, they will be located in the ut zach's chart under the Media or Imaging tab. Foreign Images Provider RAD NON-REPORTABLES Performing Organization Address City/State/ZIP Code Phon e Number POCT documented in this encounter Visit Diagnoses Not on filedocumented in this encounter Care Teams Post Splitter Relationship Specialty Start Date End Date Andres Ramirez MD PCP - General 06/06/10 04/06/[address] [place] [address] [facility] [place] [address] documented as of this encounter
--- OUTSIDE RECORDS SUMMARY | 2021-11-21 11:44 | XMS_ITS | Encounter Summary ---
:2000 Author Organization [facility] Address [address] [address] Care Team Providers Name Role Phone Andres Ramirez MD Primary Care Provider Reason for Visit Reason Comments ACNE On face, chest, back, and up per arms. Present for two years. Using PanOxyl, clindamycin lotion, and Diff giuseppe x1 year. Comes and goes, but not completely gone. Encounter Details Date Type Department Care Team Description 07/10/2018 Initial Consult [facility] [address] ne vulgaris (Primary Dx); Dermatology MD Pranav Keratosis pilaris; [address] [facility] [address] [place] [address] [phone] Social History Tobacco Use Types Packs/Day Years Used Date Smoking Tobacco: Never Sex Assigned at Date Recorded Not on file documented as of this encounter Patient Instructions Patient InstructionsSpeeRylee moreira MD - 07/10/2018 8:00 AM CDT Keratosis Pilaris Keratosis pilaris is a harmless, genetic condition that occurs on people's upper arms and legs, giving them a sandpaper-like texture. It is common, with up to 40% of the population affected. There is no treatment that will stop your body's tendency to form keratosis pilaris, but creams can help smooththe skin. Creams only work in the short-term and keratosis pilaris will return when you stop using the creams. Although no cream is certain to work, the following creams may be helpful: - Amlactin (12% lactic acid) - Keralyt Gel (Salicylic Acid 3%) - InfoScout Duty ($$$ available at [employer]) - [employer] Professional [employer] documented in this encounter Progress Notes Rylee Camp MD - 07/10/2018 8:00 AM CDT Chief Complaint Patient presents with ??? ACNE On face, chest, back, and upper arms. Present for two years. Using PanOxyl, clindamycin lotion, andDifferin x1 year. Comes and goes, but not completely gone. History of Present Illness: Edilma Reed is a 17 y.o. female who presents to clinic today for evaluation of acne. Patient is new to [facility]. Today, she is concerned about persistent acne on the face, chest, and back. She notes that she tends to get deeper cystic like lesions along the jawline. The patient statesthis has been ongoing for about two years despite topical treatments. She has been using PanOxyl wash, clindamycin lotion in the morning, and Differin at night for 6 months - 1 year. The patient had the Mirena IUD placed in April 2016 and feels this provided some improvement in acne. In addition, she mentions acne like bumps on the upper arms and sides of the thighs. The patient is otherwise well.No other concerns. Past Medical History: Acne. Factor IV Leiden, cannot take estrogen. Family History: Parents, history of acne. Mother was on a form of isotretinoin. Social History: Present with mother. Plays sports, is outdoors frequently. Medications: The patient has a current medication list which includes the following prescription(s): clindamycin,duloxetine, levonorgestrel, unknown medication, and unknown medication. Allergies: The patient is allergic to amoxicillin. Physical Examination: General: Well-appearing female, in no distress, alert and oriented. Skin: Focused exam of the face, chest, arms, and back. Pertinent findings: - Scattered inflammatory papules on the cheeks and chin. - Keratotic papules, red in color on posterior arms. - Scattered pustules on the lower back. Exam otherwise was normal. Assessment and Plan: 1. Acne, inflammatory. Discussed pathophysiology of acne. Patient desires treatment. A customized acne regimen was providedto the patient in the AVS. The patient will continue Panoxyl wash in the morning. The patient was instructed to not rub or scrub and use warm (not hot) water. Specific products were recommended. Reviewed risk of fabric bleaching. Refilled topical clindamycin 1% lotion for morning use. Risk of diarrhea discussed. Patient will then use a non-comedogenic daily moisturizer with sunscreen, given risk of photosensitivity. Specific products recommended. In the evening, patient instructed to wash with an un medicated, gentle cleanser. Recommend spironolactone 50 mg once daily. Discussed side effects including breast tenderness and menstrual irregularities. No history of kidney disease, abnormal potassium, or strong family history ofbreast cancer to warrant concern for an adverse side effect. The patient has no known kidney pathology to warrant monitoring of serum potassium. Also discussed in detail the devastating teratogenic effects of this medication. The patient understands that she must not get while she is on the medicine. control will be practiced (Mirena IUD). A written prescription for tretinoin 0.025% cream provided for evening use. Recommended initiating this in the Fall as she is very sun sensitive on Differin. Written and verbal instructions regarding risks, benefits and alternatives to retinoid use were provided to the patient. Risks include sun sensitivity, dryness, and scaling of the skin. The patient was instructed to wait 20 minutes after washingthe face to apply the cream to avoid irritation. Also discussed the need to avoid cosmetic procedures such as waxing and chemical peels while using this medication. Stop if occurs. 2. Keratosis pilaris. Discussed this harmless, genetic condition. Patient understands creams only work in the short-term, recommended OTC Amlactin. 3. Folliculitis. Discussed the nature of this condition with the patient. Recommended continued use of the PanOxyl wash in conjunction clindamycin 1% lotion. Return to clinic as needed. Scribe Disclosure: Jessica Salazar, am serving as a scribe to document services personally performed by Rylee Camp MD at this visit, based upon the provider's statements to me. Entered on 07/10/18 at 8:12 AM. documented in this encounter Plan of Treatment Not on filedocumented as of this encounter Visit Diagnoses Diagnosis Acne vulgaris - Primary Other acne Keratosis pilaris Other specified congenital anomaly of sk in Folliculitis Other specified disease of hair and hair follicles documented in this encounter Care Teams System Configuration Specialist Relationship Specialty Start Date End Date Andres Ramirez MD PCP - General 06/06/10 04/06/[address] [place] [address] documented as of this encounter
--- OUTSIDE RECORDS SUMMARY | 2021-11-21 11:44 | XMS_ITS | Encounter Summary ---
:2000 Author Organization [facility] Address [address] [address] Care Team Providers Name Role Phone Andres Ramirez MD Primary Care Provider Reason for Visit Procedure/Equipment (Routine) - Incomplete Specialty Diagnoses / Procedures Referred By Contact Refer red To Contact Procedures Provider, Foreign Images Foreign Image(S) XR Ankle Rt [address] [place] [address] Referral ID Status Reason Start Date Expiration Date Visits V isits Requested Authorized [id number] Incomplete 10/29/2018 01/28/2020 1 1 Encounter Details Date Type Department Care Team Description 05/16/2016 Ancillary Procedure [facility] PACS Provider, [place] [address] [address] [place] [address] Social History Tobacco Use Types Packs/Day Years Used Date Smoking Tobacco: Never Sex Assigned at Date Recorded Not on file documented as of this encounter Plan of Treatment Not on filedocumented as of this encounter Procedures Procedure Name Priority Date/Time Associated Diagnosis Comme nts FOREIGN IMAGE(S) XR Routine 05/16/2016 2:10 PM Re sults for this ANKLE RT CDT procedure are i n the results section. documented in this encounter Results Foreign Image(S) XR Ankle Rt (05/16/2016 2:10 PM CDT) Specimen (Source) Anatomical Location Collection Method / Collectio n Time Received Time / Laterality Volume Narrative POCT - 10/29/2018 2:07 PM CDT These outside images have been uploaded into PACS. If the results were provided, they will be located in the sd zach's chart under the Media or Imaging tab. Foreign Images Provider RAD NON-REPORTABLES Performing Organization Address City/State/ZIP Code Phon e Number POCT documented in this encounter Visit Diagnoses Not on filedocumented in this encounter Care Teams Collet Making Machine Operator Relationship Specialty Start Date End Date Andres Ramirez MD PCP - General 06/06/10 04/06/[address] [place] [address] [place] [place] [address] documented as of this encounter
--- OUTSIDE RECORDS SUMMARY | 2021-11-21 11:44 | XMS_ITS | Encounter Summary ---
:2000 Author Organization [facility] Address [address] [address] Care Team Providers Name Role Phone Andres Ramirez MD Primary Care Provider Reason for Referral Procedure/Equipment (Routine) - Incomplete Specialty Diagnoses / Procedures Referred By Contact Refer red To Contact Diagnoses Arthralgia of right ankle Narinder Souza MD Procedures MR Ankle Rt WO IV Cont [address] [place] [address] Referral ID Status Reason Start Date Expiration Date Visits V isits Requested Authorized [id number] Incomplete 10/29/2018 01/28/2020 1 1 Procedure/Equipment (Routine) - Incomplete Specialty Diagnoses / Procedures Referred By Contact Refer red To Contact Diagnoses Arthralgia of right ankle Narinder Souza MD Procedures XR Ankle Rt 3 Views [address] [place] [address] Referral ID Status Reason Start Date Expiration Date Visits V isits Requested Authorized [id number] Incomplete 10/29/2018 01/28/2020 1 1 Reason for Visit Reason Comments ANKLE PAIN right / surgery 02/2018 Encounter Details Date Type Department Care Team Description 10/29/2018 Office Visit [facility] Narinder Souza, Moises francois of right Urgent Care ankle (Primary Dx) [address] [place] [place], [place] [phone] (Wo rk) Social History Tobacco Use Types Packs/Day Years Used Date Smoking Tobacco: Never Smokeless Tobacco: Never Sex Assigned at Date Recorded Not on file documented as of this encounter Last Filed Vital Signs Vital Sign Reading Time Taken Comments Blood Pressure 104/66 10/29/2018 1:37 PM CDT Pulse - - Temperature 36.7 ??C (98.1 ??F) 10/29/2018 1:37 PM CDT Respiratory Rate - - Oxygen Saturation - - Inhaled Oxygen Concentration - - Weight 54 kg (119 lb) 10/29/2018 1:37 PM CDT Height - - Body Mass Index - - documented in this encounter Patient Instructions Patient InstructionsErin Beck ATC - 10/29/2018 1:[address] Narinder Souza MD Sports & Orthopaedic Medicine [facility] Medication Requests: Prescriptions are not filled on Weekends or on Weekdays after 3:00PM For all medication refills: Request a refill using [employer] or contact your Pharmacy Acute Injury Clinic Nurse Line: Please contact Acute Injury Clinic Nurse line for all medical requests and questions at [phone] MRI Scheduling: To schedule an MRI at [facility] please call [phone] Paperwork Requests: Questions regarding FMLA or disability paperwork please call [phone] Phone lines are answered 8AM to 5PM Saturday - Saturday. Workers??? Compensation: Please contact our department for any Work Comp concerns at Email: [email or web address] Right ankle Schedule MRI Can return for results, or just get results with Dr Quinonez Schedule consult with Dr Quinonez documented in this encounter Progress Notes Narinder Souza MD - 10/29/2018 1:15 PM CDT Edilma Reed [id number] [address] [facility] Acute Injury Clinic 10/29/2018 Chief Complaint: Right ankle pain History of Present Illness: Edilma Reed is a 18 y.o. female who presents for evaluation of right ankle pain. She also reports having swelling and bruising. Her Symptoms are persisting since April. She rates her pain a 4-5 out of 10. She has tried rest, ice, and compression. Rest makes this better. Activity makes this worse. She had 2 prior ankle arthroscopies, in October and February of 2018. 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 She did go to physical therapy after her surgery. The patient denies fever, chills, night sweats, rashes, swelling, weakness, tingling and numbness. Review of Systems: (+) Right ankle pain (+) Bruising (+) Swelling (-) Fever (-) Rash (-) Numbness (-) Tingling Past Medical History: The patient has no past medical history on file. Past Surgical History: The patient has a past surgical history that includes Ankle arthroscopy (Right). Social History: She is a student at [employer]. 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 Physical Exam: BP 104/66 Temp 36.7 ??C (98.1 ??F) (Oral) Wt 54 kg (119 lb) Skin: No erythema. There is some ecchymosis both medial and laterally. Neuro: Sensation intact. Cardiovascular: Normal capillary refill. Right Foot/Ankle: She has TTP over the medial ankle just distal to the medial malleolus. She has tenderness over the ATF. She has some laxity but solid end- points with anterior drawer. She has some pain with Talar Tilt. She has pain with toe walking and heel walking. She does have some tenderness overthe anterior process of the calcaneus. Non-tender over the achilles insertion. Non- tender over the lisfranc joint and first metatarsophalangeal joint. Non-tender over the navicular and cuboid. Non-tender over the fifth metatarsal. Imaging: XR Ankle Rt 3 Views (10/29/18): FINDINGS: 3 views of the right ankle. Questionable cortical irregularity at the distal tip of the anterior process of the calcaneus. This could represent a minimally displaced fracture versus superimposed shadows. This could be better characterized with cross-sectional imaging if clinically indicated.Joint spaces preserved. Ankle mortise intact. I ordered and independently reviewed and interpreted the imaging studies above; the results were discussed with the patient. Assessment: Diagnosis and Associated Orders ICD-10-CM 1. Arthralgia of right ankle M25.571 XR Ankle Rt 3 Views MR Ankle Rt WO IV Cont Plan: Educated the patient regarding her condition and management. She has had chronic issues with this ankle, again she has had physical therapy and two arthroscopes. After a discussion recommended obtaining an MRI for further evaluation and to help guide treatment. The patient verbalized understanding. Follow-up after MRI with Dr. Quinonez for consultation and a second opinion. Scribed for Narinder Souza MD by Mitchell Richardson Rf Microwave Engineer. I, Narinder Souza MD, have personally reviewed and agree with the information provided by the scribe. Narinder Souza MD documented in this encounter Plan of Treatment Not on filedocumented as of this encounter Results MR Ankle Rt WO IV Cont (10/30/2018 9:18 AM CDT) Anatomical Region Laterality Modality Lower Extremity, Ankle, Foot, Leg, Skeletal, Foot & Right Magnetic Resonance Ankle Specimen (Source) Anatomical Collection Method Collection Time Re ceived Time Location / / Volume Laterality 10/30/2018 8:55 AM CDT Impressions 10/30/2018 9:34 AM CDT TECHNIQUE: ?? Routine MRI of the right ankle was performed without contrast. COMPARISON: ??Radiographs 10/29/2018, MR I 12/19/2017. FINDINGS: TENDONS: ??The peroneus longus and brevi s tendons are normal. The tibialis posterior, flexor digitorum and flexor hallucis longus tendons are normal. Mild seen tenosynovitis at the extensor digitorum lo ngus tendons, more pronounced compared t o prior. LIGAMENTS: ??The anterior and posterior talofibular ligaments and the calcaneofibular ligament are normal. The anterior and posterior inferior tibiofibular ligaments are normal. The deltoid ligament complex is intact. JOINTS: ??Small tibiotalar joint effusio n, more pronounced compared to prior. Minimal chondral thinning along the far posterior aspect of the tibia without any subchondral edema or osteochondral lesions identified. The talonavicular, calcaneo cuboid and subtalar joints are unremarkable without evidence of focal cartilage defect. The sinus tarsi is normal. The talocalcaneal ligament is normal. ACHILLES TENDON/PLANTAR FASCIA: ??The Ac hilles tendon and plantar fascia are normal. There is no significant fluid in the retrocalcaneal bursa. MARROW AND SOFT TISSUES: ??Marrow signal is normal. Specifically, no fractures identified at the anterior process of the calcaneus. No solid soft tissue mass. IMPRESSION: 1. Small nonspecific tibiotalar joint ef fusion. 2. Mild tenosynovitis at the extensor di gitorum longus tendons. 3. No fracture. 4. Intact ligaments. Procedure Note Jeison Díaz MD - 10/30/2018Formattin g of this note might be different from the original. IMPRESSION TECHNIQUE: Routine MRI of the right ankl e was performed without contrast. COMPARISON: Radiographs 10/29/2018, MRI 12/19/2017. FINDINGS: TENDONS: The peroneus longus and brevis tendons are normal. The tibialis posterior, flexor digitorum and flexor hallucis longus tendons are normal. Mild seen tenosynovitis at the extensor digitorum longus tendons, more pronounced compared to prior. LIGAMENTS: The anterior and posterior ta lofibular ligaments and the calcaneofibular ligament are normal. The anterior and posterior inferior tibiofibular ligaments are normal. The deltoid ligament complex is intact. JOINTS: Small tibiotalar joint effusion, more pronounced compared to prior. Minimal chondral thinning along the far posterior aspect of the tibia without any subchondral edema or osteochondral lesions identified. The talonavicular, calcaneocuboid and meyer btalar joints are unremarkable without evidence of focal cartilage defect. The sinus tarsi is normal. The talocalcaneal ligament is normal. ACHILLES TENDON/PLANTAR FASCIA: The Achi lles tendon and plantar fascia are normal. There is no significant fluid in the retrocalcaneal bursa. MARROW AND SOFT TISSUES: Marrow signal i s normal. Specifically, no fractures identified at the anterior process of the calcaneus. No solid soft tissue mass. IMPRESSION: 1. Small nonspecific tibiotalar joint ef fusion. 2. Mild tenosynovitis at the extensor di gitorum longus tendons. 3. No fracture. 4. Intact ligaments. Narinder Souza MD RAD MRI XR Ankle Rt 3 Views (10/29/2018 1:58 [...] Visit Diagnoses Diagnosis Arthralgia of right ankle - Primary Pain in joint, ankle and foot Arthralgia of right ankle Pain in joint, ankle and foot Arthralgia of right ankle Pain in joint, ankle and foot documented in this encounter Care Teams Head Operator Relationship Specialty Start Date End Date Andres Ramirez MD PCP - General 06/06/10 04/06/19 [address] [place] [address] documented as of this encounter
--- OUTSIDE RECORDS SUMMARY | 2021-11-21 11:44 | XMS_ITS | Encounter Summary ---
:2000 Author Organization [facility] Address [address] [place] [address] Care Team Providers Name Role Phone Andres Ramirez MD Primary Care Provider Reason for Visit Reason Comments Follow-up right ankle MRI results Encounter Details Date Type Department Care Team Description 10/30/2018 Office Visit [facility] Narinder Souza, Arthra priscila of right ankle (Primary Dx); Urgent Care Hx of arthroscopy [address] [place] [address] [place], [place] [phone] (Wo rk) Social History Tobacco Use Types Packs/Day Years Used Date Smoking Tobacco: Never Smokeless Tobacco: Never Sex Assigned at Date Recorded Not on file documented as of this encounter Last Filed Vital Signs Vital Sign Reading Time Taken Comments Blood Pressure - - Pulse - - Temperature 36.4 ??C (97.5 ??F) 10/30/2018 9:55 AM CDT Respiratory Rate - - Oxygen Saturation - - Inhaled Oxygen Concentration - - Weight - - Height - - Body Mass Index - - documented in this encounter Patient Instructions Patient InstructionsMei Gutierrez LPN - 10/30/2018 10:[address] Narinder Souza MD Sports & Orthopaedic Medicine Acute [facility] Clinic Medication Requests: Prescriptions are not filled on Weekends or on Weekdays after 3:00PM For all medication refills: Request a refill using MyChart or contact your Pharmacy Acute Injury Clinic Nurse Line: Please contact Acute Injury Clinic Nurse line for all medical requests and questions at [phone] MRI Scheduling: To schedule an MRI at [facility] please call [phone] Paperwork Requests: Questions regarding FMLA or disability paperwork please call [phone] Phone lines are answered 8AM to 5PM Saturday - Saturday. Workers??? Compensation: Please contact our department for any Work Comp concerns at Email: [email or web address] Chronic ankle pain. Discussed MRI results. Take Tylenol or ibuprofen as needed. Place ice bag (you can use a bag of frozen vegetables or other commercial products) over the injuredarea. To avoid tissue injury from the cold ice bag, place a cloth or towel between the ice bag and the skin. It is recommended that ice be applied 3-5 times a day for up to 20 minutes at a time during the first 24-72 hours. Repeat every 2 hours as needed. Your Provider would like you to schedule a Follow Up with Dr. Quinonez. Appointment Scheduling: Can be done at the motel front desk clerk or by calling our main number [phone] documented in this encounter Progress Notes Narinder Souza MD - 10/30/2018 10:00 AM CDT Edilma Reed [id number] [address] [facility] Orthopaedic Center Acute Injury Clinic Follow-Up 10/30/2018 History of Present Illness: Edilma Reed is a 18 y.o. female who presents for follow-up regarding right ankle pain. She was evaluated in my office yesterday for recurring right ankle pain. She has not fully recovered from her mostrecent ankle arthroscopies. An MRI was ordered for evaluation. She presents today to go over the results. She reports that she is leaving for college on 11/01/18. Physical Exam: Deferred. Imaging: MR Ankle Rt WO IV Cont (10/30/18): IMPRESSION: 1. Small nonspecific tibiotalar joint effusion. 2. Mild tenosynovitis at the extensor digitorum longus tendons. 3. No fracture. 4. Intact ligaments. Report per radiology. I ordered and independently reviewed the imaging study above; the results were discussed with the patient and mother. Assessment: Diagnosis and Associated Orders ICD-10-CM 1. Arthralgia of right ankle M25.571 Plan: Educated the patient and mother regarding her condition and management. After a discussion recommended a possible US guided aspiration. I will provide a consult with Dr. Quinonez for further evaluation given her history despite a relatively benign MRI and multiple surgeries. The patient and mother verbalized understanding. Follow-up at the [facility] on a PRN basis. Scribed for Narinder Souza MD by Mitchell Richardson Data Programmer. I, Narinder Souza MD, have personally reviewed and agree with the information provided by the scribe. Narinder Souza MD documented in this encounter Plan of Treatment Not on filedocumented as of this encounter Visit Diagnoses Diagnosis Arthralgia of right ankle - Primary Pain in joint, ankle and foot Hx of arthroscopy Other postprocedural status documented in this encounter Care Teams Angle Dozer Operator Relationship Specialty Start Date End Date Andres Ramirez MD PCP - General 06/06/10 04/06/19 [address] [place] [address] documented as of this encounter
--- OUTSIDE RECORDS SUMMARY | 2021-11-21 11:44 | XMS_ITS | Encounter Summary ---
:2000 Author Organization [facility] Address [address], [place] [address] Care Team Providers Name Role Phone Andres Ramirez MD Primary Care Provider Reason for Visit Procedure/Equipment (Routine) - Incomplete Specialty Diagnoses / Procedures Referred By Contact Refer red To Contact Procedures Provider, Foreign Images Foreign Image(S) XR [facility] [facility] [place] [place] [address] Referral ID Status Reason Start Date Expiration Date Visits V isits Requested Authorized [id number] Incomplete 10/29/2018 01/28/2020 1 1 Encounter Details Date Type Department Care Team Description 02/21/2018 Ancillary Procedure [facility] Radiology PACS Provider, [address] [place] [address] [address] [place] [address] Social History Tobacco Use Types Packs/Day Years Used Date Smoking Tobacco: Never Sex Assigned at Date Recorded Not on file documented as of this encounter Plan of Treatment Not on filedocumented as of this encounter Procedures Procedure Name Priority Date/Time Associated Comments Diagnosis FOREIGN IMAGE(S) XR Routine 02/21/2018 2:00 PM Re sults for this FLUOROSCOPY LIFE SCIENCE RESEARCH ASSISTANT procedure are i n the results section. documented in this encounter Results Foreign Image(S) XR Fluoroscopy (02/21/2018 2:00 PM LIFE SCIENCE RESEARCH ASSISTANT) Specimen (Source) Anatomical Location Collection Method / Collectio n Time Received Time / Laterality Volume Narrative POCT - 10/29/2018 1:59 PM CDT These outside images have been uploaded into PACS. If the results were provided, they will be located in the arina serrano's chart under the Media or Imaging tab. Foreign Images Provider RAD NON-REPORTABLES Performing Organization Address City/State/ZIP Code Phon e Number POCT documented in this encounter Visit Diagnoses Not on filedocumented in this encounter Care Teams Glazier Supervisor Relationship Specialty Start Date End Date Andres Ramirez MD PCP - General 06/06/10 04/06/[address] [place] [address] [facility] [place] [address] documented as of this encounter
--- OUTSIDE RECORDS SUMMARY | 2021-11-21 11:44 | XMS_ITS | Encounter Summary ---
:[address] [facility] Address [address], [place] [address] Care Team Providers Name Role Phone Andres Ramirez MD Primary Care Provider Reason for Visit Procedure/Equipment (Routine) - Incomplete Specialty Diagnoses / Procedures Referred By Contact Refer red To Contact Procedures Provider, Foreign Images Foreign Image(S) XR [address] [facility] [place] [address] Referral ID Status Reason Start Date Expiration Date Visits V isits Requested Authorized [id number] Incomplete 10/29/2018 01/28/2020 1 1 Encounter Details Date Type Department Care Team Description 10/26/2015 Ancillary Procedure [facility] Radiology PACS Provider, Foreign [address] [place] [address] [address] [place] [address] Social History Tobacco Use Types Packs/Day Years Used Date Smoking Tobacco: Never Sex Assigned at Date Recorded Not on file documented as of this encounter Plan of Treatment Not on filedocumented as of this encounter Procedures Procedure Name Priority Date/Time Associated Comments Diagnosis FOREIGN IMAGE(S) XR Routine 10/26/2015 2:15 PM Re sults for this FLUOROSCOPY CDT procedure are i n the results section. documented in this encounter Results Foreign Image(S) XR Fluoroscopy (10/26/2015 2:15 PM CDT) Specimen (Source) Anatomical Location Collection Method / Collectio n Time Received Time / Laterality Volume Narrative POCT - 10/29/2018 2:13 PM CDT These outside images have been uploaded into PACS. If the results were provided, they will be located in the arina serrano's chart under the Media or Imaging tab. Foreign Images Provider RAD NON-REPORTABLES Performing Organization Address City/State/ZIP Code Phon e Number POCT documented in this encounter Visit Diagnoses Not on filedocumented in this encounter Care Teams Senior Java Software Developer Relationship Specialty Start Date End Date Andres Ramirez MD PCP - General 06/06/10 04/06/[address] [place] [address] [facility] [place] [address] documented as of this encounter
--- OUTSIDE RECORDS SUMMARY | 2021-11-21 11:44 | XMS_ITS | Encounter Summary ---
:2000 Author Organization [facility] Address [address] [address] Care Team Providers Name Role Phone Andres Ramirez MD Primary Care Provider Reason for Visit Procedure/Equipment (Routine) - Incomplete Specialty Diagnoses / Procedures Referred By Contact Refer red To Contact Diagnoses Arthralgia of right ankle Narinder Souza MD Procedures MR Ankle Rt WO IV Cont [address] [facility] [address] [place] [address] Referral ID Status Reason Start Date Expiration Date Visits V isits Requested Authorized [id number] Incomplete 10/29/2018 01/28/2020 1 1 Encounter Details Date Type Department Care Team Description 10/30/2018 Ancillary [facility] MRI Narinder Souza, Arthralgia of right Procedure [address] [facility] [place] [address] [phone] Social History Tobacco Use Types Packs/Day Years Used Date Smoking Tobacco: Never Smokeless Tobacco: Never Sex Assigned at Date Recorded Not on file documented as of this encounter Plan of Treatment Not on filedocumented as of this encounter Procedures Procedure Name Priority Date/Time Associated Diagnosis Comme nts MR ANKLE RT WO IV Routine 10/30/2018 9:18 AM Arthralgia of rig ht Results for this CONT CDT ankle procedure are i n the results section. documented in this encounter Results MR Ankle Rt WO [...] ligaments. Procedure Note Jeison Díaz MD - 10/30/2018Formattefrem g of this note might be different [...] Intact ligaments. Narinder Souza MD RAD MRI documented in this encounter Visit Diagnoses Diagnosis Arthralgia of right ankle Pain in joint, ankle and foot documented in this encounter Care Teams Geophysical Computer Relationship Specialty Start Date End Date Andrse Ramirez MD PCP - General 06/06/10 04/06/[address] [place] [facility] [place] [address] documented as of this encounter
--- OUTSIDE RECORDS SUMMARY | 2021-11-21 11:44 | XMS_ITS | Encounter Summary ---
:2000 Author Organization [facility] Address [address], [place] [address] Care Team Providers Name Role Phone Andres Ramirez MD Primary Care Provider Encounter Details Date Type Department Care Team Description 01/06/2009 Nursing Visit [facility] [address] [facility] MD Mandy [address] [place], [place] [address] [place] [address] [phone] (Wo rk) Social History Tobacco Use Types Packs/Day Years Used Date Smoking Tobacco: Never Assessed Sex Assigned at Date Recorded Not on file documented as of this encounter Plan of Treatment Not on filedocumented as of this encounter Visit Diagnoses Not on filedocumented in this encounter Care Teams Crystalizer Tender Relationship Specialty Start Date End Date Andres Ramirez MD PCP - General 06/06/10 04/06/19 [address] [place] [address] documented as of this encounter
--- OUTSIDE RECORDS SUMMARY | 2021-11-21 11:44 | XMS_ITS | Encounter Summary ---
:2000 Author Organization [facility] Address [address], [place] [address] Care Team Providers Name Role Phone Andres Ramirez MD Primary Care Provider Reason for Visit Procedure/Equipment (Routine) - Incomplete Specialty Diagnoses / Procedures Referred By Contact Refer red To Contact Procedures Provider, Foreign Images Foreign Image(S) MR Ankle Rt [address] [place] [address] Referral ID Status Reason Start Date Expiration Date Visits V isits Requested Authorized [id number] Incomplete 10/29/2018 01/28/2020 1 1 Encounter Details Date Type Department Care Team Description 12/19/2017 Ancillary Procedure [facility] Radiology PACS Provider, [place] [address] [address] [place] [address] Social History Tobacco Use Types Packs/Day Years Used Date Smoking Tobacco: Never Sex Assigned at Date Recorded Not on file documented as of this encounter Plan of Treatment Not on filedocumented as of this encounter Procedures Procedure Name Priority Date/Time Associated Diagnosis Comme nts FOREIGN IMAGE(S) MR Routine 12/19/2017 2:05 PM Re sults for this ANKLE RT CDT procedure are i n the results section. documented in this encounter Results Foreign Image(S) MR Ankle Rt (12/19/2017 2:05 PM CDT) Specimen (Source) Anatomical Location Collection Method / Collectio n Time Received Time / Laterality Volume Narrative POCT - 10/29/2018 2:02 PM CDT These outside images have been uploaded into PACS. If the results were provided, they will be located in the nd zach's chart under the Media or Imaging tab. Foreign Images Provider RAD NON-REPORTABLES Performing Organization Address City/State/ZIP Code Phon e Number POCT documented in this encounter Visit Diagnoses Not on filedocumented in this encounter Care Teams Tool Carrier Relationship Specialty Start Date End Date Andres Ramirez MD PCP - General 06/06/10 04/06/[address] [place] [address] [facility] [address] [place] [address] documented as of this encounter
--- OUTSIDE RECORDS SUMMARY | 2021-11-21 11:44 | XMS_ITS | Encounter Summary ---
:2000 Author Organization [facility] Address [address], [place] [address] Care Team Providers Name Role Phone Andres Ramirez MD Primary Care Provider Reason for Visit Procedure/Equipment (Routine) - Incomplete Specialty Diagnoses / Procedures Referred By Contact Refer red To Contact Procedures Provider, Foreign Images Foreign Image(S) XR Ankle Rt [address] [place] [address] Referral ID Status Reason Start Date Expiration Date Visits V isits Requested Authorized [id number] Incomplete 10/29/2018 01/28/2020 1 1 Encounter Details Date Type Department Care Team Description 08/09/2015 Ancillary Procedure [facility] Radiology PACS Provider, [address] [place] [address] [address] [place] [address] Social History Tobacco Use Types Packs/Day Years Used Date Smoking Tobacco: Never Assessed Sex Assigned at Date Recorded Not on file documented as of this encounter Plan of Treatment Not on filedocumented as of this encounter Procedures Procedure Name Priority Date/Time Associated Diagnosis Comme nts FOREIGN IMAGE(S) XR Routine 08/09/2015 2:20 PM Re sults for this ANKLE RT CDT procedure are i n the results section. documented in this encounter Results Foreign Image(S) XR Ankle Rt (08/09/2015 2:20 PM CDT) Specimen (Source) Anatomical Location Collection Method / Collectio n Time Received Time / Laterality Volume Narrative POCT - 10/29/2018 2:18 PM CDT These outside images have been uploaded into PACS. If the results were provided, they will be located in the or zach's chart under the Media or Imaging tab. Foreign Images Provider RAD NON-REPORTABLES Performing Organization Address City/State/ZIP Code Phon e Number POCT documented in this encounter Visit Diagnoses Not on filedocumented in this encounter Care Teams General Maintenance Helper Relationship Specialty Start Date End Date Andres Ramirez MD PCP - General 06/06/10 04/06/[address] [place] [address] [place] [address] documented as of this encounter
--- OUTSIDE RECORDS SUMMARY | 2021-11-21 11:45 | XMS_ITS | Encounter Summary ---
:2000 Author Organization [facility] Address [address], [place] [address] Care Team Providers Name Role Phone Andres Ramirez MD Primary Care Provider Encounter Details Date Type Department Care Team Description 01/20/2005 PN Conversion Only [address] [place] [address] Social History Tobacco Use Types Packs/Day Years Used Date Smoking Tobacco: Never Assessed Sex Assigned at Date Recorded Not on file documented as of this encounter Plan of Treatment Not on filedocumented as of this encounter Visit Diagnoses Not on filedocumented in this encounter Care Teams Auto Design Checker Relationship Specialty Start Date End Date Andres Ramirez MD PCP - General 06/06/10 04/06/19 [address] [place] [address] documented as of this encounter
--- OUTSIDE RECORDS SUMMARY | 2021-11-21 11:45 | XMS_ITS | Encounter Summary ---
:2000 Author Organization [facility] Address [address] [place] [address] Care Team Providers Name Role Phone Andres Ramirez MD Primary Care Provider Encounter Details Date Type Department Care Team Description 01/20/2005 Office Visit [facility] Niko Littlejohn MD [address] [place] [address] [place] [address] [place], [place] [phone] (Wo rk) Social History Tobacco Use Types Packs/Day Years Used Date Smoking Tobacco: Never Assessed Sex Assigned at Date Recorded Not on file documented as of this encounter Last Filed Vital Signs Vital Sign Reading Time Taken Comments Blood Pressure - - Pulse 176 01/20/2005 4:03 PM ARCHERY EQUIPMENT REPAIRER Temperature 36.7 ??C (98.1 ??F) 01/20/2005 4:03 PM ARCHERY EQUIPMENT REPAIRER C: 36 .7 C Respiratory Rate 24 01/20/2005 4:03 PM ARCHERY EQUIPMENT REPAIRER Oxygen Saturation - - Inhaled Oxygen Concentration - - Weight 14.9 kg (32 lb 12.5 oz) 01/20/2005 4:03 PM ARCHERY EQUIPMENT REPAIRER C : 14.9kg Height - - Body Mass Index - - documented in this encounter Progress Notes Niko Littlejohn MD - 01/20/2005 12:01 AM CST Progress Notes signed by Niko Littlejohn MD at 01/22/05 0802 Author: Niko Littlejohn MD Service: (none) Author Type: Physician Filed: 06/23/10 0843 Note Time: 01/20/052019 Status: Signed Supervisor Bottle Machines: Niko Littlejohn MD (Physician) NAME: ADÁN CALI MR: [id number] ACCT: [id number] VISIT: [id number] DICTATING CLINICIAN: NIKO LITTLEJOHN MD JOB: [id number] CLINIC PROGRESS NOTE DATE OF VISIT: 01/20/2005 SUBJECTIVE: She is a 4-year-old female here with her mom complaining of eyes being matted shut this morning. This is a chief complaint but also cough for the last couple days with some reduced level of activity, vomiting times one today. No abdominal pain, diarrhea, fever. She ate less than usual today. Other members in the family have had similar symptoms. Patient goes to preschool. PAST MEDICAL HISTORY: Unremarkable. ADR/ALLERGIES: REVIEWED IN PATIENT HEALTH PROFILE OF [facility]. MEDICATIONS: Reviewed in patient health profile in [facility]. OBJECTIVE: VS: T: 98. P: 76. R: 24. Wt: 32.8 lb. Patient looks in no acute distress. She does have erythema over the conjunctivae bilaterally with purulent discharge. Ears are clear. Oropharynx benign. No cervical adenopathy. LUNGS: Clear to auscultation. ABDOMEN: Benign with no organomegaly or tenderness. ASSESSMENT: 1. Cough, likely viral etiology. 2. Conjunctivitis, purulent drainage. PLAN: Mom understands patient should be considered contagious for 24 hours, will start on Polytrim ophthalmic solution to use as directed. Apply moist heat is discussed, return per needed basis. OS:[id number] C: 01/22/05 06:39 DOCUMENT: [id number] ERY EQUIPMENT REPAIRER documented in this encounter Plan of Treatment Not on filedocumented as of this encounter Visit Diagnoses Not on filedocumented in this encounter Care Teams Leather Stitcher Relationship Specialty Start Date End Date Andres Ramirez MD PCP - General 06/06/10 04/06/[address] [place] [facility] [place] [address] documented as of this encounter
--- OUTSIDE RECORDS SUMMARY | 2021-11-21 11:45 | XMS_ITS | Encounter Summary ---
:2000 Author Organization [facility] Address [address] [address] Care Team Providers Name Role Phone Andres Ramirez MD Primary Care Provider Encounter Details Date Type Department Care Team Description 07/06/2007 PN Conversion Only [place] [facility] Waldo Cutler MD [address] [place] [address] Social History Tobacco Use Types Packs/Day Years Used Date Smoking Tobacco: Never Assessed Sex Assigned at Date Recorded Not on file documented as of this encounter Plan of Treatment Not on filedocumented as of this encounter Procedures Procedure Name Priority Date/Time Associated Diagnosis Comme nts STREP GROUP A Routine 07/06/2007 11:05 AM Results for this ANTIGEN TEST CDT procedure are i n the results section. BETA STREP FOLLOWUP Routine 07/06/2007 11:05 AM R esults for this CDT procedure are i n the results section. documented in this encounter Results Strep Group A Antigen Test (07/06/2007 11:05 AM CDT) Analysis Performed At Patho logist Time Signature Strep Group A Negative Negative HP CONVERSION Antigen Test Comment: Culture to follow. Specimen (Source) Anatomical Collection Method Collection Time Re ceived Time Location / / Volume Laterality 07/06/2007 11:05 AM CDT Waldo Cutler MD LAB_1 Performing Organization Address City/State/ZIP Code Phon e Number HP CONVERSION (ABNORMAL) Beta Strep Followup (07/06/2007 11:05 AM CDT) [facility] Strep Screen SEE TEXT HP CONVERSION (A) Comment: Patient: EDILMA CALI Rapid Strep Follow up Culture ? Collected: ??[id number] ??[id number] Source: Throat ?Processed: ??[id number] ??[id number] Final Report ------ ?[id number] ??[id number] Beta Strep Group A Present. ICSI Pharyngitis guideline recommends Penicillin V potassium (Pen VK) in nonal lergic patients. If < 50 lbs, 250 mg PenVK BID for 10 day s. >=50 lbs, 500 mg PenVK BID for 10 days. Specimen (Source) Anatomical Collection Method Collection Time Re ceived Time Location / / Volume Laterality 07/06/2007 11:05 AM CDT Waldo Cutler MD LAB_1 Performing Organization Address City/State/ZIP Code Phon e Number HP CONVERSION documented in this encounter Visit Diagnoses Not on filedocumented in this encounter Care Teams Records Management Director Relationship Specialty Start Date End Date Andres Ramirez MD PCP - General 06/06/10 04/06/19 [address] [place] [address] documented as of this encounter
--- OUTSIDE RECORDS SUMMARY | 2021-11-21 11:45 | XMS_ITS | Encounter Summary ---
:[address] [facility] Address [address] [address] Care Team Providers Name Role Phone Andres Ramirez MD Primary Care Provider Encounter Details Date Type Department Care Team Description 04/28/2006 PN Conversion Only [address] [place] [address] Social History Tobacco Use Types Packs/Day Years Used Date Smoking Tobacco: Never Assessed Sex Assigned at Date Recorded Not on file documented as of this encounter Plan of Treatment Not on filedocumented as of this encounter Visit Diagnoses Not on filedocumented in this encounter Care Teams Field Mechanical Meter Tester Relationship Specialty Start Date End Date Andres Ramirez MD PCP - General 06/06/10 04/06/19 [address] [place] [address] documented as of this encounter
--- OUTSIDE RECORDS SUMMARY | 2021-11-21 11:45 | XMS_ITS | Encounter Summary ---
:2000 Author Organization [facility] Address [address] [address] Care Team Providers Name Role Phone Andres Ramirez MD Primary Care Provider Reason for Visit Reason Comments Other Encounter Details Date Type Department Care Team Description 07/07/2007 Telephone [facility] Ca re Maria Antonia Núñez Other [address] [place] [address] Social History Tobacco Use Types Packs/Day Years Used Date Smoking Tobacco: Never Assessed Sex Assigned at Date Recorded Not on file documented as of this encounter Progress Notes [place] [facility] - 07/07/2007 9:56 AM CDT Phone Note filed by [facility] Quinton at 06/21/101938 Author: Jory Alcantara Service: (none) Author Type: (none) Filed: 06/21/101938 Note Time: 07/07/07955 Status: Signed Sheet Metal Mechanic: Jory Alcantara I notified the mother of the positive 24 hr strep. Pt is on Ammoxicillin and I informed the mother to have the pt finish all of the medication and f/u for any further or worsening sx. I also informed the mother to get the pt a new toothbrush. Mother agreed. Created on 07Jul2007 9:56am by MARIA ANTONIA NÚÑEZ INVENTORY CONTROL EXECUTIVE documented in this encounter Plan of Treatment Not on filedocumented as of this encounter Visit Diagnoses Not on filedocumented in this encounter Care Teams Ion Implant Machine Operator Relationship Specialty Start Date End Date Andres Ramirez MD PCP - General 06/06/10 04/06/[address] [place] [facility] [place] [address] documented as of this encounter
--- OUTSIDE RECORDS SUMMARY | 2021-11-21 11:45 | XMS_ITS | Encounter Summary ---
:2000 Author Organization [email or web address] Address [address] [place] [address] Care Team Providers Name Role Phone Andres Ramirez MD Primary Care Provider Encounter Details Date Type Department Care Team Description 07/06/2007 Office Visit [facility] re Minda Steele PA-C [address] [place] [address] [place], [place] [id number] (Wo rk) Social History Tobacco Use Types Packs/Day Years Used Date Smoking Tobacco: Never Assessed Sex Assigned at Date Recorded Not on file documented as of this encounter Last Filed Vital Signs Vital Sign Reading Time Taken Comments Blood Pressure - - Pulse 112 07/06/2007 9:51 AM CDT Temperature 36.9 ??C (98.4 ??F) 07/06/2007 9:51 AM ORAL C: 3 6.9 C CDT Respiratory Rate 20 07/06/2007 9:51 AM CDT Oxygen Saturation 98% 07/06/2007 9:51 AM C: room air CDT Inhaled Oxygen Concentration - - Weight 19.4 kg (42 lb 12.7 07/06/2007 9:51 AM C: 19.4kg oz) CDT Height - - Body Mass Index - - documented in this encounter Progress Notes Minda Steele PA-C - 07/06/2007 12:01 AM CDT Progress Notes signed by Minda Steele PA-C at 07/08/07 0946 Author: Minda Steele PA-C Service: (none) Author Type: Physician First Front Ventilator Filed: 06/24/10 0407 Note Time: 07/06/07 0001 Status: Signed Maintainer Central Office: Minda Steele PA-C (Physician [employer] Front Ventilator) NAME: ADÁN CALI MR#: [id number] ACCT: [id number] VISIT: [id number] DICTATING CLINICIAN: Minda Steele PA-C JOB: [id number] LOC: 3620 CLINIC PROGRESS NOTE DATE OF VISIT: 07/06/2007 SUBJECTIVE: : 2000. CHIEF COMPLAINT: Cold symptoms. HPI: Adán is a 6-year-old female who presents with cold symptoms for the last week. Had sore throat previously, which has improved. She has also had a cough, which is productive. Mom attributes the cough to some postnasal drip. She had some low grade fevers in the beginning, which has since improved also. Her main concern is that she has had rhinorrhea, congestion, and lately more sinus pressure and pain. Her teeth do not ache. She has had thick nasal discharge. Denies any ear pain. Her brother had similar symptoms with colds but has been improving without treatment. She has been using Motrin, which does help. REVIEW OF SYSTEMS: No abdominal pain, vomiting, or diarrhea. No skin rashes, sores, or lesions. Complete review of systems otherwise negative. PAST MEDICAL HISTORY: None. MEDICATIONS: Reviewed and updated in [employer]. ADR/ALLERGIES: NO KNOWN DRUG ALLERGIES. SOCIAL HISTORY: Denies smoke exposure. OBJECTIVE: VS: T: 98.4. P: 112. R: 20. Wt: 42.8 lb. Oxygen saturation: 98% on room air. GENERAL: Pleasant white female in no acute distress, nontoxic. Alert and interactive, does not appear ill. HEENT: Eyes: PERRLA. EOMs intact. Conjunctivae normal. No drainage or discharge. Ears and ear canals: No swelling or drainage. TMs easily visualized without erythema, injection, or effusion. Sinuses: She does have tenderness over the maxillary sinuses bilaterally. No facial swelling. No significant congestion noted. Oropharynx: Moist mucosa. No oral lesions. No posterior pharyngeal erythema, exudate, or swelling. Tonsils are within normal size. Airways intact with normal phonation. NECK: Neck is supple, without lymphadenopathy. CARDIOVASCULAR: Regular rate and rhythm. No murmurs, rubs, or gallops. LUNGS: Clear to auscultation bilaterally. Good air flow throughout. Lungs clear with normal effort. ABDOMEN: Soft, nontender, nondistended. No organomegaly. No masses or hernias noted. SKIN: Warm and dry to touch. Rapid strep obtained today, was negative. ASSESSMENT: 1. Acute sinusitis. 2. Cough. PLAN: Discussed with Mom that I am concerned about sinusitis given the symptoms that she is having. Prescription for amoxicillin 400/5 4 mL b.i.d. x10 days was given. Recommend a decongestant such as Claritin or Benadryl for the symptoms also. Encouraged fluids and rest. Follow up with primary care in 10-14 days if symptoms not improving. To return here sooner if worsening symptoms before then. She is agreeable to this plan. All questions were answered. ALB:[id number] C: 07/07/07 10:49 DOCUMENT: [id number] documented in this encounter Plan of Treatment Not on filedocumented as of this encounter Visit Diagnoses Not on filedocumented in this encounter Care Teams Horse Groomer Relationship Specialty Start Date End Date Andres Ramirez MD PCP - General 06/06/10 04/06/[address] [place] [address] documented as of this encounter
--- OUTSIDE RECORDS SUMMARY | 2021-11-21 11:45 | XMS_ITS | Encounter Summary ---
:2000 Author [facility] Address [address], [place] [address] Care Team Providers Name Role Phone Andres Ramirez MD Primary Care Provider Encounter Details Date Type Department Care Team Description 12/24/2008 Nursing Visit [facility] Jimi Montalvo MD [address] [place] [address] [place] [address] [phone] (Wo rk) Social History Tobacco Use Types Packs/Day Years Used Date Smoking Tobacco: Never Assessed Sex Assigned at Date Recorded Not on file documented as of this encounter Plan of Treatment Not on filedocumented as of this encounter Visit Diagnoses Not on filedocumented in this encounter Care Teams [employer] Combination Teacher Relationship Specialty Start Date End Date Andres Ramirez MD PCP - General 06/06/10 04/06/[address] [place] [address] documented as of this encounter
--- OUTSIDE RECORDS SUMMARY | 2021-11-21 11:45 | XMS_ITS | Encounter Summary ---
:2000 Author Organization [employer] Address [address], [place] [address] Care Team Providers Name Role Phone Andres Ramirez MD Primary Care Provider Encounter Details Date Type Department Care Team Description 04/28/2006 Office Visit [facility] Willis Quinones MD [address] [facility] [address] [address] [place] [address] [phone] Social History Tobacco Use Types Packs/Day Years Used Date Smoking Tobacco: Never Assessed Sex Assigned at Date Recorded Not on file documented as of this encounter Last Filed Vital Signs Vital Sign Reading Time Taken Comments Blood Pressure - - Pulse 128 04/28/2006 10:11 AM TRAFFIC SAFETY ADMINISTRATOR Temperature 36.7 ??C (98.1 ??F) 04/28/2006 10:11 AM ORAL C: 36.7 C TRAFFIC SAFETY ADMINISTRATOR Respiratory Rate 22 04/28/2006 10:11 AM TRAFFIC SAFETY ADMINISTRATOR Oxygen Saturation - - Inhaled Oxygen Concentration - - Weight 44.4 kg (97 lb 15.9 04/28/2006 10:11 AM C: 44.5k g oz) TRAFFIC SAFETY ADMINISTRATOR Height - - Body Mass Index - - documented in this encounter Progress Notes Willis Quinones - 04/28/2006 12:01 AM CST Progress Notes signed by Willis Quinones MD at 05/26/06 5823 Author: Willis Quinones MD Service: (none) Author Type: Physician Filed: 06/23/10 7322 Note Time: 04/28/06 0001 Status: Signed Genetic Counselor: Willis Quinones MD (Physician) NAME: ADÁN CALI MR#: [id number] ACCT: [id number] VISIT: [id number] DICTATING CLINICIAN: WILLIS QUINONES MD JOB: [id number] LOC: 3620 CLINIC PROGRESS NOTE DATE OF VISIT: 04/28/2006 SUBJECTIVE: A 5-year-old comes to urgent care because of sore throat and vomiting. The patient has vomited about 5 times this morning. She had normal intake, no vomiting or diarrhea yesterday. Sore throat started yesterday, it has been moderately severe, owey She has had no coughing or cold symptoms. No other modified factors or associated symptoms. ADR/ALLERGIES: REVIEWED AND UPDATED IN [employer] FOR TODAY'S VISIT. MEDICATIONS: Reviewed and updated in [employer] for today's visit. PHSH: The patient had strep just 2 months ago. The patient has a history of repeated vomiting with strep. [facility] There is no passive smoke exposure. REVIEW OF SYSTEMS: Low-grade fever present. No dysphagia, trismus, wheezing or dyspnea. No diarrhea. The patient has urinated this morning, although less than normal. She remains ambulatory. OBJECTIVE: VS: T: 98. P: 128. R: 22. Wt: 32 lb. CONSTITUTIONAL: The patient appears tired, nontoxic and alert. SKIN: Warm and dry. Eyes clear, not sunken. ENT: Mouth is moist. Throat is erythematous. NECK: Fully supple. No reflex rigidity. LYMPHATIC: Moderate anterior cervical adenopathy present. LUNGS: Clear. The patient breathing easily. There are no wheezes, rales or rhonchi. Good breath sounds bilaterally. CARDIOVASCULAR: Regular sinus rhythm without gallop or murmur. ABDOMEN: No distention. Bowel sounds are active. There is no direct rebound tenderness present. No tympany. MUSCULOSKELETAL: The patient ambulatory. Prefers to lie down, but is ambulatory and walks out on her own accord. There is no CVA tenderness. NEUROLOGIC: Mildly tired, but not lethargic. Normally responsive. ASSESSMENT: 1. Vomiting. 2. Strep pharyngitis. PLAN: Rapid strep test positive. The patient is given a dose of Zofran 4 mg ODT. She vomited about 20 minutes after that, so she did get the dose but it was not fully effective yet. She is given an injection of penicillin 900/300 IM. She will use Zofran ODT 4 mg once or twice more today to prevent nausea and vomiting. Take small amounts frequently of liquids, particularly Gatorade and reassess at the [facility] if repeated vomiting or becoming more tired. No indication for IV hydration at this time. DMR:[id number] C: 04/28/06 11:37 DOCUMENT: [id number] FIC SAFETY ADMINISTRATOR documented in this encounter Plan of Treatment Not on filedocumented as of this encounter Visit Diagnoses Not on filedocumented in this encounter Care Teams Hat Blocker Relationship Specialty Start Date End Date Andres Ramirez MD PCP - General 06/06/10 04/06/19 [address] [place] [address] [facility] [address] documented as of this encounter
--- OUTSIDE RECORDS SUMMARY | 2021-11-21 11:45 | XMS_ITS | Encounter Summary ---
:2000 Author Organization [facility] Address [address] [address] Care Team Providers Name Role Phone Andres Ramirez MD Primary Care Provider Encounter Details Date Type Department Care Team Description 04/28/2006 PN Conversion Only Juan Pablo Wharton MD [address] [place] [address] [place] [address] [place] [address] Social History Tobacco Use Types Packs/Day Years Used Date Smoking Tobacco: Never Assessed Sex Assigned at Date Recorded Not on file documented as of this encounter Plan of Treatment Not on filedocumented as of this encounter Procedures Procedure Name Priority Date/Time Associated Diagnosis Comme nts STREP GROUP A Routine 04/28/2006 10:52 AM Results for this ANTIGEN TEST PRIVATE ADVISOR procedure are i n the results section. documented in this encounter Results Strep Group A Antigen Test (04/28/2006 10:52 AM PRIVATE ADVISOR) Analysis Performed At [facility] Time Signature Strep Group A Positive Negative HP CONVERSION Antigen Test Specimen (Source) Anatomical Collection Method Collection Time Re ceived Time Location / / Volume Laterality 04/28/2006 10:52 AM PRIVATE ADVISOR Juan Pablo Quinones MD LAB_1 Performing Organization Address City/State/ZIP Code Phon e Number HP CONVERSION documented in this encounter Visit Diagnoses Not on filedocumented in this encounter Care Teams Commercial Collections Driver Relationship Specialty Start Date End Date Andres Ramirez MD PCP - General 06/06/10 04/06/19 [address] [place] [address] [place] [address] documented as of this encounter
--- OUTSIDE RECORDS SUMMARY | 2021-11-21 11:45 | XMS_ITS | Encounter Summary ---
:2000 [facility] Address [address] [address] Care Team Providers Name Role Phone Andres Ramirez MD Primary Care Provider Encounter Details Date Type Department Care Team Description 12/21/2008 PN Conversion Only [place] [address] [place] [address] Social History Tobacco Use Types Packs/Day Years Used Date Smoking Tobacco: Never Assessed Sex Assigned at Date Recorded Not on file documented as of this encounter Plan of Treatment Not on filedocumented as of this encounter Visit Diagnoses Not on filedocumented in this encounter Care Teams Executive Account Manager Relationship Specialty Start Date End Date Andres Ramirez MD PCP - General 06/06/10 04/06/19 [address] [place] [address] documented as of this encounter
--- NOTE | 2021-11-21 12:00 | CRLHL7_ITS ---
For Patients: As a result of the 21st Century Cures Act, medical imaging exams and procedure reports are released immediately into your electronic medical record. You may view this report before your referring provider. If you have questions, please contact your health care provider. SOLID PHASE GASTRIC EMPTYING STUDY, 11/21/2021 CLINICAL HISTORY: 21-year-old female. Nausea and vomiting. TECHNIQUE: 1.01 mCi of [id number]-[id number] colloid was administered orally in a meal of 4 ounces of Egg Beaters and 4 ounces of water. Images of the stomach and abdomen were obtained in the anterior and posterior projections for 4 hours. FINDINGS: TIME % ACTIVITY REMAINING 0 minutes 100.0 60 minutes 29.4 90 minutes 12.4 120 minutes 5.6 240 minutes 0.3 IMPRESSION: The half-time of gastric emptying is between 0-60 minutes. This is within normal limits. JOAQUÍN ALBERT M.D. Transcribed: 11:37 a.m. [email or web address] jj/Dictated by: Joaquín Albert MD @ 11/22/2021 9:09:00 AM (Electronically Signed)
== END 2021-11-21 11:40 | disposition home or self-care (01) ==
PROVIDERS: Visit Provider Dietitian, Registered
DX: R11.2 Nausea with vomiting, unspecified (principal)
CPT/HCPCS: 78264; A9541